=== PATIENT | male | born 1945 | race Caucasian/White ===

== ENCOUNTER 2024-04-30 06:44 | Emergency (ER) | payer OTHER, SELFPAY ==
[2024-04-30] VITALS (17 sets, daily range): BP systolic 144–191; BP diastolic 75–115; PULSE 56–97; RESP 12–23; TEMP 36.7; O2SAT 95–100
--- NOTE | 2024-04-30 06:45 | RT.EKG_ITS ---
APPROVED REPORT Exam: Resting ECG Reason for Exam: Chest Pain Patient Location: E HR:94 bpm ECG Measurements Heart Rate 94 AXIS CA 183 P 3 QRSd 86 QRS -55 QT 357 T 32 QTc 446 Conclusion Sinus rhythm...normal P axis, V-rate 60- 99 Left atrial enlargement...P, P'>60mS, <-0.15mV V1 Left anterior fascicular block...axis(240,-40), init forces inf Left ventricular hypertrophy...multiple voltage criteria Anterior infarct, old...Q >40mS, abnormal ST-T, V2-V5
[2024-04-30 07:04] LABS: Abs Immature Grans 0.01 10^3/uL (0.0-0.06); Absolute Basophil Count 0.02 10^3/uL (0.0-0.2); Absolute Eosinophil Count 0.11 10^3/uL (0.0-0.7); Absolute Monocyte Count 0.44 10^3/uL (0.1-0.8); Absolute Neutrophil Count 3.84 10^3/uL (1.2-6.7); Basophils % 0.4 %; Eosinophils % 2.1 %; HCT 48.8 % (40.0-50.0); HGB 16.6 g/dL (13.5-17.5); Immature Grans % 0.2 %; Lymphocytes % 16.9 %; MCH 31.4 pg (27.0-33.0); MCV 92 fL (80-95); MPV 10.4 fL (8.0-11.0); Monocytes % 8.3 %; Neutrophils % 72.1 %; Platelet Count 140 10^3/uL (130-400); RBC 5.28 10^6/uL (4.36-5.78); RDW 12.7 % (11.8-14.1); RDW-SD 43.6 fL; WBC 5.32 10^3/uL (4.4-10.8)
--- NOTE | 2024-04-30 07:05 | ED.GENADUL_ITS ---
Discharge Plan Disposition Specific Acute Inpt Facility: [facility] Condition: Serious Discharge Details Chief Complaint: Chest Pain Clinical Impression: Non-ST elevation [place] (NSTEMI), Dyspnea Primary Care Provider: Unknown,Unknown ED Provider: Chilo Bauer Home Meds and New Rx's Prescriptions: No Action pantoprazole 40 mg tablet,delayed release (DR/EC) 40 mg PO DAILY tamsulosin 0.4 mg capsule 0.4 mg PO DAILY famciclovir 250 mg tablet 250 mg PO BID HPI General Mode of arrival: ambulatory . Date/Time Provider Initiated Documentation: 04/30/24 06:55 . Limitations to Documentation: no limitations . Information obtained by: patient . History of Present Illness 79 year old M p resents to the emergency department with the chief complaint of chest tightness, described as moderate, Patient started experiencing this day(s) (5) and it has been intermittent. No relieving factors improve symptom(s), No exacerbating factors reported . Patient notes shortness of breath; denies fever/chills and syncope. Patient did receive the following treatments prior to arrival, none Related Data Home Medications ?Medication ?Instructions ?Recorded ?Confirmed famciclovir 250 mg tablet 250 mg PO BID 03/30/22 04/30/24 pantoprazole 40 mg tablet,delayed 40 mg PO DAILY 03/30/22 04/30/24 release tamsulosin 0.4 mg capsule 0.4 mg PO DAILY 03/30/22 04/30/24 Allergies Allergy/AdvReac Type Severity Reaction Status Date / Time Penicillins Allergy Anaphylaxis Verified 04/30/24 06:51 General Stated Complaint: Chest Pain MONIQUE: 2 Review of Systems All systems reviewed & are unremarkable except as noted in HPI and below Constitutional Constitutional: Denies chills, Denies fever(s) and Denies weakness Cardiovascular Cardiovascular: Reports chest pain and Reports dyspnea Respiratory Respiratory: Denies cough and Reports dyspnea Gastrointestinal Gastrointestinal: Denies abdominal pain, Denies nausea and Denies vomiting Musculoskeletal Musculoskeletal: Denies joint swelling Neurologic Neurologic: Denies weakness Exam Const General: no acute distress Orientation: alert [facility] Head: normal to inspection Ears: external ears normal General nose exam: external nose normal Mouth: moist mucous membranes Eyes General: appearance normal, both eyes and all related structures Neck Neck: normal visual inspection Resp Effort & Inspection: normal respiratory effort and able to speak in complete sentences Auscultation: clear to auscultation bilaterally Cardio Jugular venous pressure: no JVD Rate: regular rate Heart Sounds: no murmurs GI Palpation: soft and nontender Skin General skin exam: no rashes or lesions noted Neuro General: patient alert and patient oriented x3 Extrem General: normal to inspection Psych Mental Status: mental status grossly normal Course Vital Signs Vital signs: Vital Signs Temperature 36.7 C 04/30/24 06:48 Pulse 97 H 04/30/24 06:48 Respiratory Rate 18 04/30/24 06:48 Blood Pressure 155/101 H 04/30/24 06:48 Pulse Oximetry 99 04/30/24 06:48 Temperature 36.7 C 04/30/24 06:48 Temperature Source Skin 04/30/24 06:48 Pulse 97 H 04/30/24 06:48 Respiratory Rate 18 04/30/24 06:48 Blood Pressure 155/101 H 04/30/24 06:48 Blood Pressure Position Sitting 04/30/24 06:48 Pulse Oximetry 99 04/30/24 06:48 Oxygen Delivery Method Room Air 04/30/24 06:48 Oxygen Flow Rate 0 04/30/24 06:48 Pain Level 7 04/30/24 06:48 Medical Decision Making 79-year-old male who says he has psoriatic arthritis, emphysema and continued smoker, GERD, no prior cardiac history comes in intermittent chest pressure associated with exertion along with some mild shortness of breath. He says this started the day after he was golfing which he has not done in 15 years. He also noted that his dog had an episode where he clipped his nail too short and had trouble controlling the bleeding which made him anxious. He denies any diaphoresis, nausea vomiting, fevers, cough. He is alert and oriented x 4 and arrival in no distress and appears well. He has no leg swelling or calf tenderness, soft nontender abdomen. Lungs are clear with no murmurs. Given his age and risk factors will obtain troponin, CBC, CMP, if his renal function is adequate will consider CTA of the chest to exclude PE. He has no tearing chest pain or back pain and normal equal peripheral pulses so doubt dissection. Patient stable, his troponin did come back positive at 78. Discussed results with him, I advised that we would recommend repeating a troponin and also consulting with cardiology at [facility]. Patient is visiting here from [place] so he is currently not thrilled about having to be hospitalized here and states he may leave AMA. He has medical decision-making capacity understands the risks of leaving including permanent and disability, he still is willing to accept these risks. He is willing to stay for second [place] and will reassess if you want to be hospitalized at that time.Patient updated on his lung nodule which he will need f/u imaging for as an outpatient. pt amenable to transfer and admission if needed now, he is feeling anxious and requesting something for anxiety, oral ativan ordered, will also start heparin infusion and consult [facility] Spoke with Geena Peoples from cardiology at [facility] who reviewed the case and they have excepted to their facility but will need to wait for bed to open up. He is hemodynamically stable, they agreed with aspirin and heparin, they also recommended a 600 mg load of Plavix, 12.5 mg metoprolol every 6 hours and also atorvastatin 80 mg. Patient hemodynamically stable, Differential Diagnosis Differential Diagnosis: anxiety, acs, pe Imaging Data Radiologic Study: Attestation: I personally reviewed and interpreted this imaging study as follows: Imaging: CT Scan Radiologist's impression: IMPRESSION: 1. No evidence of pulmonary embolism or thoracic aortic dissection. 2. The ascending thoracic aorta measures 4.4 x 4.3 cm. Cardiomegaly. Coronary artery calcification. 3. 7 mm nodule adjacent to the right minor fissure. Lab Data Lab results reviewed: Yes I reviewed the patient's lab results. ECG Data Attestation: I personally reviewed and interpreted this ECG (s) as follows: Prior ECG tracings: not available for review Interpretation: Sinus rhythm, rate of 94, left anterior fascicular block, no STEMI Quality:SDOH Health Related Social Needs: No Data to Display PFSH All Active Problems (Updated 04/30/24 @ 10:39 by Chilo Bauer MD) Dyspnea (Acute) Non-ST elevation [place] (NSTEMI) (Acute) Social History Smoking/Tobacco Use Status: Never Smoking risk assessment performed?: Yes Alcohol Intake: current Alcohol Intake frequency: 0-2 drinks per day Alcohol type: wine Substance use type: does not use Housing: apartment Do you feel safe at home: Yes Do you feel safe in your relationship?: Yes
[2024-04-30 07:16] LABS: INR 1.1 (0.9-1.1); PTT Activated 26.7 sec (23.6-32.8); Prothrombin Time 10.6 sec (9.1-11.1)
[2024-04-30 07:20] LABS: ALT 21 U/L (16-63); AST 16 U/L (15-37); Albumin 3.8 g/dL (3.4-5.0); Alkaline Phosphatase 90 U/L (46-116); Anion Gap 9.7 mmol/L (3-11); BUN 17 mg/dL (7-18); Bilirubin, Total 0.59 mg/dL (0.2-1.0); CO2 26.3 mmol/L (21.0-32.0); Calcium 9.3 mg/dL (8.5-10.1); Chloride 106 mmol/L (98-107); Estimated GFR 77.52 (mL/min/1.73m2); Glucose 100 mg/dL (74-106); Potassium 3.5 mmol/L (3.5-5.1); Sodium 142 mmol/L (136-145); Total Protein 7.4 g/dL (6.4-8.2)
[2024-04-30 07:22] LABS: Troponin I 78 ng/L (< or =60)
[2024-04-30] MEDS: Omnipaque 350 MG/ML 100 ML BTL IJ (07:52)
[2024-04-30] MEDS: Normal Saline - Diluent 50 ML VIAL IJ (07:53)
--- NOTE | 2024-04-30 08:00 | DI.CT_ITS ---
Exam(s) CT CHEST PE CTA EXAM: CT CHEST PE CTA CLINICAL HISTORY: dyspnea, chest pain. TECHNIQUE: Imaging Protocol: Axial CT angiography was performed with multi-slice acquisition and mu lti-planar and/or 3D reconstructions. CONTRAST MATERIAL: Intravenous: Omnipaque 350 contrast volume:100 mL COMPARISON: No exams were available for comparison FINDINGS: Tracheobronchial tree: Patent where visualized. Pulmonary parenchyma: Moderate centrilobular and paraseptal emphysematous changes are present. There is a 7 mm nodule associated with the right minor fissure (series 9, image 310). No other pulmonary nodules are seen. No focal consolidating infiltrates are present. Pulmonary Arteries: No evidence of filling defect to suggest pulmonary emboli. Mediastinum and Layla: No dominant adenopathy or fluid collection. The esophagus is unremarkable. Visualized thyroid gland: Unremarkable. Pleura: No effusion or pneumothorax. Heart: Cardiomegaly. Coronary artery calcification is present. No pericardial effusion. Aorta: The ascending thoracic aorta measures 4.4 x 4.3 cm. No evidence of dissection. Atheroscleroti c calcification is present. Upper abdomen: No acute abnormality is seen in the upper abdomen. There is a cyst incompletely imag ed on the upper pole of the right kidney. Follow-up as clinically appropriate. Soft tissues: Unremarkable. Bones: Within normal limits for the patient's age. IMPRESSION: 1. No evidence of pulmonary embolism or thoracic aortic dissection. 2. The ascending thoracic aorta measures 4.4 x 4.3 cm. Cardiomegaly. Coronary artery calcification. 3. 7 mm nodule adjacent to the right minor fissure. For solitary solid noncalcified nodules measuring 6???8 mm in patients at high risk, an initial follo w-up examination is recommended at 6???12 months and again at 18???24 months (grade 1B: strong recomm endation, moderate quality evidence). (Sherri et al., 2017) Solitary noncalcified solid nodules measuring 6???8 mm in patients with low clinical risk are recomme nded to undergo initial follow-up at 6???12 months depending on size, morphology, and patient prefere nce (grade 1C: strong recommendation, low- or [id number] evidence). (Sherri et al., 2017) Unexpected findings RADIATION DOSE DELIVERED: Total DLP DATA REPOSITORY: All CT scans at this facility are submitted to the National Radiology Data Registry (NRDR) Dose Index Registry (DIR) with the [employer] ([employer]). RADIATION OPTIMIZATION: All CT scans at this facility use at least one of these dose optimization te chniques: automated exposure control; mA and/or kV adjustment per patient size (includes targeted exa ms where dose is matched to clinical indication); or iterative reconstruction.
--- OUTSIDE RECORDS SUMMARY | 2024-04-30 08:19 | XMS_ITS | Continuity of Care Document ---
Author Name [facility] Organization [facility] Care Team Providers Care Java Software Engineer Name Role Phone [facility] Unavailable Unavailable Problems Combined list of problems from Department of Defense and Veterans Affairs facilities. It does not include entries that were removed or entered in error. Problem Status Onset Date Problem Type Date of Resolution Comments Source Abdominal Pain, Epigastric (ICD-9-CM 789.06) Active Condition [facility] Adjustment Disorder with Anxiety (ICD-9-CM 309.24) Active Condition [facility] Anxiety Active Condition [facility] Anxiety (SNOMED CT 00572678) Active Condition [facility] Arthritis Active Condition [facility] Chest Pain * (ICD-9-CM 786.50) Active Condition [facility] Chronic prostatitis (ICD-9-CM 601.1) Active Condition [facility] Diarrhea (SNOMED CT 17730666) Active Condition [facility] Dyspnea on exertion Active Condition [facility] Elevated blood pressure (SNOMED CT 16513906) Active Condition [facility] Elevated PSA Active Condition [facility] family history pancreatic cancer (mother) Active Condition [facility] Flexible Sigmoidoscopy Active Condition Dec 08, 2008 Entered By: AMANDA AN Comment: 03/14/06, WNKacey [facility] Gastroesophageal reflux disease (SNOMED CT 711334425) Active Condition [facility] Headache * (ICD-9-CM 784.0) Active Condition [facility] Health Maintenance (ICD-9-CM V65.9) Active Condition [facility] Herpes simplex Active Condition [facility] Herpes Zoster * (ICD-9-CM 053.9) Active Condition [facility] Herpesvirus infection Active Condition [facility] Hyperlipidemia (SNOMED CT 83720345) Active Condition [facility] Keratoconjunctivitis sicca Active Condition [facility] Methicillin resistant Staphylococcus aureus infection Active Condition [facility] Myalgia (SCT 29929153) Active Condition [facility] Neck Pain (ICD-9-CM 723.1) Active Condition [facility] Palpitations Active Condition [facility] Pseudogout Active Condition [facility] Psoriasis, skin or nails * (ICD-9-CM 696.1) Active Condition [facility] Renal Calculi (ICD-9-CM 592.0) Active Condition [facility] Shoulder: arthralgia * (ICD-9-CM 719.41) Active Condition [facility] Temporomandibular joint disorder (SNOMED CT 41098210) Active Condition [facility] Tendinitis * (ICD-9-CM 726.90) Active Condition [facility] Tenosynovitis Active Condition [facility] Tobacco use (SNOMED CT 165414731) Active Condition Nov 11, 2009 Entered By: AMANDA AN Comment: minimal use, occasionally smokes a couple of cigs [facility] Umbilical hernia * (ICD-9-CM 553.1) Active Condition [facility] Upper gastrointestinal hemorrhage Active Condition [facility] Xerostomia Active Condition N. [place] Arthritis, Psoriatic * (ICD-9-CM 696.0) Inactive Condition 11/09/2017 [facility] Cellulitis and abscess of hand, except fingers and thumb (ICD-9-CM 682.4) Inactive Condition 11/09/2017 [facility]Siobhan [facility] Diagnosis: ICD-10-CM F41.9 Anxiety disorder, unspecified Active Diagnosis 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 Diagnosis: ICD-10-CM Z71.89 Other specified counseling Active Diagnosis 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 [facility] Diagnosis: ICD-10-CM E78.5 Hyperlipidemia, unspecified Active Diagnosis [facility]Siobhan [facility] Diagnosis: ICD-10-CM Z23 Encounter for immunization [facility] Diagnosis: ICD-10-CM M79.676 Pain in unspecified toe(s) Active Diagnosis [facility] Diagnosis: ICD-10-CM Z86.010 Personal history of colonic polyps Active [facility] Diagnosis: ICD-10-CM H43.813 Vitreous degeneration, bilateral Active Diagnosis [facility].Siobhan [facility] Medications Combined list of outpatient medications from Department of Defense and Veterans Affairs facilities.Medications provided include 1) outpatient medications from the last 15 months, and 2) patient-reported medications. Medication Details Route Status Patient Instructions Prescription Expires Prescription Number Last Dispense Date Ordering Provider Order Date Order Qty Source ASPIRIN 81MG TAB,EC ASPIRIN 81MG TAB,EC Non-VA TAKE ONE TABLET BY MOUTH ONE TIME EACH DAY Mar 18, 2008 Non-VA Document ed by: HERBIE AN Document ed at: [facility] ORAL ACTIVE ZARIA AN 2007 [facility] CLOTRIMAZOL E 1% SOLN,TOP CLOTRIMA ZOLE 1% SOLN,TOP APPLY PAINT TO DISCOLOR ED NAILS TOPICALL Y TWICE A DAY FOR FUNGAL INFECTIO N FOR FUNGAL INFECTIO N February 08, 2023 30 February 09, 2024 [id number] February 11, 2023 RAHEEL TAMAYO [facility] TOPICA L 02/09/2024 [id number] 3 Caryn TAMAYO 2022 30 [facility] COLCHICINE 0.6MG TAB COLCHICI NE 0.6MG TAB Active TAKE ONE TABLET BY MOUTH TWICE A DAY FOR PSEUDOGO UT FOR PSEUDOGO UT Jan 09, 2024 60 Jan 09, 2025 [id number] Apr 29, 2024 JESENIA HANSEN [facility] ORAL ACTIVE 01/09/2025 [id number] 4 Kacey HANSEN S 2023 60 [facility] FAMCICLOVIR 250MG TAB FAMCICLO VIR 250MG TAB TAKE ONE TABLET BY MOUTH TWICE A DAY FOR VIRAL SUPPRESS ION. FOR ACUTE OUTBREAK INCREASE DOSE TO 1000MG(4 TABLETS) TWICE DAILY FOR 2 DAYS AND CALL CLINIC FOR INFECTIO N CAUSED BY A VIRUS Mar 22, 2023 130 Mar 22, 2024 [id number] A March 06, 2024 David CABALLERO [facility] ORAL 03/22/[id number] BRANDAN CABALLERO 2022 130 [facility] GABAPENTIN 100MG CAP GABAPENT IN 100MG CAP Active TAKE ONE CAPSULE BY MOUTH THREE TIMES A DAY FOR NEUROPAT HY Aug 08, 2023 90 Aug 08, 2024 [id number] Aug 09, 2023 David CABALLERO [facility] ORAL ACTIVE 08/08/[id number] PRATIBHA CABALLEROV 2022 90 [facility] HYDROXYZINE HCL 10MG TAB HYDROXYZ INE HCL 10MG TAB Disconti nued TAKE TWO TABLETS BY MOUTH THREE TIMES A DAY NEEDED FOR ANXIETY FOR ANXIETY Aug 08, 2023 300 Aug 08, 2024 [id number] Aug 09, 2023 David CABALLERO [facility] ORAL DISCONT INUED 08/08/[id number] ADA DEBORAHHARSHA 2022 300 [facility] PANTOPRAZOL E NA 40MG TAB,EC PANTOPRA ZOLE NA 40MG TAB,EC Active: On Hold TAKE ONE TABLET BY MOUTH TWICE A DAY FOR STOMACH ACID FOR STOMACH# ## FOR STOMACH ACID Sep 07, 2023 180 Sep 07, 2024 [id number] A Sep 08, 2023 JESENIA HANSEN [facility] ORAL HOLD 09/07/2024 [id number] 3 Kacey HANSEN S 2022 180 [facility] PANTOPRAZOL E NA 40MG TAB,EC PANTOPRA ZOLE NA 40MG TAB,EC Disconti nued TAKE ONE TABLET BY MOUTH TWICE A DAY FOR STOMACH ACID FOR STOMACH# ## FOR STOMACH ACID Jun 01, 2022 180 Jun 02, 2023 [id number] Mar 29, 2023 David CABALLERO [facility] ORAL DISCONT INUED 06/02/[id number] [facility] DEBORAHJENNIFER 2021 180 [facility] POLYVINYL ALCOHOL 1.4%/POVIDO NE (PF) SOLN,OPH POLYVINY L ALCOHOL 1.4%/POV IDONE (PF) SOLN,OPH Active INSTILL 1 DROP INTO BOTH EYES TWICE A DAY NEEDED FOR DRY EYES Aug 08, 2023 100 Aug 08, 2024 [id number] Aug 09, 2023 David CABALLERO [facility] OPHTHA LMIC ACTIVE 08/08/[id number] BRANDAN CABALLERO 2022 100 [facility] PREDNISONE 20MG TAB PREDNISO NE 20MG TAB TAKE THREE TABLETS BY MOUTH ONE TIME EACH DAY FOR 2 DAYS, THEN TAKE TWO TABLETS ONE TIME EACH DAY FOR 3 DAYS, THEN TAKE ONE TABLET ONE TIME EACH DAY FOR 2 DAYS FOR ALLERGIC REACTION (TAKE WITH FOOD) FOR ALLERGIC REACTION Sep 19, 2023 14 Oct 19, 2023 [id number] Sep 19, 2023 JESENIA HANSEN [facility] ORAL 10/19/2023 [id number] 3 Kacey HANSEN S 2022 14 [facility] PROPRANOLOL HCL 10MG TAB PROPRANO LOL HCL 10MG TAB Active TAKE ONE TABLET BY MOUTH TWICE A DAY FOR BLOOD PRESSURE AND ANXIETY. FOR BLOOD PRESSURE Feb 06, 2024 60 Feb 06, 2025 [id number] Feb 07, 2024 JESENIA HANSEN [facility] ORAL ACTIVE 02/06/2025 [id number] 4 Kacey HANSEN 2023 60 [facility] TAMSULOSIN HCL 0.4MG CAP TAMSULOS IN HCL 0.4MG CAP Disconti nued TAKE ONE CAPSULE BY MOUTH AT BEDTIME FOR PROSTATE FOR PROSTATE Jul 27, 2023 30 Mar 22, 2024 [id number] Sep 15, 2023 David CABALLERO [facility] ORAL DISCONT INUED 03/22/[id number] BRANDAN CABALLERO 2022 30 [facility] TAMSULOSIN HCL 0.4MG CAP TAMSULOS IN HCL 0.4MG CAP Disconti nued TAKE ONE CAPSULE BY MOUTH AT BEDTIME FOR PROSTATE FOR PROSTATE Mar 22, 2023 90 Mar 22, 2024 [id number] Jun 18, 2023 David CABALLERO [facility] ORAL DISCONT INUED 03/22/[id number] BRANDAN CABALLERO 2022 90 [facility] TERAZOSIN HCL 1MG CAP TERAZOSI N HCL 1MG CAP Active TAKE ONE CAPSULE BY MOUTH AT BEDTIME FOR PROSTATE INSTEAD OF FLOMAX/T AMSULOSI N FOR PROSTATE Sep 15, 2023 90 Sep 15, 2024 [id number] February 28, 2024 JESENIA HANSEN [facility] ORAL ACTIVE 09/15/2024 [id number] Kacey HANSEN S 2022 90 [facility] Allergies, Adverse Reactions, Alerts Combined list of allergies from Department of Defense and Veterans Affairs facilities. It does not include entries that were removed or entered in error. Substance Category Reaction Severity Reaction type Status Date Reported Comments Source ACYCLOVIR Propensity to adverse reactions to drug (finding) Generalized aches and pains active 0 N. [facility] FLEXERIL Propensity to adverse reactions to drug (finding) Drowsy active 9 N. [facility] PENICILLIN Propensity to adverse reactions to drug (finding) Eruption active 6 [facility] PILOCARPINE Propensity to adverse reactions to drug (finding) Diarrhea active 6 [facility] VALACYCLOVIR Propensity to adverse reactions to drug (finding) Generalized aches and pains active 0 N. [facility] Immunizations Combined list of available immunizations from the Department of [facility] and [facility] facilities. Immunization Series Date Given Administered By Site Reaction Lot Number CVX Code Drug Fire Prevention Engineer Status Comments Source COVID-19 (MODERNA), MRNA, LNP-S, PF, 50 MCG/0.5 ML (AGES 12+ YEARS) 2022 PILAR MOSELEY JR RIGHT DELTO ID [id number] 312 complet ed [facility] INFLUENZA VACCINE, QUADRIVALENT, ADJUVANTED 1 2022 205 complet ed N. [facility] COVID-19 (MODERNA), MRNA, LNP-S, BIVALENT BOOSTER, PF, 50 MCG/0.5 ML OR 25MCG/0.25 ML DOSE 1 2021 MAYELA FLOWERS RIGHT DELTO ID [id number] 229 complet ed [facility] INFLUENZA, HIGH-DOSE, QUADRIVALENT 1 2021 197 complet ed [facility] INFLUENZA, UNSPECIFIED FORMULATION 2021 88 complet ed [facility] COVID-19 (MODERNA), MRNA, LNP-S, PF, 100 MCG/0.5ML DOSE OR 50 MCG/0.25ML DOSE 4 2021 207 complet ed [facility] COVID-19 (MODERNA), MRNA, LNP-S, PF, 100 MCG/0.5ML DOSE OR 50 MCG/0.25ML DOSE 3 2020 207 complet ed [facility] INFLUENZA VACCINE, QUADRIVALENT, ADJUVANTED 2020 205 complet ed [facility] TD (ADULT), 2 LF TETANUS TOXOID, PRESERVATIVE FREE, ADSORBED 2020 09 complet ed [facility] COVID-19 (MODERNA), MRNA, LNP-S, PF, 100 MCG/0.5 ML DOSE 2 2020 207 complet ed [facility] COVID-19 (MODERNA), MRNA, LNP-S, PF, 100 MCG/0.5 ML DOSE 1 2020 207 complet ed [facility] INFLUENZA, UNSPECIFIED FORMULATION 2019 88 complet ed [facility] INFLUENZA, HIGH-DOSE, QUADRIVALENT 2019 197 complet ed Partner:Mariluz PUENTE.Admin istered by:[facility] [id number].([id number]) .ND:[id number] ddress:13 [id number] [facility] [id number] Dosage: ML 0.7 [facility] INFLUENZA, INJECTABLE, QUADRIVALENT, PRESERVATIVE FREE 2018 150 complet ed [facility] INFLUENZA, INJECTABLE, QUADRIVALENT, PRESERVATIVE FREE 2017 150 complet ed [facility] ZOSTER RECOMBINANT 2017 NONE 187 complet ed [facility] ZOSTER RECOMBINANT 2017 187 complet ed [facility] INFLUENZA, INJECTABLE, QUADRIVALENT, PRESERVATIVE FREE 2016 150 complet ed [facility] INFLUENZA, SEASONAL, INJECTABLE, PRESERVATIVE FREE 2015 140 complet ed [facility] INFLUENZA, SEASONAL, INJECTABLE, PRESERVATIVE FREE 2014 140 complet ed [facility] PNEUMOCOCCAL CONJUGATE PCV 13 2014 133 complet ed [facility] FLU,3 YRS (HISTORICAL) 2013 88 complet ed [facility] FLU,3 YRS (HISTORICAL) 2012 88 complet ed [facility] PNEUMOCOCCAL, UNSPECIFIED FORMULATION 2012 NONE 109 complet ed [facility] Varicella Zoster (HISTORICAL) 2012 NONE complet ed [facility] PNEUMOCOCCAL POLYSACCHARID E PPV23 2012 33 complet ed [facility] FLU,3 YRS (HISTORICAL) 2011 88 complet ed [facility] FLU,3 YRS (HISTORICAL) 2010 88 complet ed [facility] TDAP 2010 115 complet ed [facility] FLU,3 YRS (HISTORICAL) 2009 88 complet ed [facility] FLU,3 YRS (HISTORICAL) 2008 88 complet ed [facility] TD(ADULT) UNSPECIFIED FORMULATION 1999 139 complet ed [facility] Results Combined list of recent chemistry, hematology and other laboratory results from Department of Defense and Veterans Affairs, ranging from 15 months to all on record, depending upon the facility. Order Name Results Value Reference Range Date Interpretation Specimen Comments Source TOTAL,VIT D VITAMIN D+METABOLIT ES [MASS/VOLUM E] IN SERUM OR PLASMA 31.8 ng/mL 01/29 Specimen Type: SERUM Comment: TOTAL,VIT D interpretati on of results: Vitamin D deficiency: < or = 20 ng/mL Vitamin D insuficiency : 21 - 29 ng/mL Preferred level: > or = 30 ng/mL Toxicity: > 100 ng/mL Test performed on Cheryl chemistry analyzer (573) Ordering Provider: STEPH HANSEN Report Released Date/Time: Sep 07, 2023 12:09 PM Reporting Lab: [facility]/S. [place] [address] [address] Performing Lab: N. [place] [address] [facility] [address] [facility] URIC ACID URATE [MASS/VOLUM E] IN SERUM OR PLASMA 3.7 mg/dL 3.5 - 8.5 01/29 Specimen Type: PLASMA Comment: eGFR calculated using the 2020 CKD-EPI Creatinine equation: eGFR and Chronic Kidney Disease (CKD) Stages: >=90 ml/min Stage 1 - None or Slight CKD 89-60 ml/min Stage 2 - Mild CKD 45-59 ml/min Stage 3a - Moderate CKD 30-44 ml/min Stage 3B - Moderate CKD 29-15 ml/min Stage 4 - Severe CKD <15 ml/min Stage 5 - End Stage CKD Reference: [email or web address] Direct LDL Cholesterol not performed when Triglyceride s are < or = 400 mg/dL. Ordering Provider: STEPH HANSEN Report Released Date/Time: Dec 19, 2023 05:52 PM Reporting Lab: [facility] [address] [facility] [address] Performing Lab: [facility] [address] [facility] [address] [address] [facility] LIPID PANEL CHOLESTEROL [MASS/VOLUM E] IN SERUM OR PLASMA 171 mg/dL 0 - 199 01/29 Specimen Type: PLASMA Comment: eGFR calculated using the 2020 CKD-EPI Creatinine equation: eGFR and Chronic Kidney Disease (CKD) Stages: >=90 ml/min Stage 1 - None or Slight CKD 89-60 ml/min Stage 2 - Mild CKD 45-59 ml/min Stage 3a - Moderate CKD 30-44 ml/min Stage 3B - Moderate CKD 29-15 ml/min Stage 4 - Severe CKD <15 ml/min Stage 5 - End Stage CKD Reference: [email or web address] Direct LDL Cholesterol not performed when Triglyceride s are < or = 400 mg/dL. Ordering Provider: STEPH HANSEN Report Released Date/Time: Sep 07, 2023 12:09 PM Reporting Lab: [facility] [address] [facility] [address] Performing Lab: [facility] [address] [place] [address] [facility] LIPID PANEL TRIGLYCERID E [MASS/VOLUM E] IN SERUM OR PLASMA 135 mg/dL 0 - 149 01/29 Specimen Type: PLASMA Comment: eGFR calculated using the 2020 CKD-EPI Creatinine equation: eGFR and Chronic Kidney Disease (CKD) Stages: >=90 ml/min Stage 1 - None or Slight CKD 89-60 ml/min Stage 2 - Mild CKD 45-59 ml/min Stage 3a - Moderate CKD 30-44 ml/min Stage 3B - Moderate CKD 29-15 ml/min Stage 4 - Severe CKD <15 ml/min Stage 5 - End Stage CKD Reference: [email or web address]/ Direct LDL Cholesterol not performed when Triglyceride s are < or = 400 mg/dL. Ordering Provider: STEPH HANSEN Report Released Date/Time: Sep 07, 2023 12:09 PM Reporting Lab: [facility] [address] [facility] [address] Performing Lab: [facility] [address] [facility] [address] [facility] LIPID PANEL CHOLESTEROL IN LDL [MASS/VOLUM E] IN SERUM OR PLASMA BY CALCULATION 95 mg/dL <129 - 129 01/29 Specimen Type: PLASMA Comment: eGFR calculated using the 2020 CKD-EPI Creatinine equation: eGFR and Chronic Kidney Disease (CKD) Stages: >=90 ml/min Stage 1 - None or Slight CKD 89-60 ml/min Stage 2 - Mild CKD 45-59 ml/min Stage 3a - Moderate CKD 30-44 ml/min Stage 3B - Moderate CKD 29-15 ml/min Stage 4 - Severe CKD <15 ml/min Stage 5 - End Stage CKD Reference: [email or web address] Direct LDL Cholesterol not performed when Triglyceride s are < or = 400 mg/dL. Ordering Provider: STEPH HANSEN Report Released Date/Time: Sep 07, 2023 12:09 PM Reporting Lab: [facility] [address] [facility] [address] Performing Lab: [facility] [address] [place] [address] [facility] LIPID PANEL CHOLESTEROL IN HDL [MASS/VOLUM E] IN SERUM OR PLASMA 49 mg/dL 40 01/29 Specimen Type: PLASMA Comment: eGFR calculated using the 2020 CKD-EPI Creatinine equation: eGFR and Chronic Kidney Disease (CKD) Stages: >=90 ml/min Stage 1 - None or Slight CKD 89-60 ml/min Stage 2 - Mild CKD 45-59 ml/min Stage 3a - Moderate CKD 30-44 ml/min Stage 3B - Moderate CKD 29-15 ml/min Stage 4 - Severe CKD <15 ml/min Stage 5 - End Stage CKD Reference: [email or web address] Direct LDL Cholesterol not performed when Triglyceride s are < or = 400 mg/dL. Ordering Provider: STEPH HANSEN Report Released Date/Time: Sep 07, 2023 12:09 PM Reporting Lab: [facility] [address] [place] [address] Performing Lab: [facility] [address] [place] [address] [facility] LIPID PANEL CHOLESTEROL IN LDL [MASS/VOLUM E] IN SERUM OR PLASMA BY DIRECT ASSAY cancmg /dL <129 - 129 01/29 Specimen Type: PLASMA Comment: eGFR calculated using the 2020 CKD-EPI Creatinine equation: eGFR and Chronic Kidney Disease (CKD) Stages: >=90 ml/min Stage 1 - None or Slight CKD 89-60 ml/min Stage 2 - Mild CKD 45-59 ml/min Stage 3a - Moderate CKD 30-44 ml/min Stage 3B - Moderate CKD 29-15 ml/min Stage 4 - Severe CKD <15 ml/min Stage 5 - End Stage CKD Reference: [email or web address]/ Direct LDL Cholesterol not performed when Triglyceride s are < or = 400 mg/dL. Ordering Provider: STEPH HANSEN Report Released Date/Time: Sep 07, 2023 12:09 PM Reporting Lab: [facility] [address] [place] [address] Performing Lab: [facility] [address] [place] [address] [facility] MAGNESIUM MAGNESIUM [MASS/VOLUM E] IN SERUM OR PLASMA 2.1 mg/dL 1.7 - 2.5 01/29 Specimen Type: PLASMA Comment: eGFR calculated using the 2020 CKD-EPI Creatinine equation: eGFR and Chronic Kidney Disease (CKD) Stages: >=90 ml/min Stage 1 - None or Slight CKD 89-60 ml/min Stage 2 - Mild CKD 45-59 ml/min Stage 3a - Moderate CKD 30-44 ml/min Stage 3B - Moderate CKD 29-15 ml/min Stage 4 - Severe CKD <15 ml/min Stage 5 - End Stage CKD Reference: [email or web address] Direct LDL Cholesterol not performed when Triglyceride s are < or = 400 mg/dL. Ordering Provider: STEPH HANSEN Report Released Date/Time: Sep 07, 2023 12:09 PM Reporting Lab: [facility] [address] [place] [id number] Performing Lab: [facility] [address] [place] [id number] [facility] PTH-INTACT PARATHYRIN. INTACT [MASS/VOLUM E] IN SERUM OR PLASMA 54.7 pg/mL 10 - 01/29 Specimen Type: PLASMA Comment: Moderately lipemic Ordering Provider: STEPH HANSEN Report Released Date/Time: Jan 06, 2024 09:27 AM Reporting Lab: [place] [address] [place] [address] Performing Lab: [facility] [address] [place] [address] [facility] SED RATE(ESR) ERYTHROCYTE SEDIMENTATI ON RATE BY PHOTOMETRIC METHOD 4 mm/h 01/29 Specimen Type: BLOOD Comment: New ESR method has positive bias compared to old methodology discontinued on 07/29/2020 thru 09/23/2020. NORMAL REFERENCE RANGES: UNDER 50 50-70 >70 male: 20-30 mm/hr 31-44 mm/hr 45-55 mm/hr female: 36-39 mm/hr 38-45 mm/hr 45-55 mm/hr Ordering Provider: STEPH HANSEN Report Released Date/Time: Jan 06, 2024 09:27 AM Reporting Lab: [facility] [address] [facility] [address] Performing Lab: [facility] [address] [facility] [address] SGT E.I. [facility] BASIC METABOLIC PANEL UREA NITROGEN [MASS/VOLUM E] IN SERUM OR PLASMA 18 mg/dL 9 - 20 01/29 Specimen Type: PLASMA Comment: eGFR calculated using the 2020 CKD-EPI Creatinine equation: eGFR and Chronic Kidney Disease (CKD) Stages: >=90 ml/min Stage 1 - None or Slight CKD 89-60 ml/min Stage 2 - Mild CKD 45-59 ml/min Stage 3a - Moderate CKD 30-44 ml/min Stage 3B - Moderate CKD 29-15 ml/min Stage 4 - Severe CKD <15 ml/min Stage 5 - End Stage CKD Reference: [email or web address] Direct LDL Cholesterol not performed when Triglyceride s are < or = 400 mg/dL. Ordering Provider: STEPH HANSEN Report Released Date/Time: Sep 07, 2023 12:09 PM Reporting Lab: SGT E.I. [facility] [address] [facility] [address] Performing Lab: [facility] [address] [facility] [address] SGT E.I. [facility] BASIC METABOLIC PANEL SODIUM [MOLES/VOLU ME] IN SERUM OR PLASMA 139 mmol/L 135 - 145 01/29 Specimen Type: PLASMA Comment: eGFR calculated using the 2020 CKD-EPI Creatinine equation: eGFR and Chronic Kidney Disease (CKD) Stages: >=90 ml/min Stage 1 - None or Slight CKD 89-60 ml/min Stage 2 - Mild CKD 45-59 ml/min Stage 3a - Moderate CKD 30-44 ml/min Stage 3B - Moderate CKD 29-15 ml/min Stage 4 - Severe CKD <15 ml/min Stage 5 - End Stage CKD Reference: [email or web address] [email or web address]/ Direct LDL Cholesterol not performed when Triglyceride s are < or = 400 mg/dL. Ordering Provider: STEPH HANSEN Report Released Date/Time: Sep 07, 2023 12:09 PM Reporting Lab: [facility] [address] [facility] [address] Performing Lab: [facility] [address] [facility] [address] [facility] BASIC METABOLIC PANEL CHLORIDE [MOLES/VOLU ME] IN SERUM OR PLASMA 105 mmol/L 98 - 108 01/29 Specimen Type: PLASMA Comment: eGFR calculated using the 2020 CKD-EPI Creatinine equation: eGFR and Chronic Kidney Disease (CKD) Stages: >=90 ml/min Stage 1 - None or Slight CKD 89-60 ml/min Stage 2 - Mild CKD 45-59 ml/min Stage 3a - Moderate CKD 30-44 ml/min Stage 3B - Moderate CKD 29-15 ml/min Stage 4 - Severe CKD <15 ml/min Stage 5 - End Stage CKD Reference: [email or web address] [email or web address]/ Direct LDL Cholesterol not performed when Triglyceride s are < or = 400 mg/dL. Ordering Provider: STEPH HANSEN Report Released Date/Time: Sep 07, 2023 12:09 PM Reporting Lab: [facility] [address] [facility] [address] Performing Lab: SGT E.ISiobhan [facility] [address] [facility] [address] [facility] BASIC METABOLIC PANEL CARBON DIOXIDE, TOTAL [MOLES/VOLU ME] IN SERUM OR PLASMA 26 mmol/L 23 - 32 01/29 Specimen Type: PLASMA Comment: eGFR calculated using the 2020 CKD-EPI Creatinine equation: eGFR and Chronic Kidney Disease (CKD) Stages: >=90 ml/min Stage 1 - None or Slight CKD 89-60 ml/min Stage 2 - Mild CKD 45-59 ml/min Stage 3a - Moderate CKD 30-44 ml/min Stage 3B - Moderate CKD 29-15 ml/min Stage 4 - Severe CKD <15 ml/min Stage 5 - End Stage CKD Reference: [email or web address] [email or web address]/ Direct LDL Cholesterol not performed when Triglyceride s are < or = 400 mg/dL. Ordering Provider: STEPH HANSEN Report Released Date/Time: Sep 07, 2023 12:09 PM Reporting Lab: [facility] [address] [facility] [address] Performing Lab: [facility] [address] [facility] [address] SGT E.ISiobhan LÓPEZ [facility] BASIC METABOLIC PANEL ANION GAP 3 IN SERUM OR PLASMA 8 mmol/L 5 - 15 01/29 Specimen Type: PLASMA Comment: eGFR calculated using the 2020 CKD-EPI Creatinine equation: eGFR and Chronic Kidney Disease (CKD) Stages: >=90 ml/min Stage 1 - None or Slight CKD 89-60 ml/min Stage 2 - Mild CKD 45-59 ml/min Stage 3a - Moderate CKD 30-44 ml/min Stage 3B - Moderate CKD 29-15 ml/min Stage 4 - Severe CKD <15 ml/min Stage 5 - End Stage CKD Reference: [email or web address] rg/ Direct LDL Cholesterol not performed when Triglyceride s are < or = 400 mg/dL. Ordering Provider: STEPH HANSEN Report Released Date/Time: Sep 07, 2023 12:09 PM Reporting Lab: SGT E.Blas. [facility] [address] [facility] [address] Performing Lab: SGT Jaziel.[facility]. [facility] [address] [facility] [address] T Jaziel.Orquidea LÓPEZ [facility] BASIC METABOLIC PANEL POTASSIUM [MOLES/VOLU ME] IN SERUM OR PLASMA 3.9 mmol/L 3.5 - 5.0 01/29 Specimen Type: PLASMA Comment: eGFR calculated using the 2020 CKD-EPI Creatinine equation: eGFR and Chronic Kidney Disease (CKD) Stages: >=90 ml/min Stage 1 - None or Slight CKD 89-60 ml/min Stage 2 - Mild CKD 45-59 ml/min Stage 3a - Moderate CKD 30-44 ml/min Stage 3B - Moderate CKD 29-15 ml/min Stage 4 - Severe CKD <15 ml/min Stage 5 - End Stage CKD Reference: [email or web address] rg/ Direct LDL Cholesterol not performed when Triglyceride s are < or = 400 mg/dL. Ordering Provider: STEPH HANSEN Report Released Date/Time: Sep 07, 2023 12:09 PM Reporting Lab: [facility] E[facility]. [facility] [address] [facility] [address] Performing Lab: [facility] [address] [place] [address] SGT E.I. [facility] BASIC METABOLIC PANEL CALCIUM [MASS/VOLUM E] IN SERUM OR PLASMA 9.2 mg/dL 8.4 - 10.5 01/29 Specimen Type: PLASMA Comment: eGFR calculated using the 2020 CKD-EPI Creatinine equation: eGFR and Chronic Kidney Disease (CKD) Stages: >=90 ml/min Stage 1 - None or Slight CKD 89-60 ml/min Stage 2 - Mild CKD 45-59 ml/min Stage 3a - Moderate CKD 30-44 ml/min Stage 3B - Moderate CKD 29-15 ml/min Stage 4 - Severe CKD <15 ml/min Stage 5 - End Stage CKD Reference: [email or web address] rg/ Direct LDL Cholesterol not performed when Triglyceride s are < or = 400 mg/dL. Ordering Provider: STEPH HANSEN Report Released Date/Time: Sep 07, 2023 12:09 PM Reporting Lab: SGT E.I. MARIBEL [facility] [address] [facility] [address] Performing Lab: SGT E.I. MAR[place] [address] [facility] [address] SGT E.I. [facility] BASIC METABOLIC PANEL CREATININE [MASS/VOLUM E] IN SERUM OR PLASMA 0.9 mg/dL 0.5 - 1.2 01/29 Specimen Type: PLASMA Comment: eGFR calculated using the 2020 CKD-EPI Creatinine equation: eGFR and Chronic Kidney Disease (CKD) Stages: >=90 ml/min Stage 1 - None or Slight CKD 89-60 ml/min Stage 2 - Mild CKD 45-59 ml/min Stage 3a - Moderate CKD 30-44 ml/min Stage 3B - Moderate CKD 29-15 ml/min Stage 4 - Severe CKD <15 ml/min Stage 5 - End Stage CKD Reference: [email or web address] rg/ Direct LDL Cholesterol not performed when Triglyceride s are < or = 400 mg/dL. Ordering Provider: STEPH HANSEN Report Released Date/Time: Sep 07, 2023 12:09 PM Reporting Lab: SGT E.I. [facility] [address] [facility] [address] Performing Lab: SGT E.I. [facility] [address] [place] [address] SGT E.I. [facility] BASIC METABOLIC PANEL GLUCOSE [MASS/VOLUM E] IN SERUM OR PLASMA 93 mg/dL 65 - 99 01/29 Specimen Type: PLASMA Comment: eGFR calculated using the 2020 CKD-EPI Creatinine equation: eGFR and Chronic Kidney Disease (CKD) Stages: >=90 ml/min Stage 1 - None or Slight CKD 89-60 ml/min Stage 2 - Mild CKD 45-59 ml/min Stage 3a - Moderate CKD 30-44 ml/min Stage 3B - Moderate CKD 29-15 ml/min Stage 4 - Severe CKD <15 ml/min Stage 5 - End Stage CKD Reference: [email or web address] rg/ Direct LDL Cholesterol not performed when Triglyceride s are < or = 400 mg/dL. Ordering Provider: STEPH HANSEN Report Released Date/Time: Sep 07, 2023 12:09 PM Reporting Lab: SGT E.I. [facility] [address] [facility] [address] Performing Lab: SGT E.I. [facility] [address] [facility] [address] SGT E.I. [facility] BASIC METABOLIC PANEL GLOMERULAR FILTRATION RATE/1.73 SQ M.PREDICTED [VOLUME RATE/AREA] IN SERUM, PLASMA OR BLOOD BY CREATININE- BASED FORMULA (CKD-EPI 2020) 88 mL/min 01/29 Specimen Type: PLASMA Comment: eGFR calculated using the 2020 CKD-EPI Creatinine equation: eGFR and Chronic Kidney Disease (CKD) Stages: >=90 ml/min Stage 1 - None or Slight CKD 89-60 ml/min Stage 2 - Mild CKD 45-59 ml/min Stage 3a - Moderate CKD 30-44 ml/min Stage 3B - Moderate CKD 29-15 ml/min Stage 4 - Severe CKD <15 ml/min Stage 5 - End Stage CKD Reference: [email or web address] rg/ Direct LDL Cholesterol not performed when Triglyceride s are < or = 400 mg/dL. Ordering Provider: STEPH HANSEN Report Released Date/Time: Sep 07, 2023 12:09 PM Reporting Lab: SGT E.I. [facility] [address] [place] [address] Performing Lab: [facility] [address] [place] [address] [facility] CBC (DIFF&PLT) LEUKOCYTES [#/VOLUME] IN BLOOD BY AUTOMATED COUNT 4.41 10*3/u L 4.6 - 10.8 01/29 L Specimen Type: BLOOD No comment entered. Ordering Provider: STEPH HANSEN Report Released Date/Time: Sep 07, 2023 12:09 PM Reporting Lab: [facility] [address] [place] [address] Performing Lab: [facility] [address] [place] [address] SGT E.I. [facility] CBC (DIFF&PLT) ERYTHROCYTE S [#/VOLUME] IN BLOOD BY AUTOMATED COUNT 4.73 10*6/u L 4.44 - 6.1 01/29 Specimen Type: BLOOD No comment entered. Ordering Provider: STEPH HANSEN Report Released Date/Time: Sep 07, 2023 12:09 PM Reporting Lab: [facility] [address] [place] [address] Performing Lab: [facility] [address] [place] [address] SGT E.I. [facility] CBC (DIFF&PLT) HEMOGLOBIN [MASS/VOLUM E] IN BLOOD 14.9 g/dL 13.9 - 18 01/29 Specimen Type: BLOOD No comment entered. Ordering Provider: STEPH HANSEN Report Released Date/Time: Sep 07, 2023 12:09 PM Reporting Lab: [facility] [address] [place] [address] Performing Lab: [facility] [address] [place] [address] SGT E.I. [facility] CBC (DIFF&PLT) HEMATOCRIT [VOLUME FRACTION] OF BLOOD BY AUTOMATED COUNT 44.1 41 - 52 01/29 Specimen Type: BLOOD No comment entered. Ordering Provider: STEPH HANSEN Report Released Date/Time: Sep 07, 2023 12:09 PM Reporting Lab: [facility] [address] [place] [address] Performing Lab: [facility]. [facility] [address] [place] [address] [facility]. [facility] CBC (DIFF&PLT) MCV [ENTITIC VOLUME] BY AUTOMATED COUNT 93.2 fL 80 - 98 01/29 Specimen Type: BLOOD No comment entered. Ordering Provider: STEPH HANSEN Report Released Date/Time: Sep 07, 2023 12:09 PM Reporting Lab: [facility] [address] [place] [address] Performing Lab: [facility]. [facility] [address] [facility] SGT E.I. [facility] CBC (DIFF&PLT) MCH [ENTITIC MASS] BY AUTOMATED COUNT 31.5 pg 27 - 33.3 01/29 Specimen Type: BLOOD No comment entered. Ordering Provider: STEPH HANSEN Report Released Date/Time: Sep 07, 2023 12:09 PM Reporting Lab: [facility] [address] [facility] Performing Lab: SGT E.[facility]. [facility] [address] [place] [address] SGT E.I. [facility] CBC (DIFF&PLT) MCHC [MASS/VOLUM E] BY AUTOMATED COUNT 33.8 g/dL 31.8 - 37.1 01/29 Specimen Type: BLOOD No comment entered. Ordering Provider: STEPH HANSEN Report Released Date/Time: Sep 07, 2023 12:09 PM Reporting Lab: [facility] [address] [facility] Performing Lab: [facility] [address] [facility] SGT E.I. [facility] CBC (DIFF&PLT) PLATELETS [#/VOLUME] IN BLOOD BY AUTOMATED COUNT 128 10*3/u L 130 - 440 01/29 L Specimen Type: BLOOD No comment entered. Ordering Provider: STEPH HANSEN Report Released Date/Time: Sep 07, 2023 12:09 PM Reporting Lab: [facility] [address] [place] [address] Performing Lab: [facility] [address] [place] [address] [facility]. [facility] CBC (DIFF&PLT) PLATELET MEAN VOLUME [ENTITIC VOLUME] IN BLOOD BY AUTOMATED COUNT 10.9 fL 7.4 - 10.5 01/29 H Specimen Type: BLOOD No comment entered. Ordering Provider: STEPH HANSEN Report Released Date/Time: Sep 07, 2023 12:09 PM Reporting Lab: [facility] [address] [place] [address] Performing Lab: [facility] [address] [place] [address] [facility] CBC (DIFF&PLT) EOSINOPHILS /100 LEUKOCYTES IN BLOOD 3.9 0 - 3 01/29 H Specimen Type: BLOOD No comment entered. Ordering Provider: STEPH HANSEN Report Released Date/Time: Sep 07, 2023 12:09 PM Reporting Lab: [facility] [address] [place] [address] Performing Lab: [facility] [address] [place] [address] [facility] CBC (DIFF&PLT) BASOPHILS/1 00 LEUKOCYTES IN BLOOD BY AUTOMATED COUNT 0.2 0 - 2 01/29 Specimen Type: BLOOD No comment entered. Ordering Provider: STEPH HANSEN Report Released Date/Time: Sep 07, 2023 12:09 PM Reporting Lab: [facility] [address] [place] [address] Performing Lab: [facility] [address] [place] [address] [facility] CBC (DIFF&PLT) NUCLEATED ERYTHROCYTE S/100 LEUKOCYTES [RATIO] IN BLOOD 0.0 /100{W BCs} 0 - 6 01/29 Specimen Type: BLOOD No comment entered. Ordering Provider: STEPH HANSEN Report Released Date/Time: Sep 07, 2023 12:09 PM Reporting Lab: [facility] [address] [facility] [address] Performing Lab: [facility] [address] [place] [address] SGT E.I. [facility] CBC (DIFF&PLT) ERYTHROCYTE DISTRIBUTIO N WIDTH [RATIO] BY AUTOMATED COUNT 12.7 11.5 - 14.5 01/29 Specimen Type: BLOOD No comment entered. Ordering Provider: STEPH HANSEN Report Released Date/Time: Sep 07, 2023 12:09 PM Reporting Lab: [facility] [address] [place] [address] Performing Lab: [facility] [address] [place] [address] SGT E.I. [facility] CBC (DIFF&PLT) LYMPHOCYTES [#/VOLUME] IN BLOOD BY AUTOMATED COUNT 1.25 10*3/u L 1.2 - 3.6 01/29 Specimen Type: BLOOD No comment entered. Ordering Provider: STEPH HANSEN Report Released Date/Time: Sep 07, 2023 12:09 PM Reporting Lab: [facility] [address] [place] [address] Performing Lab: [facility] [address] [facility] [address] SGT E.I. [facility] CBC (DIFF&PLT) MONOCYTES [#/VOLUME] IN BLOOD BY AUTOMATED COUNT 0.35 10*3/u L 0.14 - 0.76 01/29 Specimen Type: BLOOD No comment entered. Ordering Provider: STEPH HANSEN Report Released Date/Time: Sep 07, 2023 12:09 PM Reporting Lab: [facility] [address] [facility] [address] Performing Lab: [facility] [address] [facility] [address] SGT E.I. BOOTS [facility] CBC (DIFF&PLT) LYMPHOCYTES /100 LEUKOCYTES IN BLOOD 28.3 25 - 33 01/29 Specimen Type: BLOOD No comment entered. Ordering Provider: STEPH HANSEN Report Released Date/Time: Sep 07, 2023 12:09 PM Reporting Lab: [facility] [address] [facility] [address] Performing Lab: [facility] [address] [facility] [address] SGT E.I. [facility] CBC (DIFF&PLT) MONOCYTES/1 00 LEUKOCYTES IN BLOOD 7.9 3 - 7 01/29 H Specimen Type: BLOOD No comment entered. Ordering Provider: STEPH HANSEN Report Released Date/Time: Sep 07, 2023 12:09 PM Reporting Lab: SGT E.I. [facility] [address] [facility] [address] Performing Lab: [facility] [address] [facility] [address] SGT E.I. [facility] CBC (DIFF&PLT) NEUTROPHILS /100 LEUKOCYTES IN BLOOD 59.2 54 - 65 01/29 Specimen Type: BLOOD No comment entered. Ordering Provider: STEPH HANSEN Report Released Date/Time: Sep 07, 2023 12:09 PM Reporting Lab: [facility] [address] [facility] [address] Performing Lab: [facility] [address] [facility] [address] SGT E.I. [facility] CBC (DIFF&PLT) NEUTROPHILS [#/VOLUME] IN BLOOD BY AUTOMATED COUNT 2.61 10*3/u L 1.8 - 7.8 01/29 Specimen Type: BLOOD No comment entered. Ordering Provider: STEPH HANSEN Report Released Date/Time: Sep 07, 2023 12:09 PM Reporting Lab: [facility]. [facility] [address] Performing Lab: SGT E.I. [facility] [address] [place] [address] CBC (DIFF&PLT) EOSINOPHILS [#/VOLUME] IN BLOOD BY AUTOMATED COUNT 0.17 10*3/u L 0.0 - 0.3 01/29 Specimen Type: BLOOD No comment entered. Ordering Provider: STEPH HANSEN Report Released Date/Time: Sep 07, 2023 12:09 PM Reporting Lab: [facility]GT E.[facility]. [facility] [address] [place] [address] Performing Lab: SGT E.I. [facility] [address] [facility] CBC (DIFF&PLT) BASOPHILS [#/VOLUME] IN BLOOD BY AUTOMATED COUNT 0.01 10*3/u L 0.0 - 0.2 01/29 Specimen Type: BLOOD No comment entered. Ordering Provider: STEPH HANSEN Report Released Date/Time: Sep 07, 2023 12:09 PM Reporting Lab: [facility]GT E.[facility]. [facility] [address] Performing Lab: SGT E.I. [facility] [address] CBC (DIFF&PLT) ERYTHROCYTE DISTRIBUTIO N WIDTH [ENTITIC VOLUME] BY AUTOMATED COUNT 43.6 fL 39.0 - 52.2 01/29 Specimen Type: BLOOD No comment entered. Ordering Provider: STEPH HANSEN Report Released Date/Time: Sep 07, 2023 12:09 PM Reporting Lab: [facility]GT [facility]. [facility] [address] [place] [address] Performing Lab: SGT E.[facility]. [facility] [address] [place] [address] SGT E.I. [facility] CBC (DIFF&PLT) NUCLEATED ERYTHROCYTE S [#/VOLUME] IN BLOOD BY AUTOMATED COUNT 0.00 10*3/u L 0 - 0.2 01/29 Specimen Type: BLOOD No comment entered. Ordering Provider: STEPH HANSEN Report Released Date/Time: Sep 07, 2023 12:09 PM Reporting Lab: SGT E.I. [facility] [address] [facility] [address] Performing Lab: SGT [facility]. [facility] [address] [place] [address] SGT E.I. [facility] CBC (DIFF&PLT) IMMATURE GRANULOCYTE S [#/VOLUME] IN BLOOD BY AUTOMATED COUNT 0.02 10*3/u L 0.00 - 0.2 01/29 Specimen Type: BLOOD No comment entered. Ordering Provider: STEPH HANSEN Report Released Date/Time: Sep 07, 2023 12:09 PM Reporting Lab: SGT E.I. [facility] [address] [place] [address] Performing Lab: SGT [facility]. [facility] [address] [place] [address] SGT E.I. [facility] CBC (DIFF&PLT) IMMATURE GRANULOCYTE S/100 LEUKOCYTES IN BLOOD 0.5 0.00 - 2.00 01/29 Specimen Type: BLOOD No comment entered. Ordering Provider: STEPH HANSEN Report Released Date/Time: Sep 07, 2023 12:09 PM Reporting Lab: SGT E.I. [facility] [address] [place] [address] Performing Lab: SGT E.I. [facility] [address] [place] [address] SGT E.I. [facility] TOTAL,VIT D VITAMIN D+METABOLIT ES [MASS/VOLUM E] IN SERUM OR PLASMA 36.3 ng/mL 08/22 Specimen Type: SERUM Comment: TOTAL,VIT D interpretati on of results: Vitamin D deficiency: < or = 20 ng/mL Vitamin D insuficiency : 21 - 29 ng/mL Preferred level: > or = 30 ng/mL Toxicity: > 100 ng/mL Test performed on Cheryl chemistry analyzer ([id number]) Slightly lipemic Ordering Provider: BUCK CABALLERO Report Released Date/Time: Aug 18, 2023 09:16 AM Reporting Lab: [facility] [address] [id number] Performing Lab: [facility] [address] [id number] [facility] MAGNESIUM MAGNESIUM [MASS/VOLUM E] IN SERUM OR PLASMA 2.2 mg/dL 1.7 - 2.5 08/22 Specimen Type: PLASMA No comment entered. Ordering Provider: BUCK CABALLERO Report Released Date/Time: Aug 18, 2023 09:16 AM Reporting Lab: [facility] [address] [facility] [address] Performing Lab: [facility] [address] [facility] [address] [facility] Vital Signs Combined list of inpatient and outpatient Vital Signs from [facility] of [facility] and [facility], ranging from 12 months to all on record, depending upon the facility. Vital Sign Value Date Comments Source Encounters Combined list of: 1) Encounters from Department of Veterans Affairs facilities going back up to thelast 18 months. 2) Encounters from the Department of [facility] facilities going back up to 280 months. Location Location Details Encounter Type Encounter Number Reason For Visit Attending Provider ADM Date DC Date Status Disposition Source [facility] Outpatient Encounter [id number] NOEL CABALLERO 11/04 [facility] OFFICE O/P EST MOD 30-39 MIN [id number] Diagnos is: ICD-10- CM E78.5 Hyperli pidemia , unspeci fied
NOEL CABALLEROLAV 11/10 [facility] [place] [facility] Outpatient Encounter [id number] SYDNEY POWERS 11/22 [facility] Outpatient Encounter [id number] 11/22 [facility] [place] [facility] EYE EXAM&TX ESTAB PT 1/>VST [id number] Diagnos is: ICD-10- CM H43.813 Vitreou s fariha whiteside al
ANN MARIE CARLOS 11/24 [facility] [place] [facility] [facility] Outpatient Encounter [id number] SYDNEY POWERS L 12/10 N. [place] [facility] N. [facility] Outpatient Encounter [id number] 12/20 [facility] N. [facility] Outpatient Encounter [id number] 12/28 N. [facility] N. [facility] Outpatient Encounter [id number] 01/11 N. [facility] N. [facility] Outpatient Encounter [id number] 3 01/19 . [facility] Outpatient Encounter [id number] Diagnos is: ICD-10- CM Z86.010 Persona l history of colonic polyps< br/> YARON PARKER S 01/19 [facility] [place] [facility] [place] Outpatient Encounter [id number] BRAXTON JORGE NE 01/31 N. [facility] [facility] N. 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
SUE TAMAYO 02/08 [facility] Outpatient Encounter [id number] NOEL CABALLERO NISLAV 02/09 N. [facility] [facility] N. [facility] Outpatient Encounter [id number] NOEL CABALLERO NISLAV 02/21 N. [facility] [facility] N. [facility] Outpatient Encounter [id number] 03/11 N. [place] [facility] N. [facility] Outpatient Encounter [id number] BRAXTON JORGE 03/11 N. [facility] [facility] N. [facility] Outpatient Encounter [id number] BRAXTON JORGE 03/16 N. [facility] [facility] N. [facility] Outpatient Encounter [id number] NOEL CABALLERO NISLAV 03/21 N. [place] [facility] N. [facility] Outpatient Encounter [id number] NOEL CABALLERO NISLAV 04/14 N. [facility] N. [facility] Outpatient Encounter [id number] NOEL CABALLERO NISLAV 05/17 N. [facility] [facility] N. [facility] Outpatient Encounter [id number] BRAXTON JORGE 05/27 N. [place] [facility] HC PRO PHONE CALL 11-20 MIN [id number] Diagnos is: ICD-10- CM M79.676 Pain in unspeci fied toe(s)< br/> NINA BARAJAS 06/06 [facility] Outpatient Encounter [id number] 06/18 N. [place] [facility] N. [facility] Outpatient Encounter [id number] 07/19 N. [place] [facility] [place] [facility] Outpatient Encounter [id number] BRAXTON JORGE 07/20 N. [place] [facility] [facility] IMMUNIZATI ON ADMIN [id number] Diagnos is: ICD-10- CM Z23 Encount er for immuniz ation<b r/> Yuridia MOSELEY JR 07/21 [facility] Outpatient Encounter [id number] MAO CHENEY G 07/25 N. [place] [facility] [place] [facility] Outpatient Encounter [id number] MAO CHENEY L G 07/25 N. [place] [facility] [place] Outpatient Encounter [id number] Elijah STARK N 07/26 N. [place] [facility] [place] [facility] Outpatient Encounter [id number] TUNG CALDERÓN N 07/27 N. [place] [facility] OFFICE O/P EST MOD 30-39 MIN [id number] Diagnos is: ICD-10- CM E78.5 Hyperli pidemia , unspeci fied
NOEL CABALLERO NISLAV 08/08 [facility] OFFICE O/P EST LOW 20-29 MIN [id number] Diagnos is: ICD-10- CM L60.3 Nail dystrop hy
SUE TAMAYO 08/10 [facility] Outpatient Encounter [id number] SYDNEY POWERS ITH L 08/12 N. [place] [facility] N. [facility] Outpatient Encounter [id number] SYDNEY POWERS ITH L 08/15 N. [place] [facility] N[facility] [place] Outpatient Encounter [id number] Minna POSADAS 08/15 N. [place] [facility] N. [facility] Outpatient Encounter [id number] SYDNEY POWERS ITH L 08/22 N. [facility] [facility] N. 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 [facility] [facility] N[facility] [place] Outpatient Encounter [id number] KRIS HINES MIGUEL M 08/25 N. [facility] [facility] N[facility] [place] Outpatient Encounter [id number] KRIS HINES ER M 08/25 N. [place] [facility] OFFICE O/P EST MOD 30-39 MIN [id number] Diagnos is: ICD-10- CM B00.82 Herpes simplex myeliti s
HARSHA HANSEN S 09/07 [facility] Outpatient Encounter [id number] HANSEN,LA URA S 09/08 N. [facility] N. [facility] Outpatient Encounter [id number] HANSEN,LA URA S 09/12 N. [facility] N. [facility] Outpatient Encounter [id number] HANSEN,LA URA S 09/19 N. [facility] N. [facility] Outpatient Encounter [id number] HANSEN,LA URA S 09/23 N. 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 Outpatient Encounter [id number] HANSEN,LA URA S 10/05 N. [facility] COMPRE OPH EXAM EST PT 1/> [id number] Diagnos is: ICD-10- CM H04.123 Dry eye syndrom e of bilater al lacrima l glands< br/> ANN MARIE CARLOS 11/21 [facility] Outpatient Encounter [id number] 12/17 [facility] N. [facility] Outpatient Encounter [id number] HANSEN,LA URA S 12/18 N. [facility] N. [facility] Outpatient Encounter [id number] HANSEN,LA URA S 01/05 N. [facility] OFFICE O/P EST LOW 20 MIN [id number] Diagnos is: ICD-10- CM B35.1 Tinea unguium
SUE TAMAYO 02/05 [facility] OFFICE O/P EST MOD 30 MIN [id number] Diagnos is: ICD-10- CM B00.82 Herpes simplex myeliti s
HANSEN,LA URA S 02/05 [facility] Outpatient Encounter [id number] HANSEN,LA URA S 02/06 N. [facility] N. [facility] Outpatient Encounter [id number] HANSEN,LA URA S 02/12 N. [facility] N. [facility] Outpatient Encounter [id number] HANSEN,LA URA S 02/12 N. [facility] N. [facility] Outpatient Encounter [id number] HNASEN,LA URA S 02/12 N. [facility] N. [facility] Outpatient Encounter [id number] HANSEN,LA URA S 02/13 N. [facility] N. [facility] Outpatient Encounter [id number] 1 04/04 N. [facility] OFF/OP EST MAY X REQ PHY/QHP [id number] Diagnos is: ICD-10- CM F41.9 Anxiety disorde r, unspeci fied
Kacey VELAZQUEZ EAH N 04/06 [facility] [place] [facility] Outpatient Encounter [id number] 2 04/16 [facility] Social History Combined list of available smoking, tobacco, and other social history from Department of Defense and Veterans Affairs facilities. 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 History of tobacco use VA-TOBACCO QUIT 5 TO < 15 YRS 08/08/2023 SGT E.[facility] History of tobacco use VA-TOBACCO FORMER USER 01/26/2022 [facility] History of tobacco use VA-TOBACCO FORMER USER 02/18/2021 [facility] History of tobacco use VA-TOBACCO QUIT 5 TO < 15 YRS 01/02/2020 S[facility] History of tobacco use PRIOR TOBACCO USE CESSATION DATE 08/17/2019 N. [facility] History of tobacco use TOBACCO PACK YEARS >29 08/14/2019 C C [facility] History of tobacco use VA-TOBACCO QUIT 5 TO < 15 YRS 01/17/2018 SGT E.[facility]iobhan [facility] History of tobacco use PRIOR TOBACCO USE CESSATION DATE 01/17/2018 N. 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 [facility]ast[facility] History of tobacco use TOBACCO PACK YEARS 01/18/2017 [facility] History of tobacco use PRIOR TOBACCO USE CESSATION DATE 01/06/2016 N. [facility] History of tobacco use TOBACCO PACK YEARS 01/06/2016 [facility] History of tobacco use TOBACCO PACK YEARS 04/09/2015 [facility] History of tobacco use TOBACCO PACK YEARS 12/26/2014 SGT E.I. [facility] History of tobacco use TOBACCO PACK YEARS 09/16/2014 SGT E.I. [facility] History of tobacco use TOBACCO PACK YEARS 06/25/2014 SGT E.I. [facility] History of tobacco use TOBACCO PACK YEARS 12/06/2013 SGT E.I. [facility] History of tobacco use CURRENT TOBACCO USE 01/22/2013 SGT E.I. [facility] History of tobacco use CURRENT TOBACCO USE 11/08/2012 SGT E.I. [facility] History of tobacco use CURRENT TOBACCO USE 10/28/2011 SGT E.I. [facility] History of tobacco use CURRENT TOBACCO USE 08/04/2011 SGT E.I. [facility] History of tobacco use CURRENT TOBACCO USE 04/28/2011 SGT E.I. [facility] History of tobacco use CURRENT TOBACCO USE 03/05/2011 SGT E.I. [facility] History of tobacco use CURRENT TOBACCO USE 12/22/2010 SGT E.I. [facility] History of tobacco use CURRENT TOBACCO USE 10/28/2010 SGT E.I. [facility] History of tobacco use CURRENT TOBACCO USE 10/21/2009 SGT E.I. 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 [facility] History of tobacco use TOBACCO NON USE G REATER THAN 12 MONTHS 09/17/2008 SGT E.I. [facility] History of tobacco use TOBACCO NON USE L ESS THAN 12 MONTHS 12/01/2007 SGT E.I. [facility] History of tobacco use TOBACCO NON USE L ESS THAN 12 MONTHS 08/16/2007 SGT E.[facility]. [facility] History of tobacco use TOBACCO NON USE L ESS THAN 12 MONTHS 06/23/2007 SGT E.[facility]. [facility] History of tobacco use CURRENT TOBACCO USE 12/14/2006 SGT E.I. [facility] History of tobacco use CURRENT TOBACCO USE 03/01/2006 SGT E.I. [facility] Plan of Care List of future care activities from [facility] facilities. Additional future care activities may be listed in the Assessment and Plan section. Date/Time Care Activity Care Activity Detail Facili ty 08/07/2024 AMBULATORY - SURGERY AMBULATORY - SURGERY SGT E.I. [facility] 08/07/2024 AMBULATORY - NONE AMBULATORY - NONE SGT E .I. [facility] 08/13/2024 AMBULATORY - MEDICINE AMBULATORY - MEDICI NE SGT E.I. [facility] 05/04/2024 Laboratory - Assistant Curator ry Order CBC (DIFF&PLT) BLOOD SP SGT E.I. [facility] 05/04/2024 Laboratory - Assistant Curator ry Order COMPREHENSIVE METABOLIC PANEL BLOOD PLASMA SP SGT E.I. [facility] 05/04/2024 Laboratory - Assistant Curator ry Order LIPID PANEL BLOOD PLASMA SP SGT E.I. [facility] 05/04/2024 Laboratory - Assistant Curator ry Order TSH-G,LC,J,T BLOOD PLASMA SP SGT E.I. [facility] Advance Directives List of completed, amended, or rescinded Advance Directives on record at [facility] facilities. An actual copy of the Directive is not included. Date Advance Directive Provider Source 08/08/2023 ADVANCE DIRECTIVE NOTIFICATION AND SCREENING GIOVANNI JORGE SGT E.ISiobhan [facility] 11/10/2022 ADVANCE DIRECTIVE NOTIFICATION AND SCREENING GIOVANNI JORGE SGT E.ISiobhan [facility] 03/17/2020 ADVANCE DIRECTIVE DISCUSSION GIOVANNI JORGE T E.ISiobhan [facility] 05/23/2019 ADVANCE DIRECTIVE DISCUSSION MADHURI WILSON SGT E.I. [facility] 08/23/2016 ADVANCE DIRECTIVE DISCUSSION TONYA AYALA RA SGT E.I. [facility] 01/06/2016 ADVANCE DIRECTIVE DISCUSSION KATIE BAILEY SGT E.I. [facility] 01/27/2011 ADVANCE DIRECTIVE ANDREI ACE SGT E.I. [facility]
--- OUTSIDE RECORDS SUMMARY | 2024-04-30 08:19 | XMS_ITS | Encounter Summary ---
Author Name [facility] Organization [facility] [place] Address [address] [facility] [facility], [place] [address] Care Team Providers Care Consulting Hr Professional Name Role Phone TYRONEJESENIA Primary Care Provider Unavailabl e Insurance Providers: All historical and current Section Date Range: From patient's date of to the date document was created. This section includes the names of all active insurance providers for the patient. Insurance Provider Type of Coverage Plan Name Start of Policy Coverage End of Policy Coverage Group Number Member ID Insurance Provider's Telephone Number Policy Simental's Name Patient's Relationship to Policy Simental MEDICARE (WNR) MEDICARE (M) PART A Jan 09, 2012 PART A [id number] [facility] JADE MAGDALENO PATIENT Selected Encounter This section includes the information on record at MD for the Encounter. Date/Time Encounter Type Encounter Description Reason Provider Source Aug 25, 2023 12:17 PM HC PRO PHONE CALL 5-10 MIN TELEPHONE TRIAGE ICD-10-CM Z71.89 Other specified counseling FITO KENNEDY Jaziel Encounter Template Text not used by MD Assessments - Encounter Diagnoses This section includes the primary and secondary diagnoses documented for the Encounter. Date/Time Primary/Secondary Diagnosis Diagnosis Name Provider Source Aug 25, 2023 12:17 PM PRIMARY Other specified counseling FITO KENNEDY [place] Plan of Treatment: Future Appointments (+ 6 months) and Future Tests (+/- 45 days) The Plan of Treatment section includes future care activities for the patient from all [facility] This section includes future appointments and future orders which are active, pending or scheduled. Future Appointments This section includes appointments that were scheduled to occur 6 months from the date of the Encounter, up to a maximum of 20 appointments. The data comes from all MD treatment facilities. Appointment Date/Time Appointment Type Appointme nt Facility Name Sep 05, 2023 02:00 PM AMBULATORY - NONE [facility] Sep 07, 2023 09:00 AM AMBULATORY - MEDICINE [facility] Oct 04, 2023 02:15 PM AMBULATORY - MEDICINE [facility] Nov 21, 2023 01:00 PM AMBULATORY - NONE [facility] Jan 30, 2024 01:00 PM AMBULATORY - NONE [facility] Feb 06, 2024 03:00 PM AMBULATORY - SURGERY [facility] Feb 06, 2024 03:30 PM AMBULATORY - MEDICINE [facility] Lab Results: +/- 30 days of the encounter This section includes the Chemistry and Hematology Lab Results on record with MD for the patient. Radiology Reports and Pathology Reports are provided separately, in subsequent sections. Lab Results This section contains the Chemistry/Hematology Results that were resulted 30 days before or 30 daysafter the date of the Encounter. Date/Time Source Result Type Result - Unit Interpretation Reference Range Comment Aug 22, 2023 03:04 PM [facility] TOTAL,VIT D Specimen Type: SERUM Comment: TOTAL,VIT D interpretation of results: Vitamin D deficiency: < or = 20 ng/mL Vitamin D insuficiency: 21 - 29 ng/mL Preferred level: > or = 30 ng/mL Toxicity: > 100 ng/mL Test performed on Cheryl chemistry analyzer (573) Slightly lipemic Ordering Provider: DEREK CABALLERO Report Released Date/Time: Aug 18, 2023 09:16 AM Reporting Lab: [facility] [address] [facility] [address] Performing Lab: [facility]. [place] [address] [facility] [address] TOTAL,VIT D 36.3 ng/mL See_Comment Aug 22, 2023 03:04 PM [facility] MAGNESIUM Specimen Type: PLASMA No comment entered. Ordering Provider: DEREK CABALLERO Report Released Date/Time: Aug 18, 2023 09:16 AM Reporting Lab: [facility] [address] [facility] [address] Performing Lab: [facility] [address] [facility] [address] MAGNESIUM 2.2 mg/dL 1.7-2.5 Aug 08, 2023 12:36 PM [facility] TSH-Minna,ERIK,J,T Specimen Type: PLASMA Comment: eGFR calculated using [...] Stage 5 - End Stage CKD Reference: www.kidney.org/ Direct LDL Cholesterol not performed when Triglycerides are < or = 400 mg/dL. Ordering Provider: DEREK CABALLERO Report Released Date/Time: Nov 10, 2022 03:06 PM Reporting Lab: [facility] [address] [place] [facility] [address] Performing Lab: [facility] [address] [place] [facility] [address] TSH-G,ERIK,J,T 1.450 u[IU]/mL 0.27-4.2 Aug 08, 2023 12:36 PM [facility] HEMOGLOBIN %A1C PROFILE Specimen Type: BLOOD Comment: Values obtained from A1C measurements can vary. For typical A1C assays, a reported value of 7.0 could actually be between 6.72and 7.28 if measured by a reference method. A reported value of 9.0 could actually be between 8.73 and 9.27. Ref: http://www.ngsp. org/CAPdata.asp Ordering Provider: DEREK CABALLERO Report Released Date/Time: Nov 10, 2022 03:06 PM Reporting Lab: [facility] [address] [facility] [address] Performing Lab: [facility] [address] [place] [address] HEMOGLOBIN %A1C 5.5 Aug 08, 2023 12:36 PM [facility] URINALYSIS Specimen Type: URINE No comment entered. Ordering Provider: DEREK CABALLERO Report Released Date/Time: Nov 10, 2022 03:06 PM Reporting Lab: [facility] [address] [facility] [address] Performing Lab: [facility] [address] [facility] [address] URINE COLOR Light-Yellow SPECIFIC GRAVITY 1.026 1.003-1.030 URINE BILIRUBIN Negative mg/dL NEGATIVE URINE KETONES Negative mg/dL NEGATIVE URINE GLUCOSE Negative mg/dL NEGATIVE URINE PROTEIN Negative mg/dL NEGATIVE URINE PH 5.0 [pH] 5.0-9.0 URINE BLOOD Tr mg/dL NEGATIVE URINE NITRITE Negative NEGATIVE LEUKOCYTE ESTERASE, URINE Negative NEGATIVE CLARITY Clear CLEAR UROBILINOGEN(mg /dL) <2.0 mg/dL L 0.0-1.99 Aug 08, 2023 12:36 PM [facility] LIPID PANEL Specimen Type: PLASMA Comment: eGFR calculated using [...] Stage 5 - End Stage CKD Reference: www.kidney.org/ Direct LDL Cholesterol not performed when Triglycerides are < or = 400 mg/dL. Ordering Provider: DEREK CABALLERO Report Released Date/Time: Nov 10, 2022 03:06 PM Reporting Lab: SGT LongoBlasSiobhan [facility] [address] [facility] [address] Performing Lab: SGT Proctor [facility] [address] [facility] [address] CHOLESTEROL 203 mg/dL H 0-199 TRIGLYCERIDE 171 mg/dL H 0-149 LDL CHOLESTEROL 114 mg/dL <129 HDL CHOLESTEROL 55 mg/dL >40 DIRECT LDL canc mg/dL <129 Aug 08, 2023 12:36 PM [facility] DontaOrquidea [facility] COMPREHENSIVE METABOLIC PANEL Specimen Type: PLASMA Comment: eGFR calculated using [...] Stage 5 - End Stage CKD Reference: www.kidney.org/ Direct LDL Cholesterol not performed when Triglycerides are < or = 400 mg/dL. Ordering Provider: DEREK CABALLERO Report Released Date/Time: Nov 10, 2022 03:06 PM Reporting Lab: SGT Proctor [facility] [address] [facility] [address] Performing Lab: Elijah JazielSiobhanBlasSiobhan MAR[facility] [address] [address] UREA NITROGEN 22 mg/dL H 9-20 SODIUM 140 mmol/L 135-145 CHLORIDE 105 mmol/L 98-108 CO2 25 mmol/L 23-32 PROTEIN,TOTAL 7.1 g/dL 6.0-8.2 ALBUMIN 4.3 g/dL 3.5-5.0 BILIRUBIN,TOTAL 0.3 mg/dL 0.0-1.3 ALKALINE PHOSPHATASE 92 U/L 0-125 AST 14 U/L 0-45 ALT 8 U/L 0-40 ANION GAP 10 mmol/L 5-15 POTASSIUM 4.3 mmol/L 3.5-5.0 CALCIUM 9.5 mg/dL 8.4-10.5 CREATININE 0.9 mg/dL 0.5-1.2 GLUCOSE 93 mg/dL 65-99 eGFR(2020 CKD-EPI) 89 mL/min Aug 08, 2023 12:36 PM [facility] CBC (DIFF&PLT) Specimen Type: BLOOD No comment entered. Ordering Provider: DEREK CABALLERO Report Released Date/Time: Nov 10, 2022 03:06 PM Reporting Lab: T E.ISiobhan [facility] [address] [facility] [address] Performing Lab: SGT E.ISiobhan [facility] [address] [facility] [address] WBC 5.08 10*3/uL 4.6-10.8 RBC 4.84 10*6/uL 4.44-6.1 HGB 15.5 g/dL 13.9-18 HCT 44.8 41-52 MCV 92.6 fL 80-98 MCH 32.0 pg 27-33.3 MCHC 34.6 g/dL 31.8-37.1 PLT 153 10*3/uL 130-440 MPV 10.3 fL 7.4-10.5 EOSINO % 3.7 H 0-3 BASO % 0.6 0-2 NUCLEATED RBC/100WBC 0.0 /100{WBCs} 0-6 RDW 12.7 11.5-14.5 LYMPH # 1.49 10*3/uL 1.2-3.6 MONO # 0.46 10*3/uL 0.14-0.76 LYMPH % 29.3 25-33 MONO % 9.1 H 3-7 GRAN % 57.3 54-65 GRAN # 2.91 10*3/uL 1.8-7.8 EOSINO # 0.19 10*3/uL 0.0-0.3 BASO # 0.03 10*3/uL 0.0-0.2 RDW-SD 43.2 fL 39.0-52.2 NRBC # 0.00 10*3/uL 0-0.2 IMMATURE GRAN.# 0.00 10*3/uL 0.00-0.2 IMMATURE GRAN.% 0.0 0.00-2.00 Social History: Smoking Status (Most current) and Tobacco Use (All prior to encounter date) This section includes the most current, and the historical, smoking and tobacco- related health factors from the MD facility where the Encounter took place. Current Smoking Status This section includes the most current smoking, or tobacco-related health factor, from the MD facility where the Encounter took place. Date/Time Current Smoking Status Comment Marivel ity Aug 17, 2019 10:12 AM PRIOR TOBACCO USE CESSATION DATE [facility] Tobacco Use History This section includes a history of the smoking, or tobacco-related health factors, that were collected on or before the date of the Encounter. The data comes from the MD facility where the Encounter took place. Date/Time Smoking Status/Tobacco Use Comment F acility Jan 17, 2018 01:30 PM PRIOR TOBACCO USE CESSATION DATE [facility] Jan 18, 2017 01:13 PM PRIOR TOBACCO USE CESSATION DATE [facility] Jan 06, 2016 01:03 PM PRIOR TOBACCO USE CESSATION DATE [facility] Advance Directives: All historical and current Section Date Range: From patient's date of to the date document was created. This section includes ALL of a patient's completed or amended MD Advance and Rescinded Directives. The entries below indicate that a directive exists for the patient, but an actual copy is not included with this document. The data comes from all [facility]. Date Advance Directives Provider Source Aug 08, 2023 ADVANCE DIRECTIVE NOTIFICATION AND SCREENING GIOVANNI JORGEISiobhan TORRES [facility] Nov 10, 2022 ADVANCE DIRECTIVE NOTIFICATION AND SCREENING GIOVANNI JORGE E.ISiobhan TORRES [facility] Mar 17, 2020 ADVANCE DIRECTIVE DISCUSSION GIOVANNI JORGE E.ISiobhan LÓPEZ [facility] May 23, 2019 ADVANCE DIRECTIVE DISCUSSION MADHURI WILSON SGElijah E.ISiobhan [facility] Aug 23, 2016 ADVANCE DIRECTIVE DISCUSSION SHANKAR AYALA SGT E.ISiobhan [facility] Jan 06, 2016 ADVANCE DIRECTIVE DISCUSSION KATIE BAILEY SGT E.ISiobhan [facility] Jan 27, 2011 ADVANCE DIRECTIVE ANDREI ACE SGT E.ISiobhan [facility] Radiology Reports: +/- 30 days of the encounter Radiology Reports For cases when an order for radiology services may have been completed prior to the date of the Encounter, the report list includes the Radiology Reports that were completed up to 30 days before dateof the Encounter. For cases when an order for radiology services may have been completed after the date of the Encounter, the report list also includes the Radiology Reports that were completed up to30 days after date of the Encounter. The data comes from all MD treatment facilities. Date/Time Radiology Report Provider Source Sep 05, 2023 01:55 PM US XTR NON-VASC LM TD: JADE GTZ V [id number] M Exm Date: SEP 05, 2023@13:55 Req Phys: DEREK CABALLERO [facility] (Req[facility]g L Img Loc: T-ULTRASOUND Service: Unknown (Case [id number] COMPLETE) US XTR NON-VASC LMTD (US Detailed) CPT:36608 Reason for Study: B/L swollen armpits Clinical History: Report Status: Verified Date Reported: SEP 05, 2023 Date Verified: SEP 05, 2023 Radio Equipment Installer E-Sig:/ES/BERENICE MCCRACKEN Report: EXAMINATION: US XTR NON-VASC LMTD DATE: 09/05/2023 13:55 EST HISTORY: B/L swollen armpits. TECHNIQUE: Directed grayscale and color Doppler ultrasound evaluation of the bilateral axilla. COMPARISON STUDIES: Ultrasound of the bilateral axilla April 23, 2022. Screening low-dose chest CTs August 09, 2022 and August 26, 2021. FINDINGS: No discrete soft tissue masses, muscle or vascular abnormalities were demonstrated/reported. No fluid collections or calcifications were demonstrated/reported. Impression: 1. No ultrasound abnormalities of the bilateral axilla demonstrated/reported. 2. However, the decision to biopsy a palpable or clinically suspicious abnormality should ultimately be based on clinical grounds. 3. Any follow-up/further imaging is recommended as clinically directed. Primary Diagnostic Code: NO ALERT REQUIRED Primary Interpreting Staff: BERENICE MCCRACKEN, Radiologist (Radio Equipment Installer) /BERENICE FLORES [facility] Aug 12, 2023 12:19 PM LDCT LUNG CANCER S CREENING: JADE GTZ V [id number] M Exm Date: AUG 12, 2023@12:19 Req Phys: SHERLYN POSADAS Pat Loc: [facility] HISTORICAL (Req'g Loc) Img Loc: T-CT SCAN Service: Unknown (Case [id number] COMPLETE) LDCT LUNG CANCER SCREENING (CT Detailed) CPT:85974 Reason for Study: Abnormal LDCT follow-up Clinical History: Report Status: Verified Date Reported: AUG 12, 2023 Date Verified: AUG 12, 2023 Radio Equipment Installer E-Sig:/ES/SARAH ASHLEY MD Report: EXAM: LDCT LUNG CANCER SCREENING ADDITIONAL HISTORY: Annual Screening COMPARISON: 08/09/2022 PROTOCOL: Screening protocol, low dose, non-contrast CT chest was performed in accordance with Lung-Rads v1.1. Additional coronal and sagittal reconstructions. MIP reconstructions were reviewed. Computer assisted detection (CAD) postprocessing of the lung windows done by Fan TV software. DOSE PARAMETERS: Up-to-date CT equipment and radiation dose reduction techniques were employed. CTDIvol: 2.8 mGy. DLP: 94 mGy-cm. TECH NOTE: [place]'s name: Angela Protocol: LDCT Exam Additional notes: annual f/u to abnormal LDCT evaluate TAA and lymphnodes Masks worn by staff Reconciled and verbally consented INDEX NODULE: No suspicious pulmonary nodules. OTHER NODULES: Stable scattered bilateral pulmonary nodules, including an 8 mm nodule along the right minor fissure (series 4, image 179). LUNG/AIRWAY FINDINGS: No focal consolidation. Mild central bronchiectasis. The central airways are patent. EMPHYSEMA: Moderate centrilobular predominance. HEART, MEDIASTINUM AND LYMPH NODES: Ascending aortic ectasia, unchanged. No concerning abnormality. VISIBLE CORONARY ARTERY CALCIFICATIONS: Mild. UPPER ABDOMEN: Unremarkable. BONES AND SOFT TISSUES: Mild multilevel degenerative changes of the spine. No acute osseous abnormality. OTHER FINDINGS: None significant. Impression: LUNG-RADS: 2: Benign FINDINGS: Stable exam. Multiple small pulmonary nodules are unchanged. Stable moderate pulmonary emphysema. RECOMMENDATION: One year follow-up low dose CT, if patient meets screening criteria. LUNG-RADS MODIFIER: N/A OTHER SIGNIFICANT FINDINGS AND RECOMMENDATIONS: None significant. Primary Diagnostic Code: NO ALERT REQUIRED Secondary Diagnostic Codes: LUNGRADS 2: BENIGN NODULE APPEARANCE OR BEHAVIOR Primary Interpreting Staff: SARAH ASHLEY MD, Staff Physician (Radio Equipment Installer) /SARAH MARCH Hitesh [facility] Encounter Notes: All associated encounter notes This section contains the clinical notes associated to the Encounter. Date/Time Encounter Note(s) Provider Source Aug 25, 2023 12:17 PM RN PROGRESS NOTE: LOCAL TITLE: CCC: CLINICAL TRIAGE STANDARD TITLE: RN PROGRESS NOTE DATE OF NOTE: AUG 25, 2023@12:17:56 ENTRY DATE: AUG 25, 2023@12:31:24 AUTHOR: FITO KENNEDY COSIGNER: URGENCY: STATUS: COMPLETED Type of call: OTHER. The following identifiers were used to verify this patient: . [facility]. [facility] - [facility] Jaziel.Orquidea [facility] ([id number]) PACT: [facility] PACT 07 (Focus: Primary Care Only) Designated Pcp: DEREK CABALLERO PHONE: Tutoring Assistant: KAMRAN POWERS PHONE: Clinical Associate: GIOVANNI JORGE PHONE:[phone] Apparel Rental Clerk: EDWAR MENENDEZ PHONE: PACT Clinical Pharmacist: YURIDIA GILLESPIE PHONE:[phone] Clinical POC: Tutoring Assistant KAMRAN POWERS PHONE: Administrative POC: Apparel Rental Clerk EDWAR MENENDEZ PHONE: Caller Area: [place] The patient, JADE GTZ V ([id number]) called the call center. Contact Nurse Notes: [place] contacted the [facility] Clinical Contact Center with c/o axilla pain. Declines triage. States it is a known issue and he cannot wait 2 weeks for sonogram to be done before treatment. States there is no in-network urgent care close to him so he will pay out of pocket for an evaluation today. Patient was advised to contact Clinical Contact Center nurse at [phone] option 3, immediately if symptoms increase, worsen or change; or report to the nearest MD ER/community or call 911 if symptoms become life threatening. Patient verbalized understanding. declines triage. Chief Complaint: Not applicable to call. Class Code: Other specified counseling. Caller Response: OTHER Patient/Caller agrees with plan. Evaluation/Management Code: UNLISTED EVALUATION AND MANAGEMENT SERVICE ([id number]). Starting at: 08/25/2023 @ 12:17:56 PM Ending at: 08/25/2023 @ 12:26:24 PM Length: 8 minutes. Author: FITO KENNEDY Patient's Email Address: [email or web address] FITO KENNEDY RN, BSN [facility] Signed: 08/25/2023 12:31 FITO KENNEDY. [place]
--- OUTSIDE RECORDS SUMMARY | 2024-04-30 08:20 | XMS_ITS | Encounter Summary ---
Author Name [facility] Address [address], [place] [address] Care Team Providers Care Bottle Hop Name Role Phone TYRONESTEPHA Primary Care Provider Unavailabl e Insurance Providers: [...] PART A Jan 09, 2012 PART A [id number] JADE MAGDALENO PATIENT Selected Encounter This section includes the information on record at [place] for the Encounter. Date/Time Encounter Type Encounter Description Reason Provider Source Aug 25, 2023 03:05 PM Outpatient Encounter PRIMARY CARE/MEDICINE USHA HINES Encounter Template Text not used by [place] Plan of Treatment: Future Appointments (+ 6 months) and Future Tests (+/- 45 days) The Plan of Treatment section includes future care activities for the patient from all [facility] treatment[facility]ilities. This section includes future appointments and future orders which are active, pending or scheduled. Future Appointments This section includes appointments that were scheduled to occur 6 months from the date of the Encounter, up to a maximum of 20 appointments. The data comes from all [place] treatment facilities. Appointment Date/Time Appointment Type Appointme nt Facility Name Sep 05, 2023 02:00 PM AMBULATORY - NONE [facility] Sep 07, 2023 09:00 AM AMBULATORY - MEDICINE [facility] Oct 04, 2023 02:15 PM AMBULATORY - MEDICINE [facility] Nov 21, 2023 01:00 PM AMBULATORY - NONE [facility] Jan 30, 2024 01:00 PM AMBULATORY - NONE [facility] Feb 06, 2024 03:00 PM AMBULATORY - SURGERY [facility] Feb 06, 2024 03:30 PM AMBULATORY - MEDICINE [facility] Lab Results: +/- 30 days of the encounter This section includes the Chemistry and Hematology Lab Results on record with [place] for the patient. Radiology Reports and Pathology Reports are provided separately, in subsequent sections. Lab Results This section contains the Chemistry/Hematology Results that were resulted 30 days before or 30 daysafter the date of the Encounter. Date/Time Source Result Type Result - Unit Interpretation Reference Range Comment Aug 22, 2023 03:04 PM T E[facility] TOTAL,VIT D Specimen Type: SERUM Comment: TOTAL,VIT D interpretation of results: Vitamin D deficiency: < or = 20 ng/mL Vitamin D insuficiency: 21 - 29 ng/mL Preferred level: > or = 30 ng/mL Toxicity: > 100 ng/mL Test performed on Cheryl chemistry analyzer (573) Slightly lipemic Ordering Provider: DEREK PEÑA Report Released Date/Time: Aug 18, 2023 09:16 AM Reporting Lab: [facility] [id number] Performing Lab: [facility] [address] TOTAL,VIT D 36.3 ng/mL See_Comment Aug 22, 2023 03:04 PM [facility] MAGNESIUM Specimen Type: PLASMA No comment entered. Ordering Provider: DEREK PEÑA Report Released Date/Time: Aug 18, 2023 09:16 AM Reporting Lab: [facility] [address] [place] [address] Performing Lab: [facility] [address] [place] [address] MAGNESIUM 2.2 mg/dL 1.7-2.5 Aug 08, 2023 12:36 PM [facility] TSH-G,ERIK,J,T Specimen Type: PLASMA Comment: eGFR calculated using [...] or = 400 mg/dL. Ordering Provider: DEREK PEÑA Report Released Date/Time: Nov 10, 2022 03:06 PM Reporting Lab: [facility] [address] [place] [address] Performing Lab: [facility] [address] [place] [id number] TSH-G,ERIK,J,T 1.450 u[IU]/mL 0.27-4.2 Aug 08, 2023 12:36 PM [facility] HEMOGLOBIN %A1C PROFILE Specimen Type: BLOOD Comment: Values obtained from A1C measurements can vary. For typical A1C assays, a reported value of 7.0 could actually be between 6.72and 7.28 if measured by a reference method. A reported value of 9.0 could actually be between 8.73 and 9.27. Ref: http://www.[email or web address] org/CAPdata.asp Ordering Provider: DEREK PEÑA Report Released Date/Time: Nov 10, 2022 03:06 PM Reporting Lab: [facility] [address] [place] [phone] Performing Lab: [facility] [address] [facility] [address] HEMOGLOBIN %A1C 5.5 Aug 08, 2023 12:36 PM [facility] URINALYSIS Specimen Type: URINE No comment entered. Ordering Provider: DEREK PEÑA Report Released Date/Time: Nov 10, 2022 03:06 PM Reporting Lab: [facility] [place] [facility] [address] [facility] [address] Performing Lab: [facility] [place] [facility] [address] [facility] [address] URINE COLOR Light-Yellow SPECIFIC GRAVITY 1.026 1.003-1.030 URINE BILIRUBIN Negative mg/dL NEGATIVE URINE KETONES Negative mg/dL NEGATIVE URINE GLUCOSE Negative mg/dL NEGATIVE URINE PROTEIN Negative mg/dL NEGATIVE URINE PH 5.0 [pH] 5.0-9.0 URINE BLOOD Tr mg/dL NEGATIVE URINE NITRITE Negative NEGATIVE LEUKOCYTE ESTERASE, URINE Negative NEGATIVE CLARITY Clear CLEAR UROBILINOGEN(mg /dL) <2.0 mg/dL L 0.0-1.99 Aug 08, 2023 12:36 PM T [facility] LIPID PANEL Specimen Type: PLASMA Comment: eGFR [...] or = 400 mg/dL. Ordering Provider: DEREK PEÑA Report Released Date/Time: Nov 10, 2022 03:06 PM Reporting Lab: [facility] [address] [facility] [address] Performing Lab: [facility] [address] [facility] [address] CHOLESTEROL 203 mg/dL H 0-199 TRIGLYCERIDE 171 mg/dL H 0-149 LDL CHOLESTEROL 114 mg/dL <129 HDL CHOLESTEROL 55 mg/dL >40 DIRECT LDL canc mg/dL <129 Aug 08, 2023 12:36 PM [facility] DontaBlasSiobhan [facility] COMPREHENSIVE METABOLIC PANEL Specimen Type: PLASMA Comment: [...] or = 400 mg/dL. Ordering Provider: DEREK PEÑA Report Released Date/Time: Nov 10, 2022 03:06 PM Reporting Lab: [facility] Hitesh [facility] [address] [facility] [address] Performing Lab: [facility] Hitesh [facility] [address] [facility] [address] UREA NITROGEN 22 mg/dL H 9-20 SODIUM [...] 89 mL/min Aug 08, 2023 12:36 PM [facility] DontaBlasSiobhan [facility] CBC (DIFF&PLT) Specimen Type: BLOOD No comment entered. Ordering Provider: DEREK PEÑA Report Released Date/Time: Nov 10, 2022 03:06 PM Reporting Lab: [facility] [place] [facility] [address] [facility] [address] Performing Lab: [facility]h [facility] [place] [facility] [address] [facility] [address] WBC 5.08 10*3/uL 4.6-10.8 RBC 4.84 10*6/uL [...] and tobacco- related health factors from the [place] facility where the Encounter took place. Current Smoking Status This section includes the most current smoking, or tobacco-related health factor, from the [place] facility where the Encounter took place. Date/Time Current Smoking Status Patricia patel Aug 17, 2019 10:12 AM PRIOR TOBACCO USE CESSATION DATE [facility] Tobacco Use History This section includes a history of the smoking, or tobacco-related health factors, that were collected on or before the date of the Encounter. The data comes from the [place] facility where the Encounter took place. Date/Time Smoking Status/Tobacco Use Comment F acility Jan 17, 2018 01:30 PM PRIOR TOBACCO USE CESSATION DATE [facility] Jan 18, 2017 01:13 PM PRIOR TOBACCO USE CESSATION DATE [facility] Jan 06, 2016 01:03 PM PRIOR TOBACCO USE CESSATION DATE [facility] Advance Directives: All historical and current Section Date Range: From patient's date of to the date document was created. This section includes ALL of a patient's completed or amended [facility] Advance and Rescinded Directives. The entries below indicate that a directive exists for the patient, but an actual copy is not included with this document. The data comes from all [place] facilities. Date Advance Directives Provider Source Aug 08, 2023 ADVANCE DIRECTIVE NOTIFICATION AND SCREENING JORGEGIOVANNI [facility] Nov 10, 2022 ADVANCE DIRECTIVE NOTIFICATION AND SCREENING GIOVANNI JORGE [facility] Mar 17, 2020 ADVANCE DIRECTIVE DISCUSSION GIOVANNI JORGE [facility] May 23, 2019 ADVANCE DIRECTIVE DISCUSSION MADHURI WILSON [facility] Aug 23, 2016 ADVANCE DIRECTIVE DISCUSSION SHANKAR AYALA [facility] Jan 06, 2016 ADVANCE DIRECTIVE DISCUSSION KATIE BAILEY [facility] Jan 27, 2011 ADVANCE DIRECTIVE ANDREI ACE [facility] Radiology Reports: +/- 30 days of the [...] the Encounter. The data comes from all [place] treatment facilities. Date/Time Radiology Report Provider Source Sep 05, 2023 01:55 PM US XTR NON-VASC LM TD: JADE GTZ V [id number] M Exm Date: SEP 05, 2023@13:55 Req Phys: DEREK PEÑA Loc: [facility] F2F PACT 07 (Req'g L Img Loc: T-ULTRASOUND Service: Unknown (Case [id number] COMPLETE) US XTR NON-VASC LMTD (US Detailed) CPT:90302 Reason for Study: B/L swollen armpits Clinical History: Report Status: Verified Date Reported: SEP 05, 2023 Date Verified: SEP 05, 2023 Distribution Transformer Assembler E-Sig:/ES/BERENICE MCCRACKEN Report: EXAMINATION: US XTR NON-VASC [...] REQUIRED Primary Interpreting Staff: BERENICE MCCRACKEN, Radiologist (Distribution Transformer Assembler) /BERENICE FLORES [facility] Aug 12, 2023 12:19 PM LDCT LUNG CANCER S CREENING: JADE GTZ V [id number] -[id number] M Exm Date: AUG 12, 2023@12:19 Req Phys: SHERLYN POSADAS Loc: [facility] (Req'g Loc) Img Loc: T-CT SCAN Service: Unknown (Case [id number] COMPLETE) LDCT LUNG CANCER SCREENING (CT Detailed) CPT:96886 Reason for Study: Abnormal LDCT follow-up Clinical History: Report Status: Verified Date Reported: AUG 12, 2023 Date Verified: AUG 12, 2023 Distribution Transformer Assembler E-Sig:/ES/SARAH ASHLEY MD Report: EXAM: LDCT LUNG CANCER SCREENING ADDITIONAL HISTORY: Annual Screening COMPARISON: 08/09/2022 PROTOCOL: Screening protocol, low dose, non-contrast CT chest was performed in accordance with Lung-Rads v1.1. Additional coronal and sagittal reconstructions. MIP reconstructions were reviewed. Computer assisted detection (CAD) postprocessing of the lung windows done by [employer] software. DOSE PARAMETERS: Up-to-date CT equipment and radiation dose reduction techniques were employed. CTDIvol: 2.8 mGy. DLP: 94 mGy-cm. TECH NOTE: Elizabeth's name: Angela Protocol: LDCT Exam Additional notes: [...] Interpreting Staff: SARAH ASHLEY MD, Staff Physician (Distribution Transformer Assembler) /SARAH MARCH [facility] [place] [facility] Encounter Notes: All associated encounter notes This section contains the clinical notes associated to the Encounter. Date/Time Encounter Note(s) Provider Source Aug 25, 2023 03:05 PM PRIMARY CARE SECUR E MESSAGING: LOCAL TITLE: PRIMARY CARE SECURE MESSAGING STANDARD TITLE: PRIMARY CARE SECURE MESSAGING DATE OF NOTE: AUG 25, 2023@15:05 ENTRY DATE: AUG 25, 2023@15:05:07 AUTHOR: USHA HINES EXP COSIGNER: URGENCY: STATUS: COMPLETED ------Original Message ---- Sent: 08/24/2023 08:38 AM ET From: JADE GTZ V To: [place] PACT 7 [place] Subject: Test:what are results? why have i not been told of cat scan results concerning my lymph nodes? they told me that my lymph nodes would be seen in the scan even if the scan was not specifically for that. All i have received in the mail was the results of what it showed for my lungs. My condition has not changed and no advice from anyone. ------Original Message ---- Sent: 08/25/2023 03:04 PM ET From: USHA HINES To: JADE GTZ V Subject: Test:what are results? Good afternoon Mr. Ramires, I asked that the general cargo clerk call you to schedule an appointment with Dr. Peña. If no one calls you by the end of the day tomorrow feel free to call us and make an appointment at [phone]. Dr. Peña would like a follow-up, but I do have a couple questions. In regards to your glands, it appears you have been prescribed capsaicin cream, triamcinolone, gabapentin and hydroxyzine. Has any of these treatments helped? APPLE Wise RN /hina/ USHA HINES RN Signed: 08/25/2023 15:05 USHA HINES [facility] [place] [facility]
--- OUTSIDE RECORDS SUMMARY | 2024-04-30 08:20 | XMS_ITS | Encounter Summary ---
Author Name [facility] [place] [facility] [place] [facility] [place] Address [address], [place] [address] Care Team Providers Care Art Objects Salesperson Name Role Phone TYRONESTEPHA Primary Care Provider [...] PART A Jan 09, 2012 PART A [id number] JADE MAGDALENO PATIENT Selected Encounter This section includes the information on record at [place] for the Encounter. Date/Time Encounter Type Encounter Description Reason Provider Source Aug 25, 2023 04:04 PM Outpatient Encounter PRIMARY CARE/MEDICINE USHA HINES Encounter Template Text not used by [place] Plan of Treatment: Future Appointments (+ 6 [...] 20 appointments. The data comes from all [place] treatment facilities. Appointment Date/Time Appointment Type Appointme nt Facility Name Sep 05, 2023 02:00 PM AMBULATORY - NONE [facility] Sep 07, 2023 09:00 AM AMBULATORY - MEDICINE [facility] Oct 04, 2023 02:15 PM AMBULATORY - MEDICINE [facility]GT [facility] Nov 21, 2023 01:00 PM AMBULATORY - NONE SGT [facility]. [facility] Jan 30, 2024 01:00 PM AMBULATORY - NONE [facility] Feb 06, 2024 03:00 PM AMBULATORY - SURGERY SGT E [facility]. [facility] Feb 06, 2024 03:30 PM AMBULATORY - MEDICINE [facility]GT [facility] Lab Results: +/- 30 days of the encounter This section includes the Chemistry and Hematology Lab Results on record with [place] for the patient. Radiology Reports and Pathology Reports are provided separately, in subsequent sections. Lab Results This section contains the Chemistry/Hematology Results that were resulted 30 days before or 30 daysafter the date of the Encounter. Date/Time Source Result Type Result - Unit Interpretation Reference Range Comment Aug 22, 2023 03:04 PM T E.. [facility] TOTAL,VIT D Specimen Type: SERUM Comment: TOTAL,VIT D interpretation of results: Vitamin D deficiency: < or = 20 ng/mL Vitamin D insuficiency: 21 - 29 ng/mL Preferred level: > or = 30 ng/mL Toxicity: > 100 ng/mL Test performed on Cheryl chemistry analyzer (573) Slightly lipemic Ordering Provider: DEREK PEÑA Report Released Date/Time: Aug 18, 2023 09:16 AM Reporting Lab: [facility] [address] Performing Lab: [facility] [address] TOTAL,VIT D 36.3 ng/mL See_Comment Aug 22, 2023 03:04 PM [facility] MAGNESIUM Specimen Type: PLASMA No comment entered. Ordering Provider: DEREK PEÑA Report Released Date/Time: Aug 18, 2023 09:16 AM Reporting Lab: [facility] [address] [place] [address] Performing Lab: [facility] [address] [place] [address] MAGNESIUM 2.2 mg/dL 1.7-2.5 Aug 08, 2023 12:36 PM SGT E.I. [facility] TSH-G,ERIK,J,T Specimen Type: PLASMA Comment: eGFR [...] 2022 03:06 PM Reporting Lab: S[facility]. [facility] [address] [place] [address] Performing Lab: SGT E.[facility]. [facility] [address] [place] [id number] TSH-G,ERIK,J,T 1.450 u[IU]/mL 0.27-4.2 Aug 08, 2023 12:36 PM SGT E.I. [facility] HEMOGLOBIN %A1C PROFILE Specimen Type: BLOOD [...] 2022 03:06 PM Reporting Lab: S[facility] [address] [place] [id number] Performing Lab: S[facility]. [facility] [address] [facility] [address] HEMOGLOBIN %A1C 5.5 Aug 08, 2023 12:36 PM S[facility] URINALYSIS Specimen Type: URINE No comment entered. Ordering Provider: DEREK PEÑA Report Released Date/Time: Nov 10, 2022 03:06 PM Reporting Lab: S[facility] E[facility]. [place] [facility] [address] [facility] [address] Performing Lab: SGT E[facility]. [place] [facility] [address] [facility] [address] URINE COLOR Light-Yellow SPECIFIC GRAVITY 1.026 1.003-1.030 URINE BILIRUBIN Negative mg/dL NEGATIVE URINE KETONES Negative mg/dL NEGATIVE URINE GLUCOSE Negative mg/dL NEGATIVE URINE PROTEIN Negative mg/dL NEGATIVE URINE PH 5.0 [pH] 5.0-9.0 URINE BLOOD Tr mg/dL NEGATIVE URINE NITRITE Negative NEGATIVE LEUKOCYTE ESTERASE, URINE Negative NEGATIVE CLARITY Clear CLEAR UROBILINOGEN(mg /dL) <2.0 mg/dL L 0.0-1.99 Aug 08, 2023 12:36 PM T E.I. [facility] LIPID PANEL Specimen Type: PLASMA Comment: [...] 03:06 PM Reporting Lab: [facility] [address] [facility] [address] Performing Lab: SGT E.ISiobhan [place] [address] [facility] [address] CHOLESTEROL 203 mg/dL H 0-199 TRIGLYCERIDE 171 mg/dL H 0-149 LDL CHOLESTEROL 114 mg/dL <129 HDL CHOLESTEROL 55 mg/dL >40 DIRECT LDL canc mg/dL <129 Aug 08, 2023 12:36 PM [facility] DontaBlasSiobhan [facility] COMPREHENSIVE METABOLIC PANEL Specimen Type: PLASMA [...] Nov 10, 2022 03:06 PM Reporting Lab: [facility] Hitesh [facility] [address] [facility] [address] Performing Lab: [facility] Hitesh [facility] [address] [facility] [address] UREA NITROGEN 22 mg/dL H 9-20 SODIUM [...] 89 mL/min Aug 08, 2023 12:36 PM [facility] DontaBlasSiobhan [facility] CBC (DIFF&PLT) Specimen Type: BLOOD No comment entered. Ordering Provider: DEREK PEÑA Report Released Date/Time: Nov 10, 2022 03:06 PM Reporting Lab: [facility] [place] [facility] [address] [facility] [address] Performing Lab: [facility] [place] [facility] [address] [facility] [address] WBC 5.08 10*3/uL 4.6-10.8 RBC 4.84 10*6/uL [...] and tobacco- related health factors from the [place] facility where the Encounter took place. Current Smoking Status This section includes the most current smoking, or tobacco-related health factor, from the [place] facility where the Encounter took place. Date/Time Current Smoking Status Patricia patel Aug 17, 2019 10:12 AM PRIOR TOBACCO USE CESSATION DATE [facility] Tobacco Use History This section includes a history of the smoking, or tobacco-related health factors, that were collected on or before the date of the Encounter. The data comes from the [place] facility where the Encounter took place. Date/Time Smoking Status/Tobacco Use Comment F acility Jan 17, 2018 01:30 PM PRIOR TOBACCO USE CESSATION DATE [facility] Jan 18, 2017 01:13 PM PRIOR TOBACCO USE CESSATION DATE [facility] Jan 06, 2016 01:03 PM PRIOR TOBACCO USE CESSATION DATE [facility] Advance Directives: All historical and current Section Date Range: From patient's date of to the date document was created. This section includes ALL of a patient's completed or amended [place] Advance and Rescinded Directives. The entries below indicate that a directive exists for the patient, but an actual copy is not included with this document. The data comes from all [place] facilities. Date Advance Directives Provider Source Aug 08, 2023 ADVANCE DIRECTIVE NOTIFICATION AND SCREENING JORGEGIOVANNI SGT E.ISiobhan LÓPEZ [facility] Nov 10, 2022 ADVANCE DIRECTIVE NOTIFICATION AND SCREENING GIOVANNI JORGE SGT E.ISiobhan LÓPEZ [facility] Mar 17, 2020 ADVANCE DIRECTIVE DISCUSSION GIOVANNI JORGE SGT E.ISiobhan LÓPEZ [facility] May 23, 2019 ADVANCE DIRECTIVE DISCUSSION MADHURI WILSON SGT E.ISi[facility]han L[facility]PE[facility] Aug 23, 2016 ADVANCE DIRECTIVE DISCUSSION SHANKAR AYALA [facility] Jan 06, 2016 ADVANCE DIRECTIVE DISCUSSION KATIE BAILEY SGT E.I. [facility] Jan 27, 2011 ADVANCE DIRECTIVE ANDREI ACE SGT E.[facility] Radiology Reports: +/- 30 days of [...] the Encounter. The data comes from all [place] treatment facilities. Date/Time Radiology Report Provider Source Sep 05, 2023 01:55 PM US XTR NON-VASC LM TD: JADE GTZ V [id number] M Exm Date: SEP 05, 2023@13:55 Req Phys: DEREK PEÑA Loc: [facility] F2F PACT 07 (Req'g L Img Loc: T-ULTRASOUND Service: Unknown (Case [id number] COMPLETE) US XTR NON-VASC LMTD (US Detailed) CPT:08505 Reason for Study: B/L swollen armpits Clinical History: Report Status: Verified Date Reported: SEP 05, 2023 Date Verified: SEP 05, 2023 Hot Top Liner Helper E-Sig:/ES/BERENICE MCCRACKEN Report: EXAMINATION: US XTR NON-VASC [...] REQUIRED Primary Interpreting Staff: BERENICE MCCRACKEN, Radiologist (Hot Top Liner Helper) /BERENICE FLORES [facility]. [facility] Aug 12, 2023 12:19 PM LDCT LUNG CANCER S CREENING: JADE GTZ V [id number] -[id number] M Exm Date: AUG 12, 2023@12:19 Req Phys: SHERLYN POSADAS Loc: [facility] (Req'g Loc) Img Loc: T-CT SCAN Service: Unknown (Case [id number] COMPLETE) LDCT LUNG CANCER SCREENING (CT Detailed) CPT:87110 Reason for Study: Abnormal LDCT follow-up Clinical History: Report Status: Verified Date Reported: AUG 12, 2023 Date Verified: AUG 12, 2023 Hot Top Liner Helper E-Sig:/ES/SARAH ASHLEY MD Report: EXAM: LDCT LUNG CANCER SCREENING ADDITIONAL HISTORY: Annual Screening COMPARISON: 08/09/2022 PROTOCOL: Screening protocol, low dose, non-contrast CT chest was performed in accordance with Lung-Rads v1.1. Additional coronal and sagittal reconstructions. MIP reconstructions were reviewed. Computer assisted detection (CAD) postprocessing of the lung windows done by [employer] software. DOSE PARAMETERS: Up-to-date CT equipment and radiation dose reduction techniques were employed. CTDIvol: 2.8 mGy. DLP: 94 mGy-cm. TECH NOTE: Sumrall's name: Angela Protocol: LDCT Exam Additional notes: [...] Interpreting Staff: SARAH ASHLEY MD, Staff Physician (Hot Top Liner Helper) /SARAH MARCH E[facility]I. [facility] Encounter Notes: All associated encounter notes This section contains the clinical notes associated to the Encounter. Date/Time Encounter Note(s) Provider Source Aug 26, 2023 11:32 AM ADDENDUM: LOCAL TITLE: Addendum STANDARD TITLE: ADDENDUM DATE OF NOTE: AUG 26, 2023@11:32 ENTRY DATE: AUG 26, 2023@11:32:49 AUTHOR: USHA HINES EXP COSIGNER: URGENCY: STATUS: COMPLETED ------Original Message ---- Sent: 08/25/2023 04:16 PM ET [facility] Subject: Test:local doctor appointment results I dont need a follow up with doctor i need mammogram ordered LOLY. ------Original Message ---- Sent: 08/26/2023 10:25 AM ET From: JADE GTZ V [facility] [place] [facility] [place] Subject: Test:local doctor appointment results here is some info i found. [email or web address] [email or web address]-and-th [email or web address]-arymqdz-smpt-ep- know/ there is a lot more out there about not getting a mammogram after the shot. . the person i saw yesterday was an Advanced Practice Registered Nurse so maybe she was wrong about no swollen nodes. My chiropractor said she felt them. either way I still think its a covid reaction. The lump she felt is on the side close to edge of my armpit. what needs to be done is more research as to how to get rid of the problem, i dont think its a tumor in my breast. there is more on the web about that looking like it is with the covid reaction. If the doc wants to examine me soon i will come in . I am leaving for a trip in 2 1/2 weeks so i need to get this taken care of soon. ------Original Message ---- Sent: 08/26/2023 11:32 AM ET From: USHA HINES To: JADE GTZ V Subject: Test:local doctor appointment results I will forward your request to Dr. Peña. APPLE Wise RN /hina/ USHA HINES RN Signed: 08/26/2023 11:32 Receipt Acknowledged By: 08/30/2023 09:27 /hina/ DEREK PEÑA Physician --- Original Document --- 08/25/23 PRIMARY CARE SECURE MESSAGING: ------Original Message ---- Sent: 08/25/2023 03:38 PM ET From: JADE GTZ V To: [place] [facility] [place] Subject: Test:local doctor appointment results saw the Doctor at [facility]. she examined me and felt no swollen lymph nodes. But saw slight redness of the skin on my right breast and felt lumps. Said what i thought was swelling under arm pits is just fat. 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 Recommends Mammogram to be ordered by [place]. ------Original Message ---- Sent: 08/25/2023 04:03 PM ET From: USHA HINES To: JADE GTZ V Subject: Test:local doctor appointment results I placed an order for you to have a follow-up with Dr. Peña. At that time a mammogram can be ordered. I know you have a ultrasound coming up as well. APPLE Wise RN /hina/ USHA HINES RN Signed: 08/25/2023 16:04 08/30/2023 ADDENDUM STATUS: COMPLETED Vet requested UNDERWRITING OPERATIONS MANAGER, already has an appt with new provider next week. /hina/ DEREK PEÑA Physician Signed: 08/30/2023 09:28 USHA HINES [facility] [place] [facility] Aug 25, 2023 04:04 PM PRIMARY CARE SECUR E MESSAGING: LOCAL TITLE: PRIMARY CARE SECURE MESSAGING STANDARD TITLE: PRIMARY CARE SECURE MESSAGING DATE OF NOTE: AUG 25, 2023@16:04 ENTRY DATE: AUG 25, 2023@16:04:08 AUTHOR: USHA HINES EXP COSIGNER: URGENCY: STATUS: COMPLETED PRIMARY CARE SECURE MESSAGING Has ADDENDA ------Original Message ---- Sent: 08/25/2023 03:38 PM ET From: JADE GTZ V [facility] [place] [facility] [place] Subject: Test:local doctor appointment results saw the Doctor at [facility]. she examined me and felt no swollen lymph nodes. But saw slight redness of the skin on my right breast and felt lumps. Said what i thought was swelling under arm pits is just fat. 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 Recommends Mammogram to be ordered by [place]. ------Original Message ---- Sent: 08/25/2023 04:03 PM ET From: USHA HINES To: JADE GTZ V Subject: Test:local doctor appointment results I placed an order for you to have a follow-up with Dr. Peña. At that time a mammogram can be ordered. I know you have a ultrasound coming up as well. APPLE Wise RN /hina/ USHA HINES RN Signed: 08/25/2023 16:04 08/26/2023 ADDENDUM STATUS: COMPLETED ------Original Message ---- Sent: 08/25/2023 04:16 PM ET From: JADE GTZ V [facility]: [place] [facility] Subject: Test:local doctor appointment results I dont need a follow up with doctor i need mammogram ordered LOLY. ------Original Message ---- Sent: 08/26/2023 10:25 AM ET From: JADE GTZ V To: [place] PA[facility] 7 [place] Subject: Test:local doctor appointment results here is some info i found. [email or web address] rg [email or web address]-hjuuj-yniie-and-th [email or web address]-olpoc-08-yhcxwrk-fdnz-ze- know/ there is a lot more out there about not getting a mammogram after the shot. . the person i saw yesterday was an Advanced Practice Registered Nurse so maybe she was wrong about no swollen nodes. My chiropractor said she felt them. either way I still think its a covid reaction. The lump she felt is on the side close to edge of my armpit. what needs to be done is more research as to how to get rid of the problem, i dont think its a tumor in my breast. there is more on the web about that looking like it is with the covid reaction. If the doc wants to examine me soon i will come in . I am leaving for a trip in 2 1/2 weeks so i need to get this taken care of soon. ------Original Message ---- Sent: 08/26/2023 11:32 AM ET From: USHA HINES To: JADE GTZ V Subject: Test:local doctor appointment results I will forward your request to Dr. Peña. APPLE Wise RN /hina/ USHA HINES RN Signed: 08/26/2023 11:32 Receipt Acknowledged By: 08/30/2023 09:27 /hina/ DEREK PEÑA Physician 08/30/2023 ADDENDUM STATUS: COMPLETED Vet requested UNDERWRITING OPERATIONS MANAGER, already has an appt with new provider next week. /hina/ DEREK PEÑA Physician Signed: 08/30/2023 09:28 USHA HINES [facility] [place] [facility]
--- OUTSIDE RECORDS SUMMARY | 2024-04-30 08:21 | XMS_ITS | Encounter Summary ---
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 Date/Time Primary/Secondary Diagnosis Diagnosis Name Provider Source Sep 07, 2023 12:09 PM PRIMARY Herpes simplex myelitis JESENIA HANSEN David [facility] Sep 07, 2023 12:09 PM SECONDARY Anxiety disorder, unspecified HANSENSTEPHKrystle Hernandez [facility] Sep 07, 2023 12:09 PM SECONDARY Diarrhea, unspecified TYRONEJESENIA S [facility] Sep 07, 2023 12:09 PM SECONDARY Gastro-esophageal reflux disease without esophagitis TYRONEJESENIA S [facility] Sep 07, 2023 12:09 PM SECONDARY Other specified crystal arthropathies, multiple sites JESENIA HANSEN David [facility] Plan of Treatment: Future Appointments (+ 6 months) and Future Tests (+/- 45 days) The Plan of Treatment section includes future care activities for the patient from all [place] treatmentfacilities. This section includes future appointments and future orders which are active, pending or scheduled. Future Appointments This section includes appointments that were scheduled to occur 6 months from the date of the Encounter, up to a maximum of 20 appointments. The data comes from all [place] treatment facilities. Appointment Date/Time Appointment Type Appointme nt Facility Name Oct 04, 2023 02:15 PM AMBULATORY - MEDICINE [facility] Nov 21, 2023 01:00 PM AMBULATORY - NONE [facility] Jan 30, 2024 01:00 PM AMBULATORY - NONE [facility] Feb 06, 2024 03:00 PM AMBULATORY - SURGERY [facility] Feb 06, 2024 03:30 PM AMBULATORY - MEDICINE [facility] Lab Results: +/- 30 days of the encounter This section includes the Chemistry and Hematology Lab Results on record with [place] for the patient. Radiology Reports and Pathology Reports are provided separately, in subsequent sections. Lab Results This section contains the Chemistry/Hematology Results that were resulted 30 days before or 30 daysafter the date of the Encounter. Date/Time Source Result Type Result - Unit Interpretation Reference Range Comment Aug 22, 2023 03:04 PM [facility] TOTAL,VIT D Specimen Type: SERUM Comment: TOTAL,VIT D interpretation of results: Vitamin D deficiency: < or = 20 ng/mL Vitamin D insuficiency: 21 - 29 ng/mL Preferred level: > or = 30 ng/mL Toxicity: > 100 ng/mL Test performed on Cheryl chemistry analyzer (573) Slightly lipemic Ordering Provider: DEREK CABALLERO Report Released Date/Time: Aug 18, 2023 09:16 AM Reporting Lab: [facility] [address] [address] Performing Lab: [facility] [address] [phone] TOTAL,VIT D 36.3 ng/mL See_Comment Aug 22, 2023 03:04 PM [facility] MAGNESIUM Specimen Type: PLASMA No comment entered. Ordering Provider: DEREK CABALLERO Report Released Date/Time: Aug 18, 2023 09:16 AM Reporting Lab: [facility] [address] [facility] [id number] Performing Lab: [facility] [address] [place] [id number] MAGNESIUM 2.2 mg/dL 1.7-2.5 Vital Signs: All taken on the encounter date This section contains inpatient and outpatient Vital Signs collected on the date of the Encounter. Date/Time Temperature Pulse Blood Pressure Respiratory Rate SP02 Pain Height Weight Body Mass Index Source Sep 07, 2023 09:06 AM 150/93 mm[Hg] [facility] [facility] Sep 07, 2023 09:04 AM 97.8 F 60 /min 162/92 mm[Hg] 18 /min 96 % 2 66 in 172 lb 28 [facility] Social History: Smoking Status (Most current) and Tobacco Use (All prior to encounter date) This section includes the most current, and the historical, smoking and tobacco- related health factors from the [place] facility where the Encounter took place. Current Smoking Status This section includes the most current smoking, or tobacco-related health factor, from the [place] facility where the Encounter took place. Date/Time Current Smoking Status Comment Marivel patel Aug 08, 2023 02:00 PM VA-TOBACCO FORMER USER [facility] Tobacco Use History This section includes a history of the smoking, or tobacco-related health factors, that were collected on or before the date of the Encounter. The data comes from the [place] facility where the Encounter took place. Date/Time Smoking Status/Tobacco Use Comment F acility Aug 08, 2023 02:00 PM VA-TOBACCO QUIT 5 TO < 15 YRS [facility] Jan 26, 2022 11:30 AM VA-TOBACCO FORMER USER [facility] Jan 26, 2022 11:30 AM VA-TOBACCO QUIT 5 TO < 15 YRS [facility] February 18, 2021 09:00 AM VA-TOBACCO FORMER USER [facility] February 18, 2021 09:00 AM VA-TOBACCO QUIT 5 TO < 15 YRS [facility] Jan 02, 2020 03:58 PM VA-TOBACCO FORMER USER [facility] Jan 02, 2020 03:58 PM VA-TOBACCO QUIT 5 TO < 15 YRS [facility] Aug 14, 2019 10:32 AM TOBACCO PACK YEARS [facility] Aug 14, 2019 10:32 AM TOBACCO PACK YEARS >29 CC [facility] Jan 17, 2018 02:29 PM VA-TOBACCO FORMER USER [facility] Jan 17, 2018 02:29 PM VA-TOBACCO QUIT 5 TO < 15 YRS [facility] Jan 17, 2018 01:07 PM TOBACCO PACK YEARS [facility] Jan 17, 2018 01:07 PM TOBACCO PACK YEARS >29 50 [facility] Sep 26, 2017 12:56 PM LIFETIME NON-TOBACCO USER [facility] Jan 18, 2017 12:27 PM TOBACCO PACK YEARS [facility] Jan 18, 2017 12:27 PM TOBACCO PACK YEARS >29 50 [facility] Jan 06, 2016 12:16 PM TOBACCO PACK YEARS [facility] Jan 06, 2016 12:16 PM TOBACCO PACK YEARS >29 50 [facility] Apr 09, 2015 08:52 AM TOBACCO PACK YEARS [facility] Apr 09, 2015 08:52 AM TOBACCO PACK YEARS >29 50 [facility] Dec 26, 2014 12:12 PM TOBACCO PACK YEARS [facility] Dec 26, 2014 12:12 PM TOBACCO PACK YEARS >29 50 YEARS ON AND OFF [facility] Sep 16, 2014 09:00 AM TOBACCO PACK YEARS [facility] Sep 16, 2014 09:00 AM TOBACCO PACK YEARS >29 s [facility] Jun 25, 2014 01:57 PM TOBACCO PACK YEARS [facility] Jun 25, 2014 01:57 PM TOBACCO PACK YEARS <30 50 [facility] Dec 06, 2013 10:06 AM TOBACCO PACK YEARS [facility] Dec 06, 2013 10:06 AM TOBACCO PACK YEARS >29 50 [facility] Jan 22, 2013 01:07 PM CURRENT TOBACCO USE [facility] Jan 22, 2013 01:07 PM TOBACCO CESSATION OFFERED [facility] Jan 22, 2013 01:07 PM TOBACCO MEDS OFFERED [facility] Nov 08, 2012 09:21 AM CURRENT TOBACCO USE [facility] Nov 08, 2012 09:21 AM TOBACCO CESSATION OFFERED [facility] Nov 08, 2012 09:21 AM TOBACCO MEDS OFFERED [facility] Oct 28, 2011 08:17 AM CURRENT TOBACCO USE [facility] Oct 28, 2011 08:17 AM TOBACCO CESSATION OFFERED [facility] Oct 28, 2011 08:17 AM TOBACCO MEDS OFFERED [facility] Aug 04, 2011 01:10 PM CURRENT TOBACCO USE [facility] Aug 04, 2011 01:10 PM TOBACCO CESSATION OFFERED [facility] Aug 04, 2011 01:10 PM TOBACCO MEDS OFFERED [facility] Apr 28, 2011 08:00 AM CURRENT TOBACCO USE [facility] Apr 28, 2011 08:00 AM TOBACCO CESSATION OFFERED [facility] Apr 28, 2011 08:00 AM TOBACCO MEDS OFFERED [facility] March 05, 2011 02:27 PM CURRENT TOBACCO USE [facility] March 05, 2011 02:27 PM TOBACCO CESSATION OFFERED [facility] March 05, 2011 02:27 PM TOBACCO MEDS OFFERED [facility] Dec 22, 2010 01:11 PM CURRENT TOBACCO USE [facility] Dec 22, 2010 01:11 PM TOBACCO CESSATION OFFERED [facility] Dec 22, 2010 01:11 PM TOBACCO MEDS OFFERED [facility] Oct 28, 2010 12:57 PM CURRENT TOBACCO USE [facility] Oct 28, 2010 12:57 PM TOBACCO CESSATION OFFERED [facility] Oct 28, 2010 12:57 PM TOBACCO MEDS OFFERED [facility] Oct 21, 2009 08:22 AM CURRENT TOBACCO USE [facility] Oct 21, 2009 08:22 AM TOBACCO CESSATION OFFERED [facility] Oct 21, 2009 08:22 AM TOBACCO MEDS OFFERED [facility] Sep 19, 2009 08:11 AM LIFETIME NON-TOBACCO USER [facility] Oct 22, 2008 12:58 PM TOBACCO NON USE GR EATER THAN 12 MONTHS [facility] Sep 17, 2008 08:24 AM TOBACCO NON USE GR EATER THAN 12 MONTHS [facility] Dec 01, 2007 12:58 PM TOBACCO NON USE LE SS THAN 12 MONTHS [facility] Aug 16, 2007 01:17 PM TOBACCO CESSATION OFFERED [facility] Aug 16, 2007 01:17 PM TOBACCO MEDS OFFERED [facility] Aug 16, 2007 01:17 PM TOBACCO NON USE LE SS THAN 12 MONTHS [facility] Jun 23, 2007 10:31 AM TOBACCO NON USE LE SS THAN 12 MONTHS [facility] Dec 14, 2006 10:24 AM CURRENT TOBACCO USE [facility] March 01, 2006 11:10 AM CURRENT TOBACCO USE [facility] Advance Directives: All historical and current Section Date Range: From patient's date of to the date document was created. This section includes ALL of a patient's completed or amended [place] Advance and Rescinded Directives. The entries below indicate that a directive exists for the patient, but an actual copy is not included with this document. The data comes from all [place] facilities. Date Advance Directives Provider Source Aug 08, 2023 ADVANCE DIRECTIVE NOTIFICATION AND SCREENING JORGEGIOVANNI [facility] Nov 10, 2022 ADVANCE DIRECTIVE NOTIFICATION AND SCREENING JORGEGIOVANNI [facility] Mar 17, 2020 ADVANCE DIRECTIVE DISCUSSION GIOVANNI JORGE [facility] May 23, 2019 ADVANCE DIRECTIVE DISCUSSION MADHURI WILSON [facility] Aug 23, 2016 ADVANCE DIRECTIVE DISCUSSION SHANKAR AYALA [facility] Jan 06, 2016 ADVANCE DIRECTIVE DISCUSSION KATIE BAILEY [facility] Jan 27, 2011 ADVANCE DIRECTIVE ANDREI ACE [facility] Radiology Reports: +/- 30 days of [...] the Encounter. The data comes from all [place] treatment facilities. Date/Time Radiology Report Provider Source Sep 05, 2023 01:55 PM US XTR NON-VASC LM TD: JADE GTZ V [id number] M Exm Date: SEP 05, 2023@13:55 Req Phys: DEREK CABALLERO Loc: [facility] F2F PACT 07 WH (Req'g L Img Loc: T-ULTRASOUND Service: Unknown (Case [id number] COMPLETE) US XTR NON-VASC LMTD (US Detailed) CPT:16624 Reason for Study: B/L swollen armpits Clinical History: Report Status: Verified Date Reported: SEP 05, 2023 Date Verified: SEP 05, 2023 Fleece Tier E-Sig:/ES/BERENICE MCCRACKEN Report: EXAMINATION: US XTR NON-VASC [...] REQUIRED Primary Interpreting Staff: BERENICE MCCRACKEN, Radiologist (Fleece Tier) /BERENICE FLORES [facility] Aug 12, 2023 12:19 PM LDCT LUNG CANCER S CREENING: JADE GTZ V [id number] M Ex Date: AUG 12, 2023@12:19 Req Phys: SHERLYN POSADAS Loc: [facility] HISTORICAL (Req'g Loc) Im Loc: T-CT SCAN Service: Unknown (Case [id number] COMPLETE) LDCT LUNG CANCER SCREENING (CT Detailed) CPT:13397 Reason for Study: Abnormal LDCT follow-up Clinical History: Report Status: Verified Date Reported: AUG 12, 2023 Date Verified: AUG 12, 2023 Fleece Tier E-Sig:/ES/SARAH ASHLEY MD Report: EXAM: LDCT LUNG CANCER SCREENING ADDITIONAL HISTORY: Annual Screening COMPARISON: 08/09/2022 PROTOCOL: Screening protocol, low dose, non-contrast CT chest was performed in accordance with Lung-Rads v1.1. Additional coronal and sagittal reconstructions. MIP reconstructions were reviewed. Computer assisted detection (CAD) postprocessing of the lung windows done by Samantha software. DOSE PARAMETERS: Up-to-date CT equipment and radiation dose reduction techniques were employed. CTDIvol: 2.8 mGy. DLP: 94 mGy-cm. TECH NOTE: [place]'s name: Angela Protocol: LDCT Exam Additional notes: [...] Interpreting Staff: SARAH ASHLEY MD, Staff Physician (Fleece Tier) /SARAH MARCH [facility] Encounter Notes: All associated encounter notes This section contains the clinical notes associated to the Encounter. Date/Time Encounter Note(s) Provider Source Sep 07, 2023 09:08 AM PRIMARY CARE NOTE: LOCAL TITLE: PC FOLLOW-UP VISIT STANDARD TITLE: PRIMARY CARE NOTE DATE OF NOTE: SEP 07, 2023@09:08 ENTRY DATE: SEP 07, 2023@09:08:24 AUTHOR: JESENIA HANSEN COSIGNER: URGENCY: STATUS: COMPLETED please note that this note was generated using StormMQ software. Efforts made to proofread for errors CHIEF COMPLAINT: SUBJECTIVE: Patient is a 78 year old, MALE , seen in the clinic for first visit with me, pt requested transfer of provider, patient is concerned about a burning sensation in the axillary region he noted it about a year ago no rash he had an ultrasound that was negative went away on its own and then a few months ago returned again with the burning sensation he also felt there was some swelling and sharp pains right worse than left he had seen his chiropractor who felt his axillary lymph nodes were swollen the patient had recently had a COVID booster as well as a flu shot 1 in each arm he saw a local doctor who did not feel any axillary lymphadenopathy but wondered about a breast lump so patient is back here for check he was given prescription for gabapentin but he never took it he was also given a prescription for hydroxyzine but after reading the side effects he did not want to take that either History of BPH on tamsulosin History of IBSD has been released from he has had full EGD and colonoscopy fairly recently and likely will not need repeat SOCIAL: Positive history of tobacco use has quit but has not quit for 15 years SERVICE:See claritza ROS: ALLERGIES: PENICILLIN, PILOCARPINE, FLEXERIL, ACYCLOVIR, VALACYCLOVIR PROBLEM LIST: Myalgia ([facility] [id number]) Palpitations ([facility] [id number]) Herpes simplex ([facility] [id number]) Methicillin resistant Staphylococcus aureus infection ([facility] [id number]) Pseudogout ([facility] [id number]) Elevated PSA ([facility] [id number]) Keratoconjunctivitis sicca ([facility] [id number] ([facility] [id number]) Anxiety ([facility] [id number]) Herpesvirus infection ([facility] [id number]) Arthritis ([facility] [id number]) Upper gastrointestinal hemorrhage ([facility] [id number]) Tenosynovitis ([facility] [id number]) Dyspnea on exertion ([facility] [id number]) Anxiety ([facility] [id number]) Temporomandibular joint disorder Herpes Zoster Shoulder: arthralgia Umbilical hernia Renal Calculi Chest Pain Elevation, blood pressure Tobacco use ([facility] [id number]) Abdominal Pain, Epigastric Adjustment Disorder with Anxiety Flexible Sigmoidoscopy Headache Neck Pain Diarrhea ([facility] [id number]) Tendinitis family history pancreatic cancer (motherGastroesophageal reflux disease ([facility] [id number]) Chronic prostatitis Hyperlipidemia ([facility] [id number]) Psoriasis, skin or nails Health Maintenance OBJECTIVE: MEDICATIONS: VITALS: Blood Pressure: 150/93 (09/07/2023 09:06) Pulse: 60 (09/07/2023 09:04) Temperature: 97.8 F [36.6 C] (09/07/2023 09:04) Weight: 172 lb [78.02 kg] (09/07/2023 09:04) Patient's BMI is 28 on Sep 07, 2023@09:04:12 O2 SAT:96% (09/07/2023 09:04)% GEN: nad Pleasant 78-year-old mildly anxious HEENT: nc/at PERRL oropharynx clear edentulous wearing dentures Chest: ctab I do not appreciate any redness or axillary lymphadenopathy he has some prominent fatty deposits in the axilla both breasts show some mild gynecomastia but no obvious lump CV: rrr Abdominal: +bs soft/nt/nd TIM: Extremities: no edema pulses 2+ Musculoskeletal: Neuro: SKIN: CLINICAL REMINDERS: LAB: BASIC METABOLIC PANEL, PLASMA - Partial Panel found GLUCOSE, PLASMA, 08/08/23@1236 93 mg/dL (65 - 99) UREA NITROGEN, PLASMA, 08/08/23@1236 22 H mg/dL (9 - 20) CREATININE, PLASMA, 08/08/23@1236 0.9 mg/dL (0.5 - 1.2) eGFR(2020 CKD-EPI), PLASMA, 08/08/23@1236 89 mL/min () SODIUM, PLASMA, 08/08/23@1236 140 mmol/L (135 - 145) POTASSIUM, PLASMA, 08/08/23@1236 4.3 mmol/L (3.5 - 5.0) CHLORIDE, PLASMA, 08/08/23@1236 105 mmol/L (98 - 108) CO2, PLASMA, 08/08/23@1236 25 mmol/L (23 - 32) ANION GAP, PLASMA, 08/08/23@1236 10 mmol/L (5 - 15) CALCIUM, PLASMA, 08/08/23@1236 9.5 mg/dL (8.4 - 10.5) CBC (DIFF&PLT), BLOOD - Partial Panel found WBC, BLOOD, 08/08/23@1236 5.08 k/cmm (4.6 - 10.8) RBC, BLOOD, 08/08/23@1236 4.84 M/cmm (4.44 - 6.1) HGB, BLOOD, 08/08/231236 15.5 g/dL (13.9 - 18) HCT, BLOOD, 08/08/231236 44.8 % (41 - 52) MCV, BLOOD, 08/08/231236 92.6 um3 (80 - 98) MCH, BLOOD, 08/08/231236 32.0 pg (27 - 33.3) MCHC, BLOOD, 08/08/231236 34.6 g/dL (31.8 - 37.1) PLT , BLOOD, 08/08/23 153 k/cmm (130 - 440) RDW-SD, BLOOD, 08/08/23 43.2 fL (39.0 - 52.2) RDW, BLOOD, 08/08/236 12.7 % (11.5 - 14.5) MPV, BLOOD, 08/08/23 10.3 um3 (7.4 - 10.5) GRAN #, BLOOD, 08/08/236 2.91 k/cmm (1.8 - 7.8) LYMPH #, BLOOD, 08/08/231236 1.49 k/cmm (1.2 - 3.6) MONO #, BLOOD, 08/08/231236 0.46 k/cmm (0.14 - 0.76) EOSINO #, BLOOD, 08/08/231236 0.19 k/cmm (0.0 - 0.3) BASO #, BLOOD, 08/08/231236 0.03 k/cmm (0.0 - 0.2) IMMATURE GRAN.#, BLOOD, 08/08/231236 0.00 k/cmm (0.00 - 0.2) GRAN %, BLOOD, 08/08/231236 57.3 % (54 - 65) LYMPH %, BLOOD, 08/08/231236 29.3 % (25 - 33) MONO %, BLOOD, 08/08/231236 9.1 H% (3 - 7) EOSINO %, BLOOD, 08/08/231236 3.7 H% (0 - 3) BASO %, BLOOD, 08/08/23@1236 0.6 % (0 - 2) IMMATURE GRAN.%, BLOOD, 08/08/23@1236 0.0 % (0.00 - 2.00) NRBC #, BLOOD, 08/08/23@1236 0.00 k/cmm (0 - 0.2) NUCLEATED RBC/100WBC, BLOOD, 08/08/23@1236 0.0 %/WBC (0 - 6) CHOL: 203 (08/08/23 12:36) HDL CHO: 55 (08/08/23 12:36) LDL CHO: 114 (08/08/23 12:36) TRIGLYC: 171 (08/08/23 12:36) %A1C: 5.5 (08/08/23 12:36) SLT - Lab Tests Selected Collection DT Specimen Test Name Result Units Ref Range 08/08/2023 12:36 BLOOD HEMOGLOBIN %A1C 5.5 % Comment: Values obtained from A1C measurements can vary. For typical A1C Comment: assays, a reported value of 7.0 could actually be between 6.72and Comment: 7.28 if measured by a reference method. A reported value of 9.0 Comment: could actually be between 8.73 and 9.27. Ref: Comment: http://www.ngsp.org/CAPdata. asp ROSALIA-ALB: <3.0 (02/28/06 15:38) UR CR: 118.3 (02/28/06 15:38) UR TP-R: 9 (02/28/06 15:38) ALT 8 U/L (08/08/2023 12:36) TSH(10/10/2000) 08/08/23 12:36 1.450 PSA-IMX 04/13/22 09:12 3.95 01/06/22 10:14 4.18 H 06/25/21 10:42 4.62 H 02/03/21 11:20 4.54 H Collection DT Specimen Test Name Result Units Ref Range 02/02/2023 12:00 FECES FIT1/1 Negative Ref: Negative No selection items chosen for this component. Collection DT Spec VitD(Ro a 08/22/2023 15:04 SERUM 36.3 COMMENTS: a. TOTAL,VIT D interpretation of results: Vitamin D deficiency: < or = 20 ng/mL Vitamin D insuficiency: 21 - 29 ng/mL Preferred level: > or = 30 ng/mL Toxicity: > 100 ng/mL Test performed on Cheryl chemistry analyzer (573) Slightly lipemic Immunizations: ADMINISTERED Immunization Series Date Facility Reaction Info COVID-19 (MODERNA), MRNA, LNP-S,* 1 10/23/2020 [facility] * COVID-19 (MODERNA), MRNA, LNP-S,* 2 11/20/2020 [facility] * COVID-19 (MODERNA), MRNA, LNP-S,* 3 08/06/2021 [facility] COVID-19 (MODERNA), MRNA, LNP-S,* 4 01/21/2022 [facility] COVID-19 (MODERNA), MRNA, LNP-S,* 1 07/22/2022 [facility] * COVID-19 (MODERNA), MRNA, LNP-S,* 07/21/2023 [facility] * CONTRAINDICATED No data available REFUSED ======= No data available * Value is truncated; see the Detailed Immunizations Health Summary Component [DIM] for complete text Recorded Pneumococcal Vaccinations Information: Reminder Term: [facility]-PNEUMOC PPSV23 IMMUNIZATION Immunization: PNEUMOCOCCAL, UNSPECIFIED FORMULATION 11/08/2012@11:00 series - COMPLETE reaction - NONE Reminder Term: [facility] PCV IMMUNIZATION (ALL CONJUGATE) Immunization: PNEUMOCOCCAL CONJUGATE PCV 13 12/26/2014@13:00 series - BOOSTER ADMINISTERED Immunization Series Date Facility Reaction Info COVID-19 (MODERNA), MRNA, LNP-S,* 1 07/22/2022 [facility] * COVID-19 (MODERNA), MRNA, LNP-S,* 4 01/21/2022 [facility] COVID-19 (MODERNA), MRNA, LNP-S,* 3 08/06/2021 [facility] COVID-19 (MODERNA), MRNA, LNP-S,* 2 11/20/2020 [facility] * COVID-19 (MODERNA), MRNA, LNP-S,* 1 10/23/2020 [facility] * COVID-19 (MODERNA), MRNA, LNP-S,* 07/21/2023 [facility] * FLU,3 YRS (HISTORICAL) 08/26/2014 [facility] * FLU,3 YRS (HISTORICAL) 08/14/2013 [facility] * FLU,3 YRS (HISTORICAL) 08/28/2012 [facility] * FLU,3 YRS (HISTORICAL) 08/04/2011 [facility] * FLU,3 YRS (HISTORICAL) 07/28/2010 [facility] * FLU,3 YRS (HISTORICAL) 07/29/2009 [facility] * INFLUENZA VACCINE, QUADRIVALENT,* 1 06/18/2023 [facility] INFLUENZA VACCINE, QUADRIVALENT,* 07/10/2021 [facility] * INFLUENZA, HIGH-DOSE, QUADRIVALE* 1 06/22/2022 [facility] INFLUENZA, HIGH-DOSE, QUADRIVALE* 06/20/2020 No Site <C> INFLUENZA, INJECTABLE, QUADRIVAL* 07/26/2019 [facility] * INFLUENZA, INJECTABLE, QUADRIVAL* 08/16/2018 [facility] * INFLUENZA, INJECTABLE, QUADRIVAL* 08/16/2017 [facility] * INFLUENZA, SEASONAL, INJECTABLE,* 09/01/2016 [facility] * INFLUENZA, SEASONAL, INJECTABLE,* 08/15/2015 [facility] * INFLUENZA, UNSPECIFIED FORMULATI* Outside V* INFLUENZA, UNSPECIFIED FORMULATI* Outside V* INFLUENZA, UNSPECIFIED FORMULATI* 08/04/2011 [facility] * INFLUENZA, UNSPECIFIED FORMULATI* 07/28/2010 [facility] * INFLUENZA, UNSPECIFIED FORMULATI* 07/29/2009 S[facility]. * PNEUMOCOCCAL CONJUGATE PCV 13 B 12/26/2014 [facility]. * PNEUMOCOCCAL, UNSPECIFIED FORMUL* C 11/08/2012 [facility] * TD (ADULT), 2 LF TETANUS TOXOID,* 06/25/2021 [facility]. * TD(ADULT) UNSPECIFIED FORMULATION No Site TDAP 10/28/2010 [facility]. * Varicella Zoster (HISTORICAL) C 11/08/2012 [facility]. * ZOSTER RECOMBINANT C 04/28/2018 [facility]. * ZOSTER RECOMBINANT 01/17/2018 [facility] * CONTRAINDICATED No data available REFUSED ======= No data available <C> See the Detailed Immunizations Health Summary Component[DIM] for Comments * Value is truncated; see the Detailed Immunizations Health Summary Component [DIM] for complete text ASSESSMENT: -hyperlipidemia- not on statin CV-patient had visit with cardiology August 2021 at the cardiology and internal medicine group [facility] had an echocardiogram which showed normal chamber sizes, normal left ventricular function valves also looks normal EF was 57% patient also had a stress test which showed normal perfusion--there are some mention of the notes about some heart irregularity but patient does not report history of A. fib. Had Holter monitor in January 2021 here at our clinic which did not reveal any A. fibI will monitor at this time h/o BPH: Continue tamsulosin Generalized anxiety --patient was prescribed hydroxyzine but after reading the side effects he opted not to take it--I will discuss with patient at next visit if he would like mental health referral IBS-d--patient treats conservatively--has seen GI last visit with them September 2021 conservative management recommended GERD: Continue pantoprazole as he is doing h/o Elevated PSA in the past, most recent in 2021 was normal, patient's last visit with urology was in 2019 he did not follow-up we will have to discuss with the patient if he would like to see urology again as he has had some abnormal PSAs in the past or whether we discontinue surveillance h/o Pseudogout: Used to be on colchicine. Seen by community care shotweld operator,05/2022 --according to those records he was given a steroid injection as well as ketorolac and diagnoses listed were osteoporosis, osteoarthritis, degenerative disc disease, psoriasis, pseudogout evidently some of his blood work showed a positive LIDIA of 1-1280 LIDIA 10centromere 8 and RNA polymerase III 43 they discussed crest syndromes the patient denied difficulty swallowing but does have GERD and IBS he also denied Raynaud's but reportedly his brother had that Patient has prior diagnosis of psoriasis and most recent room notes psoriatic arthritis they list his lab work including RF 14 IgM 63 IgA 60 they recommended consideration of starting Orencia but patient did not follow-up due to complaints of axillary burning sensation Was diagnosed with osteoporosis however I do not see the DEXA scan right off hand will discuss with him when that was done and consider repeating here at our clinic Burning sensation in the axillary regions--there is no rash I do not appreciate any lymphadenopathy he had some mild gynecomastia/slight nodularity but I do not feel a distinct breast mass either we discussed the possibility of mammogram as he notes that one of the local doctors had thought he had a lump but the patient decided that perhaps he did not want to pursue this after all--we decided together to monitor this conservatively if symptoms continue he might consider some gabapentin we could also try some topical lidocaine and certainly pursue some imaging whether mammogram or other depending on his symptoms of note there was nothing of note seen on recent low-dose screening CAT scan Elevated blood pressure in the clinicpatient notes at home it runs less than 140/90 on average 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 RTC in January with me has lab appointment already scheduled Nov@13:00 [facility] OPTOMETRY 2 Jan@13:00 TL LAB Jan@14:00 [facility] F2F PACElijah [place] [facility] Jan@15:00 [facility] F2F POD 04 /es/ JESENIA HANSEN MD Signed: 09/07/2023 12:09 JESENIA HANSEN [facility] [place] [facility] Sep 07, 2023 09:05 AM NURSING NOTE: LOCAL TITLE: OUTPATIENT PREVENTIVE HEALTH & PATIENT EDUCATION (T STANDARD TITLE: NURSING NOTE DATE OF NOTE: SEP 07, 2023@09:05 ENTRY DATE: SEP 07, 2023@09:05:26 AUTHOR: NITESH VAZQUEZ EXP COSIGNER: URGENCY: STATUS: COMPLETED Type of visit: [id number]-px-[id number] Do you currently have any things in your life that worry you or cause you stress that you would like to discuss today? No Primary Care Check in Reason for visit: Initial Transfer pt. Do you need outside prescriptions for local fill at [place] expense? No Have you been hospitalized since your last visit? No Does Patient use assistive devices (DME)? No [place] verbalizes understanding of today's visit and has had the opportunity to ask questions and participate in his/her plan of care. Reminders: BP Check: Repeat blood pressure: 150/93 /es/ NITESH VAZQUEZ LPN Signed: 09/07/2023 09:07 NITESH VAZQUEZ [facility]
--- OUTSIDE RECORDS SUMMARY | 2024-04-30 08:22 | XMS_ITS | Encounter Summary ---
Author Name [facility] [place] [facility] [place] [facility] [place] Address [address], [place] [address] Care Team Providers Care Police Patrol Officer Name Role Phone JESENIA HANSEN Primary Care [...] PART A Jan 09, 2012 PART A [id number] JADE MAGDALENO PATIENT Selected Encounter This section includes the information on record at [place] for the Encounter. Date/Time Encounter Type Encounter Description Reason Provider Source Sep 12, 2023 12:50 PM Outpatient Encounter PRIMARY CARE/MEDICINE JESENIA HANSEN [facility] Encounter Template Text not used by [place] Plan of Treatment: Future Appointments (+ 6 [...] 20 appointments. The data comes from all [place] treatment facilities. Appointment Date/Time Appointment Type Appointme nt Facility Name Oct 04, 2023 02:15 PM AMBULATORY - MEDICINE [facility] Nov 21, 2023 01:00 PM AMBULATORY - NONE [facility] Jan 30, 2024 01:00 PM AMBULATORY - NONE [facility] Feb 06, 2024 03:00 PM AMBULATORY - SURGERY [facility] Feb 06, 2024 03:30 PM AMBULATORY - MEDICINE [facility] Lab Results: +/- 30 days of the encounter This section includes the Chemistry and Hematology Lab Results on record with [place] for the patient. Radiology Reports and Pathology Reports are provided separately, in subsequent sections. Lab Results This section contains the Chemistry/Hematology Results that were resulted 30 days before or 30 daysafter the date of the Encounter. Date/Time Source Result Type Result - Unit Interpretation Reference Range Comment Aug 22, 2023 03:04 PM T [facility] TOTAL,VIT D Specimen Type: SERUM Comment: TOTAL,VIT D interpretation of results: Vitamin D deficiency: < or = 20 ng/mL Vitamin D insuficiency: 21 - 29 ng/mL Preferred level: > or = 30 ng/mL Toxicity: > 100 ng/mL Test performed on Cheryl chemistry analyzer (573) Slightly lipemic Ordering Provider: DEREK CABALLERO Report Released Date/Time: Aug 18, 2023 09:16 AM Reporting Lab: [facility] [place] [address] [id number] Performing [facility]: [facility] [address] [phone] TOTAL,VIT D 36.3 ng/mL See_Comment Aug 22, 2023 03:04 PM [facility] E[facility] MAGNESIUM Specimen Type: PLASMA No comment entered. Ordering Provider: DEREK CABALLERO Report Released Date/Time: Aug 18, 2023 09:16 AM Reporting Lab: [facility] E[facility] [address] [place] [phone] Performing Lab: [facility] [place] [facility] [address] [facility] [place] [place] [phone] MAGNESIUM 2.2 mg/dL 1.7-2.5 Social History: Smoking Status (Most current) and Tobacco Use (All prior to encounter date) This section includes the most current, and the historical, smoking and tobacco- related health factors from the [place] facility where the Encounter took place. Current Smoking Status This section includes the most current smoking, or tobacco-related health factor, from the [place] facility where the Encounter took place. Date/Time Current Smoking Status Comment Facil ity Aug 17, 2019 10:12 AM PRIOR TOBACCO USE CESSATION DATE [facility] Tobacco Use History This section includes a history of the smoking, or tobacco-related health factors, that were collected on or before the date of the Encounter. The data comes from the [place] facility where the Encounter took place. Date/Time Smoking Status/Tobacco Use Comment F acility Jan 17, 2018 01:30 PM PRIOR TOBACCO USE CESSATION DATE [facility] Jan 18, 2017 01:13 PM PRIOR TOBACCO USE CESSATION DATE [facility] Jan 06, 2016 01:03 PM PRIOR TOBACCO USE CESSATION DATE [facility] Advance Directives: All historical and current Section Date Range: From patient's date of to the date document was created. This section includes ALL of a patient's completed or amended [place] Advance and Rescinded Directives. The entries below indicate that a directive exists for the patient, but an actual copy is not included with this document. The data comes from all [facility]. Date Advance Directives Provider Source Aug 08, 2023 ADVANCE DIRECTIVE NOTIFICATION AND SCREENING GIOVANNI JORGE [facility] [place] [facility] Nov 10, 2022 ADVANCE DIRECTIVE NOTIFICATION AND SCREENING GIOVANNI JORGE [facility] [place] [facility] Mar 17, 2020 ADVANCE DIRECTIVE DISCUSSION GIOVANNI JORGE [facility] [place] [facility] May 23, 2019 ADVANCE DIRECTIVE DISCUSSION MADHURI WILSON [facility] [place] [facility] Aug 23, 2016 ADVANCE DIRECTIVE DISCUSSION SHANKAR AYALA [facility] Jan 06, 2016 ADVANCE DIRECTIVE DISCUSSION KATIE BAILEY [facility] Jan 27, 2011 ADVANCE DIRECTIVE ANDREI ACE [facility] [place] [facility] Radiology Reports: +/- 30 days of the [...] the Encounter. The data comes from all [place] treatment facilities. Date/Time Radiology Report Provider Source Sep 05, 2023 01:55 PM US XTR NON-VASC LM TD: JADE GTZ V [id number] -[id number] M Exm Date: SEP 05, 2023@13:55 Req Phys: DEREK CABALLERO Loc: [address] PACT 07 (Req'g L Img Loc: T-ULTRASOUND Service: Unknown (Case [id number] COMPLETE) US XTR NON-VASC LMTD (US Detailed) CPT:27776 Reason for Study: B/L swollen armpits Clinical History: Report Status: Verified Date Reported: SEP 05, 2023 Date Verified: SEP 05, 2023 Technician Anatomic Pathology E-Sig:/ES/BERENICE MCCRACKEN Report: EXAMINATION: US XTR NON-VASC [...] REQUIRED Primary Interpreting Staff: BERENICE MCCRACKEN, Radiologist (Technician Anatomic Pathology) /BERENICE FLORES [facility] Encounter Notes: All associated encounter notes This section contains the clinical notes associated to the Encounter. Date/Time Encounter Note(s) Provider Source Sep 12, 2023 12:50 PM PRIMARY CARE [employer] MESSAGING: LOCAL TITLE: PRIMARY CARE SECURE MESSAGING STANDARD TITLE: PRIMARY CARE SECURE MESSAGING DATE OF NOTE: SEP 12, 2023@12:50 ENTRY DATE: SEP 12, 2023@12:50:09 AUTHOR: JESENIA HANSEN EXP COSIGNER: URGENCY: STATUS: COMPLETED PRIMARY CARE SECURE MESSAGING Has ADDENDA ------Original Message ---- Sent: 09/12/2023 08:13 AM ET From: JADE GTZ [facility] [place] Subject: General:burning spreading FYI. After seeing Doc the burning in arm pits seemed to be less for a couple days. but then got worse and all weekend the burning itching spread around sides to my upper back. Skin was pink and felt like i had sunburn. Mornings there is hardly any burning but after couple hours starts again. I am leaving for vacation on Tuesday for 3 weeks. but if something can be done before that like some meds or something? If it was just the armpits i was willing to wait it out but the spreading concerns me. Could it have something to do with Psoriasis?? ------Original Message ---- Sent: 09/12/2023 12:50 PM ET From: JESENIA HANSEN To: JADE GTZ V Subject: General:burning spreading this is so strange! I am wondering if it could be one of the medicines you are taking, like the tamsulosin. Do you think you could HOLD that medicine for a couple of weeks and see if that makes a difference? Also do you have any of the triamcinolone cream at home? That can be a soothing thing to put on to settle down inflammation. let me know what you think. If there is a visibile rash, it may be useful for you to come in and let us see it. Jesenia Hansen MD /hina/ JESENIA HANSEN MD Signed: 09/12/2023 12:50 09/13/2023 ADDENDUM STATUS: COMPLETED ------Original Message ---- Sent: 09/12/2023 02:05 PM ET From: JADE GTZ V [facility]: [facility] [place] Subject: General:burning spreading Its not really rash its more like just an overall light pink color to the skin like it was on my right breast and armpit area. I do have that cream i'll try that but its hard to reach that part of my back. I am more into thinking if it is a reaction my meds it would be to the antiviral one. If i stop the tamsulosin i will have a hard time peeing as i tried to do that myself once before but had to get back on it. if it gets worse should i come to the [facility] or see you? thanks for getting back to me so quick. ------Original Message ---- Sent: 09/13/2023 08:15 AM ET From: JESENIA HANSEN To: JADE GTZ V Subject: General:burning spreading Dear Mr Gtz, One option would be to temporarily switch the tamsulosin to terazosin- were you ever on that for your prostate? They are totally different formulations and that is one option and it would help us know if that is the culprit. I know you said holding the antiviral would result in a bad outbreak, so not sure we should do that! If it gets worse, you can call [phone] to see if i have an available appointment but if not, would go to the [facility]. Hopefully the cream will help settle things down as we figure out what to do. Jesenia Hansen MD /hina/ JESENIA HANSEN MD Signed: 09/13/2023 08:15 09/15/2023 ADDENDUM STATUS: COMPLETED ------Original Message ---- Sent: 09/14/2023 11:57 AM ET From: JADE GTZ V To: Yareli [facility] 6 [place] Subject: General:burning spreading I have not taken it for 3 days and the burning on my back has lessened a lot. And yesterday burning every where was minimal but today arm pits still the same put cream on left arm pit no difference. So yes switch me over to the terazosin if you can get it to me by Tuesday. I would think it would take more than just a few days to see any difference from not taking it. Peeing is getting a little more difficult. Thanks for getting back to me quickly about all this . I think i have found a good doctor! ------Original Message ---- Sent: 09/15/2023 12:26 PM ET From: JESENIA HANSEN To: JADE GTZ V Subject: General:burning spreading I will ask the pharmacy to Expedite it and we will see how you do. there are different strenghts of the terazosin, from 1mg to 10mg. I am going to send the 1mg so we can make sure you tolerate it as occasionally it will lower blood pressure and people feel lightheaded more so than with tamuslosin. Take it at night before bedtime. Let me know of any side effects and also if it is less effective for the prostate as we can increase the dose. keep me posted on the burning! also they may have already mailed your next Tamsulosin prescription so just set that aside if it comes once you have the terazosin. Jesenia Hansen MD /hina/ JESENIA HANSEN MD Signed: 09/15/2023 12:26 09/16/2023 ADDENDUM STATUS: COMPLETED ------Original Message ---- Sent: 09/15/2023 12:29 PM ET From: JADE GTZ V To: Yareli [facility] 6 [place] Subject: General:burning spreading The burning is less today. Thank you. /hina/ JUAN LUIS VELAZQUEZ RN Signed: 09/16/2023 07:43 JESENIA HANSEN [facility] [place] [facility]
--- OUTSIDE RECORDS SUMMARY | 2024-04-30 08:22 | XMS_ITS | Encounter Summary ---
Author Name [facility] [place] [facility] [place] [facility] [place] Address [address], [place] [address] Care Team Providers Care Billboard Erector Helper Name Role Phone JESENIA HANSEN Primary Care [...] PART A Jan 09, 2012 PART A [id number] JADE MAGDALENO PATIENT Selected Encounter This section includes the information on record at [place] for the Encounter. Date/Time Encounter Type Encounter Description Reason Provider Source Sep 08, 2023 12:06 PM Outpatient Encounter PRIMARY CARE/MEDICINE JESENIA HANSEN [facility] Encounter Template Text not used by [place] Plan of Treatment: Future Appointments (+ 6 [...] 20 appointments. The data comes from all [place] treatment facilities. Appointment Date/Time Appointment Type Appointme nt Facility Name Oct 04, 2023 02:15 PM AMBULATORY - MEDICINE [facility] Nov 21, 2023 01:00 PM AMBULATORY - NONE [facility] Jan 30, 2024 01:00 PM AMBULATORY - NONE [facility] Feb 06, 2024 03:00 PM AMBULATORY - SURGERY [facility]GT [facility] Feb 06, 2024 03:30 PM AMBULATORY - MEDICINE [facility] Lab Results: +/- 30 days of the encounter This section includes the Chemistry and Hematology Lab Results on record with [place] for the patient. Radiology Reports and Pathology Reports are provided separately, in subsequent sections. Lab Results This section contains the Chemistry/Hematology Results that were resulted 30 days before or 30 daysafter the date of the Encounter. Date/Time Source Result Type Result - Unit Interpretation Reference Range Comment Aug 22, 2023 03:04 PM T [facility] TOTAL,VIT D Specimen Type: SERUM Comment: TOTAL,VIT D interpretation of results: Vitamin D deficiency: < or = 20 ng/mL Vitamin D insuficiency: 21 - 29 ng/mL Preferred level: > or = 30 ng/mL Toxicity: > 100 ng/mL Test performed on Cheryl chemistry analyzer (573) Slightly lipemic Ordering Provider: DEREK CABALLERO Report Released Date/Time: Aug 18, 2023 09:16 AM Reporting Lab: [facility] [address] [phone] Performing Lab: [facility] [address] [phone] TOTAL,VIT D 36.3 ng/mL See_Comment Aug 22, 2023 03:04 PM [facility] MAGNESIUM Specimen Type: PLASMA No comment entered. Ordering Provider: DEREK CABALLERO Report Released Date/Time: Aug 18, 2023 09:16 AM Reporting Lab: [facility] [address] [place] [phone] Performing Lab: [facility] [address] [facility] [id number] MAGNESIUM 2.2 mg/dL 1.7-2.5 Social History: Smoking Status (Most current) and Tobacco Use (All prior to encounter date) This section includes the most current, and the historical, smoking and tobacco- related health factors from the [place] facility where the Encounter took place. Current Smoking Status This section includes the most current smoking, or tobacco-related health factor, from the [place] facility where the Encounter took place. Date/Time Current Smoking Status Comment Facil ity Aug 17, 2019 10:12 AM PRIOR TOBACCO USE CESSATION DATE [facility] Tobacco Use History This section includes a history of the smoking, or tobacco-related health factors, that were collected on or before the date of the Encounter. The data comes from the [place] facility where the Encounter took place. Date/Time Smoking Status/Tobacco Use Comment F acility Jan 17, 2018 01:30 PM PRIOR TOBACCO USE CESSATION DATE [facility] Jan 18, 2017 01:13 PM PRIOR TOBACCO USE CESSATION DATE [facility] Jan 06, 2016 01:03 PM PRIOR TOBACCO USE CESSATION DATE [facility] Advance Directives: All historical and current Section Date Range: From patient's date of to the date document was created. This section includes ALL of a patient's completed or amended [place] Advance and Rescinded Directives. The entries below indicate that a directive exists for the patient, but an actual copy is not included with this document. The data comes from all [facility]. Date Advance Directives Provider Source Aug 08, 2023 ADVANCE DIRECTIVE NOTIFICATION AND SCREENING GIOVANNI JORGE [facility] Nov 10, 2022 ADVANCE DIRECTIVE NOTIFICATION AND SCREENING GIOVANNI JORGE [facility] Mar 17, 2020 ADVANCE DIRECTIVE DISCUSSION GIOVANNI JORGE [facility] May 23, 2019 ADVANCE DIRECTIVE DISCUSSION MADHURI WILSON [facility] Aug 23, 2016 ADVANCE DIRECTIVE DISCUSSION SHANKAR AYALA [facility] Jan 06, 2016 ADVANCE DIRECTIVE DISCUSSION KATIE BAILEY [facility] Jan 27, 2011 ADVANCE DIRECTIVE ANDREI ACE [facility] Radiology Reports: +/- 30 days of [...] the Encounter. The data comes from all [place] treatment facilities. Date/Time Radiology Report Provider Source Sep 05, 2023 01:55 PM US XTR NON-VASC LM TD: JADE GTZ V [id number] -[id number] M Exm Date: SEP 05, 2023@13:55 Req Phys: DEREK CABALLERO Loc: [address] PACT [address] (Req'g L Img Loc: T-ULTRASOUND Service: Unknown (Case [id number] COMPLETE) US XTR NON-VASC LMTD (US Detailed) CPT:20804 Reason for Study: B/L swollen armpits Clinical History: Report Status: Verified Date Reported: SEP 05, 2023 Date Verified: SEP 05, 2023 Visitor Services Information Assistant E-Sig:/ES/BERENICE MCCRACKEN Report: EXAMINATION: US XTR NON-VASC [...] REQUIRED Primary Interpreting Staff: BERENICE MCCRACKEN, Radiologist (Visitor Services Information Assistant) /BERENICE FLORES [facility] Aug 12, 2023 12:19 PM LDCT LUNG CANCER S CREENING: JADE GTZ V [id number] -[id number] M Exm Date: AUG 12, 2023@12:19 Req Phys: SHERLYN POSADAS Loc: [facility] HISTORICAL (Req'g Loc) Img Loc: T-CT SCAN Service: Unknown (Case [id number] COMPLETE) LDCT LUNG CANCER SCREENING (CT Detailed) CPT:81222 Reason for Study: Abnormal LDCT follow-up Clinical History: Report Status: Verified Date Reported: AUG 12, 2023 Date Verified: AUG 12, 2023 Visitor Services Information Assistant E-Sig:/ES/SARAH ASHLEY MD Report: EXAM: LDCT LUNG CANCER SCREENING ADDITIONAL HISTORY: Annual Screening COMPARISON: 08/09/2022 PROTOCOL: Screening protocol, low dose, non-contrast CT chest was performed in accordance with Lung-Rads v1.1. Additional coronal and sagittal reconstructions. MIP reconstructions were reviewed. Computer assisted detection (CAD) postprocessing of the lung windows done by [email or web address] software. DOSE PARAMETERS: Up-to-date CT equipment and radiation dose reduction techniques were employed. CTDIvol: 2.8 mGy. DLP: 94 mGy-cm. TECH NOTE: 's name: Angela Protocol: LDCT Exam Additional notes: [...] Interpreting Staff: SARAH ASHLEY MD, Staff Physician (Visitor Services Information Assistant) /SARAH MARCH SGElijah [facility] Encounter Notes: All associated encounter notes This section contains the clinical notes associated to the Encounter. Date/Time Encounter Note(s) Provider Source Sep 08, 2023 12:06 PM PRIMARY CARE [facility] E MESSAGING: LOCAL TITLE: PRIMARY CARE SECURE MESSAGING STANDARD TITLE: PRIMARY CARE SECURE MESSAGING DATE OF NOTE: SEP 08, 2023@12:06 ENTRY DATE: SEP 08, 2023@12:06:41 AUTHOR: JESENIA HANSEN EXP COSIGNER: URGENCY: STATUS: COMPLETED ------Original Message ----- Sent: 09/07/2023 02:23 PM ET From: JADE GTZ V To: [facility] [address] Subject: Medication:no thanks concerning script for Fosamax. I doi not want script for it . this is some of what i found about it. Downsides Abdominal pain, bone muscle or joint pain, dyspepsia, hair loss, itch, constipation, diarrhea, flatulence, dizziness, headache, vertigo, and swelling of the ankles or feet are the most common side effects. Fosamax, like other bisphosphonates, may irritate the esophagus and stomach. I already have most of these problems so i dont need them to get worse especially the diarrhea, not to mention the fractures in Jaw problem with it. ------Original Message ----- Sent: 09/08/2023 12:06 PM ET From: JESENIA HANSEN To: JADE GTZ V Subject: Medication:no thanks Ok-- In the meantime, best thing will be do be as active as you can (consider some light weights to build your muscles back up, as this can help with your bones)and continue your Vitamin D supplement just like you are doing-- Jesenia Hansen MD /hina/ JESENIA HANSEN MD Signed: 09/08/2023 12:06 J[facility]IA HANSEN [facility]
--- OUTSIDE RECORDS SUMMARY | 2024-04-30 08:22 | XMS_ITS | Encounter Summary ---
Author Name [facility] [place] [facility] [place] [facility] [place] Address [address], [place] [address] Care Team Providers Care Web Services Manager Name Role Phone JESENIA STAHL Primary Care Provider Unavailabl e Insurance Providers: [...] PART A Jan 09, 2012 PART A [id number] JADE MAGDALENO PATIENT Selected Encounter This section includes the information on record at [place] for the Encounter. Date/Time Encounter Type Encounter Description Reason Provider Source Sep 23, 2023 01:32 PM Outpatient Encounter PRIMARY CARE/MEDICINE JESENIA STAHL [facility] Encounter Template Text not used by [place] Plan of Treatment: Future Appointments (+ 6 [...] 20 appointments. The data comes from all [place] treatment facilities. Appointment Date/Time Appointment Type Appointme nt Facility Name Oct 04, 2023 02:15 PM AMBULATORY - MEDICINE [facility] Nov 21, 2023 01:00 PM AMBULATORY - NONE [facility] Jan 30, 2024 01:00 PM AMBULATORY - NONE [facility] Feb 06, 2024 03:00 PM AMBULATORY - SURGERY SGT E .[facility] Feb 06, 2024 03:30 PM AMBULATORY - MEDICINE SGT [facility] Social History: Smoking Status (Most current) and Tobacco Use (All prior to encounter date) This section includes the most current, and the historical, smoking and tobacco- related health factors from the [place] facility where the Encounter took place. Current Smoking Status This section includes the most current smoking, or tobacco-related health factor, from the [place] facility where the Encounter took place. Date/Time Current Smoking Status Comment Marivel patel Aug 17, 2019 10:12 AM PRIOR TOBACCO USE CESSATION DATE [facility] Tobacco Use History This section includes a history of the smoking, or tobacco-related health factors, that were collected on or before the date of the Encounter. The data comes from the [place] facility where the Encounter took place. Date/Time Smoking Status/Tobacco Use Comment F angy Jan 17, 2018 01:30 PM PRIOR TOBACCO USE CESSATION DATE [facility] Jan 18, 2017 01:13 PM PRIOR TOBACCO USE CESSATION DATE [facility] Jan 06, 2016 01:03 PM PRIOR TOBACCO USE CESSATION DATE [facility] Advance Directives: All historical and current Section Date Range: From patient's date of to the date document was created. This section includes ALL of a patient's completed or amended [place] Advance and Rescinded Directives. The entries below indicate that a directive exists for the patient, but an actual copy is not included with this document. The data comes from all [facility]. Date Advance Directives Provider Source Aug 08, 2023 ADVANCE DIRECTIVE NOTIFICATION AND SCREENING JORGEGIOVANNI [facility] Nov 10, 2022 ADVANCE DIRECTIVE NOTIFICATION AND SCREENING JORGEGIOVANNI [facility] Mar 17, 2020 ADVANCE DIRECTIVE DISCUSSION GIOVANNI JORGE SGT [facility] May 23, 2019 ADVANCE DIRECTIVE DISCUSSION MADHURI WILSON SGT [facility]. [facility] Aug 23, 2016 ADVANCE DIRECTIVE DISCUSSION SHANKAR AYALA SGT [facility] Jan 06, 2016 ADVANCE DIRECTIVE DISCUSSION KATIE BAILEYN SGT [facility]. [facility] Jan 27, 2011 ADVANCE DIRECTIVE MALKA ANDREIBETH SGT E.I. [facility] Radiology Reports: +/- 30 days of the [...] the Encounter. The data comes from all [place] treatment facilities. Date/Time Radiology Report Provider Source Sep 05, 2023 01:55 PM US XTR NON-VASC LM TD: JADE GTZ V [id number] -[id number] M Exm Date: SEP 05, 2023@13:55 Req Phys: DEREK CABALLERO Loc: [address] PACT [address] WH (Req'g L Img Loc: T-ULTRASOUND Service: Unknown (Case [id number] COMPLETE) US XTR NON-VASC LMTD (US Detailed) CPT:38324 Reason for Study: B/L swollen armpits Clinical History: Report Status: Verified Date Reported: SEP 05, 2023 Date Verified: SEP 05, 2023 Log Inspector E-Sig:/ES/BERENICE MCCRACKEN Report: EXAMINATION: US XTR NON-VASC [...] REQUIRED Primary Interpreting Staff: BERENICE MCCRACKEN, Radiologist (Log Inspector) /BERENICE FLORES [facility] Encounter Notes: All associated encounter notes This section contains the clinical notes associated to the Encounter. Date/Time Encounter Note(s) Provider Source Sep 23, 2023 01:32 PM PRIMARY CARE [employer] E MESSAGING: LOCAL TITLE: PRIMARY CARE SECURE MESSAGING STANDARD TITLE: PRIMARY CARE SECURE MESSAGING DATE OF NOTE: SEP 23, 2023@13:32 ENTRY DATE: SEP 23, 2023@13:32:58 AUTHOR: JESENIA STAHL EXP COSIGNER: URGENCY: STATUS: COMPLETED PRIMARY CARE SECURE MESSAGING Has ADDENDA ------Original Message ----- Sent: 09/23/2023 01:10 PM ET From: JADE GTZ V To: [place] [facility] 6 [address] Subject: General:made appointment called to make appointment with you . they told me they could make appointment with nurse to take pictures of skin first. Wanted to make sure with you if that was right way to go. couldn't find appointment with you until Nov. ------Original Message ----- Sent: 09/23/2023 01:32 PM ET From: JESENIA STAHL To: JADE GTZ V Subject: General:made appointment If there are specific areas of concern, the nurse appt will work out fine for pictures. But its ok to wait til november if we just want to do a full body check. And you may want to wait a week or two from now as sometimes skin areas can improve on their won ( with the prednisone and the changes of medicine) We will look forward to seeing you! Jesenia Stahl MD /hina/ JESENIA STAHL MD Signed: 09/23/2023 13:32 09/26/2023 ADDENDUM STATUS: COMPLETED ------Original Message ----- Sent: 09/26/2023 05:55 AM ET From: JADE GTZ V [facility] [address] Subject: General:made appointment the picture appointment is for the . Sorry to keep messaging you but things keep changing. I cant even keep up with what is going on. but seems the new meds for prostate is doing same thing. burning came back so i stop taking it for 2 days and its mostly gone again. but peeing is getting a little harder to start. tonight will be third day Im not taking it. so if there is another alternative maybe try that? wrote all that yesterday. today Sun. and the burning is even less. didnt take pill last night either. Hopefully it wont come back and hope Im not leading us on some wild goose kaleb. ------Original Message ----- Sent: 09/26/2023 08:38 AM ET From: JESENIA STAHL To: JADE GTZ V Subject: General:made appointment Sometimes changing things too frequently make it difficult to know what is causing what... It may mean that the prostate med is not the cause of the burning. There may not be another alternative. Stay off of the terazosin for another day or two and let's see what the burning does. If it comes back, it probably isnt' related and you can even go back to the original one if it worked better for the prostate. Jesenia Stahl MD /hina/ JESENIA STAHL MD Signed: 09/26/2023 08:38 09/26/2023 ADDENDUM STATUS: COMPLETED ------Original Message ----- Sent: 09/26/2023 09:09 AM ET [facility]: [facility] [address] Subject: General:made appointment I guess it could be the Prednisone that's stopping the burning. Last dose is tomorrow. /es/ JESENIA STAHL MD Signed: 09/26/2023 12:51 JESENIA STAHL [facility] [place] [facility]
--- OUTSIDE RECORDS SUMMARY | 2024-04-30 08:22 | XMS_ITS | Encounter Summary ---
Author Name [facility] ([place] Organization [facility] [place] Address [address], [place] [address] Care Team Providers Care Bottle Assembler Name Role Phone JESENIA STAHL Primary Care [...] PART A Jan 09, 2012 PART A [id number] JADE MAGDALENO PATIENT Selected Encounter This section includes the information on record at MD for the Encounter. Date/Time Encounter Type Encounter Description Reason Provider Source Sep 19, 2023 01:33 PM Outpatient Encounter PRIMARY CARE/MEDICINE JESENIA STAHL [facility] Encounter Template Text not used by MD Plan of Treatment: Future Appointments (+ 6 [...] PM AMBULATORY - MEDICINE [facility] Nov 21, 2023 01:00 PM AMBULATORY - NONE [facility] Jan 30, 2024 01:00 PM AMBULATORY - NONE SGT [facility] Feb 06, 2024 03:00 PM AMBULATORY - SURGERY SGT E .I. [facility] Feb 06, 2024 03:30 PM AMBULATORY - MEDICINE SGT [facility]. [facility] Lab Results: +/- 30 days of [...] Aug 22, 2023 03:04 PM T E.I. [facility] TOTAL,VIT D Specimen Type: SERUM Comment: TOTAL,VIT D interpretation of results: Vitamin D deficiency: < or = 20 ng/mL Vitamin D insuficiency: 21 - 29 ng/mL Preferred level: > or = 30 ng/mL Toxicity: > 100 ng/mL Test performed on Cheryl chemistry analyzer (573) Slightly lipemic Ordering Provider: DEREK CABALLERO Report Released Date/Time: Aug 18, 2023 09:16 AM Reporting Lab: [facility] [place] [address] [id number] Performing Lab: [facility] [address] [id number] TOTAL,VIT D 36.3 ng/mL See_Comment Aug 22, 2023 03:04 PM [facility] E.. [facility] MAGNESIUM Specimen Type: PLASMA No comment entered. Ordering Provider: DEREK CABALLERO Report Released Date/Time: Aug 18, 2023 09:16 AM Reporting Lab: [facility] E.I. [facility] [address] [place] [phone] Performing Lab: [facility] [address] [facility] [id number] MAGNESIUM 2.2 mg/dL 1.7-2.5 Social History: Smoking [...] 10:12 AM PRIOR TOBACCO USE CESSATION DATE [facility] Tobacco Use History This section includes a history of the smoking, or tobacco-related health factors, that were collected on or before the date of the Encounter. The data comes from the MD facility where the Encounter took place. Date/Time Smoking Status/Tobacco Use Comment F acility Jan 17, 2018 01:30 PM PRIOR TOBACCO USE CESSATION DATE [facility] Jan 18, 2017 01:13 PM PRIOR TOBACCO USE CESSATION DATE [facility] Jan 06, 2016 01:03 PM PRIOR TOBACCO USE CESSATION DATE [facility] Advance Directives: All historical and current Section Date Range: From patient's date of to the date document was created. This section includes ALL of a patient's completed or amended MD Advance and Rescinded Directives. The entries below indicate that a directive exists for the patient, but an actual copy is not included with this document. The data comes from all [facility]. Date Advance Directives Provider Source Aug 08, 2023 ADVANCE DIRECTIVE NOTIFICATION AND SCREENING GIOVANNI JORGE [facility] Nov 10, 2022 ADVANCE DIRECTIVE NOTIFICATION AND SCREENING GIOVANNI JORGE [facility] Mar 17, 2020 ADVANCE DIRECTIVE DISCUSSION GIOVANNI JORGE [facility] May 23, 2019 ADVANCE DIRECTIVE DISCUSSION MADHURI WILSON [facility] Aug 23, 2016 ADVANCE DIRECTIVE DISCUSSION SHANKAR AYALA [facility] Jan 06, 2016 ADVANCE DIRECTIVE DISCUSSION KATIE BAILEY [facility] Jan 27, 2011 ADVANCE DIRECTIVE ANDREI ACE [facility] Radiology Reports: +/- 30 days of [...] PM US XTR NON-VASC LM TD: JADE MILLER V [id number] M Exm Date: SEP 05, 2023@13:55 Req Phys: DEREK CABALLERO Loc: [address] PACT 07 (Req'g L Img Loc: T-ULTRASOUND Service: Unknown (Case [id number] COMPLETE) US XTR NON-VASC LMTD (US Detailed) CPT:65704 Reason for Study: B/L swollen armpits Clinical History: Report Status: Verified Date Reported: SEP 05, 2023 Date Verified: SEP 05, 2023 Ticker Installer E-Sig:/ES/BERENICE MCCRACKEN Report: EXAMINATION: US XTR [...] REQUIRED Primary Interpreting Staff: BERENICE MCCRACKEN, Radiologist (Ticker Installer) /BERENICE FLORES [facility] Encounter Notes: All associated encounter notes This section contains the clinical notes associated to the Encounter. Date/Time Encounter Note(s) Provider Source Sep 19, 2023 01:33 PM PRIMARY CARE CYBRAUR E MESSAGING: LOCAL TITLE: PRIMARY CARE SECURE MESSAGING STANDARD TITLE: PRIMARY CARE SECURE MESSAGING DATE OF NOTE: SEP 19, 2023@13:33 ENTRY DATE: SEP 19, 2023@13:33:08 AUTHOR: JESENIA STAHL EXP COSIGNER: URGENCY: STATUS: COMPLETED PRIMARY CARE SECURE MESSAGING Has ADDENDA ------Original Message ----- Sent: 09/19/2023 09:31 AM ET From: JADE MILLER V To: [place] PA[address] 6 Mar[address] Subject: General:still burning FYI. burning was less for a couple of days . came back again and is also on my back. Postponed my vacation due to bad weather so i am considering coming to [facility] today or tomorrow maybe they can prescribe something like Prednisone? Cream you prescribed didnt do anything. Any advice? thanks ------Original Message ----- Sent: 09/19/2023 01:33 PM ET From: JESENIA STAHL To: JADE MILLER V Subject: General:still burning Dear Mr Miller I can write you for a prednisone taper , without you having to go through the [facility], if you would like- Let me know if you want to try this, otherwise you absolutely can get checked at the [facility]. once we make change to terazosin from flomax, it may take some time to see if that was the cause as it takes time for the medicine to get out of your system Jesenia Stahl MD /hina/ JESENIA STAHL MD Signed: 09/19/2023 13:33 09/19/2023 ADDENDUM STATUS: COMPLETED ------Original Message ----- Sent: 09/19/2023 02:07 PM ET From: JADE MILLER [facility] Subject: General:still burning OK lets try you sending me that. it would save me [address]. but i may be leaving for vacation on Sun so could do overnight? thanks ------Original Message ----- Sent: 09/19/2023 02:25 PM ET From: JESENIA STAHL To: JADE MILLER V Subject: General:still burning I will ask the pharmacy to expedite it-- Jesenia Stahl MD /hina/ JESENIA STAHL MD Signed: 09/19/2023 14:25 09/23/2023 ADDENDUM STATUS: COMPLETED ------Original Message ----- Sent: 09/23/2023 09:16 AM ET From: JADE MILLER V [facility] [place] Subject: General:still burning FYI Took 2nd dose of Prednisone last night. burning almost gone still little pain if i press into arm pit. But still some itching on back and some on chest, all in places where i am getting dark age spots. Pin head red spots that itch maybe becoming age spots? Probably not related to burning problem maybe should see dermatologists? I had very dark sun gee while working in [employer] for 2 years never used sun screen. ------Original Message ----- Sent: 09/23/2023 10:42 AM ET From: JESENIA STAHL To: JADE MILLER V Subject: General:still burning That's encouraging about the burning! Take the full prednisone course and we'll see how things go RE: the skin- let's do a full skin exam at your next appointment ( feel free to schedule one sooner if needed) and I can decide if anything needs to get seen by shipper-- Jesenia Stahl MD /hina/ JESENIA STAHL MD Signed: 09/23/2023 10:42 JESENIA STHAL [facility]
--- OUTSIDE RECORDS SUMMARY | 2024-04-30 08:23 | XMS_ITS | Encounter Summary ---
Author Name [facility] [place] [facility] Address [address] [place] [address] Care Team Providers Care Java Xml Developer Name Role Phone TYRONE JESENIA Primary Care Provider Unavailabl e Insurance Providers: [...] PART A Jan 09, 2012 PART A [id number] JADE MAGDALENO PATIENT Selected Encounter This section includes the information on record at [place] for the Encounter. Date/Time Encounter Type Encounter Description Reason Provider Source Nov 21, 2023 01:00 PM COMPRE OPH EXAM EST PT 1/> OPTOMETRY ICD-10-CM H04.123 Dry eye syndrome of bilateral lacrimal glands UMER VIEIRA IHJaziel Encounter Template Text not used by VA Assessments - Encounter Diagnoses This section includes the primary and secondary diagnoses documented for the Encounter. Date/Time Primary/Secondary Diagnosis Diagnosis Name Provider Source Nov 21, 2023 01:44 PM PRIMARY Dry eye syndrome of bilateral lacrimal glands UMER VIEIRA [facility] Nov 21, 2023 01:44 PM SECONDARY Age-related nuclear cataract, bilateral UMER VIEIRA SGT [facility]. [facility] Nov 21, 2023 01:44 PM SECONDARY Presbyopia UMER VIEIRA SGT [facility] Plan of Treatment: Future Appointments (+ 6 months) and Future Tests (+/- 45 days) The Plan of Treatment section includes future care activities for the patient from all [place] treatmentfacilities. This section includes future appointments and future orders which are active, pending or scheduled. Future Appointments This section includes appointments that were scheduled to occur 6 months from the date of the Encounter, up to a maximum of 20 appointments. The data comes from all [place] treatment facilities. Appointment Date/Time Appointment Type Appointme nt Facility Name Jan 30, 2024 01:00 PM AMBULATORY - NONE [facility]GT [facility] Feb 06, 2024 03:00 PM AMBULATORY - SURGERY [facility] Feb 06, 2024 03:30 PM AMBULATORY - MEDICINE [facility] Social History: Smoking Status (Most current) and Tobacco Use (All prior to encounter date) This section includes the most current, and the historical, smoking and tobacco- related health factors from the [place] facility where the Encounter took place. Current Smoking Status This section includes the most current smoking, or tobacco-related health factor, from the [place] facility where the Encounter took place. Date/Time Current Smoking Status Comment Facil ity Aug 08, 2023 02:00 PM VA-TOBACCO FORMER USER SGT E.[facility]. [facility] Tobacco Use History This section includes a history of the smoking, or tobacco-related health factors, that were collected on or before the date of the Encounter. The data comes from the [place] facility where the Encounter took place. Date/Time Smoking Status/Tobacco Use Comment F acility Aug 08, 2023 02:00 PM VA-TOBACCO QUIT 5 TO < 15 YRS SGT [facility] Jan 26, 2022 11:30 AM VA-TOBACCO FORMER USER [facility] Jan 26, 2022 11:30 AM VA-TOBACCO QUIT 5 TO < 15 YRS [facility] February 18, 2021 09:00 AM VA-TOBACCO FORMER USER [facility] February 18, 2021 09:00 AM VA-TOBACCO QUIT 5 TO < 15 YRS [facility] Jan 02, 2020 03:58 PM VA-TOBACCO FORMER USER [facility] Jan 02, 2020 03:58 PM VA-TOBACCO QUIT 5 TO < 15 YRS [facility] Aug 14, 2019 10:32 AM TOBACCO PACK YEARS [facility] Aug 14, 2019 10:32 AM TOBACCO PACK YEARS >29 CC [facility] Jan 17, 2018 02:29 PM VA-TOBACCO FORMER USER [facility] Jan 17, 2018 02:29 PM VA-TOBACCO QUIT 5 TO < 15 YRS [facility] Jan 17, 2018 01:07 PM TOBACCO PACK YEARS [facility] Jan 17, 2018 01:07 PM TOBACCO PACK YEARS >29 50 [facility] Sep 26, 2017 12:56 PM LIFETIME NON-TOBACCO USER [facility] Jan 18, 2017 12:27 PM TOBACCO PACK YEARS [facility] Jan 18, 2017 12:27 PM TOBACCO PACK YEARS >29 50 [facility] Jan 06, 2016 12:16 PM TOBACCO PACK YEARS [facility] Jan 06, 2016 12:16 PM TOBACCO PACK YEARS >29 50 [facility] Apr 09, 2015 08:52 AM TOBACCO PACK YEARS [facility] Apr 09, 2015 08:52 AM TOBACCO PACK YEARS >29 50 [facility] Dec 26, 2014 12:12 PM TOBACCO PACK YEARS [facility] Dec 26, 2014 12:12 PM TOBACCO PACK YEARS >29 50 YEARS ON AND OFF [facility] Sep 16, 2014 09:00 AM TOBACCO PACK YEARS [facility] Sep 16, 2014 09:00 AM TOBACCO PACK YEARS >29 s [facility] Jun 25, 2014 01:57 PM TOBACCO PACK YEARS [facility] Jun 25, 2014 01:57 PM TOBACCO PACK YEARS <30 50 [facility] Dec 06, 2013 10:06 AM TOBACCO PACK YEARS SGT [facility] Dec 06, 2013 10:06 AM TOBACCO PACK YEARS >29 50 [facility] Jan 22, 2013 01:07 PM CURRENT TOBACCO USE [facility] Jan 22, 2013 01:07 PM TOBACCO CESSATION OFFERED [facility] Jan 22, 2013 01:07 PM TOBACCO MEDS OFFERED [facility]GT [facility] Nov 08, 2012 09:21 AM CURRENT TOBACCO USE [facility] Nov 08, 2012 09:21 AM TOBACCO CESSATION OFFERED SGT [facility] Nov 08, 2012 09:21 AM TOBACCO MEDS OFFERED SGT [facility] Oct 28, 2011 08:17 AM CURRENT TOBACCO USE SGT [facility] Oct 28, 2011 08:17 AM TOBACCO CESSATION OFFERED SGT [facility] Oct 28, 2011 08:17 AM TOBACCO MEDS OFFERED SGT [facility] Aug 04, 2011 01:10 PM CURRENT TOBACCO USE SGT [facility] Aug 04, 2011 01:10 PM TOBACCO CESSATION OFFERED SGT Jaziel.Orquidea LÓPEZ [facility] Aug 04, 2011 01:10 PM TOBACCO MEDS OFFERED [facility] Apr 28, 2011 08:00 AM CURRENT TOBACCO USE SGT [facility] Apr 28, 2011 08:00 AM TOBACCO CESSATION OFFERED SGT [facility] Apr 28, 2011 08:00 AM TOBACCO MEDS OFFERED SGT [facility] March 05, 2011 02:27 PM CURRENT TOBACCO USE [facility]GT [facility] March 05, 2011 02:27 PM TOBACCO CESSATION OFFERED SGT [facility] March 05, 2011 02:27 PM TOBACCO MEDS OFFERED SGT E.Blas. [facility] Dec 22, 2010 01:11 PM CURRENT TOBACCO USE [facility] Dec 22, 2010 01:11 PM TOBACCO CESSATION OFFERED SGT [facility] Dec 22, 2010 01:11 PM TOBACCO MEDS OFFERED SGT [facility]. [facility] Oct 28, 2010 12:57 PM CURRENT TOBACCO USE SGT [facility] Oct 28, 2010 12:57 PM TOBACCO CESSATION OFFERED SGT [facility] Oct 28, 2010 12:57 PM TOBACCO MEDS OFFERED SGT [facility] Oct 21, 2009 08:22 AM CURRENT TOBACCO USE SGT [facility] Oct 21, 2009 08:22 AM TOBACCO CESSATION OFFERED SGT [facility] Oct 21, 2009 08:22 AM TOBACCO MEDS OFFERED SGT [facility] Sep 19, 2009 08:11 AM LIFETIME NON-TOBACCO USER [facility] Oct 22, 2008 12:58 PM TOBACCO NON USE GR EATER THAN 12 MONTHS SGT [facility] Sep 17, 2008 08:24 AM TOBACCO NON USE GR EATER THAN 12 MONTHS [facility] Dec 01, 2007 12:58 PM TOBACCO NON USE LE SS THAN 12 MONTHS SGT [facility] Aug 16, 2007 01:17 PM TOBACCO CESSATION OFFERED SGT [facility] Aug 16, 2007 01:17 PM TOBACCO MEDS OFFERED SGT [facility]. [facility] Aug 16, 2007 01:17 PM TOBACCO NON USE LE SS THAN 12 MONTHS SGT [facility] Jun 23, 2007 10:31 AM TOBACCO NON USE LE SS THAN 12 MONTHS SGT [facility]. [facility] Dec 14, 2006 10:24 AM CURRENT TOBACCO USE SGT [facility] March 01, 2006 11:10 AM CURRENT TOBACCO USE SGT E[facility]. [facility] Advance Directives: All historical and current Section Date Range: From patient's date of to the date document was created. This section includes ALL of a patient's completed or amended VA Advance and Rescinded Directives. The entries below indicate that a directive exists for the patient, but an actual copy is not included with this document. The data comes from all [place] facilities. Date Advance Directives Provider Source Aug 08, 2023 ADVANCE DIRECTIVE NOTIFICATION AND SCREENING JORGE,GIOVANNI SGT E.[facility]iobhan [facility] Nov 10, 2022 ADVANCE DIRECTIVE NOTIFICATION AND SCREENING JORGE,GIOVANNI SGT ESiobhanISiobhan [facility] Mar 17, 2020 ADVANCE DIRECTIVE DISCUSSION GIOVANNI JORGE SGT [facility]han [facility] May 23, 2019 ADVANCE DIRECTIVE DISCUSSION MADHURI WILSON SGT E.ISiobhan LÓPEZ [facility] Aug 23, 2016 ADVANCE DIRECTIVE DISCUSSION SHANKAR AYALA SGT E.ISiobhan L[facility]PEZ [facility] Jan 06, 2016 ADVANCE DIRECTIVE DISCUSSION KATIE BAILEY SGT E[facility]. [facility] Jan 27, 2011 ADVANCE DIRECTIVE ANDREI ACE SGT E.ISiobhan [facility] Encounter Notes: All associated encounter notes This section contains the clinical notes associated to the Encounter. Date/Time Encounter Note(s) Provider Source Nov 21, 2023 01:36 PM EYE NOTE: LOCAL TITLE: EYEGLASS - CHILD AND ADOLESCENT PSYCHOLOGIST (T) STANDARD TITLE: EYE NOTE DATE OF NOTE: NOV 21, 2023@13:36 ENTRY DATE: NOV 21, 2023@13:36:41 AUTHOR: MILLA PROCTOR V EXP COSIGNER: UMER VIEIRA URGENCY: STATUS: COMPLETED SUBJECT: eye Eyeglass - Instructor Extension Work: [facility]: [facility] [address] [place] [address] ICD-10 Code: Presbyopia H52.4 Type: New Number of pairs: 1 pair Final Prescription: Right eye: +2.25 -0.50 x105 20/20 Left eye: +3.00 -0.75 x055 20/20 add: +2.50 Special Instructions: Lens Type: Trifocals Type: Lens Material: polycarb + AR med nec 2' glare from lens I certify this request meets PSAS LYSSA regulation 17.32.3250 and does not solely support the comfort or convenience of the . /hina/ Umer Vieira OD, FAAO Chief of Optometry Signed: 11/21/2023 13:44 for MILLA PROCTOR /hina/ Umer Vieira OD, FAAO Chief of Optometry Cosigned: 11/21/2023 13:44 UMER VIEIRA [facility] Hitesh [facility] Nov 21, 2023 01:26 PM EYE NOTE: LOCAL TITLE: EYE ANNUAL-NEW EXAM (T) STANDARD TITLE: EYE NOTE DATE OF NOTE: NOV 21, 2023@13:26 ENTRY DATE: NOV 21, 2023@13:26:25 AUTHOR: UMER VIEIRA EXP COSIGNER: URGENCY: STATUS: COMPLETED SUBJECT: eye 11/21/23 13:00 JADE GTZ V 78 yr old MALE [id number] PMH:Myalgia (RUST [id number]) Palpitations (RUST [id number]) Herpes simplex (RUST [id number]) Methicillin resistant Staphylococcus aureus infection (RUST [id number]) Pseudogout (RUST [id number]) Elevated PSA (RUST [id number]) Keratoconjunctivitis sicca (RUST [id number] (RUST [id number]) Anxiety (RUST [id number]) Herpesvirus infection (RUST [id number]) Arthritis (RUST 5298557) Upper gastrointestinal hemorrhage (RUST 47740376) Tenosynovitis (RUST 60222307) Dyspnea on exertion (RUST [id number]) Anxiety (RUST [id number]) Temporomandibular joint disorder Herpes Zoster Shoulder: arthralgia Umbilical hernia Renal Calculi Chest Pain Elevation, blood pressure Tobacco use (RUST [id number]) Abdominal Pain, Epigastric Adjustment Disorder with Anxiety Flexible Sigmoidoscopy Headache Neck Pain Diarrhea (RUST [id number]) Tendinitis family history pancreatic cancer (motherGastroesophageal reflux disease (RUST [id number]) Chronic prostatitis Hyperlipidemia (RUST 80132737) Psoriasis, skin or nails Health Maintenance Medications: Active Outpatient Medications (including Supplies): Active Outpatient Medications Status 1) ARTIFICIAL TEARS PVA 1.4%/POVIDONE (PF) INSTILL 1 ACTIVE DROP INTO BOTH EYES TWICE A DAY NEEDED FOR DRY EYES 2) CLOTRIMAZOLE 1% TOP SOLN APPLY PAINT TO DISCOLORED ACTIVE NAILS TOPICALLY TWICE A DAY FOR FUNGAL INFECTION 3) FAMCICLOVIR 250MG TAB TAKE ONE TABLET BY MOUTH TWICE ACTIVE A DAY FOR VIRAL SUPPRESSION. FOR ACUTE OUTBREAK INCREASE DOSE TO 1000MG(4 TABLETS)TWICE DAILY FOR 2 DAYS AND CALL CLINIC 4) GABAPENTIN 100MG CAP TAKE ONE CAPSULE BY MOUTH THREE ACTIVE TIMES A DAY FOR NEUROPATHY 5) PANTOPRAZOLE NA 40MG EC TAB TAKE ONE TABLET BY MOUTH HOLD TWICE A DAY FOR STOMACH ACID FOR STOMACH### 6) TERAZOSIN HCL 1MG CAP TAKE ONE CAPSULE BY MOUTH AT ACTIVE BEDTIME FOR PROSTATE INSTEAD OF FLOMAX/TAMSULOSIN Active Non-VA Medications Status 1) Non-VA ASPIRIN 81MG EC TAB 81MG MOUTH ONE TIME EACH ACTIVE DAY 7 Total Medications Allergies:PENICILLIN, PILOCARPINE, FLEXERIL, ACYCLOVIR, VALACYCLOVIR LAST EYE EXAM DATE, COPIED ASSESSMENT AND PLAN: ----- CC: Patient presents for FEE; reports noticing no visual changes. Would like a new pair of glasses, does not want to be dilated today. HPI:(-)DM,(-)HTN Hemoglobin %A1C: %A1C: 5.5 (08/08/23 12:36) Medical Eye History Surgery: None Trauma: N Diseases: N Visual Loss: N Lazy Eye: N Other: +H/o Herpes simplex per respiratory therapy assistant test Taking Famciclovir BID Fam Eye Hx:(-)GLC,(-)ARMD Eye Meds:1. ATs prn OU Last Used:1. a few days ago No data available Current Glasses (if available) and VA sc: cc: xx Right eye: +2.00 -0.50 x105 20/20-1 Left eye: +3.00 -0.75 x055 20/20-1 add: +2.50 Refraction Right eye: +2.25 -0.50 x105 20/20 Left eye: +3.00 -0.75 x055 20/20 add: +2.50 Pupils: PERRL, no APD OU Motility: FROM OU VF: FTFC OD/OS IOP nct: xx time: 0123 Right eye: 16 mmHg Left eye: 15 mmHg SLE LLL: 1+ MGD OU, dermatochalasis OU C/S: clear OU K: reduced TBUT OU AC: deep and quiet OU I: flat and intact OU L: 1+ NS OU (undilated) *Patient deferred dilated exam UNDILATED 90 Vitreous: floater OU OD: 0.45 round, (-)heme/pallor OS: 0.50 round, (-)heme/pallor ASSESSMENT 1. Refractive Error/Presbyopia OU 2. Dry Eye Syndrome OU PREVIOUS ASSESSMENT 3. 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 Updated SpecRx. Monitor in 1 year FEE with dilated exam. 2. Advised use of AT BID-TID OU. Monitor. RTC: 1 year FEE The above patient history and physical exam have been personally verified, and pertinent portions of the exam repeated the attending tubing machine operator. The assessment and plan are that of the tubing machine operator. Optometry Business Development Engineer: Milla Proctor /hina/ Umer Vieira, OD, FAAO Chief of Optometry Signed: 11/22/2023 16:00 UMER VIEIRA Elijah Proctor [facility]
--- OUTSIDE RECORDS SUMMARY | 2024-04-30 08:23 | XMS_ITS | Encounter Summary ---
Author Name [facility] [place] [facility] [place] Address [address], [place] [address] Care Team Providers Care Resolution Manager Name Role Phone JESENIA HANSEN Primary Care [...] PART A Jan 09, 2012 PART A [id number] [id number] JADE MAGDALENO PATIENT Selected Encounter This section includes the information on record at [place] for the Encounter. Date/Time Encounter Type Encounter Description Reason Provider Source Oct 04, 2023 02:15 PM OFF/OP EST FEBRUARY X REQ PHY/QHP PRIMARY CARE/MEDICINE ICD-10-CM Z71.89 Other specified counseling JUAN LUIS VELAZQUEZ Encounter Template Text not used by [facility] Assessments - Encounter Diagnoses This section includes the primary and secondary diagnoses documented for the Encounter. Date/Time Primary/Secondary Diagnosis Diagnosis Name Provider Source Oct 04, 2023 02:21 PM PRIMARY Other specified counseling CAROLINEJUAN LUIS Alva [facility] Plan of Treatment: Future Appointments (+ 6 months) and Future Tests (+/- 45 days) The Plan of Treatment section includes future care activities for the patient from all [place] treatmentfacilities. This section includes future appointments and future orders which are active, pending or scheduled. Future Appointments This section includes appointments that were scheduled to occur 6 months from the date of the Encounter, up to a maximum of 20 appointments. The data comes from all [place] treatment facilities. Appointment Date/Time Appointment Type Appointme nt Facility Name Nov 21, 2023 01:00 PM AMBULATORY - NONE [facility] Jan 30, 2024 01:00 PM AMBULATORY - NONE [facility] Feb 06, 2024 03:00 PM AMBULATORY - SURGERY [facility]GT [facility] Feb 06, 2024 03:30 PM AMBULATORY - MEDICINE [facility] Social History: Smoking Status (Most current) [...] 02:00 PM VA-TOBACCO FORMER USER [facility] Tobacco Use History This section includes a history of the smoking, or tobacco-related health factors, that were collected on or before the date of the Encounter. The data comes from the [place] facility where the Encounter took place. Date/Time Smoking Status/Tobacco Use Comment F acility Aug 08, 2023 02:00 PM VA-TOBACCO QUIT 5 TO < 15 YRS [facility] Jan 26, 2022 11:30 AM VA-TOBACCO FORMER USER [facility] Jan 26, 2022 11:30 AM VA-TOBACCO QUIT 5 TO < 15 YRS [facility] February 18, 2021 09:00 AM VA-TOBACCO FORMER USER [facility] February 18, 2021 09:00 AM VA-TOBACCO QUIT 5 TO < 15 YRS [facility] Jan 02, 2020 03:58 PM VA-TOBACCO FORMER USER [facility] Jan 02, 2020 03:58 PM VA-TOBACCO QUIT 5 TO < 15 YRS [facility] Aug 14, 2019 10:32 AM TOBACCO PACK YEARS [facility] Aug 14, 2019 10:32 AM TOBACCO PACK YEARS >29 CC [facility] Jan 17, 2018 02:29 PM VA-TOBACCO FORMER USER [facility] Jan 17, 2018 02:29 PM VA-TOBACCO QUIT 5 TO < 15 YRS [facility] Jan 17, 2018 01:07 PM TOBACCO PACK YEARS [facility] Jan 17, 2018 01:07 PM TOBACCO PACK YEARS >29 50 [facility] Sep 26, 2017 12:56 PM LIFETIME NON-TOBACCO USER [facility] Jan 18, 2017 12:27 PM TOBACCO PACK YEARS [facility] Jan 18, 2017 12:27 PM TOBACCO PACK YEARS >29 50 [facility] Jan 06, 2016 12:16 PM TOBACCO PACK YEARS [facility] Jan 06, 2016 12:16 PM TOBACCO PACK YEARS >29 50 [facility] Apr 09, 2015 08:52 AM TOBACCO PACK YEARS [facility] Apr 09, 2015 08:52 AM TOBACCO PACK YEARS >29 50 [facility] Dec 26, 2014 12:12 PM TOBACCO PACK YEARS [facility] Dec 26, 2014 12:12 PM TOBACCO PACK YEARS >29 50 YEARS ON AND OFF [facility] Sep 16, 2014 09:00 AM TOBACCO PACK YEARS [facility] Sep 16, 2014 09:00 AM TOBACCO PACK YEARS >29 s [facility] Jun 25, 2014 01:57 PM TOBACCO PACK YEARS [facility] Jun 25, 2014 01:57 PM TOBACCO PACK YEARS <30 50 [facility] Dec 06, 2013 10:06 AM TOBACCO PACK YEARS [facility]GT [facility] Dec 06, 2013 10:06 AM TOBACCO PACK YEARS >29 50 [facility] Jan 22, 2013 01:07 PM CURRENT TOBACCO USE [facility] Jan 22, 2013 01:07 PM TOBACCO CESSATION OFFERED [facility] Jan 22, 2013 01:07 PM TOBACCO MEDS OFFERED [facility] Nov 08, 2012 09:21 AM CURRENT TOBACCO USE [facility] Nov 08, 2012 09:21 AM TOBACCO CESSATION OFFERED [facility] Nov 08, 2012 09:21 AM TOBACCO MEDS OFFERED [facility] Oct 28, 2011 08:17 AM CURRENT TOBACCO USE [facility] Oct 28, 2011 08:17 AM TOBACCO CESSATION OFFERED [facility] Oct 28, 2011 08:17 AM TOBACCO MEDS OFFERED [facility]GT [facility] Aug 04, 2011 01:10 PM CURRENT TOBACCO USE [facility] Aug 04, 2011 01:10 PM TOBACCO CESSATION OFFERED [facility] Aug 04, 2011 01:10 PM TOBACCO MEDS OFFERED [facility]GT [facility] Apr 28, 2011 08:00 AM CURRENT TOBACCO USE [facility]GT [facility] Apr 28, 2011 08:00 AM TOBACCO CESSATION OFFERED [facility] Apr 28, 2011 08:00 AM TOBACCO MEDS OFFERED [facility] March 05, 2011 02:27 PM CURRENT TOBACCO USE [facility] March 05, 2011 02:27 PM TOBACCO CESSATION OFFERED [facility] March 05, 2011 02:27 PM TOBACCO MEDS OFFERED SGT [facility] Dec 22, 2010 01:11 PM CURRENT TOBACCO USE SGT [facility] Dec 22, 2010 01:11 PM TOBACCO CESSATION OFFERED SGT [facility] Dec 22, 2010 01:11 PM TOBACCO MEDS OFFERED [facility]GT [facility] Oct 28, 2010 12:57 PM CURRENT TOBACCO USE [facility]GT [facility] Oct 28, 2010 12:57 PM TOBACCO CESSATION OFFERED SGT [facility] Oct 28, 2010 12:57 PM TOBACCO MEDS OFFERED SGT [facility] Oct 21, 2009 08:22 AM CURRENT TOBACCO USE [facility] Oct 21, 2009 08:22 AM TOBACCO CESSATION OFFERED [facility] Oct 21, 2009 08:22 AM TOBACCO MEDS OFFERED [facility]GT [facility] Sep 19, 2009 08:11 AM LIFETIME NON-TOBACCO USER [facility] Oct 22, 2008 12:58 PM TOBACCO NON USE GR EATER THAN 12 MONTHS S[facility] Sep 17, 2008 08:24 AM TOBACCO NON USE GR EATER THAN 12 MONTHS SGT E.[facility]obhan [facility] Dec 01, 2007 12:58 PM TOBACCO NON USE LE SS THAN 12 MONTHS S[facility] Aug 16, 2007 01:17 PM TOBACCO CESSATION OFFERED [facility]GT [facility] Aug 16, 2007 01:17 PM TOBACCO MEDS OFFERED SGT [facility] Aug 16, 2007 01:17 PM TOBACCO NON USE LE SS THAN 12 MONTHS [facility] Jun 23, 2007 10:31 AM TOBACCO NON USE LE SS THAN 12 MONTHS SGT E.ISiobhan [facility] Dec 14, 2006 10:24 AM CURRENT TOBACCO USE SGT E.[facility]obhan [facility] March 01, 2006 11:10 AM CURRENT TOBACCO USE [facility] Advance Directives: All historical and current [...] ADVANCE DIRECTIVE NOTIFICATION AND SCREENING JORGEGIOVANNI [facility]. [facility] Nov 10, 2022 ADVANCE DIRECTIVE NOTIFICATION AND SCREENING JORGE,GIOVANNI SGT [facility] [place] [facility] Mar 17, 2020 ADVANCE DIRECTIVE DISCUSSION GIOVANNI JORGE SGT [facility] May 23, 2019 ADVANCE DIRECTIVE DISCUSSION MADHURI WILSON SGT [facility] Aug 23, 2016 ADVANCE DIRECTIVE DISCUSSION SHANKAR AYALA [facility]GT [facility] Jan 06, 2016 ADVANCE DIRECTIVE DISCUSSION KATIE BAILEY SGT [facility] Jan 27, 2011 ADVANCE DIRECTIVE JOSEANDREI ESPINOZABETH [facility]GT [facility] Radiology Reports: +/- 30 days of [...] XTR NON-VASC LM TD: JADE GTZ V [id number] M Exm Date: SEP 05, 2023@13:55 Req Phys: DEREK CABALLERO Loc: [facility] F2F PACT 07 (Req'g L Img Loc: T-ULTRASOUND Service: Unknown (Case [id number] COMPLETE) US XTR NON-VASC LMTD (US Detailed) CPT:89126 Reason for Study: B/L swollen armpits Clinical History: Report Status: Verified Date Reported: SEP 05, 2023 Date Verified: SEP 05, 2023 Shipping Clerk/Admin E-Sig:/ES/BERENICE MCCRACKEN Report: EXAMINATION: US XTR NON-VASC [...] REQUIRED Primary Interpreting Staff: BERENICE MCCRACKEN, Radiologist (Shipping Clerk/Admin) /BERENICE FLORES [facility] Encounter Notes: All associated encounter notes This section contains the clinical notes associated to the Encounter. Date/Time Encounter Note(s) Provider Source Oct 04, 2023 02:21 PM ADMINISTRATIVE NOT E: LOCAL TITLE: DIGITAL PHOTOGRAPHY NOTE (T) STANDARD TITLE: ADMINISTRATIVE NOTE DATE OF NOTE: OCT 04, 2023@14:21 ENTRY DATE: OCT 04, 2023@14:21:12 AUTHOR: JUAN LUIS VELAZQUEZ EXP COSIGNER: URGENCY: STATUS: COMPLETED I have taken a Digital Photo of the patients affected area as described below and uploaded picture to Imaging: upper back /hina/ JUAN LUIS VELAZQUEZ RN Signed: 10/04/2023 14:21 Receipt Acknowledged By: 10/04/2023 15:47 /hina/ JUAN LUIS QUINTANILLA LPN, [facility]
--- OUTSIDE RECORDS SUMMARY | 2024-04-30 08:23 | XMS_ITS | Encounter Summary ---
Author Name [facility] [place] [facility] [place] [facility] [place] Address [address], [place] [address] Care Team Providers Care Barrel Inspector Name Role Phone JESENIA STAHL Primary Care [...] PART A Jan 09, 2012 PART A [id number] 54A JADE MAGDALENO PATIENT Selected Encounter This section includes the information on record at [place] for the Encounter. Date/Time Encounter Type Encounter Description Reason Provider Source Oct 05, 2023 07:59 AM Outpatient Encounter PRIMARY CARE/MEDICINE JESENIA STAHL [facility] Encounter Template Text not used by [place] Plan of Treatment: Future Appointments (+ 6 [...] 20 appointments. The data comes from all [place] treatment facilities. Appointment Date/Time Appointment Type Appointme nt Facility Name Nov 21, 2023 01:00 PM AMBULATORY - NONE [facility]GT [facility] Jan 30, 2024 01:00 PM AMBULATORY - NONE SGT [facility] Feb 06, 2024 03:00 PM AMBULATORY - SURGERY SGT E .[facility] Feb 06, 2024 03:30 PM AMBULATORY - MEDICINE [facility]GT [facility] Social History: Smoking Status (Most current) and Tobacco Use (All prior to encounter date) This section includes the most current, and the historical, smoking and tobacco- related health factors from the [place] facility where the Encounter took place. Current Smoking Status This section includes the most current smoking, or tobacco-related health factor, from the [place] facility where the Encounter took place. Date/Time Current Smoking Status Comment Marivel patel Aug 17, 2019 10:12 AM PRIOR TOBACCO USE CESSATION DATE [facility] Tobacco Use History This section includes a history of the smoking, or tobacco-related health factors, that were collected on or before the date of the Encounter. The data comes from the [place] facility where the Encounter took place. Date/Time Smoking Status/Tobacco Use Comment F acshelley Jan 17, 2018 01:30 PM PRIOR TOBACCO USE CESSATION DATE [facility] Jan 18, 2017 01:13 PM PRIOR TOBACCO USE CESSATION DATE [facility] Jan 06, 2016 01:03 PM PRIOR TOBACCO USE CESSATION DATE [facility] Advance Directives: All historical and current Section Date Range: From patient's date of to the date document was created. This section includes ALL of a patient's completed or amended [place] Advance and Rescinded Directives. The entries below indicate that a directive exists for the patient, but an actual copy is not included with this document. The data comes from all [facility]. Date Advance Directives Provider Source Aug 08, 2023 ADVANCE DIRECTIVE NOTIFICATION AND SCREENING GIOVANNI JORGE [facility] Nov 10, 2022 ADVANCE DIRECTIVE NOTIFICATION AND SCREENING GIOVANNI JORGE [facility] Mar 17, 2020 ADVANCE DIRECTIVE DISCUSSION JORGEGIOVANNI E.I. [facility] May 23, 2019 ADVANCE DIRECTIVE DISCUSSION MADHURI WILSON SGT [facility] Aug 23, 2016 ADVANCE DIRECTIVE DISCUSSION SHANKAR AYALA [facility]GT [facility] Jan 06, 2016 ADVANCE DIRECTIVE DISCUSSION KATIE BAILEY SGT [facility] Jan 27, 2011 ADVANCE DIRECTIVE LASHAYMASSIELChayoANDREI ESPINOZATH SGT [facility]. [facility] Radiology Reports: +/- 30 days of [...] the Encounter. The data comes from all [place] treatment facilities. Date/Time Radiology Report Provider Source Sep 05, 2023 01:55 PM US XTR NON-VASC LM TD: JADE GTZ V [id number] M Exm Date: SEP 05, 2023@13:55 Req Phys: DEREK CABALLERO Pat Loc: [address] PACT 07 (Req'g L Im Loc: T-ULTRASOUND Service: Unknown (Case [id number] COMPLETE) US XTR NON-VASC LMTD (US Detailed) CPT:06900 Reason for Study: B/L swollen armpits Clinical History: Report Status: Verified Date Reported: SEP 05, 2023 Date Verified: SEP 05, 2023 Head Correction Officer E-Sig:/ES/BERENICE MCCRACKEN Report: EXAMINATION: US XTR NON-VASC [...] REQUIRED Primary Interpreting Staff: BERENICE MCCRACKEN, Radiologist (Head Correction Officer) /BERENICE FLORES [facility] Encounter Notes: All associated encounter notes This section contains the clinical notes associated to the Encounter. Date/Time Encounter Note(s) Provider Source Oct 05, 2023 07:59 AM PRIMARY CARE Home [employer] E MESSAGING: LOCAL TITLE: PRIMARY CARE SECURE MESSAGING STANDARD TITLE: PRIMARY CARE SECURE MESSAGING DATE OF NOTE: OCT 05, 2023@07:59 ENTRY DATE: OCT 05, 2023@07:59:42 AUTHOR: JESENIA STAHL EXP COSIGNER: URGENCY: STATUS: COMPLETED PRIMARY CARE SECURE MESSAGING Has ADDENDA ------Original Message ---- Sent: 10/04/2023 07:13 PM ET [facility]: [facility] [address] Subject: General:not burning much now. so i came i today as you know. nurse saw nothing. I was not itching much but just in case it would start again i came in for the pics. armpits are not burning much except if you push in on the right one mostly it hurts. So im still not taking the prostate meds so if you could maybe prescribe a deferent one of that ill try it. peeing is hard to get going and i have to pee pretty often since stopping the meds. ------Original Message ---- Sent: 10/05/2023 07:59 AM ET From: JESENIA STAHL To: JADE GTZ V Subject: General:not burning much now. Initially, I would suggest a retrial of the terazosin ( the new one for the prostate) as I really don't think you would have a reaction to that and you were stopping/starting things too frequently recently to know what was causing what. Do you still have that medicine? Jesenia Stahl MD /hina/ JESENIA STAHL MD Signed: 10/05/2023 07:59 10/05/2023 ADDENDUM STATUS: COMPLETED ------Original Message ---- Sent: 10/05/2023 09:24 AM ET From: JADE GTZ V To: [facility] [address] Subject: General:not burning much now. i still have but if there is a suitable replacement i would rather do that. Whatever you think is best. Still not burning today but if i press on armpit close or on breast there is still pain. Also please reduce the sub for the Pantoprazole in half because they are sending to much. The amount was doubled when i was having the diarrhea problems. I just should be taking one a day not 2. ------Original Message ---- Sent: 10/05/2023 10:25 AM ET From: JESENIA STAHL To: JADE GTZ V Subject: General:not burning much now. OK, just take the pantoprazole once per day, i will put a hold on the prescrtipon to remind me to adjust it to once per day the next time we order. Let me know when you are down to a few weeks left in that bottle. I truly don't think the terazosin was causing the burning and the other option we have is very similar to it, so I'd like you to try that one again Jesenia Stahl MD /hina/ JESENIA STAHL MD Signed: 10/05/2023 10:25 JESENIA STAHL [facility] [place] [facility]
--- OUTSIDE RECORDS SUMMARY | 2024-04-30 08:24 | XMS_ITS | Encounter Summary ---
Author Name [facility] [place] [place] [facility] [place] Organization [facility] [place] Address [address], [place] [address] Care Team Providers Care Budget Controller Name Role Phone JESENIA STAHL Primary Care [...] PART A Jan 09, 2012 PART A [id number] [id number] JADE MAGDALENO PATIENT Selected Encounter This section includes the information on record at [place] for the Encounter. Date/Time Encounter Type Encounter Description Reason Provider Source Dec 19, 2023 04:49 PM Outpatient Encounter PRIMARY CARE/MEDICINE JESENIA STAHL [facility] Encounter Template Text not used by [place] Plan of Treatment: Future Appointments (+ 6 [...] 20 appointments. The data comes from all [place] treatment facilities. Appointment Date/Time Appointment Type Appointme nt Facility Name Jan 30, 2024 01:00 PM AMBULATORY - NONE SGT E.Orquidea [facility] Feb 06, 2024 03:00 PM AMBULATORY - SURGERY SGT E Brown [facility] Feb 06, 2024 03:30 PM AMBULATORY - MEDICINE SGT Hitesh [facility] Social History: Smoking Status (Most current) and Tobacco Use (All prior to encounter date) This section includes the most current, and the historical, smoking and tobacco- related health factors from the [place] facility where the Encounter took place. Current Smoking Status This section includes the most current smoking, or tobacco-related health factor, from the [place] facility where the Encounter took place. Date/Time Current Smoking Status Comment Marivel itnathalia Aug 17, 2019 10:12 AM PRIOR TOBACCO USE CESSATION DATE [facility] Tobacco Use History This section includes a history of the smoking, or tobacco-related health factors, that were collected on or before the date of the Encounter. The data comes from the [place] facility where the Encounter took place. Date/Time Smoking Status/Tobacco Use Comment F acility Jan 17, 2018 01:30 PM PRIOR TOBACCO USE CESSATION DATE [facility] Jan 18, 2017 01:13 PM PRIOR TOBACCO USE CESSATION DATE [facility] Jan 06, 2016 01:03 PM PRIOR TOBACCO USE CESSATION DATE [facility] Advance Directives: All historical and current Section Date Range: From patient's date of to the date document was created. This section includes ALL of a patient's completed or amended [place] Advance and Rescinded Directives. The entries below indicate that a directive exists for the patient, but an actual copy is not included with this document. The [facility]. Date Advance Directives Provider Source Aug 08, 2023 ADVANCE DIRECTIVE NOTIFICATION AND SCREENING GIOVANNI JORGE [facility] Nov 10, 2022 ADVANCE DIRECTIVE NOTIFICATION AND SCREENING GIOVANNI JORGE [facility] Mar 17, 2020 ADVANCE DIRECTIVE DISCUSSION GIOVANNI JORGE [facility] May 23, 2019 ADVANCE DIRECTIVE DISCUSSION MADHRUI WILSON.ISiobhan [facility] [place] [facility] Aug 23, 2016 ADVANCE DIRECTIVE DISCUSSION SHANKAR AYALA Areli SGT E.ISiobhan [facility] Jan 06, 2016 ADVANCE DIRECTIVE DISCUSSION KATIE BAILEYN SGT E.[facility]. [facility] Jan 27, 2011 ADVANCE DIRECTIVE ANDREI ACE SGT E.ISiobhan [facility] Encounter Notes: All associated encounter notes This section contains the clinical notes associated to the Encounter. Date/Time Encounter Note(s) Provider Source Dec 19, 2023 04:49 PM PRIMARY CARE [employer] E MESSAGING: LOCAL TITLE: PRIMARY CARE SECURE MESSAGING STANDARD TITLE: PRIMARY CARE SECURE MESSAGING DATE OF NOTE: DEC 19, 2023@16:49 ENTRY DATE: DEC 19, 2023@17:49:49 AUTHOR: JESENIA STAHL EXP COSIGNER: URGENCY: STATUS: COMPLETED PRIMARY CARE SECURE MESSAGING Has ADDENDA ------Original Message ---- Sent: 12/19/2023 02:32 PM ET From: JADE GTZ V To: [facility] [address] Subject: General:pseudo gout attack MARY woke up at 2;30n am sun morning with very painful left swollen wrist and left hand. 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 I had some pills left so i took 2 then 1 hr later and ibuprofen. then went to ER they gave me sterid shot and new script for Col and indomethacin 50mg 3 times a day, have not taken that one. today pain is less and swelling going down some. any advice? ------Original Message ---- Sent: 12/19/2023 05:49 PM ET From: JESENIA STAHL To: JADE GTZ V Subject: General:pseudo gout attack Sorry to hear this! Which ER did you go to? I'll request records so I can look at the labs they did and how they wanted you to proceed. What made you stop the colchicine a while back? Maybe a good idea to add back in if you did well with it without any episodes?? You don't have to fill the indomethacin if you don't want to ( ibuprofen is also fine instead if you already had that. Jesenia Stahl MD /hina/ JESENIA STAHL MD Signed: 12/19/2023 17:49 12/20/2023 ADDENDUM STATUS: COMPLETED ------Original Message ---- Sent: 12/19/2023 07:46 PM ET From: JADE GTZ V [facility] [address] Subject: General:pseudo gout attack they didnt do any labs. took blood pressure and o2 levels. blood pressure was very high and is still a little high. went to [facility] in [place]. I dont remember why i stopped the colchicine, probably was worried about extermination supervisor side effects. If i get another attack I will probably get back on it. /hina/ JESENIA STAHL MD Signed: 12/20/2023 09:16 JESENIA STAHL [facility] [place] [facility]
--- OUTSIDE RECORDS SUMMARY | 2024-04-30 08:25 | XMS_ITS | Encounter Summary ---
Author Name [facility] [place] [facility] [facility] [place] Address [address], [place] [address] Care Team Providers Care Technology Strategist Name Role Phone JESENIA STAHL Primary Care [...] PART A Jan 09, 2012 PART A [id number] JADE MAGDALENO PATIENT Selected Encounter This section includes the information on record at [place] for the Encounter. Date/Time Encounter Type Encounter Description Reason Provider Source Jan 06, 2024 08:28 AM Outpatient Encounter PRIMARY CARE/MEDICINE JESENIA STAHL [facility] Encounter Template Text not used by [...] PM AMBULATORY - NONE [facility] Feb 06, 2024 03:00 PM AMBULATORY - SURGERY [facility] Feb 06, 2024 03:30 PM AMBULATORY - MEDICINE [facility]GT [facility] Lab Results: +/- 30 days [...] Result - Unit Interpretation Reference Range Comment Jan 30, 2024 12:50 PM [facility] TOTAL,VIT D Specimen Type: SERUM Comment: TOTAL,VIT D interpretation of results: Vitamin D deficiency: < or = 20 ng/mL Vitamin D insuficiency: 21 - 29 ng/mL Preferred level: > or = 30 ng/mL Toxicity: > 100 ng/mL Test performed on Cheryl chemistry analyzer (573) Ordering Provider: JESENIA STAHL Report Released Date/Time: Sep 07, 2023 12:09 PM Reporting Lab: [place] [address] [place] [address] Performing Lab: [place] [address] [place] [address] TOTAL,VIT D 31.8 ng/mL See_Comment Jan 30, 2024 12:50 PM [facility] MAGNESIUM Specimen Type: PLASMA Comment: eGFR calculated using [...] < or = 400 mg/dL. Ordering Provider: JESENIA STAHL Report Released Date/Time: Sep 07, 2023 12:09 PM Reporting Lab: [facility] [address] [facility] [phone] Performing Lab: [facility] [address] [facility] [address] MAGNESIUM 2.1 mg/dL 1.7-2.5 Jan 30, 2024 12:50 PM [facility] URIC ACID Specimen Type: PLASMA Comment: eGFR calculated using [...] < or = 400 mg/dL. Ordering Provider: JESENIA STAHL Report Released Date/Time: Dec 19, 2023 05:52 PM Reporting Lab: [facility] [address] [facility] [address] Performing Lab: [facility] Jaziel.[facility]qu[facility] [address] [facility] [address] URIC ACID 3.7 mg/dL 3.5-8.5 Jan 30, 2024 12:50 PM [facility] PTH-INTACT Specimen Type: PLASMA Comment: Moderately lipemic Ordering Provider: JESENIA STAHL Report Released Date/Time: Jan 06, 2024 09:27 AM Reporting Lab: [place] [place] [address] [facility] [address] [facility]: [facility] [address] [facility] [address] PTH-INTACT 54.7 pg/mL 10-65 Jan 30, 2024 12:50 PM [facility] LIPID PANEL Specimen Type: PLASMA Comment: [...] < or = 400 mg/dL. Ordering Provider: JESENIA STAHL Report Released Date/Time: Sep 07, 2023 12:09 PM Reporting Lab: [facility] [address] [place] [address] Performing Lab: [facility] [address] [place] [address] CHOLESTEROL 171 mg/dL 0-199 TRIGLYCERIDE 135 mg/dL 0-149 LDL CHOLESTEROL 95 mg/dL <129 HDL CHOLESTEROL 49 mg/dL >40 DIRECT LDL canc mg/dL <129 Jan 30, 2024 12:50 PM [facility] SED RATE(ESR) Specimen Type: BLOOD Comment: New ESR method has positive bias compared to old methodology discontinued on 07/29/2020 thru 09/23/2020. NORMAL REFERENCE RANGES: UNDER 50 50-70 >70 male: 20-30 mm/hr 31-44 mm/hr 45-55 mm/hr female: 36-39 mm/hr 38-45 mm/hr 45-55 mm/hr Ordering Provider: JESENIA STAHL Report Released Date/Time: Jan 06, 2024 09:27 AM Reporting Lab: [facility] [address] [place] [address] Performing Lab: [facility] [address] [place] [address] SED RATE(ESR) 4 mm/h Jan 30, 2024 12:50 PM [facility] BASIC METABOLIC PANEL Specimen Type: PLASMA Comment: eGFR [...] < or = 400 mg/dL. Ordering Provider: JESENIA STAHL Report Released Date/Time: Sep 07, 2023 12:09 PM Reporting Lab: S[facility] [address] [place] [phone] Performing Lab: SGT [facility] [address] [place] [phone] UREA NITROGEN 18 mg/dL 9-20 SODIUM 139 mmol/L 135-145 CHLORIDE 105 mmol/L 98-108 CO2 26 mmol/L 23-32 ANION GAP 8 mmol/L 5-15 POTASSIUM 3.9 mmol/L 3.5-5.0 CALCIUM 9.2 mg/dL 8.4-10.5 CREATININE 0.9 mg/dL 0.5-1.2 GLUCOSE 93 mg/dL 65-99 eGFR(2020 CKD-EPI) 88 mL/min Jan 30, 2024 12:50 PM [facility] CBC (DIFF&PLT) Specimen Type: BLOOD No comment entered. Ordering Provider: JESENIA STAHL Report Released Date/Time: Sep 07, 2023 12:09 PM Reporting Lab: T E.ISiobhan [facility] [address] [facility] [address] Performing Lab: [facility] E.I[facility] [address] [place] [phone] WBC 4.41 10*3/uL L 4.6-10.8 RBC 4.73 10*6/uL 4.44-6.1 HGB 14.9 g/dL 13.9-18 HCT 44.1 41-52 MCV 93.2 fL 80-98 MCH 31.5 pg 27-33.3 MCHC 33.8 g/dL 31.8-37.1 PLT 128 10*3/uL L 130-440 MPV 10.9 fL H 7.4-10.5 EOSINO % 3.9 H 0-3 BASO % 0.2 0-2 NUCLEATED RBC/100WBC 0.0 /100{WBCs} 0-6 RDW 12.7 11.5-14.5 LYMPH # 1.25 10*3/uL 1.2-3.6 MONO # 0.35 10*3/uL 0.14-0.76 LYMPH % 28.3 25-33 MONO % 7.9 H 3-7 GRAN % 59.2 54-65 GRAN # 2.61 10*3/uL 1.8-7.8 EOSINO # 0.17 10*3/uL 0.0-0.3 BASO # 0.01 10*3/uL 0.0-0.2 RDW-SD 43.6 fL 39.0-52.2 NRBC # 0.00 10*3/uL 0-0.2 IMMATURE GRAN.# 0.02 10*3/uL 0.00-0.2 IMMATURE GRAN.% 0.5 0.00-2.00 Social History: Smoking Status (Most current) [...] 10:12 AM PRIOR TOBACCO USE CESSATION DATE [facility] Tobacco Use History This section includes a history of the smoking, or tobacco-related health factors, that were collected on or before the date of the Encounter. The data comes from the [place] facility where the Encounter took place. Date/Time Smoking Status/Tobacco Use Comment Tanesha acshelley Jan 17, 2018 01:30 PM PRIOR TOBACCO USE CESSATION DATE [facility] Jan 18, 2017 01:13 PM PRIOR TOBACCO USE CESSATION DATE [facility] Jan 06, 2016 01:03 PM PRIOR TOBACCO USE CESSATION DATE [facility] Advance Directives: All historical and current Section Date Range: From patient's date of to the date document was created. This section includes ALL of a patient's completed or amended [place] Advance and Rescinded Directives. The entries below indicate that a directive exists for the patient, but an actual copy is not included with this document. The data comes from all [place] facilities. Date Advance Directives Provider Source Aug 08, 2023 ADVANCE DIRECTIVE NOTIFICATION AND SCREENING JORGE,GIOVANNI [facility] Nov 10, 2022 ADVANCE DIRECTIVE NOTIFICATION AND SCREENING JORGE,GIOVANNI [facility] Mar 17, 2020 ADVANCE DIRECTIVE DISCUSSION JORGE,GIOVANNI [facility] May 23, 2019 ADVANCE DIRECTIVE DISCUSSION MADHURI WILSON [facility] Aug 23, 2016 ADVANCE DIRECTIVE DISCUSSION SHANKAR AYALA [facility] Jan 06, 2016 ADVANCE DIRECTIVE DISCUSSION KATIE BAILEYN SGT [facility] Jan 27, 2011 ADVANCE DIRECTIVE ANDREI ACE SGT [facility] Encounter Notes: All associated encounter notes This section contains the clinical notes associated to the Encounter. Date/Time Encounter Note(s) Provider Source Jan 06, 2024 01:57 PM PRIMARY CARE [place] E MESSAGING: LOCAL TITLE: PRIMARY CARE SECURE MESSAGING STANDARD TITLE: PRIMARY CARE SECURE MESSAGING DATE OF NOTE: JAN 06, 2024@13:57 ENTRY DATE: JAN 06, 2024@14:57:11 AUTHOR: JESENIA STAHL COSIGNER: URGENCY: STATUS: COMPLETED PRIMARY CARE SECURE MESSAGING Has ADDENDA ------Original Message --- Sent: 01/06/2024 06:15 AM ET From: JADE GTZ V To: Yareli PACT 6 [place] Subject: Medication:pain in left hand still having pain and some swelling in my left wrist and hand. been taking ibuporphen and Acecetomiphine for some relive. There is still a little swelling. Wearing a brace all the time. I stopped taking the Colchicine after the first 4 days or so because it was feeling much better and i dont remember why i stopped taking it a couple of years ago. I am afraid i was having some kind of reaction to it. I need you to look at my records and see if shaolnda Fuentes made any notes about it. I dont know what to do at this point. I am sick of not being able to use this hand for much and for being in pain. No matter what i try, heat, cold and meds it keeps coming back. my left arm is shrinking from not using it. please advise ------Original Message --- Sent: 01/06/2024 09:25 AM ET From: JESENIA STAHL To: JADE GTZ V Subject: Medication:pain in left hand Good Morning, I reviewed the older Rheumatology notes from DR lopes. Pseudogout was what they were treating with the daily colchicine but you were wondering if it was causing the tingling in your hands so you stopped using it daily. If stopping it didn't change the tingling, perhpas that was not the cause? There is no cure for pseudogout- only the nsaids ( like ibuprofen) or colchicine. Let me know if you want to go back on the colchicine daily or just want to use as needed for flares. We will also update some labs at your upcoming appointment. Jesenia Stahl MD ------Original Message --- Sent: 01/06/2024 09:51 AM ET From: JADE GTZ V To: Yareli MONTALVOT 6 Marib[place] Subject: Medication:pain in left hand Attachments: blood p.jpg (4.39 MB) Thanks for getting back to me right away. Should i take the Colchicine now? will it help with the conditions now? My hands have been hurting for years and each year its gotten worse, stiff painful to move especially in mornings having not moved them much when asleep. My right hand also is stiff and a little painful but not swollen. The tingling turned into just plain pain after stopping the meds. Here is my blood pressure for the last 3 months. been going up . I stopped taking the meds for prostrate months ago.. Been getting hard to pee again so i have been taking them for the last few days. I was told that the old meds for that helped with blood pressure, dont know if these new ones do that. ------Original Message --- Sent: 01/06/2024 02:56 PM ET From: JESENIA STAHL To: JADE GTZ V Subject: Medication:pain in left hand Yes, the terazosin can help with blood pressure and i agree some of your pressures are running high. So go ahead and continue to take that one. Yes, I would restart the colchicine at twice daily. how much do you have? 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 I'll order some xrays for when you come to the clinic- go by Xray before your appointment. WE have some other options to help with that. Jesenia Stahl MD /hina/ JESENIA STAHL MD Signed: 01/06/2024 14:57 01/09/2024 ADDENDUM STATUS: COMPLETED ------Original Message --- Sent: 01/06/2024 03:36 PM ET From: JADE GTZ V To: Yareli Stahl Subject: Medication:pain in left hand I have enough for a few days from my ER visit and a lot of other old ones. I'll start taking them. You think I should stay on them? ------Original Message --- Sent: 01/09/2024 08:11 AM ET From: JESENIA STAHL To: JADE GTZ V Subject: Medication:pain in left hand Yes, if you tolerate them, it may keep the pseudogout symptoms under control Jesenia Stahl MD /hina/ JESENIA STAHL MD Signed: 01/09/2024 08:12 01/09/2024 ADDENDUM STATUS: COMPLETED ------Original Message --- Sent: 01/09/2024 10:40 AM ET From: JADE GTZ V To: Yareli MAS 6 Marib[place] Subject: Medication:pain in left hand My hand is much better today after starting the meds on Tuesday. I will need a new script for them. How long should I keep taking them? I'm doing 1 twice a day. ------Original Message --- Sent: 01/09/2024 12:14 PM ET From: JESENIA STAHL To: JADE GTZ V Subject: Medication:pain in left hand I'm glad to hear this! Why don't you continue to take twice per day until our next visit and then we will decide what to do buttermaker. Some people just stay n this medicine prison. Let me know if it causes stools to be too loose. I will send more of the med. Jesenia Stahl MD /hina/ JESENIA STAHL MD Signed: 01/09/2024 12:14 01/10/2024 ADDENDUM STATUS: COMPLETED ------Original Message --- Sent: 01/09/2024 12:40 PM ET From: JADE GTZ V To: Yareli MAS 6 [place] Subject: Medication:pain in left hand I was on it for years before I stopped about 2 years ago. /hina/ JESENIA STAHL MD Signed: 01/10/2024 07:41 J[facility]ENIA STAHL [facility]
--- OUTSIDE RECORDS SUMMARY | 2024-04-30 08:25 | XMS_ITS | Encounter Summary ---
Author Name [facility] [facility] [place] Address [address] [place] [address] Care Team Providers Care Plateman Name Role Phone JESENIA HANSEN Primary Care [...] PART A Jan 09, 2012 PART A [id number] JADE MAGDALENO PATIENT Selected Encounter This section includes the information on record at [place] for the Encounter. 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 Date/Time Primary/Secondary Diagnosis Diagnosis Name Provider Source Feb 06, 2024 04:30 PM PRIMARY Herpes simplex myelitis JESENIA HANSEN [facility] Feb 06, 2024 04:30 PM SECONDARY Anxiety disorder, unspecified JESENIA HANSEN [facility] Feb 06, 2024 04:30 PM SECONDARY Elevated blood-pressure reading, w/o diagnosis of htn JESENIA HANSEN [facility] Feb 06, 2024 04:30 PM SECONDARY Other specified crystal arthropathies, multiple sites JESENIA HANSEN [facility] Plan of Treatment: Future Appointments (+ 6 months) and Future Tests (+/- 45 days) The Plan of Treatment section includes future care activities for the [facility] This section includes future appointments and future orders which are active, pending or scheduled. Future Appointments This section includes appointments that were scheduled to occur 6 months from the date of the Encounter, up to a maximum of 20 appointments. The data comes from all [place] treatment facilities. Appointment Date/Time Appointment Type Appointme nt Facility Name Aug 07, 2024 11:00 AM AMBULATORY - SURGERY [facility] Aug 07, 2024 11:30 AM AMBULATORY - NONE [facility] Lab Results: +/- 30 days of the encounter This section includes the Chemistry and Hematology Lab Results on record with [place] for the patient. Radiology Reports and Pathology Reports are provided separately, in subsequent sections. Lab Results This section contains the Chemistry/Hematology Results that were resulted 30 days before or 30 daysafter the date of the Encounter. Date/Time Source Result Type Result - Unit Interpretation Reference Range Comment Jan 30, 2024 12:50 PM [facility] TOTAL,VIT D Specimen Type: SERUM Comment: TOTAL,VIT D interpretation of results: Vitamin D deficiency: < or = 20 ng/mL Vitamin D insuficiency: 21 - 29 ng/mL Preferred level: > or = 30 ng/mL Toxicity: > 100 ng/mL Test performed on Cheryl chemistry analyzer (573) Ordering Provider: JESENIA HANSEN Report Released Date/Time: Sep 07, 2023 12:09 PM Reporting Lab: [facility] [address] [id number] Performing Lab: [facility] [address] [address] TOTAL,VIT D 31.8 ng/mL See_Comment Jan 30, 2024 12:50 PM [facility] MAGNESIUM Specimen Type: PLASMA Comment: [...] or = 400 mg/dL. Ordering Provider: JESENIA HANSEN Report Released Date/Time: Sep 07, 2023 12:09 PM Reporting Lab: [facility] [address] [place] [facility] [address] Performing Lab: [facility] [address] [place] [facility] [place] [address] MAGNESIUM 2.1 mg/dL 1.7-2.5 Jan 30, 2024 12:50 PM [facility] LIPID PANEL Specimen Type: PLASMA Comment: [...] or = 400 mg/dL. Ordering Provider: JESENIA HANSEN Report Released Date/Time: Sep 07, 2023 12:09 PM Reporting Lab: [facility] [address] [place] [facility] [place] [address] Performing Lab: [facility] [address] [place] [facility] [place] [address] CHOLESTEROL 171 mg/dL 0-199 TRIGLYCERIDE 135 mg/dL 0-149 LDL CHOLESTEROL 95 mg/dL <129 HDL CHOLESTEROL 49 mg/dL >40 DIRECT LDL canc mg/dL <129 Jan 30, 2024 12:50 PM [facility] PTH-INTACT Specimen Type: PLASMA Comment: Moderately lipemic Ordering Provider: JESENIA HANSEN Report Released Date/Time: Jan 06, 2024 09:27 AM Reporting Lab: [place] [id number] Performing Lab: [facility] [address] [place], [place] [id number] PTH-INTACT 54.7 pg/mL 10-65 Jan 30, 2024 12:50 PM [facility] H[facility]h [facility] URIC ACID Specimen Type: PLASMA Comment: [...] or = 400 mg/dL. Ordering Provider: JESENIA HANSEN Report Released Date/Time: Dec 19, 2023 05:52 PM Reporting Lab: [facility] [address] [facility] [address] Performing Lab: [facility] [address] [facility] [address] URIC ACID 3.7 mg/dL 3.5-8.5 Jan 30, 2024 12:50 PM [facility]GT Jaziel.Orquidea [facility] SED RATE(ESR) Specimen Type: BLOOD Comment: New ESR method has positive bias compared to old methodology discontinued on 07/29/2020 thru 09/23/2020. NORMAL REFERENCE RANGES: UNDER 50 50-70 >70 male: 20-30 mm/hr 31-44 mm/hr 45-55 mm/hr female: 36-39 mm/hr 38-45 mm/hr 45-55 mm/hr Ordering Provider: JESENIA HANSEN Report Released Date/Time: Jan 06, 2024 09:27 AM Reporting Lab: SGT E.Orquidea [facility] [address] [place] [address] Performing Lab: SGT Jaziel.Orquidea [facility] [address] [place] [address] SED RATE(ESR) 4 mm/h Jan 30, 2024 12:50 PM SGT E.[facility]iobhan [facility] BASIC METABOLIC PANEL Specimen Type: PLASMA [...] or = 400 mg/dL. Ordering Provider: JESENIA HANSEN Report Released Date/Time: Sep 07, 2023 12:09 PM Reporting Lab: SGT Jaziel.ISiobhan [facility] [address] [place] [address] Performing Lab: SGElijah [facility] [address] [place] [address] UREA NITROGEN 18 mg/dL 9-20 SODIUM 139 mmol/L 135-145 CHLORIDE 105 mmol/L 98-108 CO2 26 mmol/L 23-32 ANION GAP 8 mmol/L 5-15 POTASSIUM 3.9 mmol/L 3.5-5.0 CALCIUM 9.2 mg/dL 8.4-10.5 CREATININE 0.9 mg/dL 0.5-1.2 GLUCOSE 93 mg/dL 65-99 eGFR(2020 CKD-EPI) 88 mL/min Jan 30, 2024 12:50 PM SGT Jaziel.ISiobhan [facility] CBC (DIFF&PLT) Specimen Type: BLOOD No comment entered. Ordering Provider: JESENIA HANSEN Report Released Date/Time: Sep 07, 2023 12:09 PM Reporting Lab: SGT E.ISiobhan [facility] [address] [facility] [address] Performing Lab: SGElijah [facility] [address] [facility] [place] [address] WBC 4.41 10*3/uL L 4.6-10.8 RBC 4.73 [...] 0.02 10*3/uL 0.00-0.2 IMMATURE GRAN.% 0.5 0.00-2.00 Vital Signs: All taken on the encounter date This section contains inpatient and outpatient Vital Signs collected on the date of the Encounter. Date/Time Temperature Pulse Blood Pressure Respiratory Rate SP02 Pain Height Weight Body Mass Index Source Feb 06, 2024 03:44 PM 159/96 SGElijah [facility] Feb 06, 2024 03:39 PM 97.9 62 156/93 16 93 4 165 27 Elijah [facility] Feb 06, 2024 03:00 PM 0 [facility] Hitesh [facility] Social History: Smoking Status (Most current) and Tobacco Use (All prior to encounter date) This section includes the most current, and the historical, smoking and tobacco- related health factors from the NE facility where the Encounter took place. Current Smoking Status This section includes the most current smoking, or tobacco-related health factor, from the [place] facility where the Encounter took place. Date/Time Current Smoking Status Comment Marivel ity Aug 08, 2023 02:00 PM VA-TOBACCO FORMER USER [facility] Tobacco Use History This section includes a history of the smoking, or tobacco-related health factors, that were collected on or before the date of the Encounter. The data comes from the [place] facility where the Encounter took place. Date/Time Smoking Status/Tobacco Use Comment Tanesha acshelley Aug 08, 2023 02:00 PM VA-TOBACCO QUIT 5 TO < 15 YRS [facility] Jan 26, 2022 11:30 AM VA-TOBACCO FORMER USER [facility]GT [facility] Jan 26, 2022 11:30 AM VA-TOBACCO QUIT 5 TO < 15 YRS [facility] February 18, 2021 09:00 AM VA-TOBACCO FORMER USER [facility]GT [facility] February 18, 2021 09:00 AM VA-TOBACCO QUIT 5 TO < 15 YRS [facility] Jan 02, 2020 03:58 PM VA-TOBACCO FORMER USER [facility]GT [facility] Jan 02, 2020 03:58 PM VA-TOBACCO QUIT 5 TO < 15 YRS [facility] Aug 14, 2019 10:32 AM TOBACCO PACK YEARS [facility]GT [facility] Aug 14, 2019 10:32 AM TOBACCO PACK YEARS >29 CC [facility] Jan 17, 2018 02:29 PM VA-TOBACCO FORMER USER [facility]GT [facility] Jan 17, 2018 02:29 PM VA-TOBACCO QUIT 5 TO < 15 YRS [facility] Jan 17, 2018 01:07 PM TOBACCO PACK YEARS SGT [facility] Jan 17, 2018 01:07 PM TOBACCO PACK YEARS >29 50 SGT [facility] Sep 26, 2017 12:56 PM LIFETIME NON-TOBACCO USER [facility] Jan 18, 2017 12:27 PM TOBACCO PACK YEARS [facility] Jan 18, 2017 12:27 PM TOBACCO PACK YEARS >29 50 [facility] Jan 06, 2016 12:16 PM TOBACCO PACK YEARS [facility] Jan 06, 2016 12:16 PM TOBACCO PACK YEARS >29 50 [facility] Apr 09, 2015 08:52 AM TOBACCO PACK YEARS [facility] Apr 09, 2015 08:52 AM TOBACCO PACK YEARS >29 50 [facility] Dec 26, 2014 12:12 PM TOBACCO PACK YEARS [facility] Dec 26, 2014 12:12 PM TOBACCO PACK YEARS >29 50 YEARS ON AND OFF [facility] Sep 16, 2014 09:00 AM TOBACCO PACK YEARS [facility] Sep 16, 2014 09:00 AM TOBACCO PACK YEARS >29 s [facility] Jun 25, 2014 01:57 PM TOBACCO PACK YEARS [facility] Jun 25, 2014 01:57 PM TOBACCO PACK YEARS <30 50 [facility] Dec 06, 2013 10:06 AM TOBACCO PACK YEARS [facility] Dec 06, 2013 10:06 AM TOBACCO PACK YEARS >29 50 [facility] Jan 22, 2013 01:07 PM CURRENT TOBACCO USE [facility] Jan 22, 2013 01:07 PM TOBACCO CESSATION OFFERED [facility] Jan 22, 2013 01:07 PM TOBACCO MEDS OFFERED [facility] Nov 08, 2012 09:21 AM CURRENT TOBACCO USE [facility] Nov 08, 2012 09:21 AM TOBACCO CESSATION OFFERED [facility] Nov 08, 2012 09:21 AM TOBACCO MEDS OFFERED [facility] Oct 28, 2011 08:17 AM CURRENT TOBACCO USE [facility] Oct 28, 2011 08:17 AM TOBACCO CESSATION OFFERED [facility] Oct 28, 2011 08:17 AM TOBACCO MEDS OFFERED [facility] Aug 04, 2011 01:10 PM CURRENT TOBACCO USE [facility] Aug 04, 2011 01:10 PM TOBACCO CESSATION OFFERED [facility] Aug 04, 2011 01:10 PM TOBACCO MEDS OFFERED [facility]GT [facility]iobhan [facility] Apr 28, 2011 08:00 AM CURRENT TOBACCO USE [facility]GT [facility]han [facility] Apr 28, 2011 08:00 AM TOBACCO CESSATION OFFERED [facility]GT [facility]han [facility] Apr 28, 2011 08:00 AM TOBACCO MEDS OFFERED [facility]GT [facility] March 05, 2011 02:27 PM CURRENT TOBACCO USE [facility] March 05, 2011 02:27 PM TOBACCO CESSATION OFFERED [facility] March 05, 2011 02:27 PM TOBACCO MEDS OFFERED [facility]GT [facility] Dec 22, 2010 01:11 PM CURRENT TOBACCO USE [facility]GT [facility]han [facility] Dec 22, 2010 01:11 PM TOBACCO CESSATION OFFERED [facility] Dec 22, 2010 01:11 PM TOBACCO MEDS OFFERED [facility]GT [facility]Orquidea [facility] Oct 28, 2010 12:57 PM CURRENT TOBACCO USE [facility]GT E.Orquidea [facility] Oct 28, 2010 12:57 PM TOBACCO CESSATION OFFERED [facility]GT [facility].Orquidea [facility] Oct 28, 2010 12:57 PM TOBACCO MEDS OFFERED [facility]GT E.Orquidea [facility] Oct 21, 2009 08:22 AM CURRENT TOBACCO USE [facility]quidea [facility] Oct 21, 2009 08:22 AM TOBACCO CESSATION OFFERED [facility] Oct 21, 2009 08:22 AM TOBACCO MEDS OFFERED [facility]GT [facility].Orquidea [facility] Sep 19, 2009 08:11 AM LIFETIME NON-TOBACCO USER [facility]GT E.Orquidea [facility] Oct 22, 2008 12:58 PM TOBACCO NON USE GR EATER THAN 12 MONTHS [facility] Sep 17, 2008 08:24 AM TOBACCO NON USE GR EATER THAN 12 MONTHS [facility]GT [facility] Dec 01, 2007 12:58 PM TOBACCO NON USE LE SS THAN 12 MONTHS [facility] Aug 16, 2007 01:17 PM TOBACCO CESSATION OFFERED SGT [facility]han [facility] Aug 16, 2007 01:17 PM TOBACCO MEDS OFFERED [facility]GT [facility] Aug 16, 2007 01:17 PM TOBACCO NON USE LE SS THAN 12 MONTHS [facility] Jun 23, 2007 10:31 AM TOBACCO NON USE LE SS THAN 12 MONTHS [facility]GT [facility] Dec 14, 2006 10:24 AM CURRENT TOBACCO USE [facility]GT [facility] March 01, 2006 11:10 AM CURRENT TOBACCO USE SGT [facility] Advance Directives: All historical and current Section Date Range: From patient's date of to the date document was created. This section includes ALL of a patient's completed or amended [place] Advance and Rescinded Directives. The entries below indicate that a directive exists for the patient, but an actual copy is not included with this document. The data comes from all [place] facilities. Date Advance Directives Provider Source Aug 08, 2023 ADVANCE DIRECTIVE NOTIFICATION AND SCREENING GIOVANNI JORGE SGT E.[facility] Nov 10, 2022 ADVANCE DIRECTIVE NOTIFICATION AND SCREENING GIOVANNI JORGE SGT E.[facility] Mar 17, 2020 ADVANCE DIRECTIVE DISCUSSION GIOVANNI JORGE SGT E.[facility] May 23, 2019 ADVANCE DIRECTIVE DISCUSSION MADHURI WILSON SGT E.[facility] Aug 23, 2016 ADVANCE DIRECTIVE DISCUSSION SHANKAR AYALA [facility]GT E[facility] Jan 06, 2016 ADVANCE DIRECTIVE DISCUSSION KATIE BAILEY [facility]GT E.[facility] Jan 27, 2011 ADVANCE DIRECTIVE ANDREI ACE [facility] Radiology Reports: +/- 30 [...] the Encounter. The data comes from all [place] treatment facilities. Date/Time Radiology Report Provider Source Feb 06, 2024 02:20 PM HAND 3 OR MORE VIE WS: JADE GTZ V [id number] M Exm Date: FEB 06, 2024@14:20 Req Phys: JESENIA HANSEN Pat Loc: [facility] (Req'g Loc) Img Loc: T-XRAY Service: Unknown (Case [id number] COMPLETE) HAND 3 OR MORE VIEWS (RAD Detailed) CPT:24798 Proc Modifiers : RIGHT Reason for Study: hand pain Clinical History: Report Status: Verified Date Reported: FEB 06, 2024 Date Verified: FEB 06, 2024 Ballast Inspector E-Sig:/ES/MACHO SUTTON Report: EXAM: HAND 3 OR MORE VIEWS INDICATION: hand pain COMPARISON: None available. TECHNIQUE: At the time of dictation, AP, oblique, lateral views of the right hand on 3 images are available. FINDINGS: No evidence of acute fracture. Alignment is maintained. Advanced triscaphe joint and moderate thumb CMC joint degenerative changes. Additional mild multifocal degenerative changes noted elsewhere. Osseous mineralization is within normal limits. Chondrocalcinosis of the TFCC. Impression: Multifocal degenerative changes most pronounced at the triscaphe joint. Chondrocalcinosis of the TFCC. Primary Diagnostic Code: NO ALERT REQUIRED Primary Interpreting Staff: MACHO SUTTON, PHYSICIAN (Ballast Inspector) /MACHO JENNINSG [facility] Feb 06, 2024 02:20 PM HAND 3 OR MORE VIE WS: JADE GTZ V [id number] M Exm Date: FEB 06, 2024@14:20 Req Phys: JESENIA HANSEN Pat Loc: [facility] (Req'g Loc) Img Loc: T-XRAY Service: Unknown (Case [id number] COMPLETE) HAND 3 OR MORE VIEWS (RAD Detailed) CPT:44401 Proc Modifiers : LEFT Reason for Study: hand pain Clinical History: h/o pseudogout but i suspect OA as well Report Status: Verified Date Reported: FEB 06, 2024 Date Verified: FEB 06, 2024 Ballast Inspector E-Sig:/ES/MACHO SUTTON Report: EXAM: HAND 3 OR MORE VIEWS INDICATION: hand pain COMPARISON: None available. TECHNIQUE: At the time of dictation, AP, oblique, lateral views of the left hand on 3 images are available. FINDINGS: No evidence of acute fracture. Alignment is maintained. Advanced triscaphe joint and moderate thumb CMC joint degenerative changes. Moderate thumb MCP joint and mild long finger MCP joint degenerative changes. Additional mild multifocal degenerative changes noted elsewhere. Chondrocalcinosis of the TFCC. Osseous mineralization is within normal limits. Soft tissues demonstrate no acute abnormality. Impression: Multifocal degenerative changes most pronounced at the triscaphe joint, detailed above. Chondrocalcinosis of the TFCC. Primary Diagnostic Code: NO ALERT REQUIRED Primary Interpreting Staff: MACOH SUTTON, PHYSICIAN (Ballast Inspector) /MACHO JENNINGS [facility] Encounter Notes: All associated encounter notes This section contains the clinical notes associated to the Encounter. Date/Time Encounter Note(s) Provider Source Feb 06, 2024 03:46 PM PRIMARY CARE NOTE: LOCAL TITLE: PC FOLLOW-UP VISIT STANDARD TITLE: PRIMARY CARE NOTE DATE OF NOTE: FEB 06, 2024@15:46 ENTRY DATE: FEB 06, 2024@15:46:34 AUTHOR: JESENIA HANSEN COSIGNER: URGENCY: STATUS: COMPLETED PC FOLLOW-UP VISIT Has ADDENDA please note that this note was generated using Corrigo software. Efforts made to proofread for errors CHIEF COMPLAINT: Routine follow-up chronic health conditions SUBJECTIVE: Patient is a 79 year old, MALE , seen in the clinic for routine follow-up His hands are doing okay today--he is consistent with the colchicine twice per day he does wear some special gloves at night but he does not remember where he got them it was before we had an occupational therapist here 1 day out of the week he will wake up with a feeling of doom and feels pressure in his body but he basically just gets up and distracts himself goes to a different room and it fades away as the day goes on it does not feel like his typical anxiety He did not look at his blood work yet because it makes him anxious when he thinks something could be wrong so he is interested to hear about that He has irritable bowel syndrome that he manages with lifestyle modifications as well as some as needed medications He brings in his list of home blood pressures including pulse rates that he is checked over the past months some of them are excellent but most of them are running 140s to 150s systolic over 80s and 90s he is taking the terazosin in the evenings SOCIAL: He has been she a bit and smoking some cigarillos recently SERVICE:See claritza ROS: No current chest pain occasional feelings of not getting enough air ALLERGIES: PENICILLIN, PILOCARPINE, FLEXERIL, ACYCLOVIR, VALACYCLOVIR PROBLEM LIST: Myalgia ([facility] [id number]) Palpitations ([facility] [id number]) Herpes simplex ([facility] [id number]) Methicillin resistant Staphylococcus aureus infection ([facility] [id number]) Pseudogout ([facility] [id number]) Elevated PSA ([facility] [id number]) Keratoconjunctivitis sicca ([facility] [id number] ([facility] [id number]) Anxiety ([facility] [id number]) Herpesvirus infection ([facility] [id number]) Arthritis ([facility] [id number]) Upper gastrointestinal hemorrhage ([facility] [id number]) Tenosynovitis ([facility] [id number]) Dyspnea on exertion ([facility] [id number]) Anxiety ([facility] [id number]) Temporomandibular joint disorder Herpes Zoster Shoulder: arthralgia Umbilical hernia Renal Calculi Chest Pain Elevation, blood pressure Tobacco use ([facility] [id number]) Abdominal Pain, Epigastric Adjustment Disorder with Anxiety Flexible Sigmoidoscopy Headache Neck Pain Diarrhea ([facility] [id number]) Tendinitis family history pancreatic cancer (motherGastroesophageal reflux disease ([facility] [id number]) Chronic prostatitis Hyperlipidemia ([facility] [id number]) Psoriasis, skin or nails Health Maintenance OBJECTIVE: MEDICATIONS: VITALS: Blood Pressure: 159/96 (02/06/2024 15:44) Pulse: 62 (02/06/2024 15:39) Temperature: 97.9 F [36.6 C] (02/06/2024 15:39) Weight: 165 lb [74.84 kg] (02/06/2024 15:39) Patient's BMI is 27 on Feb 06, 2024@15:39 O2 SAT:93% (02/06/2024 15:39)% GEN: nad Pleasant well-developed well-nourished 79-year-old who ambulates in without any assistive device HEENT: nc/at PERRL L oropharynx is clear Chest: ctab no wheezing or crackles no murmurs rubs or gallops CV: rrr Abdominal: +bs soft/nt/nd TIM: Extremities: no edema pulses 2+ Musculoskeletal: Neuro: SKIN: CLINICAL REMINDERS: LAB: BASIC METABOLIC PANEL, PLASMA - Partial Panel found GLUCOSE, PLASMA, 01/30/24@1250 93 mg/dL (65 - 99) UREA NITROGEN, PLASMA, 01/30/24@1250 18 mg/dL (9 - 20) CREATININE, PLASMA, 01/30/24@1250 0.9 mg/dL (0.5 - 1.2) eGFR(2020 CKD-EPI), PLASMA, 01/30/24@1250 88 mL/min () SODIUM, PLASMA, 01/30/24@1250 139 mmol/L (135 - 145) POTASSIUM, PLASMA, 01/30/24@1250 3.9 mmol/L (3.5 - 5.0) CHLORIDE, PLASMA, 01/30/24@1250 105 mmol/L (98 - 108) CO2, PLASMA, 01/30/24@1250 26 mmol/L (23 - 32) ANION GAP, PLASMA, 01/30/24@1250 8 mmol/L (5 - 15) CALCIUM, PLASMA, 01/30/24@1250 9.2 mg/dL (8.4 - 10.5) CBC (DIFF&PLT), BLOOD - Partial Panel found WBC, BLOOD, 01/30/24@1250 4.41 Lk/cmm (4.6 - 10.8) RBC, BLOOD, 01/30/24@1250 4.73 M/cmm (4.44 - 6.1) HGB, BLOOD, 01/30/24@1250 14.9 g/dL (13.9 - 18) HCT, BLOOD, 01/30/24@1250 44.1 % (41 - 52) MCV, BLOOD, 01/30/24@1250 93.2 um3 (80 - 98) MCH, BLOOD, 01/30/24@1250 31.5 pg (27 - 33.3) MCHC, BLOOD, 01/30/24@1250 33.8 g/dL (31.8 - 37.1) PLT , BLOOD, 01/30/24@1250 128 L k/cmm (130 - 440) RDW-SD, BLOOD, 01/30/24@1250 43.6 fL (39.0 - 52.2) RDW, BLOOD, 01/30/24@1250 12.7 % (11.5 - 14.5) MPV, BLOOD, 01/30/24@1250 10.9 Hum3 (7.4 - 10.5) GRAN #, BLOOD, 01/30/24@1250 2.61 k/cmm (1.8 - 7.8) LYMPH #, BLOOD, 01/30/24@1250 1.25 k/cmm (1.2 - 3.6) MONO #, BLOOD, 01/30/24@1250 0.35 k/cmm (0.14 - 0.76) EOSINO #, BLOOD, 01/30/24@1250 0.17 k/cmm (0.0 - 0.3) BASO #, BLOOD, 01/30/24@1250 0.01 k/cmm (0.0 - 0.2) IMMATURE GRAN.#, BLOOD, 01/30/24@1250 0.02 k/cmm (0.00 - 0.2) GRAN %, BLOOD, 01/30/24@1250 59.2 % (54 - 65) LYMPH %, BLOOD, 01/30/24@1250 28.3 % (25 - 33) MONO %, BLOOD, 01/30/24@1250 7.9 H% (3 - 7) EOSINO %, BLOOD, 01/30/24@1250 3.9 H% (0 - 3) BASO %, BLOOD, 01/30/24@1250 0.2 % (0 - 2) IMMATURE GRAN.%, BLOOD, 01/30/24@1250 0.5 % (0.00 - 2.00) NRBC #, BLOOD, 01/30/24@1250 0.00 k/cmm (0 - 0.2) NUCLEATED RBC/100WBC, BLOOD, 01/30/24@1250 0.0 %/WBC (0 - 6) CHOL: 171 (01/30/24 12:50) HDL CHO: 49 (01/30/24 12:50) LDL CHO: 95 (01/30/24 12:50) TRIGLYC: 135 (01/30/24 12:50) %A1C: 5.5 (08/08/23 12:36) SLT - Lab [...] Result Units Ref Range 02/02/2023 12:00 FECES FIT/ Negative Ref: Negative No selection items chosen for this component. Collection DT Spec VitD(Ro a 01/30/2024 12:50 SERUM 31.8 COMMENTS: a. TOTAL,VIT D interpretation of results: Vitamin D deficiency: < or = 20 ng/mL Vitamin D insuficiency: 21 - 29 ng/mL Preferred level: > or = 30 ng/mL Toxicity: > 100 ng/mL Test performed on Cheryl chemistry analyzer (573) Immunizations: Recorded Pneumococcal Vaccinations Information: Reminder Term: [facility]-PNEUMOC PPSV23 IMMUNIZATION Immunization: PNEUMOCOCCAL, UNSPECIFIED FORMULATION 11/08/2012@11:00 series - COMPLETE reaction - NONE Reminder Term: [facility]-PNEUMOC PCV IMMUNIZATION (ALL CONJUGATE) Immunization: PNEUMOCOCCAL CONJUGATE PCV 13 12/26/2014@13:00 series - BOOSTER PNEUMOCOCCAL CONJUGATE PCV 13 given on 12/26/14 ADMINISTERED Immunization Series Date Facility Reaction Info TD (ADULT), 2 LF TETANUS TOXOID,* 06/25/2021 [facility] * TDAP 10/28/2010 [facility] * CONTRAINDICATED No data available REFUSED ======= No data available * Value is truncated; see the Detailed Immunizations Health Summary Component [DIM] for complete text Zoster Immunization History: Cohort: Immunization: ZOSTER RECOMBINANT 04/28/2018@09:15 series - COMPLETE reaction - NONE 01/17/2018@13:30 Immunization: ZOSTER RECOMBINANT 04/28/2018@09:15 series - COMPLETE reaction - NONE 01/17/2018@13:30 Information: Immunization: Varicella Zoster (HISTORICAL) 11/08/2012@11:00 series - COMPLETE reaction - NONE Results Discussed: Results and treatment plan discussed in person with patient/surrogate. Labs ASSESSMENT: -hyperlipidemia- not on statin--labs actually look pretty good today CV-patient had visit with cardiology August 2021 at the [facility] had an echocardiogram which showed [...] any A. fibI will monitor at this time-- h/o BPH: Has been on but with tamsulosin and now taking terazosin he is doing fine on it IBS-d--patient treats conservatively--has seen GI last visit [...] be on colchicine. Seen by [facility],05/2022 --according to those records he was given [...] denied Raynaud's but reportedly his brother had that--he is doing better on the colchicine and have advised that he continue that Patient has prior diagnosis of psoriasis and most recentrheum notes psoriatic arthritis they list his lab work including RF 14 IgM 63 IgA 60 they recommended consideration of starting Orencia but patient did not follow-up due to complaints of axillary burning sensation which has gotten significantly better but still has episodes of mild discomfort--I offered OT consult which he declines--we will we have our next visit we will discuss about whether he wants to see rheumatology again Was diagnosed with osteoporosis however I do not see the DEXA scan right off hand will discuss with him when that was done and consider repeating here at our clinic--we will discuss next visit Burning sensation in the axillary regions--there was no rash or any lymphadenopathy he had some mild gynecomastia/slight nodularity but I do not feel a distinct breast mass --this basically got better on its own Elevated blood pressure in the clinic --as well as at home discussed option and I am going to put him on a tiny dose of propranolol which may also help with some anxiety as well as bring his blood pressure down History of a sending aortic ectasiamost recent CAT scan shows stability and by notes not aneurysmal so we will keep an eye on this with his screening lung cancer scans- last done 08/2023 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 RTC follow-up in July@11:00 TL F2F POD Nov@13:30 [facility] 2 /es/ JESENIA HANSEN MD Signed: 02/06/2024 16:30 02/13/2024 ADDENDUM STATUS: COMPLETED pt sent in home readings, and most recentlyh on 02/12/2024 was 134/81 with HR of 74 will continue to have him monitor periodcially /hina/ JESENIA HANSEN MD Signed: 02/13/2024 08:07 JESENIA HANSEN [facility] Feb 06, 2024 03:41 PM NURSING NOTE: LOCAL TITLE: OUTPATIENT PREVENTIVE HEALTH & PATIENT EDUCATION (T STANDARD TITLE: NURSING NOTE DATE OF NOTE: FEB 06, 2024@15:41 ENTRY DATE: FEB 06, 2024@15:41:40 AUTHOR: NITESH VAZQUEZ COSIGNER: URGENCY: STATUS: COMPLETED Type of visit: [id number] Do you currently have any things in your life that worry you or cause you stress that you would like to discuss today? No Primary Care Check in Reason for visit: Follow-up Do you need outside prescriptions for local fill at [place] expense? No Have you been hospitalized since your last visit? No Does Patient use assistive devices (DME)? No [place] verbalizes understanding of today's visit and has had the opportunity to ask questions and participate in his/her plan of care. Reminders: Depression Screening: Perform PHQ-2 A PHQ-2 screen was performed. The score was 0 which is a negative screen for depression. Over the past two weeks, how often have you been bothered by the following problems? 1. Little interest or pleasure in doing things Not at all 2. Feeling down, depressed, or hopeless Not at all Sexual Orientation: The patient thinks of their sexual orientation as: Straight or Heterosexual /hina/ NITESH VAZQUEZ LPN Signed: 02/06/2024 15:42 NITESH VAZQUEZ [facility]
--- OUTSIDE RECORDS SUMMARY | 2024-04-30 08:25 | XMS_ITS | Encounter Summary ---
Author Name [facility] Address [address] [place] [address] Care Team Providers Care Entry Level Financial Analyst Name Role Phone TYRONESTEPHA Primary Care Provider [...] PART A Jan 09, 2012 PART A [id number] JADE MAGDALENO PATIENT Selected Encounter This section includes the information on record at [place] for the Encounter. Date/Time Encounter Type Encounter Description Reason Provider Source Feb 06, 2024 03:00 PM OFFICE O/P EST LOW 20 MIN PODIATRY ICD-10-CM B35.1 Tinea unguium RAHEEL TAMAYO Jaziel Encounter Template Text not used by [facility] Assessments - Encounter Diagnoses This section includes the primary and secondary diagnoses documented for the Encounter. Date/Time Primary/Secondary Diagnosis Diagnosis Name Provider Source Feb 06, 2024 03:06 PM PRIMARY Tinea unguium SOLANGE-JI ,SARAH Terrie [facility] Feb 06, 2024 03:06 PM SECONDARY Nail dystrophy SARAH TATE Terrie [facility] Feb 06, 2024 03:06 PM SECONDARY Unspecified abnormalities of gait and mobility SARAH TATE [facility]GT [facility] Plan of Treatment: Future Appointments (+ 6 months) and Future Tests (+/- 45 days) The Plan of Treatment section includes future care activities for the [facility] This section includes future appointments and future orders which are active, pending or scheduled. Future Appointments This section includes appointments that were scheduled to occur 6 months from the date of the Encounter, up to a maximum of 20 appointments. The data comes from all [place] treatment facilities. Appointment Date/Time Appointment Type Appointme nt Facility Name Aug 07, 2024 11:00 AM AMBULATORY - SURGERY [facility] Aug 07, 2024 11:30 AM AMBULATORY - NONE [facility] Lab Results: +/- 30 days of the encounter This section includes the Chemistry and Hematology Lab Results on record with [place] for the patient. Radiology Reports and Pathology Reports are provided separately, in subsequent sections. Lab Results This section contains the Chemistry/Hematology Results that were resulted 30 days before or 30 daysafter the date of the Encounter. Date/Time Source Result Type Result - Unit Interpretation Reference Range Comment Jan 30, 2024 12:50 PM T [facility] TOTAL,VIT D Specimen Type: SERUM Comment: TOTAL,VIT D interpretation of results: Vitamin D deficiency: < or = 20 ng/mL Vitamin D insuficiency: 21 - 29 ng/mL Preferred level: > or = 30 ng/mL Toxicity: > 100 ng/mL Test performed on Cheryl chemistry analyzer (573) Ordering Provider: JESENIA HANSEN Report Released Date/Time: Sep 07, 2023 12:09 PM Reporting Lab: [facility] [address] [phone] Performing Lab: [facility] [address] [phone] TOTAL,VIT D 31.8 ng/mL See_Comment Jan 30, 2024 12:50 PM [facility] URIC ACID Specimen Type: PLASMA [...] 05:52 PM Reporting Lab: [facility] [address] [place] [address] Performing Lab: [facility] [address] [place] [address] URIC ACID 3.7 mg/dL 3.5-8.5 Jan 30, 2024 12:50 PM [facility] MAGNESIUM Specimen Type: PLASMA Comment: eGFR [...] PM Reporting Lab: [facility] [address] [place] [address] Performing Lab: [facility] [address] [place] [address] MAGNESIUM 2.1 mg/dL 1.7-2.5 Jan 30, 2024 12:50 PM [facility] PTH-INTACT Specimen Type: PLASMA Comment: Moderately lipemic Ordering Provider: JESENIA HANSEN Report Released Date/Time: Jan 06, 2024 09:27 AM Reporting Lab: [address] [phone] Performing Lab: [facility] [address] [id number] PTH-INTACT 54.7 pg/mL 10-65 Jan 30, 2024 12:50 PM [facility] LIPID PANEL Specimen Type: PLASMA [...] Sep 07, 2023 12:09 PM Reporting Lab: [facility] [address] [facility] [address] Performing Lab: [facility] [address] [facility] [address] CHOLESTEROL 171 mg/dL 0-199 TRIGLYCERIDE 135 mg/dL 0-149 LDL CHOLESTEROL 95 mg/dL <129 HDL CHOLESTEROL 49 mg/dL >40 DIRECT LDL canc mg/dL <129 Jan 30, 2024 12:50 PM [facility] SED RATE(ESR) Specimen Type: BLOOD Comment: New ESR method has positive bias compared to old methodology discontinued on 07/29/2020 thru 09/23/2020. NORMAL REFERENCE RANGES: UNDER 50 50-70 >70 male: 20-30 mm/hr 31-44 mm/hr 45-55 mm/hr female: 36-39 mm/hr 38-45 mm/hr 45-55 mm/hr Ordering Provider: JESENIA HANSEN Report Released Date/Time: Jan 06, 2024 09:27 AM Reporting Lab: [facility] [address] [facility] [address] Performing Lab: [facility] [address] [facility] [address] SED RATE(ESR) 4 mm/h Jan 30, 2024 12:50 PM SGT E[facility]iobhan [facility] BASIC METABOLIC PANEL Specimen Type: [...] 12:09 PM Reporting Lab: [facility] [address] [facility] [address] Performing Lab: SGT E.ISiobhan [facility] [address] [facility] [address] UREA NITROGEN 18 mg/dL 9-20 SODIUM 139 mmol/L 135-145 CHLORIDE 105 mmol/L 98-108 CO2 26 mmol/L 23-32 ANION GAP 8 mmol/L 5-15 POTASSIUM 3.9 mmol/L 3.5-5.0 CALCIUM 9.2 mg/dL 8.4-10.5 CREATININE 0.9 mg/dL 0.5-1.2 GLUCOSE 93 mg/dL 65-99 eGFR(2020 CKD-EPI) 88 mL/min Jan 30, 2024 12:50 PM [facility] CBC (DIFF&PLT) Specimen Type: BLOOD No comment entered. Ordering Provider: JESENIA HANSEN Report Released Date/Time: Sep 07, 2023 12:09 PM Reporting Lab: [facility] [address] [facility] [address] Performing Lab: SGT E.ISiobhan [facility] [address] [facility] [address] WBC 4.41 10*3/uL L 4.6-10.8 RBC 4.73 [...] Source Feb 06, 2024 03:44 PM 159/96 [facility] Feb 06, 2024 03:39 PM 97.9 62 156/93 16 93 4 165 27 [facility] Feb 06, 2024 03:00 PM 0 [facility] Social History: Smoking Status (Most current) and Tobacco Use (All prior to encounter date) This section includes the most current, and the historical, smoking and tobacco- related health factors from the [place] facility where the Encounter took place. Current Smoking Status This section includes the most current smoking, or tobacco-related health factor, from the [place] facility where the Encounter took place. Date/Time Current Smoking Status Comment Marivel ity Aug 08, 2023 02:00 PM VA-TOBACCO FORMER USER [facility]GT [facility] Tobacco Use History This section includes a history of the smoking, or tobacco-related health factors, that were collected on or before the date of the Encounter. The data comes from the [place] facility where the Encounter took place. Date/Time Smoking Status/Tobacco Use Comment Tanesha travis Aug 08, 2023 02:00 PM VA-TOBACCO QUIT 5 TO < 15 YRS [facility] Jan 26, 2022 11:30 AM VA-TOBACCO FORMER USER SGT [facility] Jan 26, 2022 11:30 AM VA-TOBACCO QUIT 5 TO < 15 YRS [facility] February 18, 2021 09:00 AM VA-TOBACCO FORMER USER [facility] February 18, 2021 09:00 AM VA-TOBACCO QUIT 5 TO < 15 YRS [facility] Jan 02, 2020 03:58 PM VA-TOBACCO FORMER USER SGT [facility] Jan 02, 2020 03:58 PM VA-TOBACCO QUIT 5 TO < 15 YRS [facility] Aug 14, 2019 10:32 AM TOBACCO PACK YEARS S[facility] Aug 14, 2019 10:32 AM TOBACCO PACK YEARS >29 CC [facility] Jan 17, 2018 02:29 PM VA-TOBACCO FORMER USER [facility] Jan 17, 2018 02:29 PM VA-TOBACCO QUIT 5 TO < 15 YRS [facility] Jan 17, 2018 01:07 PM TOBACCO PACK YEARS [facility] Jan 17, 2018 01:07 PM TOBACCO PACK YEARS >29 50 [facility] Sep 26, 2017 12:56 PM LIFETIME NON-TOBACCO USER [facility] Jan 18, 2017 12:27 PM TOBACCO PACK YEARS [facility] Jan 18, 2017 12:27 PM TOBACCO PACK YEARS >29 50 [facility] Jan 06, 2016 12:16 PM TOBACCO PACK YEARS [facility] Jan 06, 2016 12:16 PM TOBACCO PACK YEARS >29 50 [facility] Apr 09, 2015 08:52 AM TOBACCO PACK YEARS [facility] Apr 09, 2015 08:52 AM TOBACCO PACK YEARS >29 50 [facility] Dec 26, 2014 12:12 PM TOBACCO PACK YEARS [facility] Dec 26, 2014 12:12 PM TOBACCO PACK YEARS >29 50 YEARS ON AND OFF [facility] Sep 16, 2014 09:00 AM TOBACCO PACK YEARS [facility] Sep 16, 2014 09:00 AM TOBACCO PACK YEARS >29 s [facility] Jun 25, 2014 01:57 PM TOBACCO PACK YEARS [facility] Jun 25, 2014 01:57 PM TOBACCO PACK YEARS <30 50 [facility] Dec 06, 2013 10:06 AM TOBACCO PACK YEARS [facility] Dec 06, 2013 10:06 AM TOBACCO PACK YEARS >29 50 [facility] Jan 22, 2013 01:07 PM CURRENT TOBACCO USE [facility] Jan 22, 2013 01:07 PM TOBACCO CESSATION OFFERED [facility] Jan 22, 2013 01:07 PM TOBACCO MEDS OFFERED [facility] Nov 08, 2012 09:21 AM CURRENT TOBACCO USE [facility] Nov 08, 2012 09:21 AM TOBACCO CESSATION OFFERED [facility] Nov 08, 2012 09:21 AM TOBACCO MEDS OFFERED [facility] Oct 28, 2011 08:17 AM CURRENT TOBACCO USE [facility] Oct 28, 2011 08:17 AM TOBACCO CESSATION OFFERED [facility] Oct 28, 2011 08:17 AM TOBACCO MEDS OFFERED [facility] Aug 04, 2011 01:10 PM CURRENT TOBACCO USE [facility] Aug 04, 2011 01:10 PM TOBACCO CESSATION OFFERED [facility] Aug 04, 2011 01:10 PM TOBACCO MEDS OFFERED [facility] Apr 28, 2011 08:00 AM CURRENT TOBACCO USE [facility] Apr 28, 2011 08:00 AM TOBACCO CESSATION OFFERED [facility] Apr 28, 2011 08:00 AM TOBACCO MEDS OFFERED [facility] March 05, 2011 02:27 PM CURRENT TOBACCO USE [facility] March 05, 2011 02:27 PM TOBACCO CESSATION OFFERED [facility] March 05, 2011 02:27 PM TOBACCO MEDS OFFERED [facility] Dec 22, 2010 01:11 PM CURRENT TOBACCO USE [facility] Dec 22, 2010 01:11 PM TOBACCO CESSATION OFFERED [facility] Dec 22, 2010 01:11 PM TOBACCO MEDS OFFERED [facility] Oct 28, 2010 12:57 PM CURRENT TOBACCO USE [facility] Oct 28, 2010 12:57 PM TOBACCO CESSATION OFFERED [facility] Oct 28, 2010 12:57 PM TOBACCO MEDS OFFERED [facility] Oct 21, 2009 08:22 AM CURRENT TOBACCO USE [facility] Oct 21, 2009 08:22 AM TOBACCO CESSATION OFFERED [facility] Oct 21, 2009 08:22 AM TOBACCO MEDS OFFERED [facility] Sep 19, 2009 08:11 AM LIFETIME NON-TOBACCO USER [facility] Oct 22, 2008 12:58 PM TOBACCO NON USE GR EATER THAN 12 MONTHS [facility] Sep 17, 2008 08:24 AM TOBACCO NON USE GR EATER THAN 12 MONTHS [facility] Dec 01, 2007 12:58 PM TOBACCO NON USE LE SS THAN 12 MONTHS [facility] Aug 16, 2007 01:17 PM TOBACCO CESSATION OFFERED [facility] Aug 16, 2007 01:17 PM TOBACCO MEDS OFFERED [facility] Aug 16, 2007 01:17 PM TOBACCO NON USE LE SS THAN 12 MONTHS [facility] Jun 23, 2007 10:31 AM TOBACCO NON USE LE SS THAN 12 MONTHS [facility] Dec 14, 2006 10:24 AM CURRENT TOBACCO USE [facility] March 01, 2006 11:10 AM CURRENT TOBACCO USE [facility]GT [facility] Advance Directives: All historical and current Section Date Range: From patient's date of to the date document was created. This section includes ALL of a patient's completed or amended VA Advance and Rescinded Directives. The entries below indicate that a directive exists for the patient, but an actual copy is not included with this document. The data comes from all [place] facilities. Date Advance Directives Provider Source Aug 08, 2023 ADVANCE DIRECTIVE NOTIFICATION AND SCREENING GIOVANNI JORGE [facility] Nov 10, 2022 ADVANCE DIRECTIVE NOTIFICATION AND SCREENING GIOVANNI JORGE SGT E[facility] Mar 17, 2020 ADVANCE DIRECTIVE DISCUSSION GIOVANNI JORGE [facility] May 23, 2019 ADVANCE DIRECTIVE DISCUSSION MADHURI WILSON SGT [facility] Aug 23, 2016 ADVANCE DIRECTIVE DISCUSSION SHANKAR AYALA [facility]GT [facility] Jan 06, 2016 ADVANCE DIRECTIVE DISCUSSION KATIE BAILEY [facility]GT [facility]. [facility] Jan 27, 2011 ADVANCE DIRECTIVE ANDREI AEC [facility]GT [facility]. [facility] Radiology Reports: +/- 30 days of the [...] the Encounter. The data comes from all [place] treatment facilities. Date/Time Radiology Report Provider Source Feb 06, 2024 02:20 PM HAND 3 OR MORE VIE WS: JADE GTZ V [id number] M Exm Date: FEB 06, 2024@14:20 Req Phys: JESENIA HANSEN Pat Loc: [facility] (Req'g Loc) Img Loc: T-XRAY Service: Unknown (Case [id number] COMPLETE) HAND 3 OR MORE VIEWS (RAD Detailed) CPT:66922 Proc Modifiers : LEFT Reason for Study: hand pain Clinical History: h/o pseudogout but i suspect OA as well Report Status: Verified Date Reported: FEB 06, 2024 Date Verified: FEB 06, 2024 Pharmacy Intake Technician E-Sig:/ES/MACHO SUTTON Report: EXAM: HAND 3 OR [...] REQUIRED Primary Interpreting Staff: MACHO SUTTON, PHYSICIAN (Pharmacy Intake Technician) /[facility] Feb 06, 2024 02:20 PM HAND 3 OR MORE VIE WS: JADE GTZ V [id number] M Exm Date: FEB 06, 2024@14:20 Req Phys: JESENIA HANSEN Pat Loc: [facility] (Req'g Loc) Img Loc: T-XRAY Service: Unknown (Case [id number] COMPLETE) HAND 3 OR MORE VIEWS (RAD Detailed) CPT:96255 Proc Modifiers : RIGHT Reason for Study: hand pain Clinical History: Report Status: Verified Date Reported: FEB 06, 2024 Date Verified: FEB 06, 2024 Pharmacy Intake Technician E-Sig:/ES/MACHO SUTTON Report: EXAM: HAND 3 OR [...] REQUIRED Primary Interpreting Staff: MACHO SUTTON, PHYSICIAN (Pharmacy Intake Technician) /[facility] Encounter Notes: All associated encounter notes This section contains the clinical notes associated to the Encounter. Date/Time Encounter Note(s) Provider Source Feb 06, 2024 03:03 PM PODIATRY NOTE: LOCAL TITLE: PODIATRY NOTE STANDARD TITLE: PODIATRY NOTE DATE OF NOTE: FEB 06, 2024@15:03 ENTRY DATE: FEB 06, 2024@15:03:42 AUTHOR: RAHEEL TAMAYO COSIGNER: URGENCY: STATUS: COMPLETED S) 79 y/o vet presents as a patient for foot/ankle evaluation. Vet complains of pain to the feet and difficulty with shoes on occasion. Amelie has been seen in the community in [place] for care of discolored nails on bilateral great toes of many months duration. Amelie states he initially noticed discoloration of the nails when he was in the [facility]. Just the distal portions of the nails still seem to be detached from the nailbed but the proximal portion appears to be coil cleaner and more attached. Amelie was given clotrimazole solution the last visit here and is still trying to use this. Amelie states he has stumbled a few times but does not remember hitting his feet all that bad. The right great nail is the worst with 2 transverse ridges noted on this and the proximal edge of the nail is coil cleaner than the distal portion of the nail. Over the past couple of weeks Amelie has hit his right fifth toe a couple of times and slight discoloration is noted. The nail is slightly raised up off the nailbed but the proximal portion is intact. O) Nails: (X) Dystrophic b/l great nails; some of the other nails are basically well-kept with minimal discoloration. Great nails are slightly detached from the nailbed. Right fifth toenail slightly discolored and raised from the nailbed distally also. Integument: Moderately dry slightly scaly skin with no open lesions presently. Hair growth intact to digits b/l. Vascular: Pedal Pulses: Post Tibial Artery (X) Palpable 2/4 B/L Dorsalis Pedis (X) Palpable 2/4 B/L Capillary refil 3 seconds b/l. (-) Edema (-) Varicosities Neurology: Epicritic and vibratory sensation intact and vet denies parasthesias or tinels sign Achilles reflex 1/4 b/l Orthopedic: Structural Deformity: Pes planus B/L Hammertoes 2-5 B/L Probable onychomycosis bilateral great toes with some dystrophy. No noted pain with range of motion of the midtarsal joints metatarsal phalangeal joints or ankle joints A) Pes planus b/l hammertoes b/l Onychomycosis bilateral great toenails ADC - Admission/Discharge No data available OPC - ICD Surgeries No data available CVP - Past Clinic Visits 02/08/2023 15:15 [facility] POD 4 RTN 02/03/2023 12:30 [facility] POD 4 NEW CANCELLED BY CLINIC 02/01/2023 14:[address] PACT RN/SHEET METAL ROOFER 07 01/19/2023 12:39 [facility] E-CONSULT GASTRO UNSCHEDULED 12/21/2022 14:15 [facility] F2 PACT RN/SHEET METAL ROOFER 07 CANCELLED BY PATIENT 11/24/2022 13:30 [facility] OPTOMETRY 2 11/22/2022 13:45 [facility] CARE-PODIATRY 11/10/2022 14:[address] PACT [facility] 10/06/2022 13:40 [facility] F2 PC WALKIN 10/06/2022 13:[address] PC WALKIN RN/SHEET METAL ROOFER SP - Surgical Pathology No data available DS - Disabilities Eligibility: SC LESS THAN 50% VERIFIED Total S/C %: 10 IMPAIRED HEARING 0% S/C TINNITUS 10% S/C Review JLV for most accurate data r/t ALL/ADRs/MED REC MRT5 - Allergies/ADRs FACILITY ALLERGY/ADR -------- No Remote Allergy/ADR Data available for this patient N. /[facility] ACYCLOVIR [facility]. [facility]LEX[facility]IL [facility] PENICILLIN N. [facility] PILOCARPINE [facility] VALACYCLOVIR OUTPT ARTIFICIAL TEARS PVA 1.4%/POVIDONE (PF) (Status = ) INSTILL 1 DROP INTO BOTH EYES TWICE A DAY NEEDED FOR DRY EYES Rx# [id number] Last Released: 05/31/22 Qty/Days Supply: 100/60 Rx Expiration Date: 11/20/22 Refills Remainin Non-VA ASPIRIN 81MG EC TAB TAKE ONE TABLET BY MOUTH ONE TIME EACH DAY Medication prescribed by Non-VA provider. OUTPT CAPSAICIN 0.025% CREAM (Status = Active) APPLY A SMALL AMOUNT TOPICALLY THREE TIMES A DAY TO AFFECTED AREA FOR PAIN. DO NOT USE ON FACE OR SENSITIVE AREAS. WASH HANDS AFTER APPLICATION. Rx# [id number] Last Released: 04/22/22 Qty/Days Supply: 60/30 Rx Expiration Date: 04/21/23 Refills Remainin Indication: FOR PAIN OUTPT DICLOFENAC NA 1% TOP GEL (Status = ) APPLY 2 GRAMS TOPICALLY EVERY 6 HOURS TO AFFECTED JOINT FOR PAIN (MEASURE DOSE USING SUPPLIED DOSING CARD) Rx# [id number] Last Released: 12/25/21 Qty/Days Supply: 100/30 Rx Expiration Date: 12/24/22 Refills Remainin Indication: FOR PAIN AND INFLAMMATION OUTPT FAMCICLOVIR 250MG TAB (Status = Active) TAKE ONE TABLET BY MOUTH TWICE A DAY FOR VIRAL SUPPRESSION. FOR ACUTE OUTBREAK INCREASE DOSE TO 1000MG(4 TABLETS)TWICE DAILY FOR 2 DAYS AND CALL CLINIC Rx# [id number] Last Released: 01/06/23 Qty/Days Supply: 130/60 Rx Expiration Date: 02/25/23 Refills Remainin Indication: FOR INFECTION CAUSED BY A VIRUS OUTPT GABAPENTIN 100MG CAP (Status = ) TAKE ONE CAPSULE BY MOUTH THREE TIMES A DAY FOR NEUROPATHY Rx# [id number] Last Released: 11/18/21 Qty/Days Supply: 90/30 Rx Expiration Date: 11/19/22 Refills Remainin OUTPT METHOCARBAMOL 750MG TAB (Status = ) TAKE ONE TABLET BY MOUTH EVERY 6 HOURS NEEDED FOR MUSCLE SPASMS/MUSCLE RELAXATION (TAKE WITH FOOD) Rx# [id number] Last Released: 02/02/22 Qty/Days Supply: 120/30 Rx Expiration Date: 01/27/23 Refills Remainin Indication: FOR MUSCLE SPASMS/MUSCLE RELAXATION OUTPT PANTOPRAZOLE NA 40MG EC TAB (Status = Active/Suspended) TAKE ONE TABLET BY MOUTH TWICE A DAY FOR STOMACH ACID FOR STOMACH### Rx# [id number] Last Released: 01/10/23 Qty/Days Supply: 180/90 Rx Expiration Date: 06/02/23 Refills Remainin Indication: FOR STOMACH ACID OUTPT TAMSULOSIN HCL 0.4MG CAP (Status = Active) TAKE ONE CAPSULE BY MOUTH AT BEDTIME FOR PROSTATE Rx# [id number] Last Released: 01/10/23 Qty/Days Supply: 90/90 Rx Expiration Date: 04/14/23 Refills Remainin Indication: FOR PROSTATE OUTPT TRIAMCINOLONE ACETONIDE 0.1% CREAM (Status = Active) APPLY A SMALL AMOUNT TOPICALLY TWICE A DAY NEEDED FOR SKIN RASH Rx# [id number] Last Released: 11/16/22 Qty/Days Supply: 800/30 Rx Expiration Date: 11/11/23 Refills Remainin Indication: FOR SKIN RASH SUPPLIES P) Treatment: Discussed etiology of foot/ankle pain. chart reviewed. may start Clotrimazole solution if desired and told that the nails should continue to grow out. [place] is to continue using an emery board to the nails and to observe these nails as they continue to grow. Would not recommend Lamisil tablets as only the great nails are affected and he has noticed progress. Do not recommend nail removal. voices understanding of explained concerns. RTC: 6 months /hina/ RAHEEL TAMAYO ASSOCIATE FINANCIAL REPRESENTATIVE Signed: 02/06/2024 15:09 RAHEEL TAMAYO SGElijah [facility] Feb 06, 2024 02:54 PM NURSING E & M NOTE : LOCAL TITLE: SPECIALTY CARE NURSING (T) STANDARD TITLE: NURSING E & M NOTE DATE OF NOTE: FEB 06, 2024@14:54 ENTRY DATE: FEB 06, 2024@14:57:18 AUTHOR: SONU TATE COSIGNER: URGENCY: STATUS: COMPLETED SPECIALTY CARE NURSING (T) Has ADDENDA Type of visit: Ovex-ls-ooxr Is the patient currently experiencing pain? Per patient or caregiver patient currently has no pain, and a pain score of 0. SPECIALTY CARE AND PATIENT EDUCATION PODIATRY Purpose of visit: Nail Care Foot Pain Chief Complaint: f/u for chronically painful B/L hallux toenails. Areas are not painful at this visit. Hx of Pes planus b/l hammertoes b/l Onychomycosis bilateral great toenails /es/ SARAH TATE SHEET METAL ROOFER Signed: 02/06/2024 15:05 02/06/2024 ADDENDUM STATUS: COMPLETED Suicide Screen: C-SSRS Screening [place] Suicide Severity Rating Scale (C-SSRS) screener 1. Over the past month, have you wished you were or wished you could go to sleep and not wake up? No 2. Over the past month, have you had any actual thoughts of killing yourself? No 3. Over the past month, have you been thinking about how you might do this? Response not required due to responses to other questions. 4. Over the past month, have you had these thoughts and had some intention of acting on them? Response not required due to responses to other questions. 5. Over the past month, have you started to work out or worked out the details of how to kill yourself? Response not required due to responses to other questions. 6. If yes, at any time in the past month did you intend to carry out this plan? Response not required due to responses to other questions. 7. In your lifetime, have you ever done anything, started to do anything, or prepared to do anything to end your life (for example, collected pills, obtained a gun, gave away valuables, went to the roof but didn't jump)? No 8. If YES, was this within the past 3 months? Response not required due to responses to other questions. /hina/ SARAH TATE LPN Signed: 02/06/2024 15:08 GALINA TATE [facility]
--- OUTSIDE RECORDS SUMMARY | 2024-04-30 08:26 | XMS_ITS | Encounter Summary ---
Author Name [facility] [place] [facility] [place] Organization [facility] [place] Address [address] [facility], [place] [address] Care Team Providers Care Die Cutter Operator Name Role Phone JESENIA HANSEN Primary [...] PART A Jan 09, 2012 PART A [id number] 54A JADE MAGDALENO PATIENT Selected Encounter This section includes the information on record at [place] for the Encounter. Date/Time Encounter Type Encounter Description Reason Provider Source February 13, 2024 12:18 PM Outpatient Encounter EVENT (HISTORICAL) JESENIA HANSEN [facility] Encounter Template Text not used by VA Plan of Treatment: Future Appointments (+ 6 [...] 20 appointments. The data comes from all [place] treatment facilities. Appointment Date/Time Appointment Type Appointme nt Facility Name Aug 07, 2024 11:00 AM AMBULATORY - SURGERY [facility] [place] [facility] Aug 07, 2024 11:30 AM AMBULATORY - NONE [facility] Aug 13, 2024 02:00 PM AMBULATORY - MEDICINE [facility] Lab Results: +/- 30 days of the encounter This section includes the Chemistry and Hematology Lab Results on record with [place] for the patient. Radiology Reports and Pathology Reports are provided separately, in subsequent sections. Lab Results This section contains the Chemistry/Hematology Results that were resulted 30 days before or 30 daysafter the date of the Encounter. Date/Time Source Result Type Result - Unit Interpretation Reference Range Comment Jan 30, 2024 12:50 PM [facility] TOTAL,VIT D Specimen Type: SERUM Comment: TOTAL,VIT D interpretation of results: Vitamin D deficiency: < or = 20 ng/mL Vitamin D insuficiency: 21 - 29 ng/mL Preferred level: > or = 30 ng/mL Toxicity: > 100 ng/mL Test performed on Cheryl chemistry analyzer (573) Ordering Provider: JESENIA HANSEN Report Released Date/Time: Sep 07, 2023 12:09 PM Reporting Lab: [place] [address] [place] [address] Performing Lab: [place] [address] [place] [address] TOTAL,VIT D 31.8 ng/mL See_Comment Jan 30, 2024 12:50 PM [facility] MAGNESIUM Specimen Type: PLASMA Comment: [...] PM Reporting Lab: [facility] [place] [facility] [address] [facility] [address] Performing Lab: [facility]ISiobhan [facility] [address] [facility] [address] MAGNESIUM 2.1 mg/dL 1.7-2.5 Jan 30, 2024 12:50 PM [facility] URIC ACID Specimen Type: PLASMA [...] 05:52 PM Reporting Lab: [facility] [address] [facility] [address] Performing Lab: SGT Jaziel.Orquidea [facility] [place] [facility] [address] [facility] [address] URIC ACID 3.7 mg/dL 3.5-8.5 Jan 30, 2024 12:50 PM [facility] PTH-INTACT Specimen Type: PLASMA Comment: Moderately lipemic Ordering Provider: JESENIA HANSEN Report Released Date/Time: Jan 06, 2024 09:27 AM Reporting Lab: [facility] [place] [address] [facility] [address] Performing Lab: [facility] [address] [facility] [address] PTH-INTACT 54.7 pg/mL 10-65 Jan 30, 2024 12:50 PM [facility] LIPID PANEL Specimen Type: PLASMA [...] [facility] [address] [place] [address] Performing Lab: [facility] [address] [place] [address] CHOLESTEROL 171 mg/dL 0-199 TRIGLYCERIDE 135 mg/dL 0-149 LDL CHOLESTEROL 95 mg/dL <129 HDL CHOLESTEROL 49 mg/dL >40 DIRECT LDL canc mg/dL <129 Jan 30, 2024 12:50 PM [facility] [place] [facility] SED RATE(ESR) Specimen Type: BLOOD Comment: [...] [place] [facility] [address] [place] [address] Performing Lab: [facility] [address] [place] [address] SED RATE(ESR) 4 mm/h Jan 30, 2024 12:50 PM [facility] [place] [facility] BASIC METABOLIC PANEL Specimen Type: PLASMA [...] 2023 12:09 PM Reporting Lab: [facility] [address] [place] [phone] Performing Lab: SGT [facility] [address] [place] [phone] UREA NITROGEN 18 mg/dL 9-20 SODIUM 139 mmol/L 135-145 CHLORIDE 105 mmol/L 98-108 CO2 26 mmol/L 23-32 ANION GAP 8 mmol/L 5-15 POTASSIUM 3.9 mmol/L 3.5-5.0 CALCIUM 9.2 mg/dL 8.4-10.5 CREATININE 0.9 mg/dL 0.5-1.2 GLUCOSE 93 mg/dL 65-99 eGFR(2020 CKD-EPI) 88 mL/min Jan 30, 2024 12:50 PM [facility] CBC (DIFF&PLT) Specimen Type: BLOOD No comment entered. Ordering Provider: JESENAI HANSEN Report Released Date/Time: Sep 07, 2023 12:09 PM Reporting Lab: T E.ISiobhan [facility] [address] [facility] [address] Performing Lab: [facility] E.I. [facility] [address] [phone] WBC 4.41 10*3/uL L 4.6-10.8 RBC 4.73 [...] and tobacco- related health factors from the [place] facility where the Encounter took place. Current Smoking Status This section includes the most current smoking, or tobacco-related health factor, from the [place] facility where the Encounter took place. Date/Time Current Smoking Status Comment Marivel patel Aug 17, 2019 10:12 AM PRIOR TOBACCO USE CESSATION DATE [facility] Tobacco Use History This section includes a history of the smoking, or tobacco-related health factors, that were collected on or before the date of the Encounter. The data comes from the [place] facility where the Encounter took place. Date/Time Smoking Status/Tobacco Use Comment Tanesha acshelley Jan 17, 2018 01:30 PM PRIOR TOBACCO USE CESSATION DATE [facility] Jan 18, 2017 01:13 PM PRIOR TOBACCO USE CESSATION DATE [facility] Jan 06, 2016 01:03 PM PRIOR TOBACCO USE CESSATION DATE [facility] Advance Directives: All historical and current Section Date Range: From patient's date of to the date document was created. This section includes ALL of a patient's completed or amended [place] Advance and Rescinded Directives. The entries below indicate that a directive exists for the patient, but an actual copy is not included with this document. The data comes from all [place] facilities. Date Advance Directives Provider Source Aug 08, 2023 ADVANCE DIRECTIVE NOTIFICATION AND SCREENING GIOVANNI JORGE [facility] Nov 10, 2022 ADVANCE DIRECTIVE NOTIFICATION AND SCREENING JORGEGIOVANNI SGT [facility] Mar 17, 2020 ADVANCE DIRECTIVE DISCUSSION GIOVANNI JORGE [facility] May 23, 2019 ADVANCE DIRECTIVE DISCUSSION MADHURI WILSON SGT [facility] Aug 23, 2016 ADVANCE DIRECTIVE DISCUSSION SHANKAR AYALA SGT [facility] Jan 06, 2016 ADVANCE DIRECTIVE DISCUSSION KATIE BAILEY SGT [facility] Jan 27, 2011 ADVANCE DIRECTIVE ANDREI ACE SGT [facility] Radiology Reports: +/- 30 days of the [...] the Encounter. The data comes from all [place] treatment facilities. Date/Time Radiology Report Provider Source Feb 06, 2024 02:20 PM HAND 3 OR MORE VIE WS: JADE GTZ V [id number] -[id number] M Ex Date: FEB 06, 2024@14:20 Req Phys: JESENIA HANSEN Pat Loc: [facility] (Req'g Loc) Img Loc: T-XRAY Service: Unknown (Case [id number] COMPLETE) HAND 3 OR MORE VIEWS (RAD Detailed) CPT:00765 Proc Modifiers : LEFT Reason for Study: hand pain Clinical History: h/o pseudogout but i suspect OA as well Report Status: Verified Date Reported: FEB 06, 2024 Date Verified: FEB 06, 2024 Salesperson Furs E-Sig:/PAUL/MACHO SUTTON Report: EXAM: HAND 3 OR MORE [...] Code: NO ALERT REQUIRED Primary Interpreting Staff: PHYSICIAN REGI (Salesperson Furs) /MACHO JENNINGS [facility] Feb 06, 2024 02:20 PM HAND 3 OR MORE VIE WS: JADE GTZ V [id number] -[id number] M Exm Date: FEB 06, 2024@14:20 Req Phys: JESENIA HANSEN Pat Loc: [facility] (Req'g Loc) Img Loc: T-XRAY Service: Unknown (Case [id number] COMPLETE) HAND 3 OR MORE VIEWS (RAD Detailed) CPT:79288 Proc Modifiers : RIGHT Reason for Study: hand pain Clinical History: Report Status: Verified Date Reported: FEB 06, 2024 Date Verified: FEB 06, 2024 Salesperson Furs E-Sig:/PAUL/MACHO SUTTON Report: EXAM: HAND 3 OR MORE [...] Code: NO ALERT REQUIRED Primary Interpreting Staff: PHYSICIAN REGI (Salesperson Furs) /MACHO JENNINGS [facility] [place] [facility]
--- OUTSIDE RECORDS SUMMARY | 2024-04-30 08:26 | XMS_ITS | Encounter Summary ---
Author Name [facility] [place] Organization [facility] [place] Address [address] [facility], [place] [address] Care Team Providers Care Reducing System Operator Name Role Phone JESENIA HANSEN Primary [...] PART A Jan 09, 2012 PART A [id number] 54A JADE MAGDALENO PATIENT Selected Encounter This section includes the information on record at [place] for the Encounter. Date/Time Encounter Type Encounter Description Reason Provider Source Feb 07, 2024 08:10 AM Outpatient Encounter ADMIN ROHITH LOPEZ (MASBEBO) JESENIA HANSEN [facility] Encounter Template Text not used by [place] Plan of Treatment: Future Appointments (+ 6 [...] 20 appointments. The data comes from all [place] treatment facilities. Appointment Date/Time Appointment Type Appointme nt Facility Name Aug 07, 2024 11:00 AM AMBULATORY - SURGERY [facility] [place] [facility] Aug 07, 2024 11:30 AM AMBULATORY - NONE [facility] Lab Results: +/- 30 days of the encounter This section includes the Chemistry and Hematology Lab Results on record with [place] for the patient. Radiology Reports and Pathology Reports are provided separately, in subsequent sections. Lab Results This section contains the Chemistry/Hematology Results that were resulted 30 days before or 30 daysafter the date of the Encounter. Date/Time Source Result Type Result - Unit Interpretation Reference Range Comment Jan 30, 2024 12:50 PM SGT E.ISiobhan [facility] TOTAL,VIT D Specimen Type: SERUM Comment: TOTAL,VIT D interpretation of results: Vitamin D deficiency: < or = 20 ng/mL Vitamin D insuficiency: 21 - 29 ng/mL Preferred level: > or = 30 ng/mL Toxicity: > 100 ng/mL Test performed on Cheryl chemistry analyzer (573) Ordering Provider: JESENIA HANSEN Report Released Date/Time: Sep 07, 2023 12:09 PM Reporting Lab: [place] [address] [place] [address] Performing Lab: [place] [address] TOTAL,VIT D 31.8 ng/mL See_Comment Jan 30, 2024 12:50 PM SGT E.ISiobhan [facility] MAGNESIUM Specimen Type: PLASMA Comment: [...] 07, 2023 12:09 PM Reporting Lab: [facility] [place] [facility] [address] [place] [phone] Performing Lab: SGT Jaziel.Orquidea [facility] [place] [facility] [address] [facility] [address] MAGNESIUM 2.1 mg/dL 1.7-2.5 Jan 30, 2024 12:50 PM [facility] URIC ACID Specimen Type: PLASMA [...] 19, 2023 05:52 PM Reporting Lab: SGT Jaziel.Orquidea [facility] [address] [place] [phone] Performing Lab: SGElijah [facility] [place] [facility] [address] [place] [phone] URIC ACID 3.7 mg/dL 3.5-8.5 Jan 30, 2024 12:50 PM SGT E.ISiobhan [facility] PTH-INTACT Specimen Type: PLASMA Comment: Moderately lipemic Ordering Provider: JESENIA HANSEN Report Released Date/Time: Jan 06, 2024 09:27 AM Reporting Lab: [facility] [address] [place] [phone] Performing Lab: [facility] [address] [place] [phone] PTH-INTACT 54.7 pg/mL 10-65 Jan 30, 2024 12:50 PM SGT E.Orquidea [facility] LIPID PANEL Specimen Type: PLASMA [...] PM Reporting Lab: [facility] [place] [facility] [address] [place] [address] Performing Lab: [facility]iobhan [facility] [address] [place] [address] CHOLESTEROL 171 mg/dL 0-199 TRIGLYCERIDE 135 mg/dL 0-149 LDL CHOLESTEROL 95 mg/dL <129 HDL CHOLESTEROL 49 mg/dL >40 DIRECT LDL canc mg/dL <129 Jan 30, 2024 12:50 PM [facility]GT [facility]iobhan [facility] SED RATE(ESR) Specimen Type: BLOOD Comment: New ESR method has positive bias compared to old methodology discontinued on 07/29/2020 thru 09/23/2020. NORMAL REFERENCE RANGES: UNDER 50 50-70 >70 male: 20-30 mm/hr 31-44 mm/hr 45-55 mm/hr female: 36-39 mm/hr 38-45 mm/hr 45-55 mm/hr Ordering Provider: JESENIA HANSEN Report Released Date/Time: Jan 06, 2024 09:27 AM Reporting Lab: [facility] [address] [place] [address] Performing Lab: [facility]iobhan [facility] [address] [facility] [address] SED RATE(ESR) 4 mm/h Jan 30, 2024 12:50 PM SGT E.ISiobhan [facility] [place] [facility] BASIC METABOLIC PANEL Specimen Type: PLASMA [...] 2023 12:09 PM Reporting Lab: SGT E.I. [facility] [address] [place] [phone] Performing Lab: SGT E.I. [facility] [address] [place], [place] [phone] UREA NITROGEN 18 mg/dL 9-20 SODIUM 139 mmol/L 135-145 CHLORIDE 105 mmol/L 98-108 CO2 26 mmol/L 23-32 ANION GAP 8 mmol/L 5-15 POTASSIUM 3.9 mmol/L 3.5-5.0 CALCIUM 9.2 mg/dL 8.4-10.5 CREATININE 0.9 mg/dL 0.5-1.2 GLUCOSE 93 mg/dL 65-99 eGFR(2020 CKD-EPI) 88 mL/min Jan 30, 2024 12:50 PM SGT E.I. [facility] CBC (DIFF&PLT) Specimen Type: BLOOD No comment entered. Ordering Provider: JESENIA HANSEN Report Released Date/Time: Sep 07, 2023 12:09 PM Reporting Lab: SGT E.ISiobhan [facility] [address] [place] [phone] Performing Lab: [facility] E.ISiobhan [facility] [address] [place], [place] [phone] WBC 4.41 10*3/uL L 4.6-10.8 RBC 4.73 [...] and tobacco- related health factors from the [place] facility where the Encounter took place. Current Smoking Status This section includes the most current smoking, or tobacco-related health factor, from the [place] facility where the Encounter took place. Date/Time Current Smoking Status Comment Marivel patel Aug 17, 2019 10:12 AM PRIOR TOBACCO USE CESSATION DATE [facility] Tobacco Use History This section includes a history of the smoking, or tobacco-related health factors, that were collected on or before the date of the Encounter. The data comes from the [place] facility where the Encounter took place. Date/Time Smoking Status/Tobacco Use Comment F acility Jan 17, 2018 01:30 PM PRIOR TOBACCO USE CESSATION DATE [facility] Jan 18, 2017 01:13 PM PRIOR TOBACCO USE CESSATION DATE [facility] Jan 06, 2016 01:03 PM PRIOR TOBACCO USE CESSATION DATE [facility] Advance Directives: All historical and current Section Date Range: From patient's date of to the date document was created. This section includes ALL of a patient's completed or amended [place] Advance and Rescinded Directives. The entries below indicate that a directive exists for the patient, but an actual copy is not included with this document. The data comes from all [place] facilities. Date Advance Directives Provider Source Aug 08, 2023 ADVANCE DIRECTIVE NOTIFICATION AND SCREENING JORGE,GIOVANNI SGT [facility] Nov 10, 2022 ADVANCE DIRECTIVE NOTIFICATION AND SCREENING JORGE,GIOVANNI SGT E.[facility]iobhan [facility] Mar 17, 2020 ADVANCE DIRECTIVE DISCUSSION GIOVANNI JORGE SGT E.[facility] May 23, 2019 ADVANCE DIRECTIVE DISCUSSION MADHURI WILSON Areli SGT [facility]I. [facility] Aug 23, 2016 ADVANCE DIRECTIVE DISCUSSION SHANKAR AYALA Areli SGT [facility]. [facility] Jan 06, 2016 ADVANCE DIRECTIVE DISCUSSION KATIE BAILEY SGT E.I. [facility] Jan 27, 2011 ADVANCE DIRECTIVE ANDREI ACE SGT E.I. [facility] Radiology Reports: +/- 30 days [...] the Encounter. The data comes from all [place] treatment facilities. Date/Time Radiology Report Provider Source Feb 06, 2024 02:20 PM HAND 3 OR MORE VIE WS: JADE GTZ Fuad [id number] -[id number] M Exm Date: FEB 06, 2024@14:20 Req Phys: JESENIA HANSEN Pat [facility] Img Loc: T-XRAY Service: Unknown (Case [id number] COMPLETE) HAND 3 OR MORE VIEWS (RAD Detailed) CPT:39939 Proc Modifiers : RIGHT Reason for Study: hand pain Clinical History: Report Status: Verified Date Reported: FEB 06, 2024 Date Verified: FEB 06, 2024 Sliver Lap Tender E-Sig:/ES/MACHO SUTTON Report: EXAM: HAND 3 OR [...] ALERT REQUIRED Primary Interpreting Staff: PHYSICIAN REGI (Sliver Lap Tender) /MACHO JENNINGS [facility] 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 [place] [facility] Encounter Notes: All associated encounter notes This section contains the clinical notes associated to the Encounter. Date/Time Encounter Note(s) Provider Source Feb 07, 2024 08:10 AM ADMINISTRATIVE NOT E: LOCAL TITLE: RESULTS NOTIFICATION ([place]) STANDARD TITLE: ADMINISTRATIVE NOTE DATE OF NOTE: FEB 07, 2024@08:10 ENTRY DATE: FEB 07, 2024@08:10:08 AUTHOR: JESENIA HANSEN EXP COSIGNER: URGENCY: STATUS: COMPLETED [facility] PERSONAL AND CONFIDENTIAL FEB 07, 2024 JADE GTZ V [address] [place], [place] [address] Dear JADE GTZ V: RE: Test Results Here are the results of your recent tests: X-rays of the hands showed a lot of arthritis/changes in your hands We will see how things go , taking the colchicine every day for the pseudogout and also if things worsen, we can discuss whether you would like to go back an see the Drafter (Cad) Electrical again Action Required: No action required Your upcoming scheduled appointments: Jul@11:00 [facility] F2F POD 04 Jul@11:30 [facility] LAB Aug@14:00 [facility] F2F PACElijah [place] Nov@13:30 [facility] OPTOMETRY 2 Sincerely, JESENIA HANSEN MD [facility] Correspondence JESENIA HANSEN [facility]GT H[facility]h [facility] [place] [facility]
--- OUTSIDE RECORDS SUMMARY | 2024-04-30 08:26 | XMS_ITS | Encounter Summary ---
Author Name [facility] [facility] [place] Address [address] [facility], [place] [address] Care Team Providers Care Executive Director Name Role Phone JESENIA HANSEN Primary Care [...] Policy Simental's Name Patient's Relationship to Policy Ismental MEDICARE (WNR) MEDICARE (M) PART A Jan 09, 2012 PART A [id number] JADE MAGDALENO PATIENT Selected Encounter This section includes the information on record at [place] for the Encounter. Date/Time Encounter Type Encounter Description Reason Provider Source February 13, 2024 08:07 AM Outpatient Encounter EVENT (HISTORICAL) JESENIA HANSEN [facility] Encounter Template Text not used by VA [...] - SURGERY SGT E .[facility]. [facility] [place] [facility] Aug 07, 2024 11:30 AM AMBULATORY - NONE SGT E.I. [facility] Aug 13, 2024 02:00 PM AMBULATORY - MEDICINE SGT E.I. [facility] Lab Results: +/- 30 days [...] 30, 2024 12:50 PM SGT E.I. MARIBEL [facility] TOTAL,VIT D Specimen Type: SERUM Comment: TOTAL,VIT D interpretation of results: Vitamin D deficiency: < or = 20 ng/mL Vitamin D insuficiency: 21 - 29 ng/mL Preferred level: > or = 30 ng/mL Toxicity: > 100 ng/mL Test performed on Cheryl chemistry analyzer (573) Ordering Provider: JESENIA HANSEN Report Released Date/Time: Sep 07, 2023 12:09 PM Reporting Lab: [place] [address] [place] [address] Performing Lab: [place] [address] [place] [address] TOTAL,VIT D 31.8 ng/mL See_Comment Jan 30, 2024 12:50 PM SGT E.I. [facility] MAGNESIUM Specimen Type: PLASMA Comment: [...] PM Reporting Lab: [facility]. [facility] [place] [facility] [address] [facility] [address] Performing Lab: [facility] [place] [facility] [address] [facility] [address] MAGNESIUM 2.1 mg/dL 1.7-2.5 Jan 30, 2024 12:50 PM SGT E.I. [facility] URIC ACID Specimen Type: PLASMA [...] or = 400 mg/dL. Ordering Provider: JESENIA AHNSEN Report Released Date/Time: Dec 19, 2023 05:52 PM Reporting Lab: SGT E.I. [facility] [address] [facility] [address] Performing Lab: SGT E.ISiobhan [facility] [place] [facility] [address] [facility] [address] URIC ACID 3.7 mg/dL 3.5-8.5 Jan 30, 2024 12:50 PM SGT E.I. [facility]EL [facility] LIPID PANEL Specimen Type: PLASMA [...] 07, 2023 12:09 PM Reporting Lab: SGElijah LÓPEZ [facility] [place] [facility] [address] [facility] [address] Performing Lab: SGT Proctor [facility] [place] [facility] [address] [facility] [address] CHOLESTEROL 171 mg/dL 0-199 TRIGLYCERIDE 135 mg/dL 0-149 LDL CHOLESTEROL 95 mg/dL <129 HDL CHOLESTEROL 49 mg/dL >40 DIRECT LDL canc mg/dL <129 Jan 30, 2024 12:50 PM SGT DontaBlasSiobhan [facility] PTH-INTACT Specimen Type: PLASMA Comment: Moderately lipemic Ordering Provider: JESENIA HANSEN Report Released Date/Time: Jan 06, 2024 09:27 AM Reporting Lab: [facility] [address] [place] [phone] Performing Lab: [place] [address] [place] [phone] PTH-INTACT 54.7 pg/mL 10-65 Jan 30, 2024 12:50 PM SGT DontaBlasSiobhan [facility] SED RATE(ESR) Specimen Type: BLOOD Comment: New ESR method has positive bias compared to old methodology discontinued on 07/29/2020 thru 09/23/2020. NORMAL REFERENCE RANGES: UNDER 50 50-70 >70 male: 20-30 mm/hr 31-44 mm/hr 45-55 mm/hr female: 36-39 mm/hr 38-45 mm/hr 45-55 mm/hr Ordering Provider: JESENIA HANSEN Report Released Date/Time: Jan 06, 2024 09:27 AM Reporting Lab: SGElijah [facility] [place] [facility] [address] [facility] [address] Performing Lab: SGElijah [facility] [place] [facility] [address] [facility] [address] SED RATE(ESR) 4 mm/h Jan 30, 2024 12:50 PM SGT Hitesh [facility] [place] [facility] BASIC METABOLIC PANEL Specimen Type: PLASMA [...] 2023 12:09 PM Reporting Lab: SGT E.I. [facility] [address] [place] [phone] Performing Lab: SGT E.I. [facility] [address] [place] [phone] UREA NITROGEN 18 mg/dL 9-20 SODIUM 139 mmol/L 135-145 CHLORIDE 105 mmol/L 98-108 CO2 26 mmol/L 23-32 ANION GAP 8 mmol/L 5-15 POTASSIUM 3.9 mmol/L 3.5-5.0 CALCIUM 9.2 mg/dL 8.4-10.5 CREATININE 0.9 mg/dL 0.5-1.2 GLUCOSE 93 mg/dL 65-99 eGFR(2020 CKD-EPI) 88 mL/min Jan 30, 2024 12:50 PM [facility] E.[facility] CBC (DIFF&PLT) Specimen Type: BLOOD No comment entered. Ordering Provider: JESENIA HANSEN Report Released Date/Time: Sep 07, 2023 12:09 PM Reporting Lab: T E.ISiobhan [facility] [address] [facility] [address] Performing Lab: [facility] E.I. [facility] [address] [place] [place] [phone] WBC 4.41 10*3/uL L 4.6-10.8 RBC 4.73 [...] PRIOR TOBACCO USE CESSATION DATE [facility] Tobacco Use History This section includes a history of the smoking, or tobacco-related health factors, that were collected on or before the date of the Encounter. The data comes from the [place] facility where the Encounter took place. Date/Time Smoking Status/Tobacco Use Comment Tanesha acshelley Jan 17, 2018 01:30 PM PRIOR TOBACCO USE CESSATION DATE [facility] Jan 18, 2017 01:13 PM PRIOR TOBACCO USE CESSATION DATE [facility] Jan 06, 2016 01:03 PM PRIOR TOBACCO USE CESSATION DATE [facility] Advance Directives: All historical and current Section Date Range: From patient's date of to the date document was created. This section includes ALL of a patient's completed or amended [place] Advance and Rescinded Directives. The entries below indicate that a directive exists for the patient, but an actual copy is not included with this document. The data comes from all [place] facilities. Date Advance Directives Provider Source Aug 08, 2023 ADVANCE DIRECTIVE NOTIFICATION AND SCREENING GIOVANNI JORGE SGT E[facility]I. [facility] Nov 10, 2022 ADVANCE DIRECTIVE NOTIFICATION AND SCREENING JORGEGIOVANNI SGT E.I. [facility] Mar 17, 2020 ADVANCE DIRECTIVE DISCUSSION GIOVANNI JORGE SGT E.I. [facility] May 23, 2019 ADVANCE DIRECTIVE DISCUSSION MADHURI WILSON SGT E.I. [facility] Aug 23, 2016 ADVANCE DIRECTIVE DISCUSSION SHANKAR AYALA SGT E.I. [facility] Jan 06, 2016 ADVANCE DIRECTIVE DISCUSSION KATIE BAILEY SGT E.I. [facility] Jan 27, 2011 ADVANCE DIRECTIVE ANDREI ACE SGT E.I. 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 Feb 06, 2024 02:20 PM HAND 3 OR MORE VIE WS: JADE GTZ V [id number] -[id number] M Exm Date: FEB 06, 2024@14:20 Req Phys: JESENIA HANSEN Pat Loc: [facility] (Req'g Loc) Img Loc: T-XRAY Service: Unknown (Case [id number] COMPLETE) HAND 3 OR MORE VIEWS (RAD Detailed) CPT:99670 Proc Modifiers : RIGHT Reason for Study: hand pain Clinical History: Report Status: Verified Date Reported: FEB 06, 2024 Date Verified: FEB 06, 2024 Assembler For Puller Over Hand E-Sig:/PAUL/MACHO SUTTON Report: EXAM: HAND 3 OR [...] ALERT REQUIRED Primary Interpreting Staff: PHYSICIAN REGI (Assembler For Puller Over Hand) /MACHO JENNINGS E[facility]I. [place] [facility]
--- OUTSIDE RECORDS SUMMARY | 2024-04-30 08:26 | XMS_ITS | Encounter Summary ---
Author Name [facility] [place] Address [address] [facility], [place] [address] Care Team Providers Care Assistant Secretary Name Role Phone JESENIA STAHL Primary Care [...] PART A Jan 09, 2012 PART A [id number] JADE MAGDALENO PATIENT Selected Encounter This section includes the information on record at [place] for the Encounter. Date/Time Encounter Type Encounter Description Reason Provider Source February 13, 2024 07:07 AM Outpatient Encounter EVENT (HISTORICAL) JESENIA STAHL [facility] Encounter Template Text not used by [...] AMBULATORY - SURGERY SGT E .I. MARIBEL [facility] Aug 07, 2024 11:30 AM AMBULATORY - NONE SGT E.I. [facility] Aug 13, 2024 02:00 PM AMBULATORY - MEDICINE SGT E.I. [facility] Lab Results: +/- 30 days [...] 30, 2024 12:50 PM SGT E.I. MARIBEL [facility] TOTAL,VIT D Specimen Type: SERUM Comment: TOTAL,VIT D interpretation of results: Vitamin D deficiency: < or = 20 ng/mL Vitamin D insuficiency: 21 - 29 ng/mL Preferred level: > or = 30 ng/mL Toxicity: > 100 ng/mL Test performed on Cheryl chemistry analyzer (573) Ordering Provider: JESENIA STAHL Report Released Date/Time: Sep 07, 2023 12:09 PM Reporting Lab: [place] [address] [place] [address] Performing Lab: [place] [address] [place] [address] TOTAL,VIT D 31.8 ng/mL See_Comment Jan 30, 2024 12:50 PM SGT E.I. [facility] URIC ACID Specimen Type: PLASMA [...] 05:52 PM Reporting Lab: SGT E.I. MARIBEL [facility] [address] [facility] [address] Performing Lab: S[facility]. [facility] [place] [facility] [address] [facility] [address] URIC ACID 3.7 mg/dL 3.5-8.5 Jan 30, 2024 12:50 PM SGT E.I. [facility] MAGNESIUM Specimen Type: PLASMA Comment: [...] 12:09 PM Reporting Lab: SGT E.I. MARIBEL [facility] [address] [facility] [address] Performing Lab: SGT E[facility]. [facility] [place] [facility] [address] [facility] [address] MAGNESIUM 2.1 mg/dL 1.7-2.5 Jan 30, 2024 12:50 PM [facility] LIPID PANEL Specimen Type: PLASMA Comment: [...] 12:09 PM Reporting Lab: SGElijah [facility] [place] [facility] [address] [facility] [address] Performing Lab: SGT Proctor [facility] [place] [facility] [address] [facility] [address] CHOLESTEROL 171 mg/dL 0-199 TRIGLYCERIDE 135 mg/dL 0-149 LDL CHOLESTEROL 95 mg/dL <129 HDL CHOLESTEROL 49 mg/dL >40 DIRECT LDL canc mg/dL <129 Jan 30, 2024 12:50 PM SGT DontaBlasSiobhan [facility] PTH-INTACT Specimen Type: PLASMA Comment: Moderately lipemic Ordering Provider: JESENIA STAHL Report Released Date/Time: Jan 06, 2024 09:27 AM Reporting Lab: [facility] [address] [place] [phone] Performing Lab: [place] [address] [place] [phone] PTH-INTACT 54.7 pg/mL 10-65 Jan 30, 2024 12:50 PM SGT DontaBlasSiobhan [facility] SED RATE(ESR) Specimen Type: BLOOD Comment: New ESR method has positive bias compared to old methodology discontinued on 07/29/2020 thru 09/23/2020. NORMAL REFERENCE RANGES: UNDER 50 50-70 >70 male: 20-30 mm/hr 31-44 mm/hr 45-55 mm/hr female: 36-39 mm/hr 38-45 mm/hr 45-55 mm/hr Ordering Provider: JESENIA STAHL Report Released Date/Time: Jan 06, 2024 09:27 AM Reporting Lab: SGElijah [facility] [place] [facility] [address] [facility] [address] Performing Lab: SGElijah [facility] [facility] [place] [facility] [address] [facility] [address] SED RATE(ESR) 4 mm/h Jan 30, 2024 12:50 PM SGT Hitesh [facility] [place] [facility] BASIC METABOLIC PANEL Specimen Type: PLASMA [...] 2023 12:09 PM Reporting Lab: [facility] [address] [place] [phone] Performing Lab: [facility] [address] [place] [phone] UREA NITROGEN 18 mg/dL 9-20 SODIUM 139 mmol/L 135-145 CHLORIDE 105 mmol/L 98-108 CO2 26 mmol/L 23-32 ANION GAP 8 mmol/L 5-15 POTASSIUM 3.9 mmol/L 3.5-5.0 CALCIUM 9.2 mg/dL 8.4-10.5 CREATININE 0.9 mg/dL 0.5-1.2 GLUCOSE 93 mg/dL 65-99 eGFR(2020 CKD-EPI) 88 mL/min Jan 30, 2024 12:50 PM [facility] E.[facility] CBC (DIFF&PLT) Specimen Type: BLOOD No comment entered. Ordering Provider: JESENIA STAHL Report Released Date/Time: Sep 07, 2023 12:09 PM Reporting Lab: [facility] [address] [facility] [address] Performing Lab: [facility] [address] [place] [phone] WBC 4.41 10*3/uL L 4.6-10.8 RBC 4.73 [...] 10:12 AM PRIOR TOBACCO USE CESSATION DATE [facility] Tobacco Use History This section includes a history of the smoking, or tobacco-related health factors, that were collected on or before the date of the Encounter. The data comes from the [place] facility where the Encounter took place. Date/Time Smoking Status/Tobacco Use Comment Tanesha acshelley Jan 17, 2018 01:30 PM PRIOR TOBACCO USE CESSATION DATE [facility] Jan 18, 2017 01:13 PM PRIOR TOBACCO USE CESSATION DATE [facility] Jan 06, 2016 01:03 PM PRIOR TOBACCO USE CESSATION DATE [facility] Advance Directives: All historical and [...] AND SCREENING GIOVANNI JORGE SGT E.I. [facility]IB[facility] Nov 10, 2022 ADVANCE DIRECTIVE NOTIFICATION AND SCREENING JORGEGIOVANNI SGT E.I. [facility] Mar 17, 2020 ADVANCE DIRECTIVE DISCUSSION GIOVANNI JORGE SGT E.I. [facility] May 23, 2019 ADVANCE DIRECTIVE DISCUSSION MADHURI WILSON SGT E.I. [facility] Aug 23, 2016 ADVANCE DIRECTIVE DISCUSSION SHANKAR AYALA SGT E.I. [facility] Jan 06, 2016 ADVANCE DIRECTIVE DISCUSSION KATIE BAILEY SGT E.I. [facility] Jan 27, 2011 ADVANCE DIRECTIVE ANDREI ACE [facility]GT [facility] Radiology Reports: +/- 30 days of [...] OR MORE VIE WS: JADE GTZ V [id number] -[id number] M Ex Date: FEB 06, 2024@14:20 Req Phys: JESENIA STAHL Pat Loc: [facility] (Req'g Loc) Img Loc: T-XRAY Service: Unknown (Case [id number] COMPLETE) HAND 3 OR MORE VIEWS (RAD Detailed) CPT:19704 Proc Modifiers : LEFT Reason for Study: hand pain Clinical History: h/o pseudogout but i suspect OA as well Report Status: Verified Date Reported: FEB 06, 2024 Date Verified: FEB 06, 2024 Ear Nose And Throat Specialist E-Sig:/HINA/MACHO SUTTON Report: EXAM: HAND 3 OR MORE [...] ALERT REQUIRED Primary Interpreting Staff: PHYSICIAN REGI (Ear Nose And Throat Specialist) /MACHO JENNINGS E[facility]I. [place] [facility] Feb 06, 2024 02:20 PM HAND 3 OR MORE VIE WS: JADE GTZ V [id number] -[id number] M Exm Date: FEB 06, 2024@14:20 Req Phys: JESENIA STAHL Pat Loc: [facility] (Req'g Loc) Img Loc: T-XRAY Service: Unknown (Case [id number] COMPLETE) HAND 3 OR MORE VIEWS (RAD Detailed) CPT:63733 Proc Modifiers : RIGHT Reason for Study: hand pain Clinical History: Report Status: Verified Date Reported: FEB 06, 2024 Date Verified: FEB 06, 2024 Ear Nose And Throat Specialist E-Sig:/HINA/MACHO SUTTON Report: EXAM: HAND 3 OR MORE [...] ALERT REQUIRED Primary Interpreting Staff: PHYSICIAN REGI (Ear Nose And Throat Specialist) /MACHO JENNINGS [facility]. [place] [facility] Encounter Notes: All associated encounter notes This section contains the clinical notes associated to the Encounter. Date/Time Encounter Note(s) Provider Source February 14, 2024 09:50 AM PRIMARY CARE SECUR E MESSAGING: LOCAL TITLE: PRIMARY CARE SECURE MESSAGING STANDARD TITLE: PRIMARY CARE SECURE MESSAGING DATE OF NOTE: FEBRUARY 14, 2024@09:50 ENTRY DATE: FEBRUARY 14, 2024@10:51 AUTHOR: JESENIA STAHL EXP COSIGNER: URGENCY: STATUS: COMPLETED ------Original Message ---- Sent: 02/13/2024 02:40 PM ET From: JADE GTZ V To: Yareli [facility] [address] [place] Subject: Medication:blood pressure FYI I haven't taken that drug. ------Original Message ---- Sent: 02/14/2024 10:50 AM ET From: JESENIA STAHL To: JADE GTZ V Subject: Medication:blood pressure OK you can hang on to it and for now just continue to monitor. Jesenia Stahl MD /hina/ JESENIA STAHL MD Signed: 02/14/2024 10:51 JESENIA STAHL [facility] Hitesh LÓPEZ [facility] February 13, 2024 11:18 AM PRIMARY CARE SECUR E MESSAGING: LOCAL TITLE: PRIMARY CARE SECURE MESSAGING STANDARD TITLE: PRIMARY CARE SECURE MESSAGING DATE OF NOTE: FEBRUARY 13, 2024@11:18 ENTRY DATE: FEBRUARY 13, 2024@12:18:58 AUTHOR: JESENIA STAHL EXP COSIGNER: URGENCY: STATUS: COMPLETED ------Original Message ---- Sent: 02/13/2024 08:27 AM ET From: JADE GTZ V [facility] [place] Subject: Medication:blood pressure I've never had numbers that low like 124 over 80 or 128 over 72 which I had yesterday. Could it be the prostrate drug kicking in that has lowered it? ------Original Message ---- Sent: 02/13/2024 12:18 PM ET From: JESENIA STAHL To: JADE GTZ V Subject: Medication:blood pressure It could be that or it could also be the small dose of propranolol we started, that helps with both blood pressure and anxiety. Either way, those number look good! Not too low at all-- that's an ideal blood pressure Jesenia Stahl MD /hina/ JESENIA STAHL MD Signed: 02/13/2024 12:18 JESENIA STAHL SGT Hitesh [facility] [place] [facility] February 13, 2024 07:07 AM PRIMARY CARE Archsy MESSAGING: LOCAL TITLE: PRIMARY CARE SECURE MESSAGING STANDARD TITLE: PRIMARY CARE SECURE MESSAGING DATE OF NOTE: FEBRUARY 13, 2024@07:07 ENTRY DATE: FEBRUARY 13, 2024@08:07:18 AUTHOR: JESENIA STAHL EXP COSIGNER: URGENCY: STATUS: COMPLETED ------Original Message ---- Sent: 02/12/2024 08:28 AM ET From: [facility]ADE [facility]Z [facility] [place] Subject: Medication:blood pressure Attachments: blood.jpg (267.95 KB) picture of my blood pressure log. I dont know what that says on the 02/10 line 39? I doubt it but didnt notice it until the next day. Concern is the low readings. I thought it was because batteries were low so put new ones in but no change. I dont feel any different then usual. Could be my old machine is not working right? can i get a new one? got the meds today but will not take them to make it lower and i dont like all the side effects they have. . Please advise. ------Original Message ---- Sent: 02/13/2024 08:07 AM ET From: JESENIA STAHL To: JADE GTZ V Subject: Medication:blood pressure Yes, I doubt that 39 was correct, especially in light of all the other ones. Most of these look just fine. A few a tad high, but I don't think anything to worry about. Please continue to occasionally monitor ( maybe 3x per week or so) and keep a log of your numbers the next time you are at the clinic, bring your bp machine and we can check it against ours to make sure it is accurate ( I think it is-- some of your numbers line up with what we saw in clinic) Jesenia Stahl MD /hina/ JESENIA STAHL MD Signed: 02/13/2024 08:07 JESENIA STAHL SGElijah [facility] [place] [facility]
--- OUTSIDE RECORDS SUMMARY | 2024-04-30 08:27 | XMS_ITS | Encounter Summary ---
Author Name [facility] [place] [facility] [place] [facility] [place] Address [address], [place] [address] Care Team Providers Care Adult Basic Education Teacher Name Role Phone JESENIA HANSEN Primary Care [...] PART A Jan 09, 2012 PART A [id number] 54A JADE MAGDALENO PATIENT Selected Encounter This section includes the information on record at [place] for the Encounter. Date/Time Encounter Type Encounter Description Reason Provider Source February 14, 2024 10:51 AM Outpatient Encounter EVENT (HISTORICAL) JESENIA HANSEN [facility] Encounter Template Text not used by VA [...] 20 appointments. The data comes from all [place] treatment facilities. Appointment Date/Time Appointment Type Appointme nt Facility Name Aug 07, 2024 11:00 AM AMBULATORY - SURGERY [facility] Aug 07, 2024 11:30 AM AMBULATORY - NONE [facility] Aug 13, 2024 02:00 PM AMBULATORY - MEDICINE [facility] Lab Results: +/- 30 days of the encounter This section includes the Chemistry and Hematology Lab Results on record with [place] for the patient. Radiology Reports and Pathology Reports are provided separately, in subsequent sections. Lab Results This section contains the Chemistry/Hematology Results that were resulted 30 days before or 30 daysafter the date of the Encounter. Date/Time Source Result Type Result - Unit Interpretation Reference Range Comment Jan 30, 2024 12:50 PM [facility] TOTAL,VIT D Specimen Type: SERUM Comment: TOTAL,VIT D interpretation of results: Vitamin D deficiency: < or = 20 ng/mL Vitamin D insuficiency: 21 - 29 ng/mL Preferred level: > or = 30 ng/mL Toxicity: > 100 ng/mL Test performed on Cheryl chemistry analyzer (573) Ordering Provider: JESENIA HANSEN Report Released Date/Time: Sep 07, 2023 12:09 PM Reporting Lab: [place] [address] [place] [address] Performing Lab: [place] [address] [place] [address] TOTAL,VIT D 31.8 ng/mL See_Comment Jan 30, 2024 12:50 PM [facility] MAGNESIUM Specimen Type: PLASMA Comment: [...] PM Reporting Lab: [facility] [address] [facility] [address] Performing Lab: [facility] [address] [facility] [address] MAGNESIUM 2.1 mg/dL 1.7-2.5 Jan 30, 2024 12:50 PM [facility] URIC ACID Specimen Type: PLASMA [...] 05:52 PM Reporting Lab: [facility] [address] [facility] [address] Performing Lab: SGT Jaziel.Orquidea [facility] [address] [facility] [address] URIC ACID 3.7 mg/dL 3.5-8.5 Jan 30, 2024 12:50 PM [facility] PTH-INTACT Specimen Type: PLASMA Comment: Moderately lipemic Ordering Provider: JESENIA HANSEN Report Released Date/Time: Jan 06, 2024 09:27 AM Reporting Lab: [facility] [place] [address] [facility] [address] Performing Lab: [facility] [address] [facility] [address] PTH-INTACT 54.7 pg/mL 10-65 Jan 30, 2024 12:50 PM [facility] LIPID PANEL Specimen Type: PLASMA [...] [facility] [address] [place] [address] Performing Lab: [facility] [address] [place] [address] CHOLESTEROL 171 mg/dL 0-199 TRIGLYCERIDE 135 mg/dL 0-149 LDL CHOLESTEROL 95 mg/dL <129 HDL CHOLESTEROL 49 mg/dL >40 DIRECT LDL canc mg/dL <129 Jan 30, 2024 12:50 PM [facility] SED RATE(ESR) Specimen Type: BLOOD Comment: [...] [facility] [address] [place] [address] Performing Lab: [facility] [address] [place] [address] SED RATE(ESR) 4 mm/h Jan 30, 2024 12:50 PM [facility] BASIC METABOLIC PANEL Specimen Type: PLASMA [...] 2023 12:09 PM Reporting Lab: SGT E.I. [facility] [address] [place] [phone] Performing Lab: SGT E.I. [facility] [address] [place] [phone] UREA NITROGEN 18 mg/dL 9-20 SODIUM 139 mmol/L 135-145 CHLORIDE 105 mmol/L 98-108 CO2 26 mmol/L 23-32 ANION GAP 8 mmol/L 5-15 POTASSIUM 3.9 mmol/L 3.5-5.0 CALCIUM 9.2 mg/dL 8.4-10.5 CREATININE 0.9 mg/dL 0.5-1.2 GLUCOSE 93 mg/dL 65-99 eGFR(2020 CKD-EPI) 88 mL/min Jan 30, 2024 12:50 PM [facility] CBC (DIFF&PLT) Specimen Type: BLOOD No comment entered. Ordering Provider: JESENIA HANSEN Report Released Date/Time: Sep 07, 2023 12:09 PM Reporting Lab: T E.ISiobhan [facility] [address] [facility] [address] Performing Lab: [facility] E.I. [facility] [address] [place] [phone] WBC 4.41 10*3/uL L 4.6-10.8 RBC 4.73 [...] and tobacco- related health factors from the [place] facility where the Encounter took place. Current Smoking Status This section includes the most current smoking, or tobacco-related health factor, from the [place] facility where the Encounter took place. Date/Time Current Smoking Status Comment Marivel patel Aug 17, 2019 10:12 AM PRIOR TOBACCO USE CESSATION DATE [facility] Tobacco Use History This section includes a history of the smoking, or tobacco-related health factors, that were collected on or before the date of the Encounter. The data comes from the [place] facility where the Encounter took place. Date/Time Smoking Status/Tobacco Use Comment Tanesha acshelley Jan 17, 2018 01:30 PM PRIOR TOBACCO USE CESSATION DATE [facility] Jan 18, 2017 01:13 PM PRIOR TOBACCO USE CESSATION DATE [facility] Jan 06, 2016 01:03 PM PRIOR TOBACCO USE CESSATION DATE [facility] Advance Directives: All historical and current Section Date Range: From patient's date of to the date document was created. This section includes ALL of a patient's completed or amended [place] Advance and Rescinded Directives. The entries below indicate that a directive exists for the patient, but an actual copy is not included with this document. The data comes from all [place] facilities. Date Advance Directives Provider Source Aug 08, 2023 ADVANCE DIRECTIVE NOTIFICATION AND SCREENING GIOVANNI JORGE [facility] Nov 10, 2022 ADVANCE DIRECTIVE NOTIFICATION AND SCREENING JORGEGIOVANNI [facility] Mar 17, 2020 ADVANCE DIRECTIVE DISCUSSION GIOVANNI JORGE [facility] May 23, 2019 ADVANCE DIRECTIVE DISCUSSION MADHURI WILSON SGT [facility]. [facility] Aug 23, 2016 ADVANCE DIRECTIVE DISCUSSION SHANKAR AYALA SGT [facility]. [facility] Jan 06, 2016 ADVANCE DIRECTIVE DISCUSSION KATIE BAILEY S[facility]. [facility] Jan 27, 2011 ADVANCE DIRECTIVE ANDREI ACE SGT E.I. [facility] Radiology Reports: +/- 30 days of [...] the Encounter. The data comes from all [place] treatment facilities. 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 Feb 06, 2024 02:20 PM HAND 3 OR MORE VIE WS: JADE GTZ V [id number] M Exm Date: FEB 06, 2024@14:20 Req Phys: JESENIA HANSEN Pat Loc: [facility] (Req'g Loc) Img Loc: T-XRAY Service: Unknown (Case [id number] COMPLETE) HAND 3 OR MORE VIEWS (RAD Detailed) CPT:94771 Proc Modifiers : RIGHT Reason for Study: hand pain Clinical History: Report Status: Verified Date Reported: FEB 06, 2024 Date Verified: FEB 06, 2024 Air Deodorizer Servicer E-Sig:/PAUL/MACHO SUTTON Report: EXAM: HAND 3 OR [...] ALERT REQUIRED Primary Interpreting Staff: PHYSICIAN REGI (Air Deodorizer Servicer) /MACHO JENNINGS [facility] [place] [facility]
--- OUTSIDE RECORDS SUMMARY | 2024-04-30 08:27 | XMS_ITS | Encounter Summary ---
Author Name [facility] [place] Organization [facility] [place] Address [address] [facility], [place] [address] Care Team Providers Care Fraud Prevention Analyst Name Role Phone JESENIA HANSEN Primary Care [...] PART A Jan 09, 2012 PART A [id number] 54A JADE MAGDALENO PATIENT Selected Encounter This section includes the information on record at [place] for the Encounter. Date/Time Encounter Type Encounter Description Reason Pro vider Source Apr 04, 2024 03:14 PM Outpatient Encounter PRIMARY CARE/MEDICINE IHE Encounter Template Text not used by VA [...] 20 appointments. The data comes from all [facility] Appointment Date/Time Appointment Type Appointme nt Facility Name Aug 07, 2024 11:00 AM AMBULATORY - SURGERY [facility] E [facility]. [facility] Aug 07, 2024 11:30 AM AMBULATORY - NONE SGT [facility]. [facility] Aug 13, 2024 02:00 PM AMBULATORY - MEDICINE SGT [facility]. [facility] Active, Pending, and Scheduled Orders This section includes a listing of several types of active, pending, and scheduled orders, including clinic medications orders, diagnostic test orders, procedure orders and consult orders; where the start date of the order is 45 days before the date of the Encounter or 45 days after the date of theEncounter. The data comes from all [facility]. Test Date/Time Test Type Test Details Facility Name May 04, 2024 12:00 AM Laboratory - Chemistry Order CBC (DIFF&PLT) BLOOD SP SGT E.I. [facility] May 04, 2024 12:00 AM Laboratory - Chemistry Order COMPREHENSIVE METABOLIC PANEL BLOOD PLASMA SP SGT E.I. [facility] May 04, 2024 12:00 AM Laboratory - Chemistry Order LIPID PANEL BLOOD PLASMA SP SGT E[facility]. [facility] May 04, 2024 12:00 AM Laboratory - Chemistry Order TSH-G,LC,J,T BLOOD PLASMA SP [facility]GT [facility]. [facility] Social History: Smoking Status (Most current) and Tobacco Use (All prior to encounter date) This section includes the most current, and the historical, smoking and tobacco- related health factors from the [place] facility where the Encounter took place. Current Smoking Status This section includes the most current smoking, or tobacco-related health factor, from the [place] facility where the Encounter took place. Date/Time Current Smoking Status Comment Marivel ity Aug 17, 2019 10:12 AM PRIOR TOBACCO USE CESSATION DATE [facility] Tobacco Use History This section includes a history of the smoking, or tobacco-related health factors, that were collected on or before the date of the Encounter. The data comes from the [place] facility where the Encounter took place. Date/Time Smoking Status/Tobacco Use Comment F acility Jan 17, 2018 01:30 PM PRIOR TOBACCO USE CESSATION DATE [facility] Jan 18, 2017 01:13 PM PRIOR TOBACCO USE CESSATION DATE [facility] [place] Jan 06, 2016 01:03 PM PRIOR TOBACCO USE CESSATION DATE [facility] [place] Advance Directives: All historical and current Section Date Range: From patient's date of to the date document was created. This section includes ALL of a patient's completed or amended [place] Advance and Rescinded Directives. The entries below indicate that a directive exists for the patient, but an actual copy is not included with this document. The data comes from all [place] facilities. Date Advance Directives Provider Source Aug 08, 2023 ADVANCE DIRECTIVE NOTIFICATION AND SCREENING JORGEGIOVANNI SGElijah Sheriff.[facility] [place] [facility] Nov 10, 2022 ADVANCE DIRECTIVE NOTIFICATION AND SCREENING GIOVANNI [facility]iobhan [facility] [place] [facility] Mar 17, 2020 ADVANCE DIRECTIVE DISCUSSION GIOVANNI JORGE [facility] [place] [facility] May 23, 2019 ADVANCE DIRECTIVE DISCUSSION MADHURI WILSON SGElijah [facility] [place] [facility] Aug 23, 2016 ADVANCE DIRECTIVE DISCUSSION SHANKAR AYALA [facility] [place] [facility] Jan 06, 2016 ADVANCE DIRECTIVE DISCUSSION KATIE BAILEY [facility] [place] [facility] Jan 27, 2011 ADVANCE DIRECTIVE NADREI ACE [facility] Encounter Notes: All associated encounter notes This section contains the clinical notes associated to the Encounter. Date/Time Encounter Note(s) Provider Source Apr 04, 2024 03:14 PM TELEPHONE ENCOUNTE R NOTE: LOCAL TITLE: ADMINISTRATIVE TELEPHONE NOTE CONTACT (T) STANDARD TITLE: TELEPHONE ENCOUNTER NOTE DATE OF NOTE: APR 04, 2024@15:14 ENTRY DATE: APR 04, 2024@15:14:32 AUTHOR: SHERMAN MUÑOZ EXP COSIGNER: URGENCY: STATUS: COMPLETED ADMINISTRATIVE TELEPHONE NOTE CONTACT (T) Has ADDENDA Telephone Contact Date/Time: Mar@15:14 Patient Name: JADE GTZ V : Jan Address: [address] [place] [address] Phone #: Above information verified as correct: Yes Information updated in VistA: Caller: Patient If other, specify: Call back number: Comments: Patient states taht he is lossing muscle mass and wieght and memory loss would like for provider or nurse to contact him at the number listed above. /hina/ SHERMAN MUÑOZ Advanced MSA Signed: 04/04/2024 15:15 Receipt Acknowledged By: 04/06/2024 10:01 /hina/ JUAN LUIS VELAZQUEZ RN 04/06/2024 15:16 /hina/ NITESH VAZQUEZ LPN 04/06/2024 ADDENDUM STATUS: COMPLETED Called and discussed, please refer to note dated 04/06/2024 /hudson VELAZQUEZ RN Signed: 04/06/2024 10:02 SHERMAN MUÑOZ [facility]
--- OUTSIDE RECORDS SUMMARY | 2024-04-30 08:28 | XMS_ITS | Encounter Summary ---
Author Name [facility] [place] [place] [facility] [place] Organization [facility] [place] Address [address] [facility], [place] [address] Care Team Providers Care It Program Engagement Director Name Role Phone TYRONESTEPHA Primary Care Provider [...] PART A Jan 09, 2012 PART A [id number] 54A JADE MAGDALENO PATIENT Selected Encounter This section includes the information on record at [place] for the Encounter. Date/Time Encounter Type Encounter Description Reason Pro vider Source Apr 16, 2024 10:34 AM Outpatient Encounter ADMIN PAT ACTIVTIES (MASNONCT) IHE Encounter Template Text not used by [...] 20 appointments. The data comes from all [facility]. Appointment Date/Time Appointment Type Appointme nt Facility Name Aug 07, 2024 11:00 AM AMBULATORY - SURGERY SGT E [facility]. [facility] Aug 07, 2024 11:30 AM AMBULATORY - NONE SGT [facility]. [facility] Aug 13, 2024 02:00 PM AMBULATORY - MEDICINE SGT E.I. [facility] Active, Pending, and Scheduled Orders This section includes a listing of several types of active, pending, and scheduled orders, including clinic medications orders, diagnostic test orders, procedure orders and consult orders; where the start date of the order is 45 days before the date of the Encounter or 45 days after the date of theEncounter. The data comes from all [facility]. Test Date/Time Test Type Test Details Facility Name May 04, 2024 12:00 AM Laboratory - Chemistry Order COMPREHENSIVE METABOLIC PANEL BLOOD PLASMA SP SGT E.I. [facility] May 04, 2024 12:00 AM Laboratory - Chemistry Order CBC (DIFF&PLT) BLOOD SP SGT E.I. [facility] May 04, 2024 12:00 AM Laboratory - Chemistry Order LIPID PANEL BLOOD PLASMA SP SGT E.I. [facility] May 04, 2024 12:00 AM Laboratory - Chemistry Order TSH-G,LC,J,T BLOOD PLASMA SP SGT [facility] Social History: Smoking Status (Most current) and Tobacco Use (All prior to encounter date) This section includes the most current, and the historical, smoking and tobacco- related health factors from the [place] facility where the Encounter took place. Current Smoking Status This section includes the most current smoking, or tobacco-related health factor, from the [place] facility where the Encounter took place. Date/Time Current Smoking Status Comment Marivel patel Aug 17, 2019 10:12 AM PRIOR TOBACCO USE CESSATION DATE [facility] Tobacco Use History This section includes a history of the smoking, or tobacco-related health factors, that were collected on or before the date of the Encounter. The data comes from the [place] facility where the Encounter took place. Date/Time Smoking Status/Tobacco Use Comment Tanesha travis Jan 17, 2018 01:30 PM PRIOR TOBACCO USE CESSATION DATE [facility] Jan 18, 2017 01:13 PM PRIOR TOBACCO USE CESSATION DATE [facility] Jan 06, 2016 01:03 PM PRIOR TOBACCO USE CESSATION DATE [facility] Advance Directives: All historical and current Section Date Range: From patient's date of to the date document was created. This section includes ALL of a patient's completed or amended [place] Advance and Rescinded Directives. The entries below indicate that a directive exists for the patient, but an actual copy is not included with this document. The data comes from all [place] facilities. Date Advance Directives Provider Source Aug 08, 2023 ADVANCE DIRECTIVE NOTIFICATION AND SCREENING JORGEGIOVANNI [facility]GT [facility] [place] [facility] Nov 10, 2022 ADVANCE DIRECTIVE NOTIFICATION AND SCREENING JORGEGIOVANNI [facility] [place] [facility] Mar 17, 2020 ADVANCE DIRECTIVE DISCUSSION GIOVANNI JORGE [facility] May 23, 2019 ADVANCE DIRECTIVE DISCUSSION MADHURI WILOSN SGT E.[facility] Aug 23, 2016 ADVANCE DIRECTIVE DISCUSSION SHANKAR AYALA SGT [facility] Jan 06, 2016 ADVANCE DIRECTIVE DISCUSSION LEOKATIE JAY SGT E.[facility] Jan 27, 2011 ADVANCE DIRECTIVE ANDREI ACE SGT E.[facility] Encounter Notes: All associated encounter notes This section contains the clinical notes associated to the Encounter. Date/Time Encounter Note(s) Provider Source Apr 16, 2024 10:34 AM IMMUNIZATION NOTE: LOCAL TITLE: VACCINATION/SKIN TESTS (T) STANDARD TITLE: IMMUNIZATION NOTE DATE OF NOTE: APR 16, 2024@10:34 ENTRY DATE: APR 16, 2024@10:34:55 AUTHOR: FOSTER GALAVIZ COSIGNER: URGENCY: STATUS: COMPLETED Outside/Historical Vaccines/Immunizations Pneumococcal (PPSV23) Documented: PNEUMOCOCCAL POLYSACCHARIDE PPV23 Historical Date Administered: Nov 08, 2012 Information Source: FROM PATIENT'S WRITTEN RECORD /hina/ MADHURI GALAVIZ RN Signed: 04/16/2024 10:36 MADHURI GALAVIZ [facility]
--- OUTSIDE RECORDS SUMMARY | 2024-04-30 08:28 | XMS_ITS | Encounter Summary ---
Author Name [facility] [place] [facility] [place] Address [address], [place] [address] Care Team Providers Care Rejected Items Clerk Name Role Phone JESENIA HANSEN Primary Care [...] PART A Jan 09, 2012 PART A [id number] JADE MAGDALENO PATIENT Selected Encounter This section includes the information on record at [place] for the Encounter. Date/Time Encounter Type Encounter Description Reason Provider Source Apr 06, 2024 09:24 AM OFF/OP EST FEBRUARY X REQ PHY/QHP TELEPHONE PRIMARY CARE ICD-10-CM F41.9 Anxiety disorder, unspecified JUAN LUIS VELAZQUEZ Encounter Template Text not used by [facility] Assessments - Encounter Diagnoses This section includes the primary and secondary diagnoses documented for the Encounter. Date/Time Primary/Secondary Diagnosis Diagnosis Name Provider Source Apr 06, 2024 09:24 AM PRIMARY Anxiety disorder, unspecified JUAN LUIS VELAZQUEZ [facility] Plan of Treatment: Future Appointments (+ 6 months) and Future Tests (+/- 45 days) The Plan of Treatment section includes future care activities for the patient from all [place] treatmentfacilities. This section includes future appointments and future orders which are active, pending or scheduled. Future Appointments This section includes appointments that were scheduled to occur 6 months from the date of the Encounter, up to a maximum of 20 appointments. The data comes from all [facility]. Appointment Date/Time Appointment Type Appointme nt Facility Name Aug 07, 2024 11:00 AM AMBULATORY - SURGERY [facility] Aug 07, 2024 11:30 AM AMBULATORY - NONE [facility] Aug 13, 2024 02:00 PM AMBULATORY - MEDICINE [facility] Active, Pending, and Scheduled Orders This section includes a listing of several types of active, pending, and scheduled orders, including clinic medications orders, diagnostic test orders, procedure orders and consult orders; where the start date of the order is 45 days before the date of the Encounter or 45 days after the date of theEncounter. The data comes from all [facility]. Test Date/Time Test Type Test Details Facility Name May 04, 2024 12:00 AM Laboratory - Chemistry Order CBC (DIFF&PLT) BLOOD SP [facility] May 04, 2024 12:00 AM Laboratory - Chemistry Order LIPID PANEL BLOOD PLASMA SP [facility] May 04, 2024 12:00 AM Laboratory - Chemistry Order TSH-G,LC,J,T BLOOD PLASMA SP [facility] May 04, 2024 12:00 AM Laboratory - Chemistry Order COMPREHENSIVE METABOLIC PANEL BLOOD PLASMA SP [facility] Social History: Smoking Status (Most [...] 02:00 PM VA-TOBACCO FORMER USER [facility] Tobacco Use History This section includes a history of the smoking, or tobacco-related health factors, that were collected on or before the date of the Encounter. The data comes from the [place] facility where the Encounter took place. Date/Time Smoking Status/Tobacco Use Comment F acshelley Aug 08, 2023 02:00 PM VA-TOBACCO QUIT 5 TO < 15 YRS [facility] Jan 26, 2022 11:30 AM VA-TOBACCO FORMER USER [facility] Jan 26, 2022 11:30 AM VA-TOBACCO QUIT 5 TO < 15 YRS [facility] February 18, 2021 09:00 AM VA-TOBACCO FORMER USER [facility] February 18, 2021 09:00 AM VA-TOBACCO QUIT 5 TO < 15 YRS [facility] Jan 02, 2020 03:58 PM VA-TOBACCO FORMER USER [facility] Jan 02, 2020 03:58 PM VA-TOBACCO QUIT 5 TO < 15 YRS [facility] Aug 14, 2019 10:32 AM TOBACCO PACK YEARS [facility] Aug 14, 2019 10:32 AM TOBACCO PACK YEARS >29 CC [facility] Jan 17, 2018 02:29 PM VA-TOBACCO FORMER USER [facility] Jan 17, 2018 02:29 PM VA-TOBACCO QUIT 5 TO < 15 YRS [facility] Jan 17, 2018 01:07 PM TOBACCO PACK YEARS [facility] Jan 17, 2018 01:07 PM TOBACCO PACK YEARS >29 50 [facility] Sep 26, 2017 12:56 PM LIFETIME NON-TOBACCO USER [facility] Jan 18, 2017 12:27 PM TOBACCO PACK YEARS [facility] Jan 18, 2017 12:27 PM TOBACCO PACK YEARS >29 50 [facility] Jan 06, 2016 12:16 PM TOBACCO PACK YEARS [facility] Jan 06, 2016 12:16 PM TOBACCO PACK YEARS >29 50 [facility] Apr 09, 2015 08:52 AM TOBACCO PACK YEARS [facility] Apr 09, 2015 08:52 AM TOBACCO PACK YEARS >29 50 [facility] Dec 26, 2014 12:12 PM TOBACCO PACK YEARS [facility] Dec 26, 2014 12:12 PM TOBACCO PACK YEARS >29 50 YEARS ON AND OFF [facility] Sep 16, 2014 09:00 AM TOBACCO PACK YEARS [facility] Sep 16, 2014 09:00 AM TOBACCO PACK YEARS >29 s [facility] Jun 25, 2014 01:57 PM TOBACCO PACK YEARS [facility] Jun 25, 2014 01:57 PM TOBACCO PACK YEARS <30 50 [facility] Dec 06, 2013 10:06 AM TOBACCO PACK YEARS [facility] Dec 06, 2013 10:06 AM TOBACCO PACK YEARS >29 50 [facility] Jan 22, 2013 01:07 PM CURRENT TOBACCO USE [facility] Jan 22, 2013 01:07 PM TOBACCO CESSATION OFFERED [facility] Jan 22, 2013 01:07 PM TOBACCO MEDS OFFERED [facility] Nov 08, 2012 09:21 AM CURRENT TOBACCO USE [facility] Nov 08, 2012 09:21 AM TOBACCO CESSATION OFFERED [facility] Nov 08, 2012 09:21 AM TOBACCO MEDS OFFERED [facility] Oct 28, 2011 08:17 AM CURRENT TOBACCO USE [facility] Oct 28, 2011 08:17 AM TOBACCO CESSATION OFFERED [facility] Oct 28, 2011 08:17 AM TOBACCO MEDS OFFERED [facility] Aug 04, 2011 01:10 PM CURRENT TOBACCO USE [facility] Aug 04, 2011 01:10 PM TOBACCO CESSATION OFFERED SGT E.Orquidea [facility] Aug 04, 2011 01:10 PM TOBACCO MEDS OFFERED [facility] Apr 28, 2011 08:00 AM CURRENT TOBACCO USE SGT E.ISiobhan [facility] Apr 28, 2011 08:00 AM TOBACCO CESSATION OFFERED SGT Hitesh [facility] Apr 28, 2011 08:00 AM TOBACCO MEDS OFFERED [facility]GT Hitesh [facility] March 05, 2011 02:27 PM CURRENT TOBACCO USE SGT E.Orquidea [facility] March 05, 2011 02:27 PM TOBACCO CESSATION OFFERED SGT Hitesh [facility] March 05, 2011 02:27 PM TOBACCO MEDS OFFERED SGT ESiobhanISiobhan [facility] Dec 22, 2010 01:11 PM CURRENT TOBACCO USE SGT E.Orquidea [facility] Dec 22, 2010 01:11 PM TOBACCO CESSATION OFFERED SGT Hitesh [facility] Dec 22, 2010 01:11 PM TOBACCO MEDS OFFERED SGT Hitesh [facility] Oct 28, 2010 12:57 PM CURRENT TOBACCO USE SGT E.Orquidea [facility] Oct 28, 2010 12:57 PM TOBACCO CESSATION OFFERED SGT Hitesh [facility] Oct 28, 2010 12:57 PM TOBACCO MEDS OFFERED SGT E.Orquidea [facility] Oct 21, 2009 08:22 AM CURRENT TOBACCO USE SGT E.Orquidea [facility] Oct 21, 2009 08:22 AM TOBACCO CESSATION OFFERED SGElijah [facility] Oct 21, 2009 08:22 AM TOBACCO MEDS OFFERED SGElijah [facility] Sep 19, 2009 08:11 AM LIFETIME NON-TOBACCO USER SGT E.Orquidea [facility] Oct 22, 2008 12:58 PM TOBACCO NON USE GR EATER THAN 12 MONTHS [facility] Sep 17, 2008 08:24 AM TOBACCO NON USE GR EATER THAN 12 MONTHS SGT E.ISiobhan [facility] Dec 01, 2007 12:58 PM TOBACCO NON USE LE SS THAN 12 MONTHS SGT Jaziel.ISiobhan [facility] Aug 16, 2007 01:17 PM TOBACCO CESSATION OFFERED SGElijah [facility] Aug 16, 2007 01:17 PM TOBACCO MEDS OFFERED SGT Jaziel.Orquidea [facility] Aug 16, 2007 01:17 PM TOBACCO NON USE LE SS THAN 12 MONTHS SGT ESiobhanISiobhan [facility] Jun 23, 2007 10:31 AM TOBACCO NON USE LE SS THAN 12 MONTHS [facility] Dec 14, 2006 10:24 AM CURRENT TOBACCO USE [facility] March 01, 2006 11:10 AM CURRENT TOBACCO USE [facility] Advance Directives: All historical and [...] DIRECTIVE NOTIFICATION AND SCREENING JORGE,GIOVANNI SGT E.ISiobhan [facility] Nov 10, 2022 ADVANCE DIRECTIVE NOTIFICATION AND SCREENING JORGE,GIOVANNI SGT E.[facility]iobhan [facility] Mar 17, 2020 ADVANCE DIRECTIVE DISCUSSION JORGEGIOVANNI SGT E.ISiobhan [facility] May 23, 2019 ADVANCE DIRECTIVE DISCUSSION MADHURI WILSON SGT E.ISiobhan [facility] Aug 23, 2016 ADVANCE DIRECTIVE DISCUSSION SHANKAR AYALA [facility] Jan 06, 2016 ADVANCE DIRECTIVE DISCUSSION KATIE BAILEY SGT E.ISiohban [facility] Jan 27, 2011 ADVANCE DIRECTIVE ANDREI ACE [facility] Encounter Notes: All associated encounter notes This section contains the clinical notes associated to the Encounter. Date/Time Encounter Note(s) Provider Source Apr 09, 2024 01:38 PM ADDENDUM: LOCAL TITLE: Addendum STANDARD TITLE: ADDENDUM DATE OF NOTE: APR 09, 2024@13:38:02 ENTRY DATE: APR 09, 2024@13:38:04 AUTHOR: JESENIA HANSEN COSIGNER: URGENCY: STATUS: COMPLETED we can do a SLUMS test at his next appt , Or , if pt desires sooner can make a nurse appt for mini cog ( or whatever screening memory test is on nursing protocol) /hina/ JESENIA HANSEN MD Signed: 04/09/2024 13:38 Receipt Acknowledged By: 04/11/2024 11:37 /hina/ JUAN LUISADRIAN VELAZQUEZ RN --- Original Document --- 04/06/24 PACT CARE COORDINATION NOTE (T): -- CARE COORDINATION -- CONTACT TYPE: Telephone Spoke with: Patient Patient Identifiers: Full name, REASON FOR CONTACT: Patient states taht he is lossing muscle mass and wieght and memory loss would like for provider or nurse to contact him at the number listed above. EVALUATION/ASSESSMENT: Pt states that he has felt the muscle loss, and weight loss has accelerated in the past month. He denies falls, He states he can still pick items up and carry them, he just feels that there is muscle loss. He explains that he notices difficulty in finding the right words and he has been misplacing things more often. Pt denies losing gaps in time, denies the inability to recognize people. Pt feels that this may be due to alzheimer's disease or a thyroid issue. Pt would like to know if there are tests that can check for these. INTERVENTIONS: Reviewed with /caregiver how and when to contact teamlet during and after business hours -Will alert PCP to note for review and advisement FUTURE APPOINTMENTS: Jul@11:00 [facility] Jul@11:30 [facility] Aug@14:00 [facility] PACT Nov@13:30 [facility] OPTOMETRY 2 TIME SPENT: Between 21-30 Minutes Exact Amount of Time (in minutes): 20 /es/ JUAN LUIS VELAZQUEZ RN Signed: 04/06/2024 10:01 Receipt Acknowledged By: 04/06/2024 11:16 /hina/ JESENIA HANSEN MD 04/06/2024 ADDENDUM STATUS: COMPLETED pt had a normal thryoid test less than a year ago. He also had EGD/colon with in past 3 years and LDCT scan done 08/2023 so is pretty up to date on screening. Would suggest: nurse visit ( if possible between now and April 11) for weight check. If significantly lower than 01/31 weight ( I note he had indeed lost some weight over past year) will plan to recheck his labs earlier than his fall appt an will include thyroid and testosterone level Would also suggest he self schedule with nutrition, and keep track of his calorie intake to ensure he is eating enough calories. /hudson HANSEN MD Signed: 04/06/2024 11:20 Receipt Acknowledged By: 04/09/2024 09:06 /hina/ JUAN LUIS VELAZQUEZ RN 04/09/2024 ADDENDUM STATUS: COMPLETED Called pt and discussed the above, pt says he can weigh himself and the last time he did he was 160#, He states he doesnt need to see nutrition i know enough about nutrition. Pt is interested in being tested for alheimers he would like to know how to slow it down. /hudson VELAZQUEZ RN Signed: 04/09/2024 09:07 Receipt Acknowledged By: 04/09/2024 13:37 /JESENIA Avalos MD T Hitesh [facility] Apr 09, 2024 09:06 AM ADDENDUM: LOCAL TITLE: Addendum STANDARD TITLE: ADDENDUM DATE OF NOTE: APR 09, 2024@09:06:20 ENTRY DATE: APR 09, 2024@09:06:21 AUTHOR: JUAN LUIS VELAZQUEZ EXP COSIGNER: URGENCY: STATUS: COMPLETED Called pt and discussed the above, pt says he can weigh himself and the last time he did he was 160#, He states he doesnt need to see nutrition i know enough about nutrition. Pt is interested in being tested for alheimers he would like to know how to slow it down. /hina/ JUAN LUIS VELAZQUEZ RN Signed: 04/09/2024 09:07 Receipt Acknowledged By: 04/09/2024 13:37 /hudson HANSEN MD --- Original Document --- 04/06/24 PACT CARE COORDINATION NOTE (T): -- CARE COORDINATION -- CONTACT TYPE: Telephone Spoke with: Patient Patient Identifiers: Full name, REASON FOR CONTACT: Patient states taht he is lossing muscle mass and wieght and memory loss would like for provider or nurse to contact him at the number listed above. EVALUATION/ASSESSMENT: Pt states that he has felt the muscle loss, and weight loss has accelerated in the past month. He denies falls, He states he can still pick items up and carry them, he just feels that there is muscle loss. He explains that he notices difficulty in finding the right words and he has been misplacing things more often. Pt denies losing gaps in time, denies the inability to recognize people. Pt feels that this may be due to alzheimer's disease or a thyroid issue. Pt would like to know if there are tests that can check for these. INTERVENTIONS: Reviewed with /caregiver how and when to contact teamlet during and after business hours -Will alert PCP to note for review and advisement FUTURE APPOINTMENTS: Jul@11:00 [facility] Jul@11:30 [facility] Aug@14:00 [facility] Nov@13:30 [facility] OPTOMETRY 2 TIME SPENT: Between 21-30 Minutes Exact Amount of Time (in minutes): 20 /es/ JUAN LUIS VELAZQUEZ RN Signed: 04/06/2024 10:01 Receipt Acknowledged By: 04/06/2024 11:16 /es/ JESENIA HANSEN MD 04/06/2024 ADDENDUM STATUS: COMPLETED pt had a normal thryoid test less than a year ago. He also had EGD/colon with in past 3 years and LDCT scan done 08/2023 so is pretty up to date on screening. Would suggest: nurse visit ( if possible between now and April 11) for weight check. If significantly lower than 01/31 weight ( I note he had indeed lost some weight over past year) will plan to recheck his labs earlier than his fall appt an will include thyroid and testosterone level Would also suggest he self schedule with nutrition, and keep track of his calorie intake to ensure he is eating enough calories. /hina/ JESENIA HANSEN MD Signed: 04/06/2024 11:20 Receipt Acknowledged By: 04/09/2024 09:06 mulugeta VELAZQUEZ RN 04/09/2024 ADDENDUM STATUS: UNSIGNED You may not VIEW this UNSIGNED Addendum. JUAN LUIS VELAZQUEZ [facility] Apr 06, 2024 11:17 AM ADDENDUM: LOCAL TITLE: Addendum STANDARD TITLE: ADDENDUM DATE OF NOTE: APR 06, 2024@11:17:04 ENTRY DATE: APR 06, 2024@11:17:05 AUTHOR: JESENIA HANSEN EXP COSIGNER: URGENCY: STATUS: COMPLETED pt had a normal thryoid test less than a year ago. He also had EGD/colon with in past 3 years and LDCT scan done 08/2023 so is pretty up to date on screening. Would suggest: nurse visit ( if possible between now and April 11) for weight check. If significantly lower than 01/31 weight ( I note he had indeed lost some weight over past year) will plan to recheck his labs earlier than his fall appt an will include thyroid and testosterone level Would also suggest he self schedule with nutrition, and keep track of his calorie intake to ensure he is eating enough calories. /hina/ JESENIA HANSEN MD Signed: 04/06/2024 11:20 Receipt Acknowledged By: 04/09/2024 09:06 /hudson VELAZQUEZ RN --- Original Document --- 04/06/24 PACT CARE COORDINATION NOTE (T): -- CARE COORDINATION -- CONTACT TYPE: Telephone Spoke with: Patient Patient Identifiers: Full name, REASON FOR CONTACT: Patient states taht he is lossing muscle mass and wieght and memory loss would like for provider or nurse to contact him at the number listed above. EVALUATION/ASSESSMENT: Pt states that he has felt the muscle loss, and weight loss has accelerated in the past month. He denies falls, He states he can still pick items up and carry them, he just feels that there is muscle loss. He explains that he notices difficulty in finding the right words and he has been misplacing things more often. Pt denies losing gaps in time, denies the inability to recognize people. Pt feels that this may be due to alzheimer's disease or a thyroid issue. Pt would like to know if there are tests that can check for these. INTERVENTIONS: Reviewed with /caregiver how and when to contact teamlet during and after business hours -Will alert PCP to note for review and advisement FUTURE APPOINTMENTS: Jul@11:00 [facility] Jul@11:30 [facility] Aug@14:00 [facility] Nov@13:30 [facility] OPTOMETRY 2 TIME SPENT: Between 21-30 Minutes Exact Amount of Time (in minutes): 20 /hina/ JUAN LUIS VELAZQUEZ RN Signed: 04/06/2024 10:01 Receipt Acknowledged By: 04/06/2024 11:16 /hina/ JESENIA HANSEN MD 04/09/2024 ADDENDUM STATUS: UNSIGNED You may not VIEW this UNSIGNED Addendum. JESENIA HANSEN T Hitesh [facility] Apr 06, 2024 09:24 AM PACT NOTE: LOCAL TITLE: PACT CARE COORDINATION NOTE (T) STANDARD TITLE: PACT NOTE DATE OF NOTE: APR 06, 2024@09:24 ENTRY DATE: APR 06, 2024@09:24:26 AUTHOR: JUAN LUIS VELAZQUEZ EXP COSIGNER: URGENCY: STATUS: COMPLETED PACT CARE COORDINATION NOTE (T) Has ADDENDA -- CARE COORDINATION -- CONTACT TYPE: Telephone Spoke with: Patient Patient Identifiers: Full name, REASON FOR CONTACT: Patient states taht he is lossing muscle mass and wieght and memory loss would like for provider or nurse to contact him at the number listed above. EVALUATION/ASSESSMENT: Pt states that he has felt the muscle loss, and weight loss has accelerated in the past month. He denies falls, He states he can still pick items up and carry them, he just feels that there is muscle loss. He explains that he notices difficulty in finding the right words and he has been misplacing things more often. Pt denies losing gaps in time, denies the inability to recognize people. Pt feels that this may be due to alzheimer's disease or a thyroid issue. Pt would like to know if there are tests that can check for these. INTERVENTIONS: Reviewed with /caregiver how and when to contact teamlet during and after business hours -Will alert PCP to note for review and advisement FUTURE APPOINTMENTS: Jul@11:00 [facility] Jul@11:30 [facility] Aug@14:00 [facility] [place] Nov@13:30 [facility] OPTOMETRY 2 TIME SPENT: Between 21-30 Minutes Exact Amount of Time (in minutes): /hina/ JUAN LUIS VELAZQUEZ RN Signed: 04/06/2024 10:01 Receipt Acknowledged By: 04/06/2024 11:16 /hina/ JESENIA HANSEN MD 04/06/2024 ADDENDUM STATUS: COMPLETED pt had a normal thryoid test less than a year ago. He also had EGD/colon with in past 3 years and LDCT scan done 08/2023 so is pretty up to date on screening. Would suggest: nurse visit ( if possible between now and April 11) for weight check. If significantly lower than / weight ( I note he had indeed lost some weight over past year) will plan to recheck his labs earlier than his fall appt an will include thyroid and testosterone level Would also suggest he self schedule with nutrition, and keep track of his calorie intake to ensure he is eating enough calories. /hina/ JESENIA HANSEN MD Signed: 04/06/2024 11:20 Receipt Acknowledged By: 04/09/2024 09:06 /hina/ JUAN LUIS VELAZQUEZ RN 04/09/2024 ADDENDUM STATUS: COMPLETED Called pt and discussed the above, pt says he can weigh himself and the last time he did he was 160#, He states he doesnt need to see nutrition i know enough about nutrition. Pt is interested in being tested for alheimers he would like to know how to slow it down. /hina/ JUAN LUIS VELAZQUEZ RN Signed: 04/09/2024 09:07 Receipt Acknowledged By: 04/09/2024 13:37 /hina/ JESENIA HANSEN MD 04/09/2024 ADDENDUM STATUS: COMPLETED we can do a SLUMS test at his next appt , Or , if pt desires sooner can make a nurse appt for mini cog ( or whatever screening memory test is on nursing protocol) /hina/ JESENIA HANSEN MD Signed: 04/09/2024 13:38 Receipt Acknowledged By: * AWAITING SIGNATURE * JUAN LUIS VELAZQUEZ LEAH N SGElijah [facility]
--- OUTSIDE RECORDS SUMMARY | 2024-04-30 08:28 | XMS_ITS | Encounter Summary ---
Author Name [facility] [place] [facility] [place] Address [address], [place] [address] Care Team Providers Care Accounting Advisory Services Manager Name Role Phone TYRONEJESENIA Primary Care Provider [...] PART A Jan 09, 2012 PART A [id number] 54A JADE MAGDALENO PATIENT Selected Encounter This section includes the information on record at [place] for the Encounter. Date/Time Encounter Type Encounter Description Reason Pro vider Source Dec 18, 2023 12:15 PM Outpatient Encounter ADMIN PAT ACTIVTIES (MASNONCT) IHE Encounter Template Text not used by [place] Plan of Treatment: Future Appointments (+ 6 [...] 20 appointments. The data comes from all [place] treatment facilities. Appointment Date/Time Appointment Type Appointme nt Facility Name Jan 30, 2024 01:00 PM AMBULATORY - NONE [facility] Feb 06, 2024 03:00 PM AMBULATORY - SURGERY [facility] Feb 06, 2024 03:30 PM AMBULATORY - MEDICINE [facility] Advance Directives: All historical and current Section Date Range: From patient's date of to the date document was created. This section includes ALL of a patient's completed or amended [place] Advance and Rescinded Directives. The entries below indicate that a directive exists for the patient, but an actual copy is not included with this document. The data comes from all [place] facilities. Date Advance Directives Provider Source Aug 08, 2023 ADVANCE DIRECTIVE NOTIFICATION AND SCREENING JORGE,GIOVANNI [facility] Nov 10, 2022 ADVANCE DIRECTIVE NOTIFICATION AND SCREENING JORGE,GIOVANNI SGT E.[facility] Mar 17, 2020 ADVANCE DIRECTIVE DISCUSSION JORGE,GIOVANNI SGT E.[facility] May 23, 2019 ADVANCE DIRECTIVE DISCUSSION MADHURI WILSON SGT [facility]. [facility] Aug 23, 2016 ADVANCE DIRECTIVE DISCUSSION SHANKAR AYALA SGT E[facility]I. [facility] Jan 06, 2016 ADVANCE DIRECTIVE DISCUSSION KATIE BAILEY SGT E.I. [facility] Jan 27, 2011 ADVANCE DIRECTIVE ANDREI ACE SGT E[facility]. [facility] Encounter Notes: All associated encounter notes This section contains the clinical notes associated to the Encounter. Date/Time Encounter Note(s) Provider Source Dec 18, 2023 12:15 PM NONVA NOTE: LOCAL TITLE: [facility] COORD PLAN STANDARD TITLE: NONVA NOTE DATE OF NOTE: DEC 18, 2023@12:15 ENTRY DATE: DEC 23, 2023@12:15:35 AUTHOR: DHRUV LOCO COSIGNER: URGENCY: STATUS: COMPLETED Emergency Notification Intake Date Presenting to the Facility: Dec Date of note has been modified to reflect Date of Service. 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 Transfer Office handing off to the traveling coordinators for post discharge follow up as needed. /hina/ DHRUV LOCO ADVANCED EMAIL MARKETING ASSISTANT Signed: 12/23/2023 12:19 Receipt Acknowledged By: 12/25/2023 20:32 /hina/ LEONA GHOSH NURSE PRACTITIONER DHRUV LOCO [facility]
--- OUTSIDE RECORDS SUMMARY | 2024-04-30 08:29 | XMS_ITS | Encounter Summary ---
Author Name [facility] [place] [facility] [place] [facility] [place] Address [address], [place] [address] Care Team Providers Care Nutrient Management Specialist Name Role Phone TYRONESTEPHA Primary Care Provider [...] PART A Jan 09, 2012 PART A [id number] 54A JADE MAGDALENO PATIENT Selected Encounter This section includes the information on record at [place] for the Encounter. Date/Time Encounter Type Encounter Description Reason Provider Source May 17, 2023 11:13 AM Outpatient Encounter COMMUNITY CARE CONSULT DEREK CABALLERO Jaziel Encounter Template Text not used by [...] 20 appointments. The data comes from all [place] treatment facilities. Appointment Date/Time Appointment Type Appointme nt Facility Name Jul 21, 2023 01:30 PM AMBULATORY - NONE [facility] Aug 08, 2023 12:45 PM AMBULATORY - NONE [facility]GT [facility] Aug 08, 2023 02:00 PM AMBULATORY - NONE S[facility] Aug 10, 2023 02:00 PM AMBULATORY - SURGERY SGT E [facility] Aug 12, 2023 11:45 AM AMBULATORY - NONE [facility] Aug 16, 2023 03:00 PM AMBULATORY - NONE [facility] Aug 22, 2023 03:00 PM AMBULATORY - NONE SGT [facility] Sep 05, 2023 02:00 PM AMBULATORY - NONE SGT [facility] Sep 07, 2023 09:00 AM AMBULATORY - MEDICINE SGT E[facility]. [facility] Oct 04, 2023 02:15 PM AMBULATORY - MEDICINE SGT [facility] Social History: Smoking Status (Most current) and Tobacco Use (All prior to encounter date) This section includes the most current, and the historical, smoking and tobacco- related health factors from the [place] facility where the Encounter took place. Current Smoking Status This section includes the most current smoking, or tobacco-related health factor, from the [place] facility where the Encounter took place. Date/Time Current Smoking Status Comment Marivel patel Aug 17, 2019 10:12 AM PRIOR TOBACCO USE CESSATION DATE [facility] Tobacco Use History This section includes a history of the smoking, or tobacco-related health factors, that were collected on or before the date of the Encounter. The data comes from the [place] facility where the Encounter took place. Date/Time Smoking Status/Tobacco Use Comment Tanesha travis Jan 17, 2018 01:30 PM PRIOR TOBACCO USE CESSATION DATE [facility] Jan 18, 2017 01:13 PM PRIOR TOBACCO USE CESSATION DATE [facility] Jan 06, 2016 01:03 PM PRIOR TOBACCO USE CESSATION DATE [facility] Advance Directives: All historical and current Section Date Range: From patient's date of to the date document was created. This section includes ALL of a patient's completed or amended [place] Advance and Rescinded Directives. The entries below indicate that a directive exists for the patient, but an actual copy is not included with this document. The data comes from all [place] facilities. Date Advance Directives Provider Source Aug 08, 2023 ADVANCE DIRECTIVE NOTIFICATION AND SCREENING GIOVANNI JORGE [facility] Nov 10, 2022 ADVANCE DIRECTIVE NOTIFICATION AND SCREENING JORGEGIOVANNI SGT [facility] Mar 17, 2020 ADVANCE DIRECTIVE DISCUSSION GIOVANNI JORGE [facility] May 23, 2019 ADVANCE DIRECTIVE DISCUSSION MADHURI WILSON [facility] Aug 23, 2016 ADVANCE DIRECTIVE DISCUSSION SHANKAR AYALA [facility] Jan 06, 2016 ADVANCE DIRECTIVE DISCUSSION KATIE BAILEY SGT E[facility]I. [facility] Jan 27, 2011 ADVANCE DIRECTIVE ANDREI ACE SGT [facility]. [facility] Encounter Notes: All associated encounter notes This section contains the clinical notes associated to the Encounter. Date/Time Encounter Note(s) Provider Source May 17, 2023 11:13 AM ADMINISTRATIVE NOT E: LOCAL TITLE: COMMUNITY CARE NO CONTACT LETTER STANDARD TITLE: ADMINISTRATIVE NOTE DATE OF NOTE: MAY 17, 2023@11:13 ENTRY DATE: MAY 17, 2023@11:13:18 AUTHOR: FRANKLIN CARDENAS COSIGNER: URGENCY: STATUS: COMPLETED [facility] NOTICE FOR SCHEDULING APPOINTMENT JADE GTZ V [address] [place] [id number] MAY 17, 2023 In reference to: Scheduling an appointment in the Community Dear JADE GTZ V At [facility], we value your service to our country and for allowing us to serve you. We attempted to contact you with the phone number(s) we have on file to schedule an appointment for the service indicated below. If you are interested in an appointment with: DERMATOLOGY service please contact us at [phone] upon receipt of this letter. Please respond within 14 calendar days of date on the letter if you are interested in scheduling this appointment. After 14 days, the care requested can be discontinued. Any contact past the 14 days will have to be approved again by the referring physician at the [facility]. Once the request is approved, we can start the authorization process for care in the community. We hope to hear from you soon. With appreciation, Office of Community Care Sincerely, FRANKLIN CARDENAS [facility] Correspondence FRANKLIN CARDENAS. SADIE/Anastacio ANN [facility]
--- OUTSIDE RECORDS SUMMARY | 2024-04-30 08:29 | XMS_ITS | Encounter Summary ---
Author Name [facility] [place] [facility] [place] [facility] [place] Address [address], [place] [address] Care Team Providers Care Loader Malt [employer] Name Role Phone TYRONESTEPHA Primary Care Provider [...] PART A Jan 09, 2012 PART A [id number] 54A JADE MAGDALENO PATIENT Selected Encounter This section includes the information on record at [place] for the Encounter. Date/Time Encounter Type Encounter Description Reason Provider Source May 27, 2023 09:28 AM Outpatient Encounter PRIMARY CARE/MEDICINE JORGEGIOVANNI Encounter Template Text not used by [place] Plan of Treatment: Future Appointments (+ 6 [...] 20 appointments. The data comes from all [place] treatment facilities. Appointment Date/Time Appointment Type Appointme nt Facility Name Jul 21, 2023 01:30 PM AMBULATORY - NONE [facility] Aug 08, 2023 12:45 PM AMBULATORY - NONE SGT [facility] Aug 08, 2023 02:00 PM AMBULATORY - NONE SGT [facility] Aug 10, 2023 02:00 PM AMBULATORY - SURGERY SGT E .[facility]. [facility] Aug 12, 2023 11:45 AM AMBULATORY - NONE SGT [facility] Aug 16, 2023 03:00 PM AMBULATORY - NONE [facility] Aug 22, 2023 03:00 PM AMBULATORY - NONE SGT E[facility]. [facility] Sep 05, 2023 02:00 PM AMBULATORY - NONE SGT [facility] Sep 07, 2023 09:00 AM AMBULATORY - MEDICINE SGT E[facility]. [facility] Oct 04, 2023 02:15 PM AMBULATORY - MEDICINE SGT [facility] Nov 21, 2023 01:00 PM AMBULATORY - NONE SGT [facility] Social History: Smoking Status (Most current) and Tobacco Use (All prior to encounter date) This section includes the most current, and the historical, smoking and tobacco- related health factors from the [place] facility where the Encounter took place. Current Smoking Status This section includes the most current smoking, or tobacco-related health factor, from the [place] facility where the Encounter took place. Date/Time Current Smoking Status Comment Marivel patel Aug 17, 2019 10:12 AM PRIOR TOBACCO USE CESSATION DATE [facility] Tobacco Use History This section includes a history of the smoking, or tobacco-related health factors, that were collected on or before the date of the Encounter. The data comes from the [place] facility where the Encounter took place. Date/Time Smoking Status/Tobacco Use Comment Tanesha travis Jan 17, 2018 01:30 PM PRIOR TOBACCO USE CESSATION DATE [facility] Jan 18, 2017 01:13 PM PRIOR TOBACCO USE CESSATION DATE [facility] Jan 06, 2016 01:03 PM PRIOR TOBACCO USE CESSATION DATE [facility] Advance Directives: All historical and current Section Date Range: From patient's date of to the date document was created. This section includes ALL of a patient's completed or amended [place] Advance and Rescinded Directives. The entries below indicate that a directive exists for the patient, but an actual copy is not included with this document. The data comes from all [place] facilities. Date Advance Directives Provider Source Aug 08, 2023 ADVANCE DIRECTIVE NOTIFICATION AND SCREENING GIOVANNI JORGE [facility] Nov 10, 2022 ADVANCE DIRECTIVE NOTIFICATION AND SCREENING GIOVANNI JORGE [facility] Mar 17, 2020 ADVANCE DIRECTIVE DISCUSSION GIOVANNI JORGE SGElijah [facility] May 23, 2019 ADVANCE DIRECTIVE DISCUSSION MADHURI WILSON [facility] Aug 23, 2016 ADVANCE DIRECTIVE DISCUSSION SHANKAR AYALA [facility] Jan 06, 2016 ADVANCE DIRECTIVE DISCUSSION KATIE BAILEY [facility] Jan 27, 2011 ADVANCE DIRECTIVE ANDREI ACE [facility] Encounter Notes: All associated encounter notes This section contains the clinical notes associated to the Encounter. Date/Time Encounter Note(s) Provider Source May 27, 2023 09:28 AM PRIMARY CARE MoneyLionUR E MESSAGING: [facility] TITLE: PRIMARY CARE SECURE MESSAGING STANDARD TITLE: PRIMARY CARE SECURE MESSAGING DATE OF NOTE: MAY 27, 2023@09:28 ENTRY DATE: MAY 27, 2023@10:28:44 AUTHOR: GIOVANNI JORGE EXP COSIGNER: URGENCY: STATUS: COMPLETED ------Original Message --- Sent: 05/26/2023 01:58 PM ET From: JADE GTZ V To: Yareli PACT 7 Casey Subject: General:rsv when can i get vacinated for RSV virus? ------Original Message --- Sent: 05/27/2023 10:28 AM ET From: GIOVANNI JORGE To: JADE GTZ V Subject: General:rsv WE DO NOT HAVE THAT VACCINE AVAILABLE AT THIS TIME.. WE HOPE TO KNOW SOMETHING AFTER May. WHEN IT WILL BE AVAILABLE. PLEASE CONTACT US IN . DEENA /hina/ GIOVANNI JORGE COMMUNITY ENGAGEMENT LEADER Signed: 05/27/2023 10:28 GIOVANNI JORGE [facility] [place] [facility]
--- OUTSIDE RECORDS SUMMARY | 2024-04-30 08:30 | XMS_ITS | Encounter Summary ---
Author Name [facility] [place] [facility] [place] Organization [facility] [place] Address [address], [place] [address] Care Team Providers Care Education Courses Sales Representative Name Role Phone JESENIA HANSEN Primary Care [...] PART A Jan 09, 2012 PART A [id number] 54A JADE MAGDALENO PATIENT Selected Encounter This section includes the information on record at [place] for the Encounter. Date/Time Encounter Type Encounter Description Reason Pro vider Source Jun 18, 2023 12:00 AM Outpatient Encounter EVENT (HISTORICAL) IHE Encounter Template Text not used by [...] 20 appointments. The data comes from all [place] treatment facilities. Appointment Date/Time Appointment Type Appointme nt Facility Name Jul 21, 2023 01:30 PM AMBULATORY - NONE [facility] Aug 08, 2023 12:45 PM AMBULATORY - NONE SGT [facility]. [facility] Aug 08, 2023 02:00 PM AMBULATORY - NONE SGT [facility]. [facility] Aug 10, 2023 02:00 PM AMBULATORY - SURGERY SGT E .[facility]. [facility] Aug 12, 2023 11:45 AM AMBULATORY - NONE SGT [facility]. [facility] Aug 16, 2023 03:00 PM AMBULATORY - NONE [facility] Aug 22, 2023 03:00 PM AMBULATORY - NONE SGT E[facility]I. [facility] Sep 05, 2023 02:00 PM AMBULATORY - NONE SGT E.I. [facility] Sep 07, 2023 09:00 AM AMBULATORY - MEDICINE SGT E[facility]I. [facility] Oct 04, 2023 02:15 PM AMBULATORY - MEDICINE SGT E[facility]. [facility] Nov 21, 2023 01:00 PM AMBULATORY - NONE SGT [facility]. [facility] Immunizations: All administered on the encounter date This section contains immunizations associated to the Encounter. Immunization Series Date Issued Reaction Comments INFLUENZA VACCINE, QUADRIVALENT, ADJUVANTED Jun 18, 2023 Social History: Smoking Status (Most current) and Tobacco Use (All prior to encounter date) This section includes the most current, and the historical, smoking and tobacco- related health factors from the [place] facility where the Encounter took place. Current Smoking Status This section includes the most current smoking, or tobacco-related health factor, from the [place] facility where the Encounter took place. Date/Time Current Smoking Status Comment Marivel ity Aug 17, 2019 10:12 AM PRIOR TOBACCO USE CESSATION DATE [facility] Tobacco Use History This section includes a history of the smoking, or tobacco-related health factors, that were collected on or before the date of the Encounter. The data comes from the [place] facility where the Encounter took place. Date/Time Smoking Status/Tobacco Use Comment Tanesha acility Jan 17, 2018 01:30 PM PRIOR TOBACCO USE CESSATION DATE [facility] Jan 18, 2017 01:13 PM PRIOR TOBACCO USE CESSATION DATE [facility] Jan 06, 2016 01:03 PM PRIOR TOBACCO USE CESSATION DATE [facility] Advance Directives: All historical and current Section Date Range: From patient's date of to the date document was created. This section includes ALL of a patient's completed or amended [place] Advance and Rescinded Directives. The entries below indicate that a directive exists for the patient, but an actual copy is not included with this document. The data comes from all [place] facilities. Date Advance Directives Provider Source Aug 08, 2023 ADVANCE DIRECTIVE NOTIFICATION AND SCREENING GIOVANNI JORGE [facility] [place] [facility] Nov 10, 2022 ADVANCE DIRECTIVE NOTIFICATION AND SCREENING GIOVANNI JORGE [facility] Mar 17, 2020 ADVANCE DIRECTIVE DISCUSSION GIOVANNI JORGE [facility] May 23, 2019 ADVANCE DIRECTIVE DISCUSSION MADHURI WILSON [facility] Aug 23, 2016 ADVANCE DIRECTIVE DISCUSSION SHANKAR AYALA [facility] Jan 06, 2016 ADVANCE DIRECTIVE DISCUSSION KATIE BAILEY SGElijah EBrown [facility] Jan 27, 2011 ADVANCE DIRECTIVE ANDREI ACE SGElijah LongoISiobhan [facility]
--- OUTSIDE RECORDS SUMMARY | 2024-04-30 08:30 | XMS_ITS | Encounter Summary ---
Author Name [facility] Address [address] [facility], [place] [address] Care Team Providers Care Tree Inspector Name Role Phone TYRONE JESENIA Primary Care [...] PART A Jan 09, 2012 PART A [id number] JADE MAGDALENO PATIENT Selected Encounter This section includes the information on record at [place] for the Encounter. Date/Time Encounter Type Encounter Description Reason Provider Source Jul 20, 2023 06:37 AM Outpatient Encounter PRIMARY CARE/MEDICINE JORGEGIOVANNI Encounter Template Text not used by [place] [...] 01:30 PM AMBULATORY - NONE SGT [facility] Aug 08, 2023 12:45 PM AMBULATORY - NONE SGT [facility] Aug 08, 2023 02:00 PM AMBULATORY - NONE SGT [facility] Aug 10, 2023 02:00 PM AMBULATORY - SURGERY SGT E .I. [facility] Aug 12, 2023 11:45 AM AMBULATORY - NONE SGT [facility]. [facility] Aug 16, 2023 03:00 PM AMBULATORY - NONE N. ANNIKA DA/SSiobhan [facility] Aug 22, 2023 03:00 PM AMBULATORY [...] NONE SGT E[facility]I. [facility] Lab Results: +/- 30 days [...] - Unit Interpretation Reference Range Comment Aug 08, 2023 12:36 PM SGT [facility] TSH-G,LC,J,T Specimen Type: PLASMA Comment: eGFR calculated using [...] < or = 400 mg/dL. Ordering Provider: RACQUEL CABALLERO V Report Released Date/Time: Nov 10, 2022 03:06 PM Reporting Lab: SGT E.ISiobhan [facility] [address] Performing Lab: SGT DontaISiobhan [facility] [address] [place] [address] TSH-G,LC,J,T 1.450 u[IU]/mL 0.27-4.2 Aug 08, 2023 12:36 PM SGT [facility] HEMOGLOBIN %A1C PROFILE Specimen Type: BLOOD Comment: Values obtained from A1C measurements can vary. For typical A1C assays, a reported value of 7.0 could actually be between 6.72and 7.28 if measured by a reference method. A reported value of 9.0 could actually be between 8.73 and 9.27. Ref: http://www.ngsp .org/CAPdata.as p Ordering Provider: RACQUEL CABALLERO V Report Released Date/Time: Nov 10, 2022 03:06 PM Reporting Lab: SGT E.ISiobhan [facility] [address] [place] [address] Performing Lab: SGT DontaISiobhan [facility] [address] [place] [address] HEMOGLOBIN %A1C 5.5 Aug 08, 2023 12:36 PM T [facility] URINALYSIS Specimen Type: URINE No comment entered. Ordering Provider: RACQUEL CABALLERO V Report Released Date/Time: Nov 10, 2022 03:06 PM Reporting Lab: SGT E.ISiobhan [facility] [address] [place] [address] Performing Lab: SGT E.ISiobhan [facility] [address] [place] [address] URINE COLOR Light-Yellow SPECIFIC GRAVITY 1.026 1.003-1.030 URINE BILIRUBIN Negative mg/dL NEGATIVE URINE KETONES Negative mg/dL NEGATIVE URINE GLUCOSE Negative mg/dL NEGATIVE URINE PROTEIN Negative mg/dL NEGATIVE URINE PH 5.0 [pH] 5.0-9.0 URINE BLOOD Tr mg/dL NEGATIVE URINE NITRITE Negative NEGATIVE LEUKOCYTE ESTERASE, URINE Negative NEGATIVE CLARITY Clear CLEAR UROBILINOGEN(mg /dL) <2.0 mg/dL L 0.0-1.99 Aug 08, 2023 12:36 PM SGT Hitesh [facility] LIPID PANEL Specimen Type: PLASMA Comment: eGFR [...] < or = 400 mg/dL. Ordering Provider: RACQUEL CABALLERO V Report Released Date/Time: Nov 10, 2022 03:06 PM Reporting Lab: Elijah [facility] [address] [place] [address] Performing Lab: SGElijah [facility] [address] [place] [address] CHOLESTEROL 203 mg/dL H 0-199 TRIGLYCERIDE 171 mg/dL H 0-149 LDL CHOLESTEROL 114 mg/dL <129 HDL CHOLESTEROL 55 mg/dL >40 DIRECT LDL canc mg/dL <129 Aug 08, 2023 12:36 PM SGT Hitesh [facility] COMPREHENSIVE METABOLIC PANEL Specimen Type: PLASMA [...] < or = 400 mg/dL. Ordering Provider: RACQUEL CABALLERO V Report Released Date/Time: Nov 10, 2022 03:06 PM Reporting Lab: SGT Hitesh [facility] [address] [place] [address] Performing Lab: [facility] Hitesh [facility] [address] [place] [address] UREA NITROGEN 22 mg/dL H 9-20 SODIUM [...] 89 mL/min Aug 08, 2023 12:36 PM [facility] CBC (DIFF&PLT) Specimen Type: BLOOD No comment entered. Ordering Provider: RACQUEL CABALLERO V Report Released Date/Time: Nov 10, 2022 03:06 PM Reporting Lab: Elijah [facility] [place] [address] [address] Performing Lab: [facility] Hitesh [facility] [address] WBC 5.08 10*3/uL 4.6-10.8 RBC 4.84 10*6/uL [...] PRIOR TOBACCO USE CESSATION DATE [facility] Tobacco Use History This section includes a history of the smoking, or tobacco-related health factors, that were collected on or before the date of the Encounter. The data comes from the [place] facility where the Encounter took place. Date/Time Smoking Status/Tobacco Use Comment F acility Jan 17, 2018 01:30 PM PRIOR TOBACCO USE CESSATION DATE [facility] Jan 18, 2017 01:13 PM PRIOR TOBACCO USE CESSATION DATE [facility] Jan 06, 2016 01:03 PM PRIOR TOBACCO USE CESSATION DATE [facility] Advance Directives: All historical and current Section Date Range: From patient's date of to the date document was created. This section includes ALL of a patient's completed or amended [place] Advance and Rescinded Directives. The entries below indicate that a directive exists for the patient, but an actual copy is not included with this document. The data comes from all [place] facilities. Date Advance Directives Provider Source Aug 08, 2023 ADVANCE DIRECTIVE NOTIFICATION AND SCREENING GIOVANNI JORGE [facility] [place] [facility] Nov 10, 2022 ADVANCE DIRECTIVE NOTIFICATION AND SCREENING GIOVANNI JORGE [facility]GT [facility] Mar 17, 2020 ADVANCE DIRECTIVE DISCUSSION GIOVANNI JORGE SGT [facility] May 23, 2019 ADVANCE DIRECTIVE DISCUSSION MADHURI WILSON SGT [facility] Aug 23, 2016 ADVANCE DIRECTIVE DISCUSSION SHANKAR AYALA [facility]GT [facility] Jan 06, 2016 ADVANCE DIRECTIVE DISCUSSION KATIE BAILEY SGT [facility] Jan 27, 2011 ADVANCE DIRECTIVE ANDREI ACE SGT E[facility]. [facility] Radiology Reports: +/- 30 days [...] treatment facilities. Date/Time Radiology Report Provider Source Aug 12, 2023 12:19 PM LDCT LUNG CANCER S CREENING: JADE GTZ V [id number] M Ex Date: AUG 12, 2023@12:19 Req Phys: SHERLYN POSADAS Loc: [facility] HISTORICAL (Req'g Loc) Img Loc: T-CT SCAN Service: Unknown (Case [id number] COMPLETE) LDCT LUNG CANCER SCREENING (CT Detailed) CPT:91952 Reason for Study: Abnormal LDCT follow-up Clinical History: Report Status: Verified Date Reported: AUG 12, 2023 Date Verified: AUG 12, 2023 Hadoop Analyst E-Sig:/ES/SARAH ASHLEY MD Report: EXAM: LDCT LUNG CANCER SCREENING ADDITIONAL HISTORY: Annual Screening COMPARISON: 08/09/2022 PROTOCOL: Screening protocol, low dose, non-contrast CT chest was performed in accordance with Lung-Rads v1.1. Additional coronal and sagittal reconstructions. MIP reconstructions were reviewed. Computer assisted detection (CAD) postprocessing of the lung windows done by [email or web address] software. DOSE PARAMETERS: Up-to-date CT equipment and [...] Interpreting Staff: SARAH ASHLEY MD, Staff Physician (Hadoop Analyst) /SARAH MARCHSiobhan [facility] Encounter Notes: All associated encounter notes This section contains the clinical notes associated to the Encounter. Date/Time Encounter Note(s) Provider Source Jul 20, 2023 07:40 AM ADDENDUM: LOCAL TITLE: Addendum STANDARD TITLE: ADDENDUM DATE OF NOTE: JUL 20, 2023@07:40:27 ENTRY DATE: JUL 20, 2023@07:40:28 AUTHOR: DEREK CABALLERO EXP COSIGNER: URGENCY: STATUS: COMPLETED Please inform : there are new pre-requisits for [facility] chiropractor such as whole health, accupuncture, music therapy etc. These have to be completed and I would have to know dates when completed. /hina/ DEREK CABALLERO Physician Signed: 07/20/2023 07:41 Receipt Acknowledged By: 07/25/2023 09:02 /hina/ KARINA CHENEY RN for KAMRAN POWERS --- Original Document --- 07/20/23 PRIMARY CARE SECURE MESSAGING: ------Original Message ----- Sent: 07/19/2023 06:23 PM ET From: JADE GTZ [facility] [place] Subject: Appointment:renew my referral My referral for the [facility] chiropractor is running out 07/26. Can i get another referral? Can i just call [facility] for it? They have helped my neck and back pain without drugs. ------Original Message ----- Sent: 07/20/2023 07:37 AM ET From: GIOVANNI JORGE To: JADE GTZ V Subject: Appointment:renew my referral I WILL FORWARD THIS MESSAGE TO DR. CABALLERO. /hina/ GIOVANNI JORGE LPN Signed: 07/20/2023 07:37 Receipt Acknowledged By: 07/20/2023 07:40 /hina/ DEREK CABALLERO Physician 07/25/2023 ADDENDUM STATUS: COMPLETED MD response sent to pt via . See 07/25 note. /hina/ KARINA CHENEY RN Signed: 07/25/2023 09:03 DEREK CABALLERO [facility] [place] [facility] Jul 20, 2023 06:37 AM PRIMARY CARE SECUR E MESSAGING: LOCAL TITLE: PRIMARY CARE SECURE MESSAGING STANDARD TITLE: PRIMARY CARE SECURE MESSAGING DATE OF NOTE: JUL 20, 2023@06:37 ENTRY DATE: JUL 20, 2023@07:37:14 AUTHOR: GIOVANNI JORGE EXP COSIGNER: URGENCY: STATUS: COMPLETED PRIMARY CARE SECURE MESSAGING Has ADDENDA ------Original Message ----- Sent: 07/19/2023 06:23 PM ET From: JADE GTZ V To: [facility] [address] Subject: Appointment:renew my referral My referral for the [facility] chiropractor is running out 07/26. Can i get another referral? Can i just call [facility] for it? They have helped my neck and back pain without drugs. ------Original Message ----- Sent: 07/20/2023 07:37 AM ET From: GIOVANNI JORGE To: JADE GTZ V Subject: Appointment:renew my referral I WILL FORWARD THIS MESSAGE TO DR. CABALLERO. /hina/ GIOVANNI JORGE OFFICE ASST Signed: 07/20/2023 07:37 Receipt Acknowledged By: 07/20/2023 07:40 /hina/ DEREK CABALLERO Physician 07/20/2023 ADDENDUM STATUS: COMPLETED Please inform : there are new pre-requisits for chiropractor such as whole health, accupuncture, music therapy etc. These have to be completed and I would have to know dates when completed. /hina/ DEREK CABALLERO Physician Signed: 07/20/2023 07:41 Receipt Acknowledged By: 07/25/2023 09:02 /hina/ KARINA CHENEY RN for KAMRAN POWERS 07/25/2023 ADDENDUM STATUS: COMPLETED MD response sent to pt via . See 07/25 note. /hudson CHENEY RN Signed: 07/25/2023 09:03 GIOVANNI JORGE [facility] [place] [facility]
--- OUTSIDE RECORDS SUMMARY | 2024-04-30 08:30 | XMS_ITS | Encounter Summary ---
Author Name [facility] [place] Organization [facility] Address [address] [place] [address] Care Team Providers Care Steam Trap Worker Name Role Phone TYRONESTEPHA Primary Care Provider [...] PART A Jan 09, 2012 PART A [id number] 54A JADE MAGDALENO PATIENT Selected Encounter This section includes the information on record at [place] for the Encounter. Date/Time Encounter Type Encounter Description Reason Provider Source Jun 06, 2023 01:19 PM HC PRO PHONE CALL 11-20 MIN TELEPHONE/SURGERY ICD-10-CM M79.676 Pain in unspecified toe(s) NINA BARAJAS IHJaziel Encounter Template Text not used by [place] Assessments - Encounter Diagnoses This section includes the primary and secondary diagnoses documented for the Encounter. Date/Time Primary/Secondary Diagnosis Diagnosis Name Provider Source Jun 06, 2023 01:19 PM PRIMARY Pain in unspecified toe(s) NINA BARAJAS SGT E[facility]I. [facility] Plan of Treatment: Future Appointments (+ 6 months) and Future Tests (+/- 45 days) The Plan of Treatment section includes future care activities for the patient from all [place] [facility]. This section includes future appointments and future [...] 01:30 PM AMBULATORY - NONE SGT E[facility]. [facility] Aug 08, 2023 12:45 PM AMBULATORY - NONE SGT E[facility]. [facility] Aug 08, 2023 02:00 PM AMBULATORY - NONE SGT [facility]. [facility] Aug 10, 2023 02:00 PM AMBULATORY - SURGERY SGT E .I. [facility] Aug 12, 2023 11:45 AM AMBULATORY - NONE SGT [facility]. [facility] Aug 16, 2023 03:00 PM AMBULATORY - NONE N. ANNIKA DA/S. [facility] Aug 22, 2023 03:00 PM AMBULATORY - NONE SGT E[facility]. [facility] Sep 05, 2023 02:00 PM AMBULATORY - NONE SGT [facility] Sep 07, 2023 09:00 AM AMBULATORY - MEDICINE SGT [facility] Oct 04, 2023 02:15 PM AMBULATORY - MEDICINE SGT [facility] Nov 21, 2023 01:00 PM AMBULATORY - NONE SGT [facility]. [facility] Social History: Smoking Status (Most current) [...] place. Date/Time Current Smoking Status Patricia patel Jan 26, 2022 11:30 AM VA-TOBACCO FORMER USER SGT E.[facility]. [facility] Tobacco Use History This section includes a history of the smoking, or tobacco-related health factors, that were collected on or before the date of the Encounter. The data comes from the [place] facility where the Encounter took place. Date/Time Smoking Status/Tobacco Use Comment F acility Jan 26, 2022 11:30 AM VA-TOBACCO QUIT 5 TO < 15 YRS [facility] February 18, 2021 09:00 AM VA-TOBACCO FORMER USER [facility] February 18, 2021 09:00 AM VA-TOBACCO QUIT 5 TO < 15 YRS [facility] Jan 02, 2020 03:58 PM VA-TOBACCO FORMER USER [facility] Jan 02, 2020 03:58 PM VA-TOBACCO QUIT 5 TO < 15 YRS [facility] Aug 14, 2019 10:32 AM TOBACCO PACK YEARS SGT E.[facility]. [facility] Aug 14, 2019 10:32 AM TOBACCO PACK YEARS >29 CC [facility] Jan 17, 2018 02:29 PM VA-TOBACCO FORMER USER [facility] Jan 17, 2018 02:29 PM VA-TOBACCO QUIT 5 TO < 15 YRS [facility] Jan 17, 2018 01:07 PM TOBACCO PACK YEARS [facility] Jan 17, 2018 01:07 PM TOBACCO PACK YEARS >29 50 [facility] Sep 26, 2017 12:56 PM LIFETIME NON-TOBACCO USER [facility] Jan 18, 2017 12:27 PM TOBACCO PACK YEARS [facility] Jan 18, 2017 12:27 PM TOBACCO PACK YEARS >29 50 [facility] Jan 06, 2016 12:16 PM TOBACCO PACK YEARS [facility] Jan 06, 2016 12:16 PM TOBACCO PACK YEARS >29 50 [facility] Apr 09, 2015 08:52 AM TOBACCO PACK YEARS SGT E.[facility]. [facility] Apr 09, 2015 08:52 AM TOBACCO PACK YEARS >29 50 [facility] Dec 26, 2014 12:12 PM TOBACCO PACK YEARS [facility] Dec 26, 2014 12:12 PM TOBACCO PACK YEARS >29 50 YEARS ON AND OFF [facility] [place] [facility] Sep 16, 2014 09:00 AM TOBACCO PACK YEARS [facility] [place] [facility] Sep 16, 2014 09:00 AM TOBACCO PACK YEARS >29 s [facility] [place] [facility] Jun 25, 2014 01:57 PM TOBACCO PACK YEARS [facility] Jun 25, 2014 01:57 PM TOBACCO PACK YEARS <30 50 [facility] Dec 06, 2013 10:06 AM TOBACCO PACK YEARS [facility] Dec 06, 2013 10:06 AM TOBACCO PACK YEARS >29 50 [facility] Jan 22, 2013 01:07 PM CURRENT TOBACCO USE [facility] Jan 22, 2013 01:07 PM TOBACCO CESSATION OFFERED [facility] Jan 22, 2013 01:07 PM TOBACCO MEDS OFFERED [facility] Nov 08, 2012 09:21 AM CURRENT TOBACCO USE [facility] Nov 08, 2012 09:21 AM TOBACCO CESSATION OFFERED [facility] Nov 08, 2012 09:21 AM TOBACCO MEDS OFFERED [facility] Oct 28, 2011 08:17 AM CURRENT TOBACCO USE [facility] Oct 28, 2011 08:17 AM TOBACCO CESSATION OFFERED [facility] Oct 28, 2011 08:17 AM TOBACCO MEDS OFFERED [facility] [place] [facility] Aug 04, 2011 01:10 PM CURRENT TOBACCO USE [facility] Aug 04, 2011 01:10 PM TOBACCO CESSATION OFFERED [facility] Aug 04, 2011 01:10 PM TOBACCO MEDS OFFERED [facility] Apr 28, 2011 08:00 AM CURRENT TOBACCO USE [facility] Apr 28, 2011 08:00 AM TOBACCO CESSATION OFFERED [facility] Apr 28, 2011 08:00 AM TOBACCO MEDS OFFERED [facility] March 05, 2011 02:27 PM CURRENT TOBACCO USE [facility] March 05, 2011 02:27 PM TOBACCO CESSATION OFFERED [facility] [facility] March 05, 2011 02:27 PM TOBACCO MEDS OFFERED [facility] [facility] Dec 22, 2010 01:11 PM CURRENT TOBACCO USE [facility] [place] [facility] Dec 22, 2010 01:11 PM TOBACCO CESSATION OFFERED [facility] Dec 22, 2010 01:11 PM TOBACCO MEDS OFFERED SGT E.ISiobhan [facility] Oct 28, 2010 12:57 PM CURRENT TOBACCO USE SGT E.ISiobhan [facility] Oct 28, 2010 12:57 PM TOBACCO CESSATION OFFERED SGT E.ISiobhan [facility] Oct 28, 2010 12:57 PM TOBACCO MEDS OFFERED [facility] Oct 21, 2009 08:22 AM CURRENT TOBACCO USE SGT E.ISiobhan [facility] Oct 21, 2009 08:22 AM TOBACCO CESSATION OFFERED SGT E.ISiobhan [facility] Oct 21, 2009 08:22 AM TOBACCO MEDS OFFERED SGT E.ISiobhan [facility] Sep 19, 2009 08:11 AM LIFETIME NON-TOBACCO USER [facility] Oct 22, 2008 12:58 PM TOBACCO NON USE GR EATER THAN 12 MONTHS SGT [facility] Sep 17, 2008 08:24 AM TOBACCO NON USE GR EATER THAN 12 MONTHS [facility] Dec 01, 2007 12:58 PM TOBACCO NON USE LE SS THAN 12 MONTHS [facility] Aug 16, 2007 01:17 PM TOBACCO CESSATION OFFERED SGT E.Orquidea [facility] [place] [facility] Aug 16, 2007 01:17 PM TOBACCO MEDS OFFERED [facility] Aug 16, 2007 01:17 PM TOBACCO NON USE LE SS THAN 12 MONTHS SGT E.ISiobhan [facility] Jun 23, 2007 10:31 AM TOBACCO NON USE LE SS THAN 12 MONTHS [facility] Dec 14, 2006 10:24 AM CURRENT TOBACCO USE [facility] [facility] March 01, 2006 11:10 AM CURRENT TOBACCO USE SGT E.ISiobhan [facility] Advance Directives: All historical and [...] NOTIFICATION AND SCREENING JORGE,GIOVANNI SGT E.ISiobhan [facility] Nov 10, 2022 ADVANCE DIRECTIVE NOTIFICATION AND SCREENING JORGE,GIOVANNI SGT E.ISiobhan [facility] Mar 17, 2020 ADVANCE DIRECTIVE DISCUSSION JORGE,GIOVANNI SGT E.ISiobhan [facility] May 23, 2019 ADVANCE DIRECTIVE DISCUSSION MADHURI WILSON Areli SGT E.I. [facility] Aug 23, 2016 ADVANCE DIRECTIVE DISCUSSION LUCYSHANKAR TURNER Areli SGT E.I. [facility] Jan 06, 2016 ADVANCE DIRECTIVE DISCUSSION KATIE BAILEY SGT E.[facility]. [facility] Jan 27, 2011 ADVANCE DIRECTIVE ANDREI ACE SGT E.ISiobhan [facility] Encounter Notes: All associated encounter notes This section contains the clinical notes associated to the Encounter. Date/Time Encounter Note(s) Provider Source Jun 06, 2023 01:19 PM NURSING TELEPHONE ENCOUNTER NOTE: LOCAL TITLE: NURSE TELEPHONE NOTE (T) STANDARD TITLE: NURSING TELEPHONE ENCOUNTER NOTE DATE OF NOTE: JUN 06, 2023@13:19 ENTRY DATE: JUN 06, 2023@13:19:14 AUTHOR: NINA BARAJAS EXP COSIGNER: URGENCY: STATUS: COMPLETED Patient Identifiers: Full name, Full Social Security # Reason for call: Pt called to report that he was canceling his appt for today due to preparation for the [place] but still reports that he is having pain to andres great toes. Evaluation/Assessment: RN called pt to discuss his sympts. pt reports that both his great toes are painful reports it is due to fungus. Pt denies, drainage, or swelling reports a little redness. Pt's rescheduled appt is . Plan: RN gave pt homecare advice for Soaking Nails, pt also advised to take OTC analgesic as directed for pain. Pt instructed that if his toes become worse or pain is not controlled he may go to the [facility] for further evaluation and treatment as necessary. Pt verbalized understanding of all instructions. (ENTER IT APPLICATIONS DEVELOPER ORDERS) Follow-up: Other HCP (11-20 minutes) /hina/ NINA BARAJAS RN Signed: 06/06/2023 13:29 NINA BARAJAS [facility]
--- OUTSIDE RECORDS SUMMARY | 2024-04-30 08:30 | XMS_ITS | Encounter Summary ---
Author Name [facility] [place] Address [address] [place] [address] Care Team Providers Care Certified Medical Coding Specialist Name Role Phone TYRONEJESENIA Primary Care Provider [...] PART A Jan 09, 2012 PART A [id number] JADE MAGDALENO PATIENT Selected Encounter This section includes the information on record at [place] for the Encounter. Date/Time Encounter Type Encounter Description Reason Provider Source Jul 21, 2023 01:30 PM IMMUNIZATION ADMIN PRIMARY CARE/MEDICINE ICD-10-CM Z23 Encounter for immunization PILAR CLAUDIO JR IHJaziel Encounter Template Text not used by [facility] Assessments - Encounter Diagnoses This section includes the primary and secondary diagnoses documented for the Encounter. Date/Time Primary/Secondary Diagnosis Diagnosis Name Provider Source Jul 21, 2023 01:32 PM PRIMARY Encounter for immunization KYUNG CLAUDIO JR, [facility] [place] [facility] Plan of Treatment: Future Appointments (+ 6 months) and Future Tests (+/- 45 days) The Plan of Treatment section includes future care activities for the patient from all [place] treatmentfacilities. This section includes future appointments and future orders which are active, pending or scheduled. Future Appointments This section includes appointments that were scheduled to occur 6 months from the date of the Encounter, up to a maximum of 20 appointments. The data comes from all [place] treatment facilities. Appointment Date/Time Appointment Type Appointme nt Facility Name Aug 08, 2023 12:45 PM AMBULATORY - NONE [facility] Aug 08, 2023 02:00 PM AMBULATORY - NONE [facility] Aug 10, 2023 02:00 PM AMBULATORY - SURGERY [facility]GT [facility] Aug 12, 2023 11:45 AM AMBULATORY - NONE [facility] Aug 16, 2023 03:00 PM AMBULATORY - NONE N. ANNIKA DA/SSiobhan [facility] Aug 22, 2023 03:00 PM AMBULATORY - NONE [facility] Sep 05, 2023 02:00 PM AMBULATORY - NONE [facility] Sep 07, 2023 09:00 AM AMBULATORY - MEDICINE [facility]GT [facility] Oct 04, 2023 02:15 PM AMBULATORY - MEDICINE [facility]GT [facility] Nov 21, 2023 01:00 PM AMBULATORY - NONE [facility] Lab Results: +/- 30 days of the encounter This section includes the Chemistry and Hematology Lab Results on record with [place] for the patient. Radiology Reports and Pathology Reports are provided separately, in subsequent sections. Lab Results This section contains the Chemistry/Hematology Results that were resulted 30 days before or 30 daysafter the date of the Encounter. Date/Time Source Result Type Result - Unit Interpretation Reference Range Comment Aug 08, 2023 12:36 PM [facility] TSH-G,LC,J,T Specimen Type: PLASMA Comment: [...] 03:06 PM Reporting Lab: [facility] [address] [facility] [address] Performing Lab: [facility] [address] [facility] [address] TSH-G,LC,J,T 1.450 u[IU]/mL 0.27-4.2 Aug 08, 2023 12:36 PM [facility] HEMOGLOBIN %A1C PROFILE Specimen Type: [...] 03:06 PM Reporting Lab: [facility] [address] [facility] [address] Performing Lab: [facility] [address] [place] [id number] HEMOGLOBIN %A1C 5.5 Aug 08, 2023 12:36 PM [facility] LIPID PANEL Specimen Type: PLASMA [...] 03:06 PM Reporting Lab: [facility] [address] [facility] [address] Performing Lab: T [facility] [address] [facility] [address] CHOLESTEROL 203 mg/dL H 0-199 TRIGLYCERIDE 171 mg/dL H 0-149 LDL CHOLESTEROL 114 mg/dL <129 HDL CHOLESTEROL 55 mg/dL >40 DIRECT LDL canc mg/dL <129 Aug 08, 2023 12:36 PM [facility] URINALYSIS Specimen Type: URINE No comment entered. Ordering Provider: RACQUEL CABALLREO V Report Released Date/Time: Nov 10, 2022 03:06 PM Reporting Lab: [facility] [address] [facility] [address] Performing Lab: [facility] [address] [facility] [address] URINE COLOR Light-Yellow SPECIFIC GRAVITY 1.026 1.003-1.030 URINE BILIRUBIN Negative mg/dL NEGATIVE URINE KETONES Negative mg/dL NEGATIVE URINE GLUCOSE Negative mg/dL NEGATIVE URINE PROTEIN Negative mg/dL NEGATIVE URINE PH 5.0 [pH] 5.0-9.0 URINE BLOOD Tr mg/dL NEGATIVE URINE NITRITE Negative NEGATIVE LEUKOCYTE ESTERASE, URINE Negative NEGATIVE CLARITY Clear CLEAR UROBILINOGEN(mg /dL) <2.0 mg/dL L 0.0-1.99 Aug 08, 2023 12:36 PM [facility] COMPREHENSIVE METABOLIC PANEL Specimen Type: PLASMA Comment: [...] 03:06 PM Reporting Lab: [facility] DontaBlasSiobhan [place] [address] Performing Lab: [facility] DontaBlasSiohban [place] [address] UREA NITROGEN 22 mg/dL H 9-20 SODIUM [...] 89 mL/min Aug 08, 2023 12:36 PM [facility] CBC (DIFF&PLT) Specimen Type: BLOOD No comment entered. Ordering Provider: RACQUEL CABALLERO V Report Released Date/Time: Nov 10, 2022 03:06 PM Reporting Lab: Eli[facility] LongoBlasSiobhan [place] [address] Performing Lab: [facility] DontaBlasSiobhan [address] WBC 5.08 10*3/uL 4.6-10.8 RBC 4.84 [...] 0.00 10*3/uL 0.00-0.2 IMMATURE GRAN.% 0.0 0.00-2.00 Immunizations: All administered on the encounter date This section contains immunizations associated to the Encounter. Immunization Series Date Issued Reaction Comments COVID-19 (MODERNA), MRNA, LN P-S, PF, 50 MCG/0.5 ML (AGES 12+ YEARS) Jul 21, 2023 Social History: Smoking Status (Most current) and Tobacco Use (All prior to encounter date) This section includes the most current, and the historical, smoking and tobacco- related health factors from the [place] facility where the Encounter took place. Current Smoking Status This section includes the most current smoking, or tobacco-related health factor, from the [place] facility where the Encounter took place. Date/Time Current Smoking Status Comment Marivel patel Jan 26, 2022 11:30 AM VA-TOBACCO FORMER USER [facility] Tobacco Use History This section includes a history of the smoking, or tobacco-related health factors, that were collected on or before the date of the Encounter. The data comes from the [place] facility where the Encounter took place. Date/Time Smoking Status/Tobacco Use Comment Tanesha travis Jan 26, 2022 11:30 AM VA-TOBACCO QUIT 5 TO < 15 YRS [facility] February 18, 2021 09:00 AM VA-TOBACCO FORMER USER [facility] February 18, 2021 09:00 AM VA-TOBACCO QUIT 5 TO < 15 YRS [facility] Jan 02, 2020 03:58 PM VA-TOBACCO FORMER USER [facility] Jan 02, 2020 03:58 PM VA-TOBACCO QUIT 5 TO < 15 YRS [facility] Aug 14, 2019 10:32 AM TOBACCO PACK YEARS [facility] Aug 14, 2019 10:32 AM TOBACCO PACK YEARS >29 CC [facility] Jan 17, 2018 02:29 PM VA-TOBACCO FORMER USER [facility] Jan 17, 2018 02:29 PM VA-TOBACCO QUIT 5 TO < 15 YRS [facility] Jan 17, 2018 01:07 PM TOBACCO PACK YEARS [facility] Jan 17, 2018 01:07 PM TOBACCO PACK YEARS >29 50 [facility] Sep 26, 2017 12:56 PM LIFETIME NON-TOBACCO USER [facility] Jan 18, 2017 12:27 PM TOBACCO PACK YEARS [facility] Jan 18, 2017 12:27 PM TOBACCO PACK YEARS >29 50 [facility] Jan 06, 2016 12:16 PM TOBACCO PACK YEARS [facility] Jan 06, 2016 12:16 PM TOBACCO PACK YEARS >29 50 [facility] Apr 09, 2015 08:52 AM TOBACCO PACK YEARS [facility] Apr 09, 2015 08:52 AM TOBACCO PACK YEARS >29 50 [facility] Dec 26, 2014 12:12 PM TOBACCO PACK YEARS [facility] Dec 26, 2014 12:12 PM TOBACCO PACK YEARS >29 50 YEARS ON AND OFF [facility] Sep 16, 2014 09:00 AM TOBACCO PACK YEARS [facility] Sep 16, 2014 09:00 AM TOBACCO PACK YEARS >29 s [facility] Jun 25, 2014 01:57 PM TOBACCO PACK YEARS [facility] Jun 25, 2014 01:57 PM TOBACCO PACK YEARS <30 50 [facility] Dec 06, 2013 10:06 AM TOBACCO PACK YEARS [facility] Dec 06, 2013 10:06 AM TOBACCO PACK YEARS >29 50 [facility] Jan 22, 2013 01:07 PM CURRENT TOBACCO USE [facility] Jan 22, 2013 01:07 PM TOBACCO CESSATION OFFERED [facility] Jan 22, 2013 01:07 PM TOBACCO MEDS OFFERED [facility] Nov 08, 2012 09:21 AM CURRENT TOBACCO USE [facility] Nov 08, 2012 09:21 AM TOBACCO CESSATION OFFERED [facility] Nov 08, 2012 09:21 AM TOBACCO MEDS OFFERED [facility] Oct 28, 2011 08:17 AM CURRENT TOBACCO USE [facility] Oct 28, 2011 08:17 AM TOBACCO CESSATION OFFERED [facility] Oct 28, 2011 08:17 AM TOBACCO MEDS OFFERED [facility] Aug 04, 2011 01:10 PM CURRENT TOBACCO USE [facility] Aug 04, 2011 01:10 PM TOBACCO CESSATION OFFERED [facility] Aug 04, 2011 01:10 PM TOBACCO MEDS OFFERED [facility] Apr 28, 2011 08:00 AM CURRENT TOBACCO USE [facility] Apr 28, 2011 08:00 AM TOBACCO CESSATION OFFERED SGT [facility] Apr 28, 2011 08:00 AM TOBACCO MEDS OFFERED [facility] March 05, 2011 02:27 PM CURRENT TOBACCO USE [facility] March 05, 2011 02:27 PM TOBACCO CESSATION OFFERED [facility] March 05, 2011 02:27 PM TOBACCO MEDS OFFERED [facility] Dec 22, 2010 01:11 PM CURRENT TOBACCO USE [facility] Dec 22, 2010 01:11 PM TOBACCO CESSATION OFFERED [facility] Dec 22, 2010 01:11 PM TOBACCO MEDS OFFERED SGT E.ISiobhan [facility] Oct 28, 2010 12:57 PM CURRENT TOBACCO USE [facility] Oct 28, 2010 12:57 PM TOBACCO CESSATION OFFERED SGT [facility] Oct 28, 2010 12:57 PM TOBACCO MEDS OFFERED [facility] [place] [facility] Oct 21, 2009 08:22 AM CURRENT TOBACCO USE [facility] Oct 21, 2009 08:22 AM TOBACCO CESSATION OFFERED [facility] Oct 21, 2009 08:22 AM TOBACCO MEDS OFFERED [facility]GT [facility] Sep 19, 2009 08:11 AM LIFETIME NON-TOBACCO USER [facility]GT [facility] Oct 22, 2008 12:58 PM TOBACCO NON USE GR EATER THAN 12 MONTHS SGT [facility] Sep 17, 2008 08:24 AM TOBACCO NON USE GR EATER THAN 12 MONTHS [facility] Dec 01, 2007 12:58 PM TOBACCO NON USE LE SS THAN 12 MONTHS [facility] Aug 16, 2007 01:17 PM TOBACCO CESSATION OFFERED [facility]GT [facility] Aug 16, 2007 01:17 PM TOBACCO MEDS OFFERED [facility] Aug 16, 2007 01:17 PM TOBACCO NON USE LE SS THAN 12 MONTHS SGT [facility] Jun 23, 2007 10:31 AM TOBACCO NON USE LE SS THAN 12 MONTHS [facility]GT [facility] [place] [facility] Dec 14, 2006 10:24 AM CURRENT TOBACCO USE SGT [facility] March 01, 2006 11:10 AM CURRENT TOBACCO USE [facility] Advance Directives: All historical and current Section Date Range: From patient's date of to the date document was created. This section includes ALL of a patient's completed or amended [place] Advance and Rescinded Directives. The entries below indicate that a directive exists for the patient, but an actual copy is not included with this document. The data comes from all [place] facilities. Date Advance Directives Provider Source Aug 08, 2023 ADVANCE DIRECTIVE NOTIFICATION AND SCREENING JORGEGIOVANNI [facility] Nov 10, 2022 ADVANCE DIRECTIVE NOTIFICATION AND SCREENING JORGE,GIOVANNI SGElijah ESiobhanISiobhan [facility] Mar 17, 2020 ADVANCE DIRECTIVE DISCUSSION GIOVANNI JORGE [facility] May 23, 2019 ADVANCE DIRECTIVE DISCUSSION MADHURI WILSON [facility] Aug 23, 2016 ADVANCE DIRECTIVE DISCUSSION SHANKAR AYALA [facility] Jan 06, 2016 ADVANCE DIRECTIVE DISCUSSION KATIE BAILEY [facility] Jan 27, 2011 ADVANCE DIRECTIVE JOSEANDREI ESPINOZABETH [facility]GT [facility] Radiology Reports: +/- 30 days of the [...] the Encounter. The data comes from all [place] treatment facilities. Date/Time Radiology Report Provider Source Aug 12, 2023 12:19 PM LDCT LUNG CANCER S CREENING: JADE GTZ V [id number] M Exm Date: AUG 12, 2023@12:19 Req Phys: SHERLYN POSADAS Loc: [facility] HISTORICAL (Req'g Loc) Img Loc: T-CT SCAN Service: Unknown (Case [id number] COMPLETE) LDCT LUNG CANCER SCREENING (CT Detailed) CPT:39483 Reason for Study: Abnormal LDCT follow-up Clinical History: Report Status: Verified Date Reported: AUG 12, 2023 Date Verified: AUG 12, 2023 Brake Operator Helper E-Sig:/ES/SARAH ASHLEY MD Report: EXAM: LDCT LUNG CANCER SCREENING ADDITIONAL HISTORY: Annual Screening COMPARISON: 08/09/2022 PROTOCOL: Screening protocol, low dose, non-contrast CT chest was performed in accordance with Lung-Rads v1.1. Additional coronal and sagittal reconstructions. MIP reconstructions were reviewed. Computer assisted detection (CAD) postprocessing of the lung windows done by [employer] software. DOSE PARAMETERS: Up-to-date CT equipment and radiation dose reduction techniques were employed. CTDIvol: 2.8 mGy. DLP: 94 mGy-cm. TECH NOTE: [place]'s name: Angela Protocol: LDCT Exam Additional notes: [...] Interpreting Staff: SARAH ASHLEY MD, Staff Physician (Brake Operator Helper) /SARAH MARCH [facility] Encounter Notes: All associated encounter notes This section contains the clinical notes associated to the Encounter. Date/Time Encounter Note(s) Provider Source Jul 21, 2023 01:31 PM NURSING IMMUNIZATI ON NOTE: LOCAL TITLE: [facility] COVID-19 VACCINE ADMINISTRATION STANDARD TITLE: NURSING IMMUNIZATION NOTE DATE OF NOTE: JUL 21, 2023@13:31 ENTRY DATE: JUL 21, 2023@13:32:03 AUTHOR: CAROLINE CLAUDIO EXP COSIGNER: URGENCY: STATUS: COMPLETED Moderna Monovalent (Spikevax) Vaccine information reviewed with the patient.The patient denied any prior severe reaction to this vaccine or its components or a severe allergic reaction such as anaphylaxis to any vaccine or to any injectable therapy.The patient gave verbal consent to receive vaccine. Administered: COVID-19 (MODERNA), MRNA, LNP-S, PF, 50 MCG/0.5 ML (AGES 12+ YEARS) Date Administered: Jul 21, 2023 13:30 Series: (None selected) Manager Hospitality: [employer]. Lot: [id number] Exp Date: Jan 25, [address] [facility]: [phone] Admin Route/Site: INTRAMUSCULAR/RIGHT DELTOID Dosage: 0.5mL Order By: Policy Administered By: Caroline Claudio Jr Vaccine administered without complications. The patient was advisedto remain in the facility for 15 minutes post vaccination. /es/ O PRADIP CLAUIDO JR Signed: 07/21/2023 13:33 CAROLINE CLAUDIO JR [facility] [place] [facility]
--- OUTSIDE RECORDS SUMMARY | 2024-04-30 08:31 | XMS_ITS | Encounter Summary ---
Author Name [facility] [facility] [place] Organization [facility] [place] Address [address] [facility], [place] [address] Care Team Providers Care Roller Helper Name Role Phone TYRONESTEPHA Primary Care Provider [...] PART A Jan 09, 2012 PART A [id number] 54A JADE MAGDALENO PATIENT Selected Encounter This section includes the information on record at [place] for the Encounter. Date/Time Encounter Type Encounter Description Reason Provider Source Jul 25, 2023 10:41 AM Outpatient Encounter PRIMARY CARE/MEDICINE KARINA ALBRECHT Encounter Template Text not used by VA [...] 12:45 PM AMBULATORY - NONE SGT E.I. [facility] Aug 08, 2023 02:00 PM AMBULATORY - NONE SGT E.I. [facility] Aug 10, 2023 02:00 PM AMBULATORY - SURGERY SGT E .I. [facility] Aug 12, 2023 11:45 AM AMBULATORY - NONE SGT E.I. [facility] Aug 16, 2023 03:00 PM AMBULATORY - NONE N. ANNIKA /Anastacio [facility] Aug 22, 2023 03:00 PM AMBULATORY - NONE SGT E.I. [facility] Sep 05, 2023 02:00 PM AMBULATORY - NONE SGT E.I. [facility] Sep 07, 2023 09:00 AM AMBULATORY - MEDICINE SGT E.I. [facility] Oct 04, 2023 02:15 PM AMBULATORY - MEDICINE SGT E.I. [facility] Nov 21, 2023 01:00 PM AMBULATORY - NONE SGT E[facility]I. [facility] Lab Results: +/- 30 days of the encounter This section includes the Chemistry and Hematology Lab Results on record with [place] for the patient. Radiology Reports and Pathology Reports are provided separately, in subsequent sections. Lab Results This section contains the Chemistry/Hematology Results that were resulted 30 days before or 30 daysafter the date of the Encounter. Date/Time Source Result Type Result - Unit Interpretation Reference Range Comment Aug 22, 2023 03:04 PM SGT E.I. [facility] TOTAL,VIT D Specimen Type: SERUM [...] 2023 09:16 AM Reporting Lab: [facility] [address] [facility] [address] Performing Lab: [facility]/[address] [address] TOTAL,VIT D 36.3 ng/mL See_Comment Aug 22, 2023 03:04 PM SGT E.I. [facility] MAGNESIUM Specimen Type: PLASMA No comment entered. Ordering Provider: DEREK PEÑA Report Released Date/Time: Aug 18, 2023 09:16 AM Reporting Lab: SGT E.I. [place] [facility] [address] [facility] [address] Performing Lab: SGT E.I. [place] [facility] [address] [facility] [address] MAGNESIUM 2.2 mg/dL 1.7-2.5 Aug 08, 2023 12:36 PM SGT E.I. [facility] TSH-G,ERIK,J,T Specimen Type: PLASMA Comment: eGFR calculated [...] 2022 03:06 PM Reporting Lab: [facility]. [facility] [address] [facility] [address] Performing Lab: SGT E.I. [place] [facility] [address] [facility] [address] TSH-G,ERIK,J,T 1.450 u[IU]/mL 0.27-4.2 Aug 08, 2023 12:36 PM SGT E.I. [facility] HEMOGLOBIN %A1C PROFILE Specimen Type: BLOOD Comment: [...] 03:06 PM Reporting Lab: [facility]. [facility] [place] [facility] [address] [place] [phone] Performing Lab: SGT E.I. [place] [facility] [address] HEMOGLOBIN %A1C 5.5 Aug 08, 2023 12:36 PM SGT [facility]I. [facility] URINALYSIS Specimen Type: URINE No comment entered. Ordering Provider: DEREK PEÑA Report Released Date/Time: Nov 10, 2022 03:06 PM Reporting Lab: SGT E.I. [facility] [address] [place] [phone] Performing Lab: SGT E.ISiobhan LÓPEZ [facility] [address] [facility] [address] URINE COLOR Light-Yellow SPECIFIC GRAVITY 1.026 1.003-1.030 URINE BILIRUBIN Negative mg/dL NEGATIVE URINE KETONES Negative mg/dL NEGATIVE URINE GLUCOSE Negative mg/dL NEGATIVE URINE PROTEIN Negative mg/dL NEGATIVE URINE PH 5.0 [pH] 5.0-9.0 URINE BLOOD Tr mg/dL NEGATIVE URINE NITRITE Negative NEGATIVE LEUKOCYTE ESTERASE, URINE Negative NEGATIVE CLARITY Clear CLEAR UROBILINOGEN(mg /dL) <2.0 mg/dL L 0.0-1.99 Aug 08, 2023 12:36 PM SGT E.ISiobhan MARIBEL [facility] LIPID PANEL Specimen Type: PLASMA Comment: [...] PM Reporting Lab: S[facility] E.I. [facility] [address] [facility] [address] Performing Lab: SGT Proctor MARIBEL [facility] [address] [place] [address] CHOLESTEROL 203 mg/dL H 0-199 TRIGLYCERIDE 171 mg/dL H 0-149 LDL CHOLESTEROL 114 mg/dL <129 HDL CHOLESTEROL 55 mg/dL >40 DIRECT LDL canc mg/dL <129 Aug 08, 2023 12:36 PM [facility] DontaOrquidea [facility] COMPREHENSIVE METABOLIC PANEL Specimen Type: PLASMA Comment: [...] 03:06 PM Reporting Lab: SGT Proctor MARIBEL [facility] [address] [facility] [address] Performing Lab: SGT LongoBlasSiobhan MARIBEL [address] [address] UREA NITROGEN 22 mg/dL H 9-20 SODIUM [...] 89 mL/min Aug 08, 2023 12:36 PM SGT E.ISiobhan MARIBEL [facility] CBC (DIFF&PLT) Specimen Type: BLOOD No comment entered. Ordering Provider: DEREK PEÑA Report Released Date/Time: Nov 10, 2022 03:06 PM Reporting Lab: SGT Hitesh [facility] [place] [facility] [address] [facility] [address] [facility] [address] Performing Lab: SGT E.Orquidea LÓPEZ [facility] [address] [facility] [address] WBC 5.08 10*3/uL 4.6-10.8 RBC 4.84 10*6/uL [...] 10:12 AM PRIOR TOBACCO USE CESSATION DATE [facility] Tobacco Use History This section [...] 01:13 PM PRIOR TOBACCO USE CESSATION DATE [facility] Jan 06, 2016 01:03 PM PRIOR TOBACCO USE CESSATION DATE [facility] Advance Directives: All historical and current Section Date Range: From patient's date of to the date document was created. This section includes ALL of a patient's completed or amended [place] Advance and Rescinded Directives. The entries below indicate that a directive exists for the patient, but an actual copy is not included with this document. The data comes from all [facility]. Date Advance Directives Provider Source Aug 08, 2023 ADVANCE DIRECTIVE NOTIFICATION AND SCREENING GIOVANNI JORGE SGElijah ESiobhanISiobhan LÓPEZ [facility] Nov 10, 2022 ADVANCE DIRECTIVE NOTIFICATION AND SCREENING GIOVANNI JORGE SGElijah E.ISiobhan LÓPEZ [facility] Mar 17, 2020 ADVANCE DIRECTIVE DISCUSSION GIOVANNI JORGE SGElijah E.ISiobhan L[facility]Z [facility] May 23, 2019 ADVANCE DIRECTIVE DISCUSSION MADHURI WILSON SGT E.ISiobhan LÓPEZ [facility] Aug 23, 2016 ADVANCE DIRECTIVE DISCUSSION SHANKAR AYALA SGT E.ISiobhan [facility] Jan 06, 2016 ADVANCE DIRECTIVE DISCUSSION KATIE BAILEY SGT E.I. [facility] Jan 27, 2011 ADVANCE DIRECTIVE ANDREI ACE SGT E.ISiobhan [facility] Radiology Reports: +/- 30 days of the [...] the Encounter. The data comes from all [place] treatment facilities. Date/Time Radiology Report Provider Source Aug 12, 2023 12:19 PM LDCT LUNG CANCER S CREENING: JADE GTZ V [id number] M Exm Date: AUG 12, 2023@12:19 Req Phys: SHERLYN POSADAS Loc: [facility] HISTORICAL (Req'g Loc) Img Loc: T-CT SCAN Service: Unknown (Case [id number] COMPLETE) LDCT LUNG CANCER SCREENING (CT Detailed) CPT:63966 Reason for Study: Abnormal LDCT follow-up Clinical History: Report Status: Verified Date Reported: AUG 12, 2023 Date Verified: AUG 12, 2023 Golf Ball Cover Treater E-Sig:/ES/SARAH ASHLEY MD Report: EXAM: LDCT LUNG CANCER SCREENING ADDITIONAL HISTORY: Annual Screening COMPARISON: 08/09/2022 PROTOCOL: Screening protocol, low dose, non-contrast CT chest was performed in accordance with Lung-Rads v1.1. Additional coronal and sagittal reconstructions. MIP reconstructions were reviewed. Computer assisted detection (CAD) postprocessing of the lung windows done by [employer] software. DOSE PARAMETERS: Up-to-date CT equipment and radiation dose reduction techniques were employed. CTDIvol: 2.8 mGy. DLP: 94 mGy-cm. TECH NOTE: Rose's name: Angela Protocol: LDCT Exam Additional notes: [...] Interpreting Staff: SARAH ASHLEY MD, Staff Physician (Golf Ball Cover Treater) /SARAH MARCH [facility] Encounter Notes: All associated encounter notes This section contains the clinical notes associated to the Encounter. Date/Time Encounter Note(s) Provider Source Jul 25, 2023 10:41 AM PRIMARY CARE anywayanyday MESSAGING: LOCAL TITLE: PRIMARY CARE SECURE MESSAGING STANDARD TITLE: PRIMARY CARE SECURE MESSAGING DATE OF NOTE: JUL 25, 2023@10:41 ENTRY DATE: JUL 25, 2023@11:41:07 AUTHOR: KARINA ALBRECHT EXP COSIGNER: URGENCY: STATUS: COMPLETED PRIMARY CARE SECURE MESSAGING Has ADDENDA ------Original Message --- Sent: 07/25/2023 10:02 AM ET From: JADE GTZ V To: [place] PACT 7 Casey Subject: General:confusion I program will not let me respond to the last message i received because it was not from my pact 7 it was sent from pact 11. because someone was filling for the Docs nurse. do not do that again to me! ------Original Message --- Sent: 07/25/2023 11:40 AM ET From: KARINA ALBRECHT To: JADE GTZ V Subject: General:confusion Mr Gtz, This is the information that I tried to send to you earlier: Mr Gtz, I am covering for Dr Peña's nurse today and he asked me to relay the following info to you regarding your request for Chiro referral: There are new pre-requisites for [facility] chiropractor such as PT, whole health, acupuncture, music therapy etc. These have to be completed and I would have to know dates when completed. You have to complete 2 other forms of treatment within the past 18 months for a new consult to be entered. There is also a limit to the number of Chiro visits that will be approved in a calendar year. Just let us know if you want referrals to PT, Whole Health, Acupuncture, etc and Dr Peña will enter those. Karina Albrecht RN /es/ KARINA ALBRECHT RN Signed: 07/25/2023 11:41 07/26/2023 ADDENDUM STATUS: COMPLETED Called pt to clarify info above. I was not sure if he recived the info or if he had any questions about it based on his response. Pt said that he did get the info but he is not going to go through 2 other means of therapy. He said he will jusy continue to see them and pay for it himself. Pt encouraged to call back if he changes his mind. /hina/ KARINA ALBERCHT RN Signed: 07/26/2023 09:01 07/26/2023 ADDENDUM STATUS: COMPLETED ------Original Message --- Sent: 07/25/2023 11:48 AM ET From: JADE GTZ V To: Yareli Peña Subject: General:confusion I got the message but could not reply to it. that is what i was telling you! /hina/ KARINA ALBRECHT RN Signed: 07/26/2023 10:03 08/09/2023 ADDENDUM STATUS: COMPLETED ------Original Message --- Sent: 08/08/2023 05:03 PM ET From: JADE GTZ V To: Yareli Peña Subject: General:confusion this information that i have go to other programs to get my chiropractor referral is WRONG. I received a letter today from [facility] saying my referral was approved and to call them to make appointment with Chiropractor. Who ever gave you this information should be told its was Wrong and caused me to pay out of pocket for my appointments lately.! Pass this on to the Doctor. Who by the way failed to even bring this up today during my appointment with him. ------Original Message --- Sent: 08/09/2023 11:45 AM ET From: KAMRAN LEBLANC To: JADE GTZ V Subject: General:confusion Mr. Gtz, I apologize for all the confusion , I was out for a few weeks and another nurse offered to help and answer my secure messages, guess it does make it very confusing. Please be aware that the chiropractic consult requirements change all the time. We now have a chiropractor here at the [facility] and he does referrals much differently than the [facility] Chiropractor that Dr. Peña was sending all referrals prior. The new Chiropractor is agreeable to extending sessions with chronic conditions whose function decreases and/or pain increases after a withdrawal of care. This is new and Dr. Peña might not even be aware of it. Glad to see you benefited, but sorry it appeared so disorganized . Doreen Leblanc RN /hina/ Doreen Leblanc RN Signed: 08/09/2023 11:46 KARINA ALBRECHT [facility]
--- OUTSIDE RECORDS SUMMARY | 2024-04-30 08:31 | XMS_ITS | Encounter Summary ---
Author Name [facility] [place] [facility] [place] Organization [place] Address [address] [facility], [place] [address] Care Team Providers Care Computer Forensics Analyst Name Role Phone TYRONESTEPHA Primary Care [...] PART A Jan 09, 2012 PART A [id number] 54A JADE MAGDALENO PATIENT Selected Encounter This section includes the information on record at [place] for the Encounter. Date/Time Encounter Type Encounter Description Reason Provider Source Jul 25, 2023 08:02 AM Outpatient Encounter PRIMARY CARE/MEDICINE KARINA ALBRECHT [...] 20 appointments. The data comes from all [place] treatment facilities. Appointment Date/Time Appointment Type Appointme nt Facility Name Aug 08, 2023 12:45 PM AMBULATORY - NONE SGT E.I. [facility]EL [facility] Aug 08, 2023 02:00 PM AMBULATORY - NONE SGT E.I. [facility] Aug 10, 2023 02:00 PM AMBULATORY - SURGERY SGT E .I. [facility] Aug 12, 2023 11:45 AM AMBULATORY - NONE SGT E.I. [facility] Aug 16, 2023 03:00 PM AMBULATORY - NONE N. ANNIKA /Anastacio [facility] Aug 22, 2023 03:00 PM AMBULATORY - NONE SGT E.I. [facility] Sep 05, 2023 02:00 PM AMBULATORY - NONE SGT E.I. [facility] Sep 07, 2023 09:00 AM AMBULATORY - MEDICINE SGT E.I. [facility] Oct 04, 2023 02:15 PM AMBULATORY - MEDICINE SGT E.I. [facility] Nov 21, 2023 01:00 PM AMBULATORY - NONE SGT E.I. [facility] Lab Results: +/- 30 days of the encounter This section includes the Chemistry and Hematology Lab Results on record with [place] for the patient. Radiology Reports and Pathology Reports are provided separately, in subsequent sections. Lab Results This section contains the Chemistry/Hematology Results that were resulted 30 days before or 30 daysafter the date of the Encounter. Date/Time Source Result Type Result - Unit Interpretation Reference Range Comment Aug 22, 2023 03:04 PM SGT E.I. [facility] TOTAL,VIT D Specimen Type: SERUM [...] 2023 09:16 AM Reporting Lab: [facility] [address] [facility] [address] Performing Lab: [facility]/[address] [address] TOTAL,VIT D 36.3 ng/mL See_Comment Aug 22, 2023 03:04 PM SGT E.I. [facility] MAGNESIUM Specimen Type: PLASMA No comment entered. Ordering Provider: DEREK PEÑA Report Released Date/Time: Aug 18, 2023 09:16 AM Reporting Lab: SGT E.I. [place] [facility] [address] [facility] [address] Performing Lab: SGT E.I. [facility] [facility] [address] [facility] [address] MAGNESIUM 2.2 mg/dL 1.7-2.5 Aug 08, 2023 12:36 PM SGT E.I. [facility] TSH-G,ERIK,J,T Specimen Type: PLASMA Comment: eGFR [...] 2022 03:06 PM Reporting Lab: SGT E.I. [facility] [address] [facility] [address] Performing Lab: SGT E.I. [facility] [address] [facility] [address] TSH-G,ERIK,J,T 1.450 u[IU]/mL 0.27-4.2 Aug 08, 2023 12:36 PM SGT E.I. [facility] HEMOGLOBIN %A1C PROFILE Specimen Type: BLOOD [...] 10, 2022 03:06 PM Reporting Lab: [facility] [place] [facility] [address] [place] [address] Performing Lab: Elijah LÓPEZ [facility] [address] [facility] [address] HEMOGLOBIN %A1C 5.5 Aug 08, 2023 12:36 PM T Hitesh [facility] LIPID PANEL Specimen Type: PLASMA Comment: [...] 03:06 PM Reporting Lab: SGT Hitesh LÓPEZ [facility] [address] [facility] [address] Performing Lab: SGT Hitesh [facility] [place] [facility] [address] [facility] [address] CHOLESTEROL 203 mg/dL H 0-199 TRIGLYCERIDE 171 mg/dL H 0-149 LDL CHOLESTEROL 114 mg/dL <129 HDL CHOLESTEROL 55 mg/dL >40 DIRECT LDL canc mg/dL <129 Aug 08, 2023 12:36 PM Eliajh LÓPEZ [facility] COMPREHENSIVE METABOLIC PANEL Specimen Type: PLASMA [...] Nov 10, 2022 03:06 PM Reporting Lab: [facility] JazielSiobhanBlasSiobhan MARIBEL [facility] [address] [place] [address] Performing Lab: [facility] Jaziel.BlasSiobhan [facility] [address] [place] [address] UREA NITROGEN 22 mg/dL H 9-20 SODIUM [...] 89 mL/min Aug 08, 2023 12:36 PM [facility] URINALYSIS Specimen Type: URINE No comment entered. Ordering Provider: DEREK PEÑA Report Released Date/Time: Nov 10, 2022 03:06 PM Reporting Lab: [facility] DontaBlasSiobhan [facility] [address] Performing Lab: [facility] Jaziel.BlasSiobhan [facility] [address] URINE COLOR Light-Yellow SPECIFIC GRAVITY 1.026 1.003-1.030 URINE BILIRUBIN Negative mg/dL NEGATIVE URINE KETONES Negative mg/dL NEGATIVE URINE GLUCOSE Negative mg/dL NEGATIVE URINE PROTEIN Negative mg/dL NEGATIVE URINE PH 5.0 [pH] 5.0-9.0 URINE BLOOD Tr mg/dL NEGATIVE URINE NITRITE Negative NEGATIVE LEUKOCYTE ESTERASE, URINE Negative NEGATIVE CLARITY Clear CLEAR UROBILINOGEN(mg /dL) <2.0 mg/dL L 0.0-1.99 Aug 08, 2023 12:36 PM SGT Hitesh LÓPEZ [facility] CBC (DIFF&PLT) Specimen Type: BLOOD No comment entered. Ordering Provider: DEREK PEÑA Report Released Date/Time: Nov 10, 2022 03:06 PM Reporting Lab: SGElijah L[facility]Z [facility] [place] [facility] [address] [facility] [address] [facility] [address] Performing Lab: SGT Hitesh [facility] [place] [facility] [address] [facility] [address] WBC 5.08 10*3/uL 4.6-10.8 RBC 4.84 10*6/uL [...] and tobacco- related health factors from the [place] facility where the Encounter took place. Current Smoking Status This section includes the most current smoking, or tobacco-related health factor, from the [place] facility where the Encounter took place. Date/Time Current Smoking Status Comment Marivel ity Aug 17, 2019 10:12 AM PRIOR TOBACCO USE CESSATION DATE [facility] Tobacco Use History This section includes a history of the smoking, or tobacco-related health factors, that were collected on or before the date of the Encounter. The data comes from the [place] facility where the Encounter took place. Date/Time Smoking Status/Tobacco Use Comment F acility Jan 17, 2018 01:30 PM PRIOR TOBACCO USE CESSATION DATE [facility] Jan 18, 2017 01:13 PM PRIOR TOBACCO USE CESSATION DATE [facility] Jan 06, 2016 01:03 PM PRIOR TOBACCO USE CESSATION DATE [facility] Advance Directives: All historical and current Section Date Range: From patient's date of to the date document was created. This section includes ALL of a patient's completed or amended [place] Advance and Rescinded Directives. The entries below indicate that a directive exists for the patient, but an actual copy is not included with this document. The data comes from all [facility]. Date Advance Directives Provider Source Aug 08, 2023 ADVANCE DIRECTIVE NOTIFICATION AND SCREENING GIOVANNI JORGE SGElijah ESiobhanISiobhan LÓPEZ [facility] Nov 10, 2022 ADVANCE DIRECTIVE NOTIFICATION AND SCREENING GIOVANNI JORGE SGElijah E.ISiobhan LÓPEZ [facility] Mar 17, 2020 ADVANCE DIRECTIVE DISCUSSION GIOVANNI JORGE SGElijah E.ISiobhan LÓPEZ [facility] May 23, 2019 ADVANCE DIRECTIVE DISCUSSION MADHURI WILSON SGT E.ISiobhan LÓPEZ [facility] Aug 23, 2016 ADVANCE DIRECTIVE DISCUSSION SHANKAR AYALA SGT E.ISiobhan LÓPEZ [facility] Jan 06, 2016 ADVANCE DIRECTIVE DISCUSSION KATIE BAILEY SGT E.I. [facility] Jan 27, 2011 ADVANCE DIRECTIVE ANDREI ACE SGT E.ISiobhan [facility] Radiology Reports: +/- 30 days of [...] the Encounter. The data comes from all [place] treatment facilities. Date/Time Radiology Report Provider Source Aug 12, 2023 12:19 PM LDCT LUNG CANCER S CREENING: JADE GTZ V [id number] -[id number] M Exm Date: AUG 12, 2023@12:19 Req Phys: SHERLYN POSADAS Loc: [facility] HISTORICAL (Req'g Loc) Img Loc: T-CT SCAN Service: Unknown (Case [id number] COMPLETE) LDCT LUNG CANCER SCREENING (CT Detailed) CPT:17416 Reason for Study: Abnormal LDCT follow-up Clinical History: Report Status: Verified Date Reported: AUG 12, 2023 Date Verified: AUG 12, 2023 Geometrician E-Sig:/ES/SARAH ASHLEY MD Report: EXAM: LDCT LUNG CANCER SCREENING ADDITIONAL HISTORY: Annual Screening COMPARISON: 08/09/2022 PROTOCOL: Screening protocol, low dose, non-contrast CT chest was performed in accordance with Lung-Rads v1.1. Additional coronal and sagittal reconstructions. MIP reconstructions were reviewed. Computer assisted detection (CAD) postprocessing of the lung windows done by Actions software. DOSE PARAMETERS: Up-to-date CT equipment and radiation dose reduction techniques were employed. CTDIvol: 2.8 mGy. DLP: 94 mGy-cm. TECH NOTE: [place]'s name: Angela Protocol: LDCT Exam Additional notes: [...] Interpreting Staff: SARAH ASHLEY MD, Staff Physician (Geometrician) /SARAH MARCH [facility] Encounter Notes: All associated encounter notes This section contains the clinical notes associated to the Encounter. Date/Time Encounter Note(s) Provider Source Jul 25, 2023 08:02 AM PRIMARY CARE [employer] MESSAGING: LOCAL TITLE: PRIMARY CARE SECURE MESSAGING STANDARD TITLE: PRIMARY CARE SECURE MESSAGING DATE OF NOTE: JUL 25, 2023@08:02 ENTRY DATE: JUL 25, 2023@09:02:03 AUTHOR: KARINA ALBRECHT EXP COSIGNER: URGENCY: STATUS: COMPLETED ------Original Message --- Sent: 07/25/2023 09:01 AM ET From: KARINA ALBRECHT To: JADE GTZ V Subject: General:General Inquiry Mr Gtz, I am covering for Dr [...] RN /es/ KARINA ALBRECHT RN Signed: 07/25/2023 09:02 KARINA ALBRECHT [facility]
--- OUTSIDE RECORDS SUMMARY | 2024-04-30 08:32 | XMS_ITS | Encounter Summary ---
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 Date/Time Encounter Type Encounter Description Reason Provider Source Jul 27, 2023 04:08 PM Outpatient Encounter COMMUNITY CARE CONSULT USHA CALDERÓN IHJaziel Encounter Template Text not used by [...] 20 appointments. The data comes from all [place] treatment facilities. Appointment Date/Time Appointment Type Appointme nt Facility Name Aug 08, 2023 12:45 PM AMBULATORY - NONE [facility] Aug 08, 2023 02:00 PM AMBULATORY - NONE [facility] Aug 10, 2023 02:00 PM AMBULATORY - SURGERY [facility] Aug 12, 2023 11:45 AM AMBULATORY - NONE [facility] Aug 16, 2023 03:00 PM AMBULATORY - NONE N. ANNIKA /Anastacio [facility] Aug 22, 2023 03:00 PM AMBULATORY - NONE [facility] Sep 05, 2023 02:00 PM AMBULATORY - NONE [facility] Sep 07, 2023 09:00 AM AMBULATORY - MEDICINE [facility] Oct 04, 2023 02:15 PM AMBULATORY - MEDICINE [facility] Nov 21, 2023 01:00 PM AMBULATORY - NONE [facility] Lab Results: +/- 30 days of the encounter This section includes the Chemistry and Hematology Lab Results on record with [place] for the patient. Radiology Reports and Pathology Reports are provided separately, in subsequent sections. Lab Results This section contains the Chemistry/Hematology Results that were resulted 30 days before or 30 daysafter the date of the Encounter. Date/Time Source Result Type Result - Unit Interpretation Reference Range Comment Aug 22, 2023 03:04 PM [facility] TOTAL,VIT D Specimen Type: SERUM Comment: TOTAL,VIT D interpretation of results: Vitamin D deficiency: < or = 20 ng/mL Vitamin D insuficiency: 21 - 29 ng/mL Preferred level: > or = 30 ng/mL Toxicity: > 100 ng/mL Test performed on Cheryl chemistry analyzer (573) Slightly lipemic Ordering Provider: DEREK CABALLERO Report Released Date/Time: Aug 18, 2023 09:16 AM Reporting Lab: [facility] [address] [facility] [address] Performing Lab: [place]/S. [address] [address] TOTAL,VIT D 36.3 ng/mL See_Comment Aug 22, 2023 03:04 PM [facility] MAGNESIUM Specimen Type: PLASMA No comment entered. Ordering Provider: DEREK CABLALERO Report Released Date/Time: Aug 18, 2023 09:16 AM Reporting Lab: [facility] [address] [facility] [address] Performing Lab: [facility] [address] [facility] [address] MAGNESIUM 2.2 mg/dL 1.7-2.5 Aug 08, 2023 12:36 PM [facility] TSH-G,ERIK,Areli,T Specimen Type: PLASMA Comment: eGFR calculated using [...] 03:06 PM Reporting Lab: [facility] [address] [facility] [address] Performing Lab: [facility] [address] [facility] [address] TSH-G,ERIK,J,T 1.450 u[IU]/mL 0.27-4.2 Aug 08, 2023 12:36 PM [facility] HEMOGLOBIN %A1C PROFILE Specimen Type: BLOOD [...] 10, 2022 03:06 PM Reporting Lab: [facility] [place] [facility] [address] [place] [phone] Performing Lab: [facility] Jaziel.[facility]quidea [facility] [address] [place] [address] HEMOGLOBIN %A1C 5.5 Aug 08, 2023 12:36 PM [facility] URINALYSIS Specimen Type: URINE No comment entered. Ordering Provider: DEREK CABALLERO Report Released Date/Time: Nov 10, 2022 03:06 PM Reporting Lab: [facility]iel[facility] [address] [place] [phone] Performing Lab: [facility]GT Jaziel.[facility] [address] [facility] [address] URINE COLOR Light-Yellow SPECIFIC GRAVITY 1.026 1.003-1.030 URINE BILIRUBIN Negative mg/dL NEGATIVE URINE KETONES Negative mg/dL NEGATIVE URINE GLUCOSE Negative mg/dL NEGATIVE URINE PROTEIN Negative mg/dL NEGATIVE URINE PH 5.0 [pH] 5.0-9.0 URINE BLOOD Tr mg/dL NEGATIVE URINE NITRITE Negative NEGATIVE LEUKOCYTE ESTERASE, URINE Negative NEGATIVE CLARITY Clear CLEAR UROBILINOGEN(mg /dL) <2.0 mg/dL L 0.0-1.99 Aug 08, 2023 12:36 PM [facility] Jaziel.[facility] COMPREHENSIVE METABOLIC PANEL Specimen Type: PLASMA Comment: [...] 2022 03:06 PM Reporting Lab: [facility] E.ISiobhan [facility] [address] [place] [phone] Performing Lab: [facility] DontaBlasSiobhan [facility] [address] [place] [phone] UREA NITROGEN 22 mg/dL H 9-20 SODIUM [...] 89 mL/min Aug 08, 2023 12:36 PM [facility] CBC (DIFF&PLT) Specimen Type: BLOOD No comment entered. Ordering Provider: DEREK CABALLERO Report Released Date/Time: Nov 10, 2022 03:06 PM Reporting Lab: SGT [place] [place] [address] Performing Lab: [facility] [place]as[place] [phone] WBC 5.08 10*3/uL 4.6-10.8 RBC 4.84 10*6/uL [...] 0.00 10*3/uL 0.00-0.2 IMMATURE GRAN.% 0.0 0.00-2.00 Aug 08, 2023 12:36 PM [facility] [place] [facility] LIPID PANEL Specimen Type: PLASMA Comment: [...] 2022 03:06 PM Reporting Lab: [facility] [place] [facility] [address] [facility] [address] Performing Lab: [facility] [place] [facility] [address] [facility] [address] CHOLESTEROL 203 mg/dL H 0-199 TRIGLYCERIDE 171 mg/dL H 0-149 LDL CHOLESTEROL 114 mg/dL <129 HDL CHOLESTEROL 55 mg/dL >40 DIRECT LDL canc mg/dL <129 Social History: Smoking Status (Most current) and Tobacco Use (All prior to encounter date) This section includes the most current, and the historical, smoking and tobacco- related health factors from the [place] facility where the Encounter took place. Current Smoking Status This section includes the most current smoking, or tobacco-related health factor, from the [place] facility where the Encounter took place. Date/Time Current Smoking Status Comment Marivel ity Aug 17, 2019 10:12 AM PRIOR TOBACCO USE CESSATION DATE [facility] Tobacco Use History This section includes a history of the smoking, or tobacco-related health factors, that were collected on or before the date of the Encounter. The data comes from the [place] facility where the Encounter took place. Date/Time Smoking Status/Tobacco Use Comment Tanesha acility Jan 17, 2018 01:30 PM PRIOR TOBACCO USE CESSATION DATE [facility] Jan 18, 2017 01:13 PM PRIOR TOBACCO USE CESSATION DATE [facility] Jan 06, 2016 01:03 PM PRIOR TOBACCO USE CESSATION DATE [facility] Advance Directives: All historical and current Section Date Range: From patient's date of to the date document was created. This section includes ALL of a patient's completed or amended [place] Advance and Rescinded Directives. The entries below indicate that a directive exists for the patient, but an actual copy is not included with this document. The data comes from all [facility]. Date Advance Directives Provider Source Aug 08, 2023 ADVANCE DIRECTIVE NOTIFICATION AND SCREENING GIOVANNI JORGE SGElijah E.[facility] Nov 10, 2022 ADVANCE DIRECTIVE NOTIFICATION AND SCREENING GIOVANNI JORGE SGElijah E.[facility] Mar 17, 2020 ADVANCE DIRECTIVE DISCUSSION GIOVANNI JORGE SGElijah E.[facility] May 23, 2019 ADVANCE DIRECTIVE DISCUSSION MADHURI WILSON [facility] Aug 23, 2016 ADVANCE DIRECTIVE DISCUSSION SHANKAR AYALA [facility] Jan 06, 2016 ADVANCE DIRECTIVE DISCUSSION KATIE BAILEY [facility] Jan 27, 2011 ADVANCE DIRECTIVE ANDREI ACE [facility] Radiology Reports: +/- 30 days of [...] the Encounter. The data comes from all [place] treatment facilities. Date/Time Radiology Report Provider Source Aug 12, 2023 12:19 PM LDCT LUNG CANCER S CREENING: JADE GTZ V [id number] M Exm Date: AUG 12, 2023@12:19 Req Phys: SHERLYN POSADAS Pat Loc: [facility] HISTORICAL (Req'g Loc) Img Loc: T-CT SCAN Service: Unknown (Case [id number] COMPLETE) LDCT LUNG CANCER SCREENING (CT Detailed) CPT:40432 Reason for Study: Abnormal LDCT follow-up Clinical History: Report Status: Verified Date Reported: AUG 12, 2023 Date Verified: AUG 12, 2023 [employer] E-Sig:/ES/SARAH ASHLEY MD Report: EXAM: LDCT LUNG CANCER SCREENING ADDITIONAL HISTORY: Annual Screening COMPARISON: 08/09/2022 PROTOCOL: Screening protocol, low dose, non-contrast CT chest was performed in accordance with Lung-Rads v1.1. Additional coronal and sagittal reconstructions. MIP reconstructions were reviewed. Computer assisted detection (CAD) postprocessing of the lung windows done by ClearPrimo1D software. DOSE PARAMETERS: Up-to-date CT equipment and radiation dose reduction techniques were employed. CTDIvol: 2.8 mGy. DLP: 94 mGy-cm. TECH NOTE: [place]'s name: Angela Protocol: LDCT Exam Additional notes: [...] Interpreting Staff: SARAH ASHLEY MD, Staff Physician ([employer]) /SARAH MARCH [facility] Encounter Notes: All associated encounter notes This section contains the clinical notes associated to the Encounter. Date/Time Encounter Note(s) Provider Source Jul 27, 2023 04:08 PM NONVA NOTE: LOCAL TITLE: COMMUNITY CARE-CARE COORDINATION PLAN NOTE STANDARD TITLE: NONVA NOTE DATE OF NOTE: JUL 27, 2023@16:08 ENTRY DATE: JUL 27, 2023@16:08:43 AUTHOR: USHA CALDERÓN EXP COSIGNER: URGENCY: STATUS: COMPLETED Community Care Consult: CHIROPRACTIC Consult No: [id number] [facility] Referral #: [id number] Community Provider or Hospital Information [facility] Provider Information PROVIDER GROUP NAME: RONN CAMEJO [place] PROVIDER NAME: RONN CAMEJO D.C. PROVIDER PROVIDER SITE LOCATION: [address] [place] [address] PROVIDER PHONE: [phone] PROVIDER FAX: [phone] Chief Complaint: Cervicalgia Patient Admitted? No Level of Care Coordination Basic Care Coordination was determined from: Chart Review Facility Community Care Office Contact Care Coordination Point of Contact: [facility] Services: Navigation Scheduling Post-Appointment Follow-Up E-Communications to referring provider Plan: CONSULT APPROVED, [facility] TO PROCEED TO SCHEDULING /hina/ USHA FONSECA,RN Signed: 07/27/2023 16:10 USHA CALDERÓN. [facility]
--- OUTSIDE RECORDS SUMMARY | 2024-04-30 08:32 | XMS_ITS | Encounter Summary ---
Author Name [facility] [place] [facility] [place] Address [address] [place] [address] Care Team Providers Care Industrial Custodian Name Role Phone JESENIA HANSEN Primary Care [...] PART A Jan 09, 2012 PART A [id number] JADE MAGDALENO PATIENT Selected Encounter This section includes the information on record at [place] for the Encounter. Date/Time Encounter Type Encounter Description Reason Provider Source Aug 08, 2023 02:00 PM OFFICE O/P EST MOD 30-39 MIN PRIMARY CARE/MEDICINE ICD-10-CM E78.5 Hyperlipidemia, unspecified VERA CABALLERO Encounter Template Text not used by [facility] Assessments - Encounter Diagnoses This section includes the primary and secondary diagnoses documented for the Encounter. Date/Time Primary/Secondary Diagnosis Diagnosis Name Provider Source Aug 08, 2023 02:06 PM PRIMARY Hyperlipidemia, unspecified TRIXIE CABALLEROISLA V [facility] Aug 08, 2023 02:06 PM SECONDARY Diarrhea, unspecified AXELVIKTRIXIEISLA V [facility] Aug 08, 2023 02:06 PM SECONDARY Gastro-esophageal reflux disease without esophagitis BETH CABALLEROLA V [facility] Aug 08, 2023 02:06 PM SECONDARY Herpes simplex myelitis RACQUEL CABALLERO V [facility] Aug 08, 2023 02:06 PM SECONDARY Tobacco use RACQUEL CABALLERO V [facility] Plan of Treatment: Future Appointments (+ 6 months) and Future Tests (+/- 45 days) The Plan of Treatment section includes future care activities for the patient from all [place] treatmentfacilities. This section includes future appointments and future orders which are active, pending or scheduled. Future Appointments This section includes appointments that were scheduled to occur 6 months from the date of the Encounter, up to a maximum of 20 appointments. The data comes from all [place] treatment facilities. Appointment Date/Time Appointment Type Appointme nt Facility Name Aug 10, 2023 02:00 PM AMBULATORY - SURGERY [facility] Aug 12, 2023 11:45 AM AMBULATORY - NONE [facility] Aug 16, 2023 03:00 PM AMBULATORY - NONE N. ANNIKA DA/S. [facility] Aug 22, 2023 03:00 PM AMBULATORY - NONE [facility] Sep 05, 2023 02:00 PM AMBULATORY - NONE [facility] Sep 07, 2023 09:00 AM AMBULATORY - MEDICINE [facility] Oct 04, 2023 02:15 PM AMBULATORY - MEDICINE [facility] Nov 21, 2023 01:00 PM AMBULATORY - NONE [facility] Jan 30, 2024 01:00 PM AMBULATORY - NONE [facility] Feb 06, 2024 03:00 PM AMBULATORY - SURGERY [facility] Feb 06, 2024 03:30 PM AMBULATORY - MEDICINE [facility] Lab Results: +/- 30 days of the encounter This section includes the Chemistry and Hematology Lab Results on record with [place] for the patient. Radiology Reports and Pathology Reports are provided separately, in subsequent sections. Lab Results This section contains the Chemistry/Hematology Results that were resulted 30 days before or 30 daysafter the date of the Encounter. Date/Time Source Result Type Result - Unit Interpretation Reference Range Comment Aug 22, 2023 03:04 PM [facility] TOTAL,VIT D Specimen Type: SERUM Comment: TOTAL,VIT D interpretation of results: Vitamin D deficiency: < or = 20 ng/mL Vitamin D insuficiency: 21 - 29 ng/mL Preferred level: > or = 30 ng/mL Toxicity: > 100 ng/mL Test performed on Cheryl chemistry analyzer (573) Slightly lipemic Ordering Provider: DEREK CABALLERO Report Released Date/Time: Aug 18, 2023 09:16 AM Reporting Lab: [place] [address] Performing Lab: [place] [address] [place] [address] TOTAL,VIT D 36.3 ng/mL See_Comment Aug 22, 2023 03:04 PM [facility] MAGNESIUM Specimen Type: PLASMA No comment entered. Ordering Provider: DEREK CABALLERO Report Released Date/Time: Aug 18, 2023 09:16 AM Reporting Lab: [facility] [address] [place] [id number] Performing Lab: [facility] [address] [place] [phone] MAGNESIUM 2.2 mg/dL 1.7-2.5 Aug 08, 2023 12:36 PM [facility] TSH-G,LC,J,T Specimen Type: PLASMA Comment: [...] 03:06 PM Reporting Lab: [facility] [address] [facility] [address] Performing Lab: [facility] [address] TSH-G,LC,J,T 1.450 u[IU]/mL 0.27-4.2 Aug 08, 2023 12:36 PM [facility] ESiobhanISiobhan [facility] HEMOGLOBIN %A1C PROFILE Specimen Type: BLOOD Comment: [...] 03:06 PM Reporting Lab: [facility] [address] [facility] [address] Performing Lab: [facility] Hitesh LÓPEZ [facility] [address] HEMOGLOBIN %A1C 5.5 Aug 08, 2023 12:36 PM [facility] Hitesh [facility] COMPREHENSIVE METABOLIC PANEL Specimen Type: PLASMA [...] 03:06 PM Reporting Lab: [facility] [address] [facility] [address] Performing Lab: [facility] [address] [facility] [address] UREA NITROGEN 22 mg/dL H 9-20 SODIUM [...] 89 mL/min Aug 08, 2023 12:36 PM [facility] Hitesh LÓPEZ [facility] LIPID PANEL Specimen Type: PLASMA [...] 03:06 PM Reporting Lab: [facility] [place] [facility] [address] [facility] [address] Performing Lab: [facility] [place] [facility] [address] [facility] [address] CHOLESTEROL 203 mg/dL H 0-199 TRIGLYCERIDE 171 mg/dL H 0-149 LDL CHOLESTEROL 114 mg/dL <129 HDL CHOLESTEROL 55 mg/dL >40 DIRECT LDL canc mg/dL <129 Aug 08, 2023 12:36 PM [facility] URINALYSIS Specimen Type: URINE No comment entered. Ordering Provider: DEREK CABALLERO Report Released Date/Time: Nov 10, 2022 03:06 PM Reporting Lab: [facility] [address] Performing Lab: [facility] [address] [place] [address] URINE COLOR Light-Yellow SPECIFIC GRAVITY 1.026 1.003-1.030 URINE BILIRUBIN Negative mg/dL NEGATIVE URINE KETONES Negative mg/dL NEGATIVE URINE GLUCOSE Negative mg/dL NEGATIVE URINE PROTEIN Negative mg/dL NEGATIVE URINE PH 5.0 [pH] 5.0-9.0 URINE BLOOD Tr mg/dL NEGATIVE URINE NITRITE Negative NEGATIVE LEUKOCYTE ESTERASE, URINE Negative NEGATIVE CLARITY Clear CLEAR UROBILINOGEN(mg /dL) <2.0 mg/dL L 0.0-1.99 Aug 08, 2023 12:36 PM [facility] CBC (DIFF&PLT) Specimen Type: BLOOD No comment entered. Ordering Provider: DEREK CABALLERO Report Released Date/Time: Nov 10, 2022 03:06 PM Reporting Lab: [facility] E.ISiobhan [facility] [address] [place] [phone] Performing Lab: [facility] E.ISiobhan [facility] [address] [place], [place] [address] [place] [phone] WBC 5.08 10*3/uL 4.6-10.8 RBC 4.84 10*6/uL [...] 0.00 10*3/uL 0.00-0.2 IMMATURE GRAN.% 0.0 0.00-2.00 Vital Signs: All taken on the encounter date This section contains inpatient and outpatient Vital Signs collected on the date of the Encounter. Date/Time Temperature Pulse Blood Pressure Respiratory Rate SP02 Pain Height Weight Body Mass Index Source Aug 08, 2023 01:34 PM 146/79 mm[Hg] [facility] Aug 08, 2023 01:28 PM 98.8 F 64 /min 155/86 mm[Hg] 18 /min 96 % 0 66 in 169.2 lb 27 [facility] Social History: Smoking Status (Most current) [...] 02:00 PM VA-TOBACCO FORMER USER [facility] Tobacco Use History This section includes a history of the smoking, or tobacco-related health factors, that were collected on or before the date of the Encounter. The data comes from the [place] facility where the Encounter took place. Date/Time Smoking Status/Tobacco Use Comment F acility Aug 08, 2023 02:00 PM VA-TOBACCO QUIT 5 TO < 15 YRS [facility] Jan 26, 2022 11:30 AM VA-TOBACCO FORMER USER [facility] [place] [facility] Jan 26, 2022 11:30 AM VA-TOBACCO QUIT 5 TO < 15 YRS [facility] February 18, 2021 09:00 AM VA-TOBACCO FORMER USER [facility] February 18, 2021 09:00 AM VA-TOBACCO QUIT 5 TO < 15 YRS [facility] Jan 02, 2020 03:58 PM VA-TOBACCO FORMER USER [facility] Jan 02, 2020 03:58 PM VA-TOBACCO QUIT 5 TO < 15 YRS [facility] Aug 14, 2019 10:32 AM TOBACCO PACK YEARS [facility] Aug 14, 2019 10:32 AM TOBACCO PACK YEARS >29 CC [facility] Jan 17, 2018 02:29 PM VA-TOBACCO FORMER USER [facility] Jan 17, 2018 02:29 PM VA-TOBACCO QUIT 5 TO < 15 YRS [facility] Jan 17, 2018 01:07 PM TOBACCO PACK YEARS [facility] Jan 17, 2018 01:07 PM TOBACCO PACK YEARS >29 50 [facility] Sep 26, 2017 12:56 PM LIFETIME NON-TOBACCO USER [facility] Jan 18, 2017 12:27 PM TOBACCO PACK YEARS [facility] Jan 18, 2017 12:27 PM TOBACCO PACK YEARS >29 50 [facility] Jan 06, 2016 12:16 PM TOBACCO PACK YEARS [facility] Jan 06, 2016 12:16 PM TOBACCO PACK YEARS >29 50 [facility] Apr 09, 2015 08:52 AM TOBACCO PACK YEARS [facility] Apr 09, 2015 08:52 AM TOBACCO PACK YEARS >29 50 [facility] Dec 26, 2014 12:12 PM TOBACCO PACK YEARS [facility] Dec 26, 2014 12:12 PM TOBACCO PACK YEARS >29 50 YEARS ON AND OFF [facility] Sep 16, 2014 09:00 AM TOBACCO PACK YEARS [facility] Sep 16, 2014 09:00 AM TOBACCO PACK YEARS >29 s [facility] Jun 25, 2014 01:57 PM TOBACCO PACK YEARS [facility] Jun 25, 2014 01:57 PM TOBACCO PACK YEARS <30 50 [facility] Dec 06, 2013 10:06 AM TOBACCO PACK YEARS [facility] Dec 06, 2013 10:06 AM TOBACCO PACK YEARS >29 50 [facility] Jan 22, 2013 01:07 PM CURRENT TOBACCO USE [facility] Jan 22, 2013 01:07 PM TOBACCO CESSATION OFFERED [facility] Jan 22, 2013 01:07 PM TOBACCO MEDS OFFERED [facility] Nov 08, 2012 09:21 AM CURRENT TOBACCO USE [facility] Nov 08, 2012 09:21 AM TOBACCO CESSATION OFFERED [facility] Nov 08, 2012 09:21 AM TOBACCO MEDS OFFERED [facility] Oct 28, 2011 08:17 AM CURRENT TOBACCO USE [facility] Oct 28, 2011 08:17 AM TOBACCO CESSATION OFFERED SGT E.Orquidea [facility] Oct 28, 2011 08:17 AM TOBACCO MEDS OFFERED SGT E.Orquidea [facility] Aug 04, 2011 01:10 PM CURRENT TOBACCO USE SGT E.ISiobhan [facility] Aug 04, 2011 01:10 PM TOBACCO CESSATION OFFERED [facility] Aug 04, 2011 01:10 PM TOBACCO MEDS OFFERED [facility] Apr 28, 2011 08:00 AM CURRENT TOBACCO USE [facility] Apr 28, 2011 08:00 AM TOBACCO CESSATION OFFERED [facility] Apr 28, 2011 08:00 AM TOBACCO MEDS OFFERED [facility] March 05, 2011 02:27 PM CURRENT TOBACCO USE SGT E.ISiobhan [facility] March 05, 2011 02:27 PM TOBACCO CESSATION OFFERED SGT E.ISiobhan [facility] March 05, 2011 02:27 PM TOBACCO MEDS OFFERED [facility] [place] [facility] Dec 22, 2010 01:11 PM CURRENT TOBACCO USE [facility] Dec 22, 2010 01:11 PM TOBACCO CESSATION OFFERED [facility] Dec 22, 2010 01:11 PM TOBACCO MEDS OFFERED SGT E.ISiobhan [facility] Oct 28, 2010 12:57 PM CURRENT TOBACCO USE SGT E.ISiobhan [facility] Oct 28, 2010 12:57 PM TOBACCO CESSATION OFFERED [facility] Oct 28, 2010 12:57 PM TOBACCO MEDS OFFERED SGT E.ISiobhan [facility] Oct 21, 2009 08:22 AM CURRENT TOBACCO USE SGT [facility]iobhan [facility] Oct 21, 2009 08:22 AM TOBACCO CESSATION OFFERED [facility] Oct 21, 2009 08:22 AM TOBACCO MEDS OFFERED SGT [facility].ISiobhan [facility] Sep 19, 2009 08:11 AM LIFETIME NON-TOBACCO USER [facility]GT [facility].ISiobhan [facility] Oct 22, 2008 12:58 PM TOBACCO NON USE GR EATER THAN 12 MONTHS [facility] Sep 17, 2008 08:24 AM TOBACCO NON USE GR EATER THAN 12 MONTHS [facility] Dec 01, 2007 12:58 PM TOBACCO NON USE LE SS THAN 12 MONTHS [facility] Aug 16, 2007 01:17 PM TOBACCO CESSATION OFFERED [facility] Aug 16, 2007 01:17 PM TOBACCO MEDS OFFERED [facility] [place] [facility] Aug 16, 2007 01:17 PM TOBACCO NON USE LE SS THAN 12 MONTHS [facility] Jun 23, 2007 10:31 AM TOBACCO NON USE LE SS THAN 12 MONTHS SGT [facility]iobhan [facility] Dec 14, 2006 10:24 AM CURRENT TOBACCO USE [facility] March 01, 2006 11:10 AM CURRENT TOBACCO USE [facility] Advance Directives: All historical and current Section Date Range: From patient's date of to the date document was created. This section includes ALL of a patient's completed or amended [place] Advance and Rescinded Directives. The entries below indicate that a directive exists for the patient, but an actual copy is not included with this document. The data comes from all [place] facilities. Date Advance Directives Provider Source Aug 08, 2023 ADVANCE DIRECTIVE NOTIFICATION AND SCREENING GIOVANNI JORGE [facility] Nov 10, 2022 ADVANCE DIRECTIVE NOTIFICATION AND SCREENING JORGE,GIOVANNI [facility] Mar 17, 2020 ADVANCE DIRECTIVE DISCUSSION GIOVANNI JORGE [facility] May 23, 2019 ADVANCE DIRECTIVE DISCUSSION MADHURI WILSON [facility] Aug 23, 2016 ADVANCE DIRECTIVE DISCUSSION SHANKAR AYALA [facility] Jan 06, 2016 ADVANCE DIRECTIVE DISCUSSION KATIE BAILEY JAY [facility] Jan 27, 2011 ADVANCE DIRECTIVE MALKA ANDREI ASHTON [facility] Radiology Reports: +/- 30 days of [...] the Encounter. The data comes from all [place] treatment facilities. Date/Time Radiology Report Provider Source Sep 05, 2023 01:55 PM US XTR NON-VASC LM TD: JADE GTZ V [id number] -[id number] M Exm Date: SEP 05, 2023@13:55 Req Phys: DEREK CABALLERO Loc: [facility] F2F PACT 07 WH (Req'g L Img Loc: T-ULTRASOUND Service: Unknown (Case [id number] COMPLETE) US XTR NON-VASC LMTD (US Detailed) CPT:82695 Reason for Study: B/L swollen armpits Clinical History: Report Status: Verified Date Reported: SEP 05, 2023 Date Verified: SEP 05, 2023 Profile Grinder E-Sig:/ES/BERENICE MCCRACKEN Report: EXAMINATION: US XTR NON-VASC [...] NO ALERT REQUIRED Primary Interpreting Staff: BERENICE MCCRACKEN Radiologist (Profile Grinder) /BERENICE FLORES [facility] Aug 12, 2023 12:19 PM LDCT LUNG CANCER S CREENING: JADE GTZ V [id number] -[id number] Ex Date: AUG 12, 2023@12:19 Req Phys: SHERLYN POSADAS Loc: [facility] HISTORICAL (Req'g Loc) Img Loc: T-CT SCAN Service: Unknown (Case [id number] COMPLETE) LDCT LUNG CANCER SCREENING (CT Detailed) CPT:94360 Reason for Study: Abnormal LDCT follow-up Clinical History: Report Status: Verified Date Reported: AUG 12, 2023 Date Verified: AUG 12, 2023 Profile Grinder E-Sig:/ES/SARAH ASHLEY MD Report: EXAM: LDCT LUNG CANCER SCREENING ADDITIONAL HISTORY: Annual Screening COMPARISON: 08/09/2022 PROTOCOL: Screening protocol, low dose, non-contrast CT chest was performed in accordance with Lung-Rads v1.1. Additional coronal and sagittal reconstructions. MIP reconstructions were reviewed. Computer assisted detection (CAD) postprocessing of the lung windows done by [employer] software. DOSE PARAMETERS: Up-to-date CT equipment and radiation dose reduction techniques were employed. CTDIvol: 2.8 mGy. DLP: 94 mGy-cm. TECH NOTE: [place]'s name: Angela Protocol: LDCT Exam Additional notes: [...] Interpreting Staff: SARAH ASHLEY MD, Staff Physician (Profile Grinder) /SARAH MARCH [facility] Encounter Notes: All associated encounter notes This section contains the clinical notes associated to the Encounter. Date/Time Encounter Note(s) Provider Source Aug 08, 2023 01:43 PM PRIMARY CARE NOTE: LOCAL TITLE: PC FOLLOW-UP VISIT STANDARD TITLE: PRIMARY CARE NOTE DATE OF NOTE: AUG 08, 2023@13:43 ENTRY DATE: AUG 08, 2023@13:43:07 AUTHOR: DEREK CABALLERO EXP COSIGNER: URGENCY: STATUS: COMPLETED Patient Name: JADE GTZ V Soc. Security: [id number] Visit Date: 08/08/23 14:00 Patient Age: 78 years ALLERGIES: PENICILLIN, PILOCARPINE, FLEXERIL, ACYCLOVIR, VALACYCLOVIR REASON FOR VISIT: Routine follow up visit HPI: 78-year-old male seen for routine 9-month follow-up visit Burning in armpits went away but now has sharp pains in both armpits. What he thinks it is he is having herpes outbreaks. On Famciclovir and vicine. IBS is bothering him, 2-3 times per week he gets diarrhea, but lately he is getting constipated. Takes some Metamucil. Constipation scares him. +++++++++++++++++++++++++++++++ +++++++++++++++++++++++++++++++ ++++++++++++++ ASSESSMENT/PLAN: # HLD: Manages without statins # Irregular heart rate: - PCP note 04/2022: -- Consult to [facility] was sent in June 2021 but discontinued with [place] has a valid cardiology authorization with Dr. Wu - Expiration Date: 2021-09-27 -- was prescribed metoprolol but never took it, discontinued metoprolol during last visit in September 2021. Per he was never diagnosed with atrial fibrillation. -- Denies any chest pains, shortness of breath. Has some palpitations but no longer checks with BP machine (which shows him irregular HR). # BPH: Continue tamsulosin # JOHNNY: agrees to hydroxyzine # IBS: vet will get OTC meds # GERD: Continue pantoprazole # Elevated PSA: # Pseudogout: - PCP note 04/2022: Used to be on colchicine. Seen by platen press operator apprentice, they took 17 vials of blood, was given 2x injections, he is not sure what shots but possible steroids. Next day all his muscle pain was gone. He also received call from rheumatology and was told they need to do more labs. Took another labs, says he had abnormal results. # Rash, Skin lesions: B/L hands, arms: Eczema, I will order triamcinolone for now, if not improvement vet to f/u with dermatology # LFT foot toenail, fungal infection: Vet will follow up with podiatry in 2 years. RTC 9 months with fasting labs or as needed +++++++++++++++++++++++++++++++ +++++++++++++++++++++++++++++++ ++++++++++++++ PHYSICAL EXAM: GENERAL: AO4x, NAD HEAD: Normocephalic, atraumatic NECK: Supple CARDIOVASCULAR: S1,S2, RRR, no murmurs LUNGS: CTA in all lobes ABDOMEN: Soft LUMBAR BACK: non-tender on palpation Straight leg lift: not performed EXTREMITIES: No gross restriction of movements or major joints of extremities Upper: not examined Lower: no pitting edema +++++++++++++++++++++++++++++++ +++++++++++++++++++++++++++++++ ++++++++++++++ PAST MEDICAL HISTORY: 1. Myalgia ([facility] [id number]) 2. Palpitations ([facility] [id number]) 3. Herpes simplex ([facility] [id number]) 4. Methicillin resistant Staphylococcus aureus infection ([facility] [id number]) 5. Pseudogout ([facility] [id number]) 6. Elevated PSA ([facility] [id number]) 7. Keratoconjunctivitis sicca ([facility] [id number]) 8. Xerostomia ([facility] 40821683) 9. Anxiety ([facility] 41478048) 10. Herpesvirus infection ([facility] [id number]) 11. Arthritis ([facility] 1394456) 12. Upper gastrointestinal hemorrhage ([facility] 11356759) 13. Tenosynovitis ([facility] [id number]) 14. Dyspnea on exertion ([facility] [id number]) 15. Anxiety ([facility] [id number]) 16. Temporomandibular joint disorder (ICD-9-CM 524.60) 17. Herpes Zoster (ICD-9-CM 053.9) 18. Shoulder: arthralgia (ICD-9-CM 719.41) 19. Umbilical hernia (ICD-9-CM 553.1) 20. Renal Calculi (ICD-9-CM 592.0) 21. Chest Pain (ICD-9-CM 786.50) 22. Elevation, blood pressure (ICD-9-CM 796.2) 23. Tobacco use ([facility] [id number]) 24. Abdominal Pain, Epigastric (ICD-9-CM 789.06) 25. Adjustment Disorder with Anxiety (ICD-9-CM 309.24) 26. Flexible Sigmoidoscopy (ICD-9-CM 799.9) 27. Headache (ICD-9-CM 784.0) 28. Neck Pain (ICD-9-CM 723.1) 29. Diarrhea ([facility] [id number]) 30. Tendinitis (ICD-9-CM 726.90) 31. family history pancreatic cancer (mother) (ICD-9-CM 799.9) 32. Gastroesophageal reflux disease ([facility] [id number]) 33. Chronic prostatitis (ICD-9-CM 601.1) 34. Hyperlipidemia ([facility] [id number]) 35. Psoriasis, skin or nails (ICD-9-CM 696.1) 36. Health Maintenance (ICD-9-CM V65.9) +++++++++++++++++++++++++++++++ +++++++++++++++++++++++++++++++ ++++++++++++++ REVIEW OF SYSTEMS: HEENT, CHEST, CARDIAC, ABDOMINAL, GI/, M/S, DERMATOLOGIC, NEURO, ENDOCRINE, HEMATOLOGIC/LYMPHATIC,EMOTIONAL /PSYCHOLOGICAL HAVE BEEN REVIEWED and found to be negative of abnormals except as noted in HPI. +++++++++++++++++++++++++++++++ +++++++++++++++++++++++++++++++ ++++++++++++++ ACTIVE MEDICATIONS: Active Outpatient Medications (including Supplies): Active Outpatient Medications Status 1) CLOTRIMAZOLE 1% TOP SOLN APPLY PAINT TO DISCOLORED ACTIVE NAILS TOPICALLY TWICE A DAY FOR FUNGAL INFECTION 2) FAMCICLOVIR 250MG TAB TAKE ONE TABLET BY MOUTH TWICE ACTIVE A DAY FOR VIRAL SUPPRESSION. FOR ACUTE OUTBREAK INCREASE DOSE TO 1000MG(4 TABLETS)TWICE DAILY FOR 2 DAYS AND CALL CLINIC 3) TAMSULOSIN HCL 0.4MG CAP TAKE ONE CAPSULE BY MOUTH AT ACTIVE BEDTIME FOR PROSTATE 4) TRIAMCINOLONE ACETONIDE 0.1% CREAM APPLY A SMALL ACTIVE AMOUNT TOPICALLY TWICE A DAY NEEDED FOR SKIN RASH Active Non-VA Medications Status 1) Non-VA ASPIRIN 81MG EC TAB 81MG MOUTH ONE TIME EACH ACTIVE DAY 5 Total Medications +++++++++++++++++++++++++++++++ +++++++++++++++++++++++++++++++ ++++++++++++++ [place] advised to contact us with any questions or concerns All recent labs reviewed, has no additional questions [employer] [facility] [employer] voice recognition software may have been used in the creation of all or part of this note. This filing writer has reviewed the text to verify that the bottom filler is as accurate as possible. Please accept my apologies for any bottom filler errors, misspelled words or typos that may inadvertently remain. +++++++++++++++++++++++++++++++ +++++++++++++++++++++++++++++++ ++++++++++++++ *Medication Reconciliation: Allergies reviewed current list is accurate and complete. Review JL for most accurate data r/t ALL/ADRs/MED REC MRT5 - Allergies/ADRs FACILITY ALLERGY/ADR -------- No Remote Allergy/ADR Data available for this patient [facility] F[facility] PENICILLIN [facility] VAL[facility] MRR1 - Med Reconciliation INCLUDED IN THIS LIST: Alphabetical list of active outpatient prescriptions dispensed from this [place] (local) and dispensed from another [place] or [facility] facility (remote) as well as inpatient orders (local pending and active), local clinic medications, locally documented non-VA medications, and local prescriptions that have or been discontinued in the past 90 days. Non-VA Meds Last Documented On: Mar 18, 2008 NOTE The display of VA prescriptions dispensed from another [place] or [facility] facility (remote) is limited to active outpatient prescription entries matched to National Drug File at the originating site and may not include some items such as investigational drugs, compounds, etc. NOT INCLUDED IN THIS LIST: Medications self-entered by the patient into personal health records (i.e. [employer]) are NOT included in this list. Non-VA medications documented outside this [place], remote inpatient orders (regardless of status) and remote clinic medications are NOT included in this list. The patient and provider must always discuss medications the patient is taking, regardless of where the medication was dispensed or obtained. Non-VA ASPIRIN 81MG EC TAB TAKE ONE TABLET BY MOUTH ONE TIME EACH DAY Medication prescribed by Non-VA provider. OUTPT CLOTRIMAZOLE 1% TOP SOLN (Status = Active) APPLY PAINT TO DISCOLORED NAILS TOPICALLY TWICE A DAY FOR FUNGAL INFECTION Rx# [id number] Last Released: 02/17/23 Qty/Days Supply: Rx Expiration Date: 02/09/24 Refills Remainin Indication: FOR FUNGAL INFECTION OUTPT FAMCICLOVIR 250MG TAB (Status = Active) TAKE ONE TABLET BY MOUTH TWICE A DAY FOR VIRAL SUPPRESSION. FOR ACUTE OUTBREAK INCREASE DOSE TO 1000MG(4 TABLETS)TWICE DAILY FOR 2 DAYS AND CALL CLINIC Rx# [id number] Last Released: 06/14/23 Qty/Days Supply: 130/60 Rx Expiration Date: 03/22/24 Refills Remainin Indication: FOR INFECTION CAUSED BY A VIRUS OUTPT PANTOPRAZOLE NA 40MG EC TAB (Status = ) TAKE ONE TABLET BY MOUTH TWICE A DAY FOR STOMACH ACID FOR STOMACH### Rx# [id number] Last Released: 03/22/23 Qty/Days Supply: 180/ Rx Expiration Date: 06/02/23 Refills Remainin Indication: FOR STOMACH ACID OUTPT TAMSULOSIN HCL 0.4MG CAP (Status = Discontinued) TAKE ONE CAPSULE BY MOUTH AT BEDTIME FOR PROSTATE Rx# [id number] Last Released: 03/23/23 Qty/Days Supply: 90 Rx Expiration Date: 03/22/24 Refills Remainin Indication: FOR PROSTATE OUTPT TAMSULOSIN HCL 0.4MG CAP (Status = Active) TAKE ONE CAPSULE BY MOUTH AT BEDTIME FOR PROSTATE Rx# [id number] Last Released: 07/27/23 Qty/Days Supply: Rx Expiration Date: 03/22/24 Refills Remainin Indication: FOR PROSTATE OUTPT TRIAMCINOLONE ACETONIDE 0.1% CREAM (Status = Active) APPLY A SMALL AMOUNT TOPICALLY TWICE A DAY NEEDED FOR SKIN RASH Rx# [id number] Last Released: 11/16/22 Qty/Days Supply: 800/30 Rx Expiration Date: 11/11/23 Refills Remainin Indication: FOR SKIN RASH SUPPLIES -------- Medication Reconciliation completed at today's outpatient visit. Active medication list reviewed with patient and/or caregiver. No medication changes or discrepancies noted. A copy of the list of reconciled medications was given to the patient and/or caregiver. Was medication education provided for new medications or changes to medications? (including medication name, dose, route, reason for use, and potential side effects). No new medications or medication changes during this encounter. /hudson CABALLERO Physician Signed: 08/08/2023 14:06 DEREK CABALLERO [facility] [place] [facility] Aug 08, 2023 01:32 PM ADVANCE DIRECTIVE NOTIFICATION AND SCREENING: LOCAL TITLE: ADVANCE DIRECTIVE NOTIFICATION AND SCREENING STANDARD TITLE: ADVANCE DIRECTIVE NOTIFICATION AND SCREENING DATE OF NOTE: AUG 08, 2023@13:32 ENTRY DATE: AUG 08, 2023@13:32:45 AUTHOR: GIOVANNI JORGE EXP COSIGNER: URGENCY: STATUS: COMPLETED ADVANCE DIRECTIVE NOTIFICATION AND SCREENING ADVANCE DIRECTIVE NOTIFICATION: The patient or pest control service representative was not provided written notification about advance directives because: HAS ADVANCE DIRECTIVE ON FILE. ADVANCE DIRECTIVE SCREENING: The patient or pest control service representative says the patient has an advance directive. It is on file in the patient's electronic health record. Inquired if they want more information or assistance in completing a new advance directive form, and directed them to that assistance, if desired. /hudson JORGE LPN Signed: 08/08/2023 13:33 GIVOANNI JORGE [facility] Aug 08, 2023 01:29 PM NURSING NOTE: LOCAL TITLE: OUTPATIENT PREVENTIVE HEALTH & PATIENT EDUCATION (T STANDARD TITLE: NURSING NOTE DATE OF NOTE: AUG 08, 2023@13:29 ENTRY DATE: AUG 08, 2023@13:29:09 AUTHOR: GIOVANNI JORGEIGNER: URGENCY: STATUS: COMPLETED Type of visit: [id number] Do you currently have any things in your life that worry you or cause you stress that you would like to discuss today? No Primary Care Check in Reason for visit: Follow-up Do you need outside prescriptions for local fill at [place] expense? No Have you been hospitalized since your last visit? No Risk and/or skin breakdown: Normal skin integrity; no risk identified. Monitor at future appointments. Does Patient use assistive devices (DME)? No [place] verbalizes understanding of today's visit and has had the opportunity to ask questions and participate in his/her plan of care. Reminders: Alcohol Use Screen (AUDIT-C): Alcohol Screen: SCREEN FOR ALCOHOL (AUDIT-C) An alcohol screening test (AUDIT-C) was negative (score=4). 1. How often did you have a drink containing alcohol in the past year? Four or more times a week 2. How many drinks containing alcohol did you have on a typical day when you were drinking in the past year? One or two drinks 3. How often did you have six or more drinks on one occasion in the past year? Never Tobacco Pack Year History: Patient used cigarettes in the past, but quit and does not currently use them: Quit smoking LESS THAN 15 years. Year the patient quit smoking: Date: 2012 ? Exact date is unknown How many years has the patient smoked? # of years 45 Average number of packs/day over the entire time patient smoked: Packs/day 2 Homelessness/Food Insecurity Screen: In the past 2 months, have you been living in stable housing that you own, rent, or stay in as part of a household? Yes - Living in stable housing. Are you worried or concerned that in the next 2 months you may NOT have stable housing that you own, rent, or stay in as part of a household? No - Not worried about housing near future The reports the following: Within the past 12 months, you worried whether your food would run out before you got money to buy more. Never true Within the past 12 months, the food you bought just didn't last and you didn't have money to get more. Never true Abuse & Neglect Screen: Does the patient show any evidence of abuse? No Do you feel safe in your current living arrangements? Yes Fall Risk Screen: Patient reports their FALLS status within the last 12 months as: No Falls: The patient reports no falls, near falls, nor fear of falling. Fall Risk Concerns: None Ambulatory Assistive Device(s): None Fall Risk Screening: Low-risk: Functional Screening: The patient lives alone. Patient denies difficulty caring for self. ADL ASSESSMENT: Bathin = Independent Dressin = Independent Toiletin = Independent Transferrin = Independent Continence: 1 = Independent Feedin = Independent Total Cooper Score: 6 Cooper score possible range is 0 to 6. Interpretation of Cooper ADL score: Score of 0-1 indicates patient is dependent in ADLs Scores of 2-5 indicate increasing levels of independence in ADLs Score of 6 indicates independence in ADLs INSTRUMENTAL ACTIVITIES OF DAILY LIVING (IADL) SCALE (Francesco) Ability to use telephone: 1 point - Operates telephone on own initiative; looks up and dials numbers, etc. Shoppin point - Takes care of all shopping needs independently Food preparation: 1 point - Plans, prepares, and serves adequate meals independently Housekeepin point - Maintains house alone or with occasional assistance (e.g., heavy work domestic help) Laundry: 1 point - Does personal laundry completely Mode of transportation: 1 point - Travels independently on public transportation or drives own car Responsibility for own medications: 1 point - Is responsible for taking medication in correct dosages at correct time Ability to handle finances: 1 point - Manages financial matters independently (budgets, writes checks, pays rent and bills, goes to bank), collects and keeps track of income [place] IADL score possible range is 0 to 8. Interpretation of Francesco's IADL score: Score of 0-1 indicates low function/dependence in IADLs Scores of 2-7 indicate increasing levels of function/independence Score of 8 indicates high function/independence in IADLs Total score: 8 points Tobacco Use Screening: The patient is a former tobacco user. The patient quit five to less than fifteen years ago. /hina/ GIOVANNI JORGE LPN Signed: 08/08/2023 13:32 GIOVANNI JORGE [facility]
--- OUTSIDE RECORDS SUMMARY | 2024-04-30 08:32 | XMS_ITS | Encounter Summary ---
Author Name [facility] [place] [facility] [place] [facility] [place] Address [address], [place] [address] Care Team Providers Care Web Database Developer Name Role Phone JESENIA HANSEN Primary Care [...] PART A Jan 09, 2012 PART A [id number] JADE MAGDALENO PATIENT Selected Encounter This section includes the information on record at [place] for the Encounter. Date/Time Encounter Type Encounter Description Reason Pro vider Source Jul 19, 2023 12:00 AM Outpatient Encounter EVENT (HISTORICAL) [...] 20 appointments. The data comes from all [place] treatment facilities. Appointment Date/Time Appointment Type Appointme nt Facility Name Jul 21, 2023 01:30 PM AMBULATORY - NONE [facility] Aug 08, 2023 12:45 PM AMBULATORY - NONE [facility] Aug 08, 2023 02:00 PM AMBULATORY - NONE [facility] Aug 10, 2023 02:00 PM AMBULATORY - SURGERY [facility] Aug 12, 2023 11:45 AM AMBULATORY - NONE [facility] Aug 16, 2023 03:00 PM AMBULATORY - NONE N. ANNIKA DA[facility] Aug 22, 2023 03:00 PM AMBULATORY - NONE [facility] Sep 05, 2023 02:00 PM AMBULATORY - NONE [facility] Sep 07, 2023 09:00 AM AMBULATORY - MEDICINE [facility] Oct 04, 2023 02:15 PM AMBULATORY - MEDICINE [facility] Nov 21, 2023 01:00 PM AMBULATORY - NONE [facility] Lab Results: +/- 30 days of the encounter This section includes the Chemistry and Hematology Lab Results on record with [place] for the patient. Radiology Reports and Pathology Reports are provided separately, in subsequent sections. Lab Results This section contains the Chemistry/Hematology Results that were resulted 30 days before or 30 daysafter the date of the Encounter. Date/Time Source Result Type Result - Unit Interpretation Reference Range Comment Aug 08, 2023 12:36 PM [facility] TSH-G,LC,J,T Specimen Type: PLASMA Comment: [...] 03:06 PM Reporting Lab: [facility] [address] [facility] [address] Performing Lab: SGT Jaziel.ISiobhan LÓPEZ [facility] [address] [place] [id number] TSH-G,LC,J,T 1.450 u[IU]/mL 0.27-4.2 Aug 08, 2023 12:36 PM SGT E.ISiobhan BOOTS [facility] HEMOGLOBIN %A1C PROFILE Specimen Type: BLOOD [...] 03:06 PM Reporting Lab: [facility] [address] [facility] [address] Performing Lab: SGT Jaziel.ISiobhan LÓPEZ [facility] [address] HEMOGLOBIN %A1C 5.5 Aug 08, 2023 12:36 PM T [facility] LIPID PANEL Specimen Type: PLASMA [...] 03:06 PM Reporting Lab: [facility] [address] [facility] [address] Performing Lab: SGT Jaziel.ISiobhan [facility] [address] [facility] [address] CHOLESTEROL 203 mg/dL H 0-199 TRIGLYCERIDE 171 mg/dL H 0-149 LDL CHOLESTEROL 114 mg/dL <129 HDL CHOLESTEROL 55 mg/dL >40 DIRECT LDL canc mg/dL <129 Aug 08, 2023 12:36 PM [facility] URINALYSIS Specimen Type: URINE No comment entered. Ordering Provider: RACQUEL CABALLERO V Report Released Date/Time: Nov 10, 2022 03:06 PM Reporting Lab: SGT Jaziel.ISiobhan [facility] [address] [facility] [address] Performing Lab: SGT Hitseh [facility] [address] [facility] [address] URINE COLOR Light-Yellow SPECIFIC GRAVITY 1.026 1.003-1.030 URINE BILIRUBIN Negative mg/dL NEGATIVE URINE KETONES Negative mg/dL NEGATIVE URINE GLUCOSE Negative mg/dL NEGATIVE URINE PROTEIN Negative mg/dL NEGATIVE URINE PH 5.0 [pH] 5.0-9.0 URINE BLOOD Tr mg/dL NEGATIVE URINE NITRITE Negative NEGATIVE LEUKOCYTE ESTERASE, URINE Negative NEGATIVE CLARITY Clear CLEAR UROBILINOGEN(mg /dL) <2.0 mg/dL L 0.0-1.99 Aug 08, 2023 12:36 PM T Jaziel.BlasSiobhan [facility] COMPREHENSIVE METABOLIC PANEL Specimen Type: PLASMA Comment: [...] 03:06 PM Reporting Lab: SGT Hitesh L[facility]Z [facility] [address] [facility] [address] Performing Lab: Elijah LÓPEZ [facility] [address] [place] [address] UREA NITROGEN 22 mg/dL H 9-20 SODIUM [...] 89 mL/min Aug 08, 2023 12:36 PM [facility] CBC (DIFF&PLT) Specimen Type: BLOOD No comment entered. Ordering Provider: RACQUEL CABALLERO V Report Released Date/Time: Nov 10, 2022 03:06 PM Reporting Lab: Elijah L[place]PE[place] [address] [place] [address] Performing Lab: [facility] Hitesh [facility] [address] [place], [place] [id number] WBC 5.08 10*3/uL 4.6-10.8 RBC 4.84 10*6/uL [...] and tobacco- related health factors from the [place] facility where the Encounter took place. Current Smoking Status This section includes the most current smoking, or tobacco-related health factor, from the [place] facility where the Encounter took place. Date/Time Current Smoking Status Comment Marivel patel Aug 17, 2019 10:12 AM PRIOR TOBACCO USE CESSATION DATE [facility] Tobacco Use History This section includes a history of the smoking, or tobacco-related health factors, that were collected on or before the date of the Encounter. The data comes from the [place] facility where the Encounter took place. Date/Time Smoking Status/Tobacco Use Comment F acility Jan 17, 2018 01:30 PM PRIOR TOBACCO USE CESSATION DATE [facility] Jan 18, 2017 01:13 PM PRIOR TOBACCO USE CESSATION DATE [facility] Jan 06, 2016 01:03 PM PRIOR TOBACCO USE CESSATION DATE [facility] Advance Directives: All historical and current Section Date Range: From patient's date of to the date document was created. This section includes ALL of a patient's completed or amended [place] Advance and Rescinded Directives. The entries below indicate that a directive exists for the patient, but an actual copy is not included with this document. The data comes from all [place] facilities. Date Advance Directives Provider Source Aug 08, 2023 ADVANCE DIRECTIVE NOTIFICATION AND SCREENING JORGE,GIOVANNI TORRES [place] [facility] Nov 10, 2022 ADVANCE DIRECTIVE NOTIFICATION AND SCREENING JORGE,GIOVANNI [facility] Mar 17, 2020 ADVANCE DIRECTIVE DISCUSSION GIOVANNI JORGE [facility] May 23, 2019 ADVANCE DIRECTIVE DISCUSSION MADHURI WILSON [facility] Aug 23, 2016 ADVANCE DIRECTIVE DISCUSSION SHANKAR AYALA [facility] Jan 06, 2016 ADVANCE DIRECTIVE DISCUSSION KATIE BAILEY [facility] Jan 27, 2011 ADVANCE DIRECTIVE JOSEANDREI ESPINOZATH [facility] Radiology Reports: +/- 30 days of [...] the Encounter. The data comes from all [place] treatment facilities. Date/Time Radiology Report Provider Source Aug 12, 2023 12:19 PM LDCT LUNG CANCER S CREENING: JADE GTZ V [id number] M Ex Date: AUG 12, 2023@12:19 Req Phys: SHERLYN POSADAS Loc: [facility] HISTORICAL (Req'g Loc) Img Loc: T-CT SCAN Service: Unknown (Case [id number] COMPLETE) LDCT LUNG CANCER SCREENING (CT Detailed) CPT:76518 Reason for Study: Abnormal LDCT follow-up Clinical History: Report Status: Verified Date Reported: AUG 12, 2023 Date Verified: AUG 12, 2023 Bundle Breaker E-Sig:/ES/SARAH ASHLEY MD Report: EXAM: LDCT LUNG CANCER SCREENING ADDITIONAL HISTORY: Annual Screening COMPARISON: 08/09/2022 PROTOCOL: Screening protocol, low dose, non-contrast CT chest was performed in accordance with Lung-Rads v1.1. Additional coronal and sagittal reconstructions. MIP reconstructions were reviewed. Computer assisted detection (CAD) postprocessing of the lung windows done by [employer] software. DOSE PARAMETERS: Up-to-date CT equipment and radiation dose reduction techniques were employed. CTDIvol: 2.8 mGy. DLP: 94 mGy-cm. TECH NOTE: [place]'s name: Angela Protocol: LDCT Exam Additional notes: [...] Interpreting Staff: SARAH ASHLEY MD, Staff Physician (Bundle Breaker) /SARAH MARCH [facility]
--- OUTSIDE RECORDS SUMMARY | 2024-04-30 08:32 | XMS_ITS | Encounter Summary ---
Author Name [facility] [place] [facility] [place] [facility] [place] Address [address] [facility] [address], [place] [address] Care Team Providers Care Tailman Name Role Phone TYRONESTEPHA Primary Care Provider [...] PART A Jan 09, 2012 PART A [id number] JADE MAGDALENO PATIENT Selected Encounter This section includes the information on record at [place] for the Encounter. Date/Time Encounter Type Encounter Description Reason Provider Source Jul 26, 2023 09:50 AM Outpatient Encounter COMMUNITY CARE CONSULT OMAYRA STARK Encounter Template Text not used by VA [...] 20 appointments. The data comes from all [place] treatment facilities. Appointment Date/Time Appointment Type Appointme nt Facility Name Aug 08, 2023 12:45 PM AMBULATORY - NONE [facility] Aug 08, 2023 02:00 PM AMBULATORY - NONE [facility] Aug 10, 2023 02:00 PM AMBULATORY - SURGERY [facility] Aug 12, 2023 11:45 AM AMBULATORY - NONE [facility] Aug 16, 2023 03:00 PM AMBULATORY - NONE N. ANNIKA DA/Anastacio [facility] Aug 22, 2023 03:00 PM AMBULATORY - NONE [facility] Sep 05, 2023 02:00 PM AMBULATORY - NONE [facility] Sep 07, 2023 09:00 AM AMBULATORY - MEDICINE [facility] Oct 04, 2023 02:15 PM AMBULATORY - MEDICINE [facility] Nov 21, 2023 01:00 PM AMBULATORY - NONE [facility] Lab Results: +/- 30 days of the encounter This section includes the Chemistry and Hematology Lab Results on record with [place] for the patient. Radiology Reports and Pathology Reports are provided separately, in subsequent sections. Lab Results This section contains the Chemistry/Hematology Results that were resulted 30 days before or 30 daysafter the date of the Encounter. Date/Time Source Result Type Result - Unit Interpretation Reference Range Comment Aug 22, 2023 03:04 PM [facility] TOTAL,VIT D Specimen Type: SERUM Comment: TOTAL,VIT D interpretation of results: Vitamin D deficiency: < or = 20 ng/mL Vitamin D insuficiency: 21 - 29 ng/mL Preferred level: > or = 30 ng/mL Toxicity: > 100 ng/mL Test performed on Cheryl chemistry analyzer (573) Slightly lipemic Ordering Provider: DEREK CABALLERO Report Released Date/Time: Aug 18, 2023 09:16 AM Reporting Lab: [facility] [address] [address] Performing Lab: [place]. [place]/S. [address] [address] TOTAL,VIT D 36.3 ng/mL See_Comment Aug 22, 2023 03:04 PM [facility] MAGNESIUM Specimen Type: PLASMA No comment entered. Ordering Provider: DEREK CABALLERO Report Released Date/Time: Aug 18, 2023 09:16 AM Reporting Lab: [facility] [address] [facility] [address] Performing Lab: [facility] [address] [place] [phone] MAGNESIUM 2.2 mg/dL 1.7-2.5 Aug 08, 2023 12:36 PM [facility] TSH-G,ERIK,J,T Specimen Type: PLASMA Comment: eGFR [...] 2022 03:06 PM Reporting Lab: [facility] [address] [place] [id number] Performing Lab: [facility] [address] [facility] [address] TSH-G,ERIK,J,T 1.450 u[IU]/mL 0.27-4.2 Aug 08, 2023 12:36 PM [facility] HEMOGLOBIN %A1C PROFILE Specimen Type: BLOOD [...] 03:06 PM Reporting Lab: SGElijah [facility] [address] [place] [address] Performing Lab: [facility] H[facility]h [facility] [address] [place] [address] HEMOGLOBIN %A1C 5.5 Aug 08, 2023 12:36 PM [facility] LIPID PANEL Specimen Type: [...] PM Reporting Lab: [facility] [address] [place] [address] Performing Lab: [facility] [address] [place] [address] CHOLESTEROL 203 mg/dL H 0-199 TRIGLYCERIDE 171 mg/dL H 0-149 LDL CHOLESTEROL 114 mg/dL <129 HDL CHOLESTEROL 55 mg/dL >40 DIRECT LDL canc mg/dL <129 Aug 08, 2023 12:36 PM SGT Jaziel.Orquidea [facility] URINALYSIS Specimen Type: URINE No comment entered. Ordering Provider: DEREK CABALLERO Report Released Date/Time: Nov 10, 2022 03:06 PM Reporting Lab: [facility] Jaziel.Orquidea [facility] [address] [place] [address] Performing Lab: SGElijah [facility] [address] [place] [address] URINE COLOR Light-Yellow SPECIFIC GRAVITY 1.026 1.003-1.030 URINE BILIRUBIN Negative mg/dL NEGATIVE URINE KETONES Negative mg/dL NEGATIVE URINE GLUCOSE Negative mg/dL NEGATIVE URINE PROTEIN Negative mg/dL NEGATIVE URINE PH 5.0 [pH] 5.0-9.0 URINE BLOOD Tr mg/dL NEGATIVE URINE NITRITE Negative NEGATIVE LEUKOCYTE ESTERASE, URINE Negative NEGATIVE CLARITY Clear CLEAR UROBILINOGEN(mg /dL) <2.0 mg/dL L 0.0-1.99 Aug 08, 2023 12:36 PM SGT Hitesh LÓPEZ [facility] COMPREHENSIVE METABOLIC PANEL Specimen Type: PLASMA [...] 2022 03:06 PM Reporting Lab: Elijah LÓPEZ [facility] [address] [facility] [address] Performing Lab: Elijah LÓPEZ [facility] [address] [facility] [address] UREA NITROGEN 22 mg/dL H 9-20 SODIUM [...] 08, 2023 12:36 PM [facility] CBC (DIFF&PLT) Specimen Type: BLOOD No comment entered. Ordering Provider: DEREK CABALLERO Report Released Date/Time: Nov 10, 2022 03:06 PM Reporting Lab: [facility] [address] [facility] [address] Performing Lab: SGT E.Orquidea LÓPEZ [facility] [address] [facility] [address] WBC 5.08 10*3/uL 4.6-10.8 RBC 4.84 10*6/uL [...] and tobacco- related health factors from the [place] facility where the Encounter took place. Current Smoking Status This section includes the most current smoking, or tobacco-related health factor, from the [place] facility where the Encounter took place. Date/Time Current Smoking Status Comment Marivel ity Aug 17, 2019 10:12 AM PRIOR TOBACCO USE CESSATION DATE [facility] Tobacco Use History This section includes a history of the smoking, or tobacco-related health factors, that were collected on or before the date of the Encounter. The data comes from the [place] facility where the Encounter took place. Date/Time Smoking Status/Tobacco Use Comment F acility Jan 17, 2018 01:30 PM PRIOR TOBACCO USE CESSATION DATE [facility] Jan 18, 2017 01:13 PM PRIOR TOBACCO USE CESSATION DATE [facility] Jan 06, 2016 01:03 PM PRIOR TOBACCO USE CESSATION DATE [facility] Advance Directives: All historical and current Section Date Range: From patient's date of to the date document was created. This section includes ALL of a patient's completed or amended [place] Advance and Rescinded Directives. The entries below indicate that a directive exists for the patient, but an actual copy is not included with this document. The data comes from all [facility]. Date Advance Directives Provider Source Aug 08, 2023 ADVANCE DIRECTIVE NOTIFICATION AND SCREENING GIOVANNI JORGE SGElijah LongoISiobhan LÓPEZ [facility] Nov 10, 2022 ADVANCE DIRECTIVE NOTIFICATION AND SCREENING GIOVANNI JORGE SGElijah E.ISiobhan LÓPEZ [facility] Mar 17, 2020 ADVANCE DIRECTIVE DISCUSSION GIOVANNI JORGE SGElijah E.ISiobhan LÓPEZ [facility] May 23, 2019 ADVANCE DIRECTIVE DISCUSSION MADHURI WILSON SGT E.ISiobhan [facility] Aug 23, 2016 ADVANCE DIRECTIVE DISCUSSION SHANKAR AYALA SGT E.ISiobhan [facility] Jan 06, 2016 ADVANCE DIRECTIVE DISCUSSION KATIE BAILEY [facility] Jan 27, 2011 ADVANCE DIRECTIVE ANDREI ACE [facility] Radiology Reports: +/- 30 days of [...] the Encounter. The data comes from all [place] treatment facilities. Date/Time Radiology Report Provider Source Aug 12, 2023 12:19 PM LDCT LUNG CANCER S CREENING: JADE GTZ V [id number] M Exm Date: AUG 12, 2023@12:19 Req Phys: SHERLYN POSADAS Pat Loc: [facility] HISTORICAL (Req'g Loc) Img Loc: T-CT SCAN Service: Unknown (Case [id number] COMPLETE) LDCT LUNG CANCER SCREENING (CT Detailed) CPT:93111 Reason for Study: Abnormal LDCT follow-up Clinical History: Report Status: Verified Date Reported: AUG 12, 2023 Date Verified: AUG 12, 2023 [employer] E-Sig:/ES/SARAH ASHLEY MD Report: EXAM: LDCT LUNG CANCER SCREENING ADDITIONAL HISTORY: Annual Screening COMPARISON: 08/09/2022 PROTOCOL: Screening protocol, low dose, non-contrast CT chest was performed in accordance with Lung-Rads v1.1. Additional coronal and sagittal reconstructions. MIP reconstructions were reviewed. Computer assisted detection (CAD) postprocessing of the lung windows done by [employer]Spot[employer] software. DOSE PARAMETERS: Up-to-date CT equipment and radiation dose reduction techniques were employed. CTDIvol: 2.8 mGy. DLP: 94 mGy-cm. TECH NOTE: [place]'s name: Angela Protocol: LDCT Exam Additional notes: [...] Interpreting Staff: SARAH ASHLEY MD, Staff Physician ([employer]) /SARAH MARCH [facility] Encounter Notes: All associated encounter notes This section contains the clinical notes associated to the Encounter. Date/Time Encounter Note(s) Provider Source Jul 26, 2023 10:37 AM LETTERS: LOCAL TITLE: COMMUNITY CARE-REQUEST FOR SERVICES (RFS) LETTER (F STANDARD TITLE: LETTERS DATE OF NOTE: JUL 26, 2023@10:37 ENTRY DATE: JUL 26, 2023@10:37:56 AUTHOR: OMAYRA STARK EXP COSIGNER: URGENCY: STATUS: COMPLETED [facility] [place] [address] JUL 26, 2023 Dear Provider, Information: Patient Name: JADE GTZ V Date of : Jan The /[facility] Community Care Team has received the request FOR NEW CHIROPRACTIC AUTHORIZATION from you for services that were not originally authorized in the [employer] for this . Upon review, the following determination has been made: Service has been approved. (Authorization #[id number]) Should you have questions, please contact us at to speak with a patient health equipment servicer. Reference consult number: [id number] As a reminder, if applicable, return medical records within 30 days for routine services. Sincerely, OMAYRA STARK RN [facility] Correspondence OMAYRA STARK [facility] Jul 26, 2023 09:50 AM NONVA CONSULT: LOCAL TITLE: COMMUNITY CARE-CONSULT REQUEST FOR SERVICE (T) STANDARD TITLE: NONVA CONSULT DATE OF NOTE: JUL 26, 2023@09:50 ENTRY DATE: JUL 26, 2023@09:50:17 AUTHOR: OMAYRA STARK EXP COSIGNER: URGENCY: STATUS: COMPLETED COMMUNITY CARE-CONSULT REQUEST FOR SERVICE (T) Has ADDENDA Medical documentation received: Yes Multiple dates of service: No DOS: July 19, 2023 Type of specialty: CHIROPRACTIC Type of documentation: VISIT & Request for CHIROPRACTIC consult Vendor name: RONN CAMEJO [place] RFS APPROVED - NEW CONSULT SUBMITTED BY ALFREDO CHIU /hina/ OMAYRA STARK RN Signed: 07/26/2023 09:56 07/20/2023 ADDENDUM STATUS: COMPLETED VistA Imaging Scanned Document - Addendum. DOS: 07/19/2023 DOC TYPE: VISIT & Request for CHIROPRACTIC consult VENDOR: RONN CAEMJO [place] RFS APPROVED - NEW CONSULT SUBMITTED BY ALFREDO CHIU SCANNED DOCUMENT SIGNATURE NOT REQUIRED Electronically Filed: 07/26/2023 by: OMAYRA LARA RN [place]
--- OUTSIDE RECORDS SUMMARY | 2024-04-30 08:33 | XMS_ITS | Encounter Summary ---
Author Name [facility] [facility] [place] Address [address] [place] [address] Care Team Providers Care Tableau Analyst Name Role Phone JESENIA HANSEN Primary [...] PART A Jan 09, 2012 PART A [id number] JADE MAGDALENO PATIENT Selected Encounter This section includes the information on record at [place] for the Encounter. Date/Time Encounter Type Encounter Description Reason Provider Source Aug 10, 2023 02:00 PM OFFICE O/P EST LOW 20-29 MIN PODIATRY ICD-10-CM L60.3 Nail dystrophy RAHEEL TAMAYO IHJaziel Encounter Template Text not used by [facility] Assessments - Encounter Diagnoses This section includes the primary and secondary diagnoses documented for the Encounter. Date/Time Primary/Secondary Diagnosis Diagnosis Name Provider Source Aug 10, 2023 02:15 PM PRIMARY Nail dystrophy RAHEEL TAMAYOT [facility] Aug 10, 2023 02:15 PM SECONDARY Tinea unguium RONIRAHEEL MADISON SGT E.I. [facility] Aug 10, 2023 02:15 PM SECONDARY Unspecified abnormalities of gait and mobility RONIRAHEEL MADISON SGT E[facility]. [facility] Plan of Treatment: Future Appointments (+ 6 months) and Future Tests (+/- 45 days) The Plan of Treatment section includes future care activities for the patient from all [place] treatmentfacilities. This section includes future appointments and future orders which are active, pending or scheduled. Future Appointments This section includes appointments that were scheduled to occur 6 months from the date of the Encounter, up to a maximum of 20 appointments. The data comes from all [place] treatment facilities. Appointment Date/Time Appointment Type Appointme nt Facility Name Aug 12, 2023 11:45 AM AMBULATORY - NONE [facility] Aug 16, 2023 03:00 PM AMBULATORY - NONE Nida. ANNIKA DA/SSiobhan [facility] Aug 22, 2023 03:00 PM AMBULATORY - NONE [facility]GT [facility] Sep 05, 2023 02:00 PM AMBULATORY - NONE [facility] Sep 07, 2023 09:00 AM AMBULATORY - MEDICINE [facility] Oct 04, 2023 02:15 PM AMBULATORY - MEDICINE [facility] Nov 21, 2023 01:00 PM AMBULATORY - NONE [facility] Jan 30, 2024 01:00 PM AMBULATORY - NONE [facility] Feb 06, 2024 03:00 PM AMBULATORY - SURGERY SGT E [facility] Feb 06, 2024 03:30 PM AMBULATORY - MEDICINE [facility] Lab Results: +/- 30 days [...] Aug 22, 2023 03:04 PM [facility] TOTAL,VIT D Specimen Type: SERUM [...] 2023 09:16 AM Reporting Lab: [facility] [address] [address] Performing Lab: [facility] [address] [place] [address] TOTAL,VIT D 36.3 ng/mL See_Comment Aug 22, 2023 03:04 PM [facility]ISiobhan [facility] MAGNESIUM Specimen Type: PLASMA No comment entered. Ordering Provider: DEREK CABALLERO Report Released Date/Time: Aug 18, 2023 09:16 AM Reporting Lab: [facility] [address] [facility] [address] Performing Lab: SGT E.ISiobhan [facility] [address] [facility] [address] MAGNESIUM 2.2 mg/dL 1.7-2.5 Aug 08, 2023 12:36 PM SGT E.Orquidea [facility] TSH-G,LC,J,T Specimen Type: PLASMA Comment: eGFR calculated [...] 03:06 PM Reporting Lab: SGT E.ISiobhan [facility] [address] [facility] [address] Performing Lab: SGT E.ISiobhan [facility] [address] [place] [id number] TSH-G,LC,J,T 1.450 u[IU]/mL 0.27-4.2 Aug 08, 2023 12:36 PM RUST DontaISiobhan [facility] HEMOGLOBIN %A1C PROFILE Specimen Type: BLOOD [...] 10, 2022 03:06 PM Reporting Lab: T DontaBlasSiobhan [facility] [address] [place] [id number] Performing Lab: RUST Hitesh [facility] [address] [place] [id number] HEMOGLOBIN %A1C 5.5 Aug 08, 2023 12:36 PM RUST DontaSiobhan [facility] COMPREHENSIVE METABOLIC PANEL Specimen Type: PLASMA [...] 10, 2022 03:06 PM Reporting Lab: Elijah Proctor [facility] [address] [place] [id number] Performing Lab: RUST DontaISiobhan [facility] [address] [place] [id number] UREA NITROGEN 22 mg/dL H 9-20 SODIUM [...] 89 mL/min Aug 08, 2023 12:36 PM RUST Hitesh [facility] LIPID PANEL Specimen Type: PLASMA Comment: [...] 03:06 PM Reporting Lab: SGT Hitesh [facility] [address] [facility] [address] Performing Lab: SGT Hitesh [facility] [address] [facility] [address] CHOLESTEROL 203 mg/dL H 0-199 TRIGLYCERIDE 171 mg/dL H 0-149 LDL CHOLESTEROL 114 mg/dL <129 HDL CHOLESTEROL 55 mg/dL >40 DIRECT LDL canc mg/dL <129 Aug 08, 2023 12:36 PM Elijah [facility] URINALYSIS Specimen Type: URINE No comment entered. Ordering Provider: DEREK CABALLERO Report Released Date/Time: Nov 10, 2022 03:06 PM Reporting Lab: SGT Hitesh [facility] [address] [place] [address] Performing Lab: [facility] [address] [place] [phone] URINE COLOR Light-Yellow SPECIFIC GRAVITY 1.026 1.003-1.030 URINE BILIRUBIN Negative mg/dL NEGATIVE URINE KETONES Negative mg/dL NEGATIVE URINE GLUCOSE Negative mg/dL NEGATIVE URINE PROTEIN Negative mg/dL NEGATIVE URINE PH 5.0 [pH] 5.0-9.0 URINE BLOOD Tr mg/dL NEGATIVE URINE NITRITE Negative NEGATIVE LEUKOCYTE ESTERASE, URINE Negative NEGATIVE CLARITY Clear CLEAR UROBILINOGEN(mg /dL) <2.0 mg/dL L 0.0-1.99 Aug 08, 2023 12:36 PM [facility] CBC (DIFF&PLT) Specimen Type: BLOOD No comment entered. Ordering Provider: DEREK CABALLERO Report Released Date/Time: Nov 10, 2022 03:06 PM Reporting Lab: [address] [address] [place] [address] Performing Lab: [facility] [address] [address] WBC 5.08 10*3/uL 4.6-10.8 RBC 4.84 10*6/uL [...] 02:00 PM VA-TOBACCO FORMER USER SGT E[facility]. [facility] Tobacco Use History This section includes a history of the smoking, or tobacco-related health factors, that were collected on or before the date of the Encounter. The data comes from the [place] facility where the Encounter took place. Date/Time Smoking Status/Tobacco Use Comment F acility Aug 08, 2023 02:00 PM VA-TOBACCO QUIT 5 TO < 15 YRS [facility] Jan 26, 2022 11:30 AM VA-TOBACCO FORMER USER [facility]GT E[facility]. [facility] Jan 26, 2022 11:30 AM VA-TOBACCO QUIT 5 TO < 15 YRS [facility] February 18, 2021 09:00 AM VA-TOBACCO FORMER USER [facility]GT [facility] February 18, 2021 09:00 AM VA-TOBACCO QUIT 5 TO < 15 YRS [facility] Jan 02, 2020 03:58 PM VA-TOBACCO FORMER USER [facility] Jan 02, 2020 03:58 PM VA-TOBACCO QUIT 5 TO < 15 YRS [facility] Aug 14, 2019 10:32 AM TOBACCO PACK YEARS SGT [facility]. [facility] Aug 14, 2019 10:32 AM TOBACCO PACK YEARS >29 CC [facility] Jan 17, 2018 02:29 PM VA-TOBACCO FORMER USER [facility]. [facility] Jan 17, 2018 02:29 PM VA-TOBACCO QUIT 5 TO < 15 YRS [facility] [place] [facility] Jan 17, 2018 01:07 PM TOBACCO PACK YEARS [facility] Jan 17, 2018 01:07 PM TOBACCO PACK YEARS >29 50 [facility] Sep 26, 2017 12:56 PM LIFETIME NON-TOBACCO USER [facility] Jan 18, 2017 12:27 PM TOBACCO PACK YEARS [facility] Jan 18, 2017 12:27 PM TOBACCO PACK YEARS >29 50 [facility] Jan 06, 2016 12:16 PM TOBACCO PACK YEARS [facility] Jan 06, 2016 12:16 PM TOBACCO PACK YEARS >29 50 [facility] Apr 09, 2015 08:52 AM TOBACCO PACK YEARS [facility] Apr 09, 2015 08:52 AM TOBACCO PACK YEARS >29 50 [facility] Dec 26, 2014 12:12 PM TOBACCO PACK YEARS [facility] Dec 26, 2014 12:12 PM TOBACCO PACK YEARS >29 50 YEARS ON AND OFF [facility] Sep 16, 2014 09:00 AM TOBACCO PACK YEARS [facility] Sep 16, 2014 09:00 AM TOBACCO PACK YEARS >29 s [facility] Jun 25, 2014 01:57 PM TOBACCO PACK YEARS [facility] Jun 25, 2014 01:57 PM TOBACCO PACK YEARS <30 50 [facility] Dec 06, 2013 10:06 AM TOBACCO PACK YEARS [facility] Dec 06, 2013 10:06 AM TOBACCO PACK YEARS >29 50 [facility] Jan 22, 2013 01:07 PM CURRENT TOBACCO USE [facility] Jan 22, 2013 01:07 PM TOBACCO CESSATION OFFERED [facility]. [facility] Jan 22, 2013 01:07 PM TOBACCO MEDS OFFERED [facility] Nov 08, 2012 09:21 AM CURRENT TOBACCO USE [facility] [facility] Nov 08, 2012 09:21 AM TOBACCO CESSATION OFFERED [facility] Nov 08, 2012 09:21 AM TOBACCO MEDS OFFERED [facility] Oct 28, 2011 08:17 AM CURRENT TOBACCO USE [facility] Oct 28, 2011 08:17 AM TOBACCO CESSATION OFFERED [facility]GT [facility] Oct 28, 2011 08:17 AM TOBACCO MEDS OFFERED [facility]GT [facility] Aug 04, 2011 01:10 PM CURRENT TOBACCO USE [facility] Aug 04, 2011 01:10 PM TOBACCO CESSATION OFFERED [facility]. [facility] Aug 04, 2011 01:10 PM TOBACCO MEDS OFFERED [facility]GT [facility] Apr 28, 2011 08:00 AM CURRENT TOBACCO USE [facility] Apr 28, 2011 08:00 AM TOBACCO CESSATION OFFERED [facility]. [facility] Apr 28, 2011 08:00 AM TOBACCO MEDS OFFERED [facility] March 05, 2011 02:27 PM CURRENT TOBACCO USE [facility] March 05, 2011 02:27 PM TOBACCO CESSATION OFFERED [facility] March 05, 2011 02:27 PM TOBACCO MEDS OFFERED [facility] Dec 22, 2010 01:11 PM CURRENT TOBACCO USE [facility] Dec 22, 2010 01:11 PM TOBACCO CESSATION OFFERED [facility] Dec 22, 2010 01:11 PM TOBACCO MEDS OFFERED [facility]GT [facility] Oct 28, 2010 12:57 PM CURRENT TOBACCO USE [facility] Oct 28, 2010 12:57 PM TOBACCO CESSATION OFFERED [facility] Oct 28, 2010 12:57 PM TOBACCO MEDS OFFERED [facility]GT [facility] Oct 21, 2009 08:22 AM CURRENT TOBACCO USE [facility] Oct 21, 2009 08:22 AM TOBACCO CESSATION OFFERED [facility] Oct 21, 2009 08:22 AM TOBACCO MEDS OFFERED [facility]GT [facility] Sep 19, 2009 08:11 AM LIFETIME NON-TOBACCO USER [facility] Oct 22, 2008 12:58 PM TOBACCO NON USE GR EATER THAN 12 MONTHS SGT [facility]. [facility] Sep 17, 2008 08:24 AM TOBACCO NON USE GR EATER THAN 12 MONTHS [facility] Dec 01, 2007 12:58 PM TOBACCO NON USE LE SS THAN 12 MONTHS SGT [facility]. [facility] Aug 16, 2007 01:17 PM TOBACCO CESSATION OFFERED SGT [facility] Aug 16, 2007 01:17 PM TOBACCO MEDS OFFERED [facility] Aug 16, 2007 01:17 PM TOBACCO NON USE LE SS THAN 12 MONTHS SGT [facility]. [facility] Jun 23, 2007 10:31 AM TOBACCO NON USE LE SS THAN 12 MONTHS S[facility] Dec 14, 2006 10:24 AM CURRENT TOBACCO USE [facility] March 01, 2006 11:10 AM CURRENT TOBACCO USE [facility]GT [facility]. [facility] Advance Directives: All historical and current Section Date Range: From patient's date of to the date document was created. This section includes ALL of a patient's completed or amended [place] Advance and Rescinded Directives. The entries below indicate that a directive exists for the patient, but an actual copy is not included with this document. The data comes from all [place] facilities. Date Advance Directives Provider Source Aug 08, 2023 ADVANCE DIRECTIVE NOTIFICATION AND SCREENING GIOVANNI JORGE SGT E.ISiobhan [facility] Nov 10, 2022 ADVANCE DIRECTIVE NOTIFICATION AND SCREENING GIOVANNI JORGE SGT E.ISiobhan [facility] Mar 17, 2020 ADVANCE DIRECTIVE DISCUSSION GIOVANNI JORGE SGT E.ISiobhan [facility] May 23, 2019 ADVANCE DIRECTIVE DISCUSSION MADHURI WILSON [facility] Aug 23, 2016 ADVANCE DIRECTIVE DISCUSSION SHANKAR AYALA [facility] Jan 06, 2016 ADVANCE DIRECTIVE DISCUSSION KATIE BAILEY [facility] Jan 27, 2011 ADVANCE DIRECTIVE ANDREI ACE [facility]GT [facility] Radiology Reports: +/- 30 days [...] US XTR NON-VASC LM TD: JADE GTZ Fuad [id number] -[id number] M Exm Date: SEP 05, 2023@13:55 Req Phys: DERE[facility]ALL[facility] (Req[facility]g L Img Loc: T-ULTRASOUND Service: Unknown (Case [id number] COMPLETE) US XTR NON-VASC LMTD (US Detailed) CPT:49773 Reason for Study: B/L swollen armpits Clinical History: Report Status: Verified Date Reported: SEP 05, 2023 Date Verified: SEP 05, 2023 Business Architect E-Sig:/ES/BERENICE MCCRACKEN Report: EXAMINATION: US XTR NON-VASC [...] REQUIRED Primary Interpreting Staff: BERENICE MCCRACKEN Radiologist (Business Architect) /[facility] FLORES [facility] Aug 12, 2023 12:19 PM LDCT LUNG CANCER S CREENING: JADE GTZ V [id number] -[id number] M Exm Date: AUG 12, 2023@12:19 Req Phys: SHERLYN POSADAS Loc: [facility] HISTORICAL (Req'g Loc) Im Loc: T-CT SCAN Service: Unknown (Case [id number] COMPLETE) LDCT LUNG CANCER SCREENING (CT Detailed) CPT:35522 Reason for Study: Abnormal LDCT follow-up Clinical History: Report Status: Verified Date Reported: AUG 12, 2023 Date Verified: AUG 12, 2023 Business Architect E-Sig:/ES/SARAH ASHLEY MD Report: EXAM: LDCT LUNG CANCER SCREENING ADDITIONAL HISTORY: Annual Screening COMPARISON: 08/09/2022 PROTOCOL: Screening protocol, low dose, non-contrast CT chest was performed in accordance with Lung-Rads v1.1. Additional coronal and sagittal reconstructions. MIP reconstructions were reviewed. Computer assisted detection (CAD) postprocessing of the lung windows done by [employer] software. DOSE PARAMETERS: Up-to-date CT equipment and [...] Interpreting Staff: SARAH ASHLEY MD, Staff Physician (Business Architect) /[facility] MARCH [facility] Encounter Notes: All associated encounter notes This section contains the clinical notes associated to the Encounter. Date/Time Encounter Note(s) Provider Source Aug 10, 2023 02:12 PM PODIATRY NOTE: LOCAL TITLE: PODIATRY NOTE STANDARD TITLE: PODIATRY NOTE DATE OF NOTE: AUG 10, 2023@14:12 ENTRY DATE: AUG 10, 2023@14:12:51 AUTHOR: RAHEEL TAMAYO COSIGNER: URGENCY: STATUS: COMPLETED S) 78 y/o vet presents as a patient for foot/ankle evaluation. Vet complains of pain to the feet and difficulty with shoes on occasion. Pierce has been seen in the community in [place] for care of discolored nails on bilateral great toes of many months duration. Recently he has been using a herbal remedy and according to the picture on his phone his nails have improved. Just the distal portions of the nails still seem to be detached from the nailbed but the proximal portion appears to be drum cleaner and more attached. has tried many different topicals including conditioner that a provider in [place] had given him Over the past couple of weeks Pierce has hit his right fifth toe a couple of times and slight discoloration is noted. The nail is slightly raised up off the nailbed. O) Nails: (X) Dystrophic b/l great nails; [...] 4 NEW CANCELLED BY CLINIC 02/01/2023 14:15 [facility] F2F PACT RN/CAMP PROGRAM DIRECTOR 07 01/19/2023 12:39 TL E-CONSULT GASTRO UNSCHEDULED 12/21/2022 14:15 [facility] F2F PACT RN/CAMP PROGRAM DIRECTOR 07 CANCELLED BY PATIENT 11/24/2022 13:30 [facility] OPTOMETRY 2 11/22/2022 13:45 [facility] CARE-PODIATRY 11/10/2022 14:30 [facility] F2 PACT 07 10/06/2022 13:40 [facility] F2F PC WALKIN 10/06/2022 13:03 [facility] F2F PC WALKIN RN/CAMP PROGRAM DIRECTOR SP - Surgical Pathology No data available DS - Disabilities Eligibility: SC LESS THAN 50% VERIFIED Total S/C %: 10 IMPAIRED HEARING 0% S/C TINNITUS 10% S/C Review JL for most accurate data r/t ALL/ADRs/MED REC MRT5 - Allergies/ADRs FACILITY ALLERGY/ADR -------- No Remote Allergy/ADR Data available for this patient N. /. [facility] [place]/ [facility] FLEXERIL N. / [facility] PEN[place]IN N. / [facility] [place]INE [place]/ [facility] VALACYCLOVIR OUTPT ARTIFICIAL TEARS PVA 1.4%/POVIDONE (PF) (Status = ) INSTILL 1 DROP INTO BOTH EYES TWICE A DAY NEEDED FOR DRY EYES Rx# [id number] Last Released: 05/31/22 Qty/Days Supply: 100/60 Rx [...] SENSITIVE AREAS. WASH HANDS AFTER APPLICATION. Rx# [id number] Last Released: 04/22/22 Qty/Days Supply: 60/30 Rx Expiration Date: 04/21/23 Refills Remainin Indication: FOR PAIN OUTPT DICLOFENAC NA 1% TOP GEL (Status = ) APPLY 2 GRAMS TOPICALLY EVERY 6 HOURS TO AFFECTED JOINT FOR PAIN (MEASURE DOSE USING SUPPLIED DOSING CARD) Rx# [id number] Last Released: 12/25/21 Qty/Days Supply: 100/30 Rx Expiration Date: 12/24/22 Refills Remainin Indication: FOR PAIN AND INFLAMMATION OUTPT FAMCICLOVIR 250MG TAB (Status = Active) TAKE ONE TABLET BY MOUTH TWICE A DAY FOR VIRAL SUPPRESSION. FOR ACUTE OUTBREAK INCREASE DOSE TO 1000MG(4 TABLETS)TWICE DAILY FOR 2 DAYS AND CALL CLINIC Rx# [id number] Last Released: 01/06/23 Qty/Days Supply: 130/60 Rx Expiration Date: 02/25/23 Refills Remainin Indication: FOR INFECTION CAUSED BY A VIRUS OUTPT GABAPENTIN 100MG CAP (Status = ) TAKE ONE CAPSULE BY MOUTH THREE TIMES A DAY FOR NEUROPATHY Rx# [id number] Last Released: 11/18/21 Qty/Days Supply: 90/30 Rx Expiration Date: 11/19/22 Refills Remainin OUTPT METHOCARBAMOL 750MG TAB (Status = ) TAKE ONE TABLET BY MOUTH EVERY 6 HOURS NEEDED FOR MUSCLE SPASMS/MUSCLE RELAXATION (TAKE WITH FOOD) Rx# [id number] Last Released: 02/02/22 Qty/Days Supply: 120/30 Rx Expiration Date: 01/27/23 Refills Remainin Indication: FOR MUSCLE SPASMS/MUSCLE RELAXATION OUTPT PANTOPRAZOLE NA 40MG EC TAB (Status = Active/Suspended) TAKE ONE TABLET BY MOUTH TWICE A DAY FOR STOMACH ACID FOR STOMACH### Rx# [id number] Last Released: 01/10/23 Qty/Days Supply: 180/90 Rx Expiration Date: 06/02/23 Refills Remainin Indication: FOR STOMACH ACID OUTPT TAMSULOSIN HCL 0.4MG CAP (Status = Active) TAKE ONE CAPSULE BY MOUTH AT BEDTIME FOR PROSTATE Rx# [id number] Last Released: 01/10/23 Qty/Days Supply: 90/90 Rx Expiration Date: 04/14/23 Refills Remainin Indication: FOR PROSTATE OUTPT TRIAMCINOLONE ACETONIDE 0.1% CREAM (Status = Active) APPLY A SMALL AMOUNT TOPICALLY TWICE A DAY NEEDED FOR SKIN RASH Rx# [id number] Last Released: 11/16/22 Qty/Days Supply: 800/30 Rx Expiration Date: 11/11/23 Refills Remainin Indication: FOR SKIN RASH SUPPLIES P) Treatment: Discussed etiology of foot/ankle pain. Pierce chart reviewed. should continue the medicines already prescribed in the community. Pierce may start Clotrimazole solution if desired. is to continue using an emery board to the nails and to observe these nails as they continue to grow. Would not recommend Lamisil tablets as only the great nails are affected and he has noticed progress. voices understanding of explained concerns. 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 Aug 10, 2023 02:03 PM NURSING E & M NOTE : LOCAL TITLE: SPECIALTY CARE NURSING (T) STANDARD TITLE: NURSING E & M NOTE DATE OF NOTE: AUG 10, 2023@14:03 ENTRY DATE: AUG 10, 2023@14:03:45 AUTHOR: RAYMOND TREVIZO EXP COSIGNER: URGENCY: STATUS: COMPLETED Type of visit: [id number] Is the patient currently experiencing pain? Per patient or caregiver patient currently has no pain, and a pain score of 0. SPECIALTY CARE AND PATIENT EDUCATION PODIATRY Purpose of visit: Nail Care Other Describe: IN FOR FOOT CARE F/U, FUNGUS TO B/L GREAT TOE. /hina/ RAYMOND TREVIZO LPN Signed: 08/10/2023 14:04 RAYMOND TREVIZO [facility]
--- OUTSIDE RECORDS SUMMARY | 2024-04-30 08:34 | XMS_ITS | Encounter Summary ---
Author Name [facility] [place] [facility] [place] Address [address], [place] [address] Care Team Providers Care Development Engineer Name Role Phone JESENIA HANSEN Primary Care [...] PART A Jan 09, 2012 PART A [id number] JADE MAGDALENO PATIENT Selected Encounter This section includes the information on record at [place] for the Encounter. Date/Time Encounter Type Encounter Description Reason Provider Source Aug 15, 2023 08:21 AM Outpatient Encounter PRIMARY CARE/MEDICINE KAMRAN LEBLANC Encounter Template Text not used by [place] Plan of Treatment: Future Appointments (+ 6 [...] Appointment Type Appointme nt Facility Name Aug 16, 2023 03:00 PM AMBULATORY - NONE NSiobhan ANNIKA DA/Anastacio [facility] Aug [...] 01:00 PM AMBULATORY - NONE [facility] Jan 30, 2024 01:00 PM AMBULATORY - NONE [facility] Feb 06, 2024 03:00 PM AMBULATORY - SURGERY [facility]GT [facility] Feb 06, 2024 03:30 PM AMBULATORY - MEDICINE [facility] Lab Results: +/- 30 days of the encounter This section includes the Chemistry and Hematology Lab Results on record with [place] for the patient. Radiology Reports and Pathology Reports are provided separately, in subsequent sections. Lab Results This section contains the Chemistry/Hematology Results that were resulted 30 days before or 30 daysafter the date of the Encounter. Date/Time Source Result Type Result - Unit Interpretation Reference Range Comment Aug 22, 2023 03:04 PM [facility] TOTAL,VIT D Specimen Type: SERUM [...] 2023 09:16 AM Reporting Lab: [facility] [address] [address] Performing Lab: [facility] [address] [address] TOTAL,VIT D 36.3 ng/mL See_Comment Aug 22, 2023 03:04 PM [facility] MAGNESIUM Specimen Type: PLASMA No comment entered. Ordering Provider: DEREK PEÑA Report Released Date/Time: Aug 18, 2023 09:16 AM Reporting Lab: [facility] [address] [facility] [address] Performing Lab: [facility] [address] [facility] [address] MAGNESIUM 2.2 mg/dL 1.7-2.5 Aug 08, 2023 12:36 PM [facility] TSH-G,ERIKJ,T Specimen Type: PLASMA Comment: eGFR calculated using [...] 03:06 PM Reporting Lab: [facility] [address] [facility] [address] Performing Lab: [facility] [address] [facility] [address] TSH-G,ERIK,J,T 1.450 u[IU]/mL 0.27-4.2 Aug 08, 2023 12:36 PM [facility] HEMOGLOBIN %A1C PROFILE Specimen Type: [...] PM Reporting Lab: SGT Hitesh LÓPEZ [facility] [address] [facility] [address] Performing Lab: [facility] H[facility]h [facility] [address] [facility] [address] HEMOGLOBIN %A1C 5.5 Aug 08, 2023 12:36 PM Elijah LÓPEZ [facility] LIPID PANEL Specimen Type: PLASMA Comment: eGFR [...] 03:06 PM Reporting Lab: SGT Hitesh LÓPEZ [facility] [address] [facility] [address] Performing Lab: SGT Hitesh LÓPEZ [facility] [address] [facility] [address] CHOLESTEROL 203 mg/dL H 0-199 TRIGLYCERIDE 171 mg/dL H 0-149 LDL CHOLESTEROL 114 mg/dL <129 HDL CHOLESTEROL 55 mg/dL >40 DIRECT LDL canc mg/dL <129 Aug 08, 2023 12:36 PM SGT Hitesh LÓPEZ [facility] COMPREHENSIVE METABOLIC PANEL Specimen Type: PLASMA Comment: [...] 03:06 PM Reporting Lab: SGT Jaziel.ISiobhan [facility] [address] Performing Lab: T Jaziel.ISiobhan [facility] [address] UREA NITROGEN 22 mg/dL H 9-20 SODIUM [...] 89 mL/min Aug 08, 2023 12:36 PM [facility] URINALYSIS Specimen Type: URINE No comment entered. Ordering Provider: DEREK PEÑA Report Released Date/Time: Nov 10, 2022 03:06 PM Reporting Lab: T JazielSiobhanBlasSiobhan [facility] [address] Performing Lab: T E.BlasSiobhan [facility] [address] [place] [address] URINE COLOR Light-Yellow SPECIFIC GRAVITY 1.026 1.003-1.030 URINE BILIRUBIN Negative mg/dL NEGATIVE URINE KETONES Negative mg/dL NEGATIVE URINE GLUCOSE Negative mg/dL NEGATIVE URINE PROTEIN Negative mg/dL NEGATIVE URINE PH 5.0 [pH] 5.0-9.0 URINE BLOOD Tr mg/dL NEGATIVE URINE NITRITE Negative NEGATIVE LEUKOCYTE ESTERASE, URINE Negative NEGATIVE CLARITY Clear CLEAR UROBILINOGEN(mg /dL) <2.0 mg/dL L 0.0-1.99 Aug 08, 2023 12:36 PM [facility] CBC (DIFF&PLT) Specimen Type: BLOOD No comment entered. Ordering Provider: DEREK PEÑA Report Released Date/Time: Nov 10, 2022 03:06 PM Reporting Lab: [facility] Hitesh [facility] [address] [facility] [address] Performing Lab: SGT Hitesh LÓPEZ [facility] [address] [facility] [address] WBC 5.08 10*3/uL 4.6-10.8 RBC 4.84 10*6/uL [...] PRIOR TOBACCO USE CESSATION DATE [facility] Tobacco Use History This section includes a history of the smoking, or tobacco-related health factors, that were collected on or before the date of the Encounter. The data comes from the [place] facility where the Encounter took place. Date/Time Smoking Status/Tobacco Use Comment Tanesha acility Jan 17, 2018 01:30 PM PRIOR TOBACCO USE CESSATION DATE [facility] Jan 18, 2017 01:13 PM PRIOR TOBACCO USE CESSATION DATE [facility] Jan 06, 2016 01:03 PM PRIOR TOBACCO USE CESSATION DATE [facility] Advance Directives: All historical and current Section Date Range: From patient's date of to the date document was created. This section includes ALL of a patient's completed or amended [place] Advance and Rescinded Directives. The entries below indicate that a directive exists for the patient, but an actual copy is not included with this document. The data comes from all [facility]. Date Advance Directives Provider Source Aug 08, 2023 ADVANCE DIRECTIVE NOTIFICATION AND SCREENING GIOVANNI JORGE SGT E.ISiobhan LÓPEZ [facility] Nov 10, 2022 ADVANCE DIRECTIVE NOTIFICATION AND SCREENING GIOVANNI JORGE SGT E.ISiobhan [facility] Mar 17, 2020 ADVANCE DIRECTIVE DISCUSSION GIOVANNI JORGE SGT E.ISiobhan [facility] May 23, 2019 ADVANCE DIRECTIVE DISCUSSION MADHURI WILSON SGT E.ISiobhan [facility] Aug 23, 2016 ADVANCE DIRECTIVE DISCUSSION SHANKAR AYALA [facility]GT [facility] Jan 06, 2016 ADVANCE DIRECTIVE DISCUSSION KATIE BAILEY [facility]GT [facility] Jan 27, 2011 ADVANCE DIRECTIVE ANDREI ACE [facility]GT [facility] Radiology Reports: [...] the Encounter. The data comes from all [place] treatment facilities. Date/Time Radiology Report Provider Source Sep 05, 2023 01:55 PM US XTR NON-VASC LM TD: JADE GTZ V [id number] -[id number] M Exm Date: SEP 05, 2023@13:55 Req Phys: DEREK PEÑA Loc: [facility] F2F PACT MD 07 (Req'g L Img Loc: T-ULTRASOUND Service: Unknown (Case [id number] COMPLETE) US XTR NON-VASC LMTD (US Detailed) CPT:41959 Reason for Study: B/L swollen armpits Clinical History: Report Status: Verified Date Reported: SEP 05, 2023 Date Verified: SEP 05, 2023 Mechanical Engineering Technician E-Sig:/ES/BERENICE MCCRACKEN Report: EXAMINATION: US XTR NON-VASC [...] REQUIRED Primary Interpreting Staff: BERENICE MCCRACKEN, Radiologist (Mechanical Engineering Technician) /RRBERENICE PERKINS [facility] Aug 12, 2023 12:19 PM LDCT LUNG CANCER S CREENING: JADE GTZ V [id number] M Exm Date: AUG 12, 2023@12:19 Req Phys: SHERLYN POSADAS Loc: [facility] HISTORICAL (Req'g Loc) Img Loc: T-CT SCAN Service: Unknown (Case [id number] COMPLETE) LDCT LUNG CANCER SCREENING (CT Detailed) CPT:96894 Reason for Study: Abnormal LDCT follow-up Clinical History: Report Status: Verified Date Reported: AUG 12, 2023 Date Verified: AUG 12, 2023 Mechanical Engineering Technician E-Sig:/ES/SARAH ASHLEY MD Report: EXAM: LDCT LUNG CANCER SCREENING ADDITIONAL HISTORY: Annual Screening COMPARISON: 08/09/2022 PROTOCOL: Screening protocol, low dose, non-contrast CT chest was performed in accordance with Lung-Rads v1.1. Additional coronal and sagittal reconstructions. MIP reconstructions were reviewed. Computer assisted detection (CAD) postprocessing of the lung windows done by [email or web address] software. DOSE PARAMETERS: Up-to-date CT equipment and radiation dose reduction techniques were employed. CTDIvol: 2.8 mGy. DLP: 94 mGy-cm. TECH NOTE: Conyers's name: Tresa Protocol: LDCT Exam Additional notes: annual f/u [...] Interpreting Staff: SARAH ASHLEY MD, Staff Physician (Mechanical Engineering Technician) /SARAH MARCH [facility] Encounter Notes: All associated encounter notes This section contains the clinical notes associated to the Encounter. Date/Time Encounter Note(s) Provider Source Aug 18, 2023 12:09 PM ADDENDUM: LOCAL TITLE: Addendum STANDARD TITLE: ADDENDUM DATE OF NOTE: AUG 18, 2023@12:09 ENTRY DATE: AUG 18, 2023@12:09:07 AUTHOR: KAMRAN LEBLANC EXP COSIGNER: URGENCY: STATUS: COMPLETED ------Original Message ---- Sent: 08/18/2023 11:39 AM ET From: JADE GTZ V To: Yareli PACT Alexa Peña Subject: Medication:wrong meds sent! 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 That's was main concern. To be checked every year! ------Original Message ---- Sent: 08/18/2023 12:09 PM ET From: KAMRAN LEBLANC To: JADE GTZ V Subject: Medication:wrong meds sent! Mr. 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 I am forwarding your note on to Dr. Peña to see when the recommended recheck is and will get back to you with that information. Doreen Leblanc RN /hina/ Doreen Leblanc RN Signed: 08/18/2023 12:09 Receipt Acknowledged By: 08/18/2023 12:27 /hina/ DEREK PEÑA Physician --- Original Document --- 08/15/23 PRIMARY CARE SECURE MESSAGING: ------Original Message ---- Sent: 08/12/2023 06:56 PM ET From: JADE GTZ V To: [facility] [address] Subject: Medication:wrong meds sent! doc told me he would prescribe something for anxiety and would be mailed. Today i got in mail TAMSULOSIN HCL 0.4MG CAP RX#[id number] which i use but already have. I looked on my meds list and there is nothing on tracking or prescribed for Anxiety. He also prescribed Gabapentin which i told him i did not want, i told pharmacy to cancel that. so he got EVERYTHING WRONG. I need the meds for anxiety so please get it sent. The ones he said i could take only when needed not the ones to take every day. ------Original Message ---- Sent: 08/15/2023 08:21 AM ET From: KAMRAN LEBLANC To: JADE GTZ V Subject: Medication:wrong meds sent! Dr [place] Gtz ordered Hydroxyzine for anxiety on 08/08 , pharmacy released he medication on 08/12/23 so you should be receiving it any day. Hope that helps. Doreen Leblanc RN /hina/ Doreen Leblanc RN Signed: 08/15/2023 08:21 Receipt Acknowledged By: 08/18/2023 12:02 /hian/ DEREK PEÑA Physician 08/18/2023 ADDENDUM STATUS: COMPLETED ------Original Message ---- Sent: 08/15/2023 08:46 AM ET From: JADE GTZ V To: [place] [id number] [address] Subject: Medication:wrong meds sent! Those meds are not listed on here as being sent or prescribed i will call pharmacy to see what they say. Also my blood work results do not show Vitamin D or magnesium results , unless i dont know how to read them, which are supposed to be monitored because of the meds Im taking. FYI my armpit glands are painful and swollen worse every day. I need to know CAT scan results and treatment LOLY. ------Original Message ---- Sent: 08/18/2023 09:17 AM ET From: KAMRAN LEBLANC To: JADE GTZ V Subject: Medication:wrong meds sent! Mr. Gtz, Dr Peña has ordered the labs for Vit D and magnesium levels , please call and make [phone] and schedule a lab appointment. The results of the LDCT has been mailed to you. Dr Peña has ordered an ultrasound for your axilla's, they will be calling you to schedule an appointment . After U/S complete , please call scheduling and book follow up appointment with Dr. Peña to discuss U/S results and the POC regarding the next step. Doreen Leblanc RN /hina/ Doreen Leblanc RN Signed: 08/18/2023 09:17 08/18/2023 ADDENDUM STATUS: COMPLETED ------Original Message ---- Sent: 08/18/2023 10:42 AM ET From: JADE GTZ V To: [facility] [address] Subject: Medication:wrong meds sent! how about telling me what the results of the scan are now instead of me having to wait more days and increasing my anxiety! Also i might not know how to read them. Is the Doc aware of the fact that about 16% of people who get covid shot experience swollen glands in armpits? I had the shot about a week before the swollen glands which are still swollen. My chiropractor knew this. and its been all over the news for 2 years yet no one told me at the [place]. ------Original Message ---- Sent: 08/18/2023 11:35 AM ET From: KAMRAN LEBLANC To: JADE GTZ V Subject: Medication:wrong meds sent! Mr. Gtz, I am forwarding your note to MD so he is aware of your concerns. Here are the results of your recent tests: Low Dose CT Scan of your chest - Impression: LUNG-RADS: 2: Benign FINDINGS: Stable exam. Multiple small pulmonary nodules are unchanged. Stable moderate pulmonary emphysema. RECOMMENDATION: One year follow-up low dose CT, if patient meets screening criteria. LUNG-RADS MODIFIER: N/A OTHER SIGNIFICANT FINDINGS AND RECOMMENDATIONS: None significant. Doreen Leblanc RN /es/ Doreen Leblanc RN Signed: 08/18/2023 11:35 Receipt Acknowledged By: 08/18/2023 12:01 /hina/ DEREK PEÑA Physician 08/18/2023 ADDENDUM STATUS: COMPLETED Please inform : Armpits issue were already discussed multiple times. On April 2022, was prescribed trial of neurontin. Per he never took it because he read about side effects. It was also discussed during our last visit. Per , burning in armpits went away but he now reported sharp pains in both armpits. 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 Conyers is on Famciclovir for herpese. Is he taking this medication? Is is helping? If I recall told me that he will follow up with his civilian PCP. Has he seen civilian PCP and discussed this issues with him or her? What was recommended? I ordered CT scan of chest. This is CT scan of chest and not CT scan of armpits. CT scan of chest will not show any abnormalities of armpits. I ordered ultrasound of armpits. will be contacted by radiology for ultrasound of armpits. I would recommend that almaz completes ultrasound of armpits to see if there are any abnormalities We can also consider consult to dermatology, however would need to come to this clinic for pictures of armpits first. I would recommend good hygiene and/or change detergent. For instance, may sweat a lot and detergent can irritate his armpits as there is constant friction. Please have schedule F2F follow up should he have any further questsions regarding his armpits. /hina/ DEREK PEÑA Physician Signed: 08/18/2023 12:01 Receipt Acknowledged By: 08/18/2023 12:16 /es/ Doreen Leblanc RN 08/18/2023 ADDENDUM STATUS: COMPLETED - Conyers was prescribed hydroxyzine for anxiety. This was sent on AUG 09. - Conyers was prescribed gabapentin. This medication is good for neuropatic pain. It was sent on AUG 09. It was ordered for neuropatic pain, it can however be prescribed for anxiety as well. I would recommend that at least tries this medication and see if it helps with neuropatic pain, his armpits issues, and possibly his anxiety. - Conyers was also offered 2x consult to mental health to discuss anxiety and stress issues. He declined. If he changes his mind I can enter consult to mental health to further discuss 's anxiety and stress. /hina/ DEREK PEÑA Physician Signed: 08/18/2023 12:06 Receipt Acknowledged By: 08/18/2023 12:15 /KAMRAN Bravo RN, [facility] Aug 18, 2023 12:02 PM ADDENDUM: LOCAL TITLE: Addendum STANDARD TITLE: ADDENDUM DATE OF NOTE: AUG 18, 2023@12:02:28 ENTRY DATE: AUG 18, 2023@12:02:29 AUTHOR: DEREK PEÑA EXP COSIGNER: URGENCY: STATUS: COMPLETED - Conyers was prescribed hydroxyzine for anxiety. This was sent on AUG 09. - was prescribed gabapentin. This medication is good for neuropatic pain. It was sent on AUG 09. It was ordered for neuropatic pain, it can however be prescribed for anxiety as well. I would recommend that at least tries this medication and see if it helps with neuropatic pain, his armpits issues, and possibly his anxiety. - was also offered 2x consult to mental health to discuss anxiety and stress issues. He declined. If he changes his mind I can enter consult to mental health to further discuss 's anxiety and stress. /hina/ DEREK PEÑA Physician Signed: 08/18/2023 12:06 Receipt Acknowledged By: 08/18/2023 12:15 /hina/ Doreen Leblanc RN --- Original Document --- 08/15/23 PRIMARY CARE SECURE MESSAGING: ------Original Message ---- Sent: 08/12/2023 06:56 PM ET From: JADE GTZ V To: [facility] [address] Subject: Medication:wrong meds sent! doc told me he would prescribe something for anxiety and would be mailed. Today i got in mail TAMSULOSIN HCL 0.4MG CAP RX#[id number] which i use but already have. I looked on my meds list and there is nothing on tracking or prescribed for Anxiety. He also prescribed Gabapentin which i told him i did not want, i told pharmacy to cancel that. so he got EVERYTHING WRONG. I need the meds for anxiety so please get it sent. The ones he said i could take only when needed not the ones to take every day. ------Original Message ---- Sent: 08/15/2023 08:21 AM ET From: KAMRAN LEBLANC To: JADE GTZ V Subject: Medication:wrong meds sent! Mr. GtzDr Peña ordered Hydroxyzine for anxiety on 08/08 , pharmacy released he medication on 08/12/23 so you should be receiving it any day. Hope that helps. Doreen Leblanc RN /hian/ Doreen Leblanc RN Signed: 08/15/2023 08:21 Receipt Acknowledged By: 08/18/2023 12:02 /hina/ DEREK PEÑA Physician 08/18/2023 ADDENDUM STATUS: COMPLETED ------Original Message ---- Sent: 08/15/2023 08:46 AM ET From: JADE GTZ V To: [facility] [address] Subject: Medication:wrong meds sent! Those meds are not listed on here as being sent or prescribed i will call pharmacy to see what they say. Also my blood work results do not show Vitamin D or magnesium results , unless i dont know how to read them, which are supposed to be monitored because of the meds Im taking. FYI my armpit glands are painful and swollen worse every day. I need to know CAT scan results and treatment LOLY. ------Original Message ---- Sent: 08/18/2023 09:17 AM ET From: KAMRAN LEBLANC To: JADE GTZ V Subject: Medication:wrong meds sent! Mr. Gtz, Dr Peña has ordered the labs for Vit D and magnesium levels , please call and make [phone] and schedule a lab appointment. The results of the LDCT has been mailed to you. Dr Peña has ordered an ultrasound for your axilla's, they will be calling you to schedule an appointment . After U/S complete , please call scheduling and book follow up appointment with Dr. Peña to discuss U/S results and the POC regarding the next step. Doreen Leblanc RN /hina/ Doreen Leblanc RN Signed: 08/18/2023 09:17 08/18/2023 ADDENDUM STATUS: COMPLETED ------Original Message ---- Sent: 08/18/2023 10:42 AM ET From: JADE GTZ V To: [facility] [address] Subject: Medication:wrong meds sent! how about telling me what the results of the scan are now instead of me having to wait more days and increasing my anxiety! Also i might not know how to read them. Is the Doc aware of the fact that about 16% of people who get covid shot experience swollen glands in armpits? I had the shot about a week before the swollen glands which are still swollen. My chiropractor knew this. and its been all over the news for 2 years yet no one told me at the [place]. ------Original Message ---- Sent: 08/18/2023 11:35 AM ET From: KAMRAN LEBLANC To: JADE GTZ V Subject: Medication:wrong meds sent! Mr. Gtz, I am forwarding your note to MD so he is aware of your concerns. Here are the results of your recent tests: Low Dose CT Scan of your chest - Impression: LUNG-RADS: 2: Benign FINDINGS: Stable exam. Multiple small pulmonary nodules are unchanged. Stable moderate pulmonary emphysema. RECOMMENDATION: One year follow-up low dose CT, if patient meets screening criteria. LUNG-RADS MODIFIER: N/A OTHER SIGNIFICANT FINDINGS AND RECOMMENDATIONS: None significant. Doreen Leblanc RN /es/ Doreen Leblanc RN Signed: 08/18/2023 11:35 Receipt Acknowledged By: 08/18/2023 12:01 /hina/ DEREK PEÑA Physician 08/18/2023 ADDENDUM STATUS: COMPLETED Please inform : Armpits issue were already discussed multiple times. On April 2022, sam was prescribed trial of neurontin. Per he never took it because he read about side effects. It was also discussed during our last visit. Per , burning in armpits went away but he now reported sharp pains in both armpits. 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 Conyers is on Famciclovir for herpese. Is he taking this medication? Is is helping? If I recall told me that he will follow up with his civilian PCP. Has he seen civilian PCP and discussed this issues with him or her? What was recommended? I ordered CT scan of chest. This is CT scan of chest and not CT scan of armpits. CT scan of chest will not show any abnormalities of armpits. I ordered ultrasound of armpits. will be contacted by radiology for ultrasound of armpits. I would recommend that almaz completes ultrasound of armpits to see if there are any abnormalities We can also consider consult to dermatology, however would need to come to this clinic for pictures of armpits first. I would recommend good hygiene and/or change detergent. For instance, may sweat a lot and detergent can irritate his armpits as there is constant friction. Please have schedule F2F follow up should he have any further questsions regarding his armpits. /es/ DEREK PEÑA Physician Signed: 08/18/2023 12:01 Receipt Acknowledged By: 08/18/2023 12:16 /hina/ Doreen Leblanc RN 08/18/2023 ADDENDUM STATUS: COMPLETED ------Original Message ---- Sent: 08/18/2023 11:39 AM ET From: TRESAJADE GALAVIZ V To: [facility] [address] Subject: Medication:wrong meds sent! 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 That's was main concern. To be checked every year! ------Original Message ---- Sent: 08/18/2023 12:09 PM ET From: KAMRAN LEBLANC To: JADE GTZ V Subject: Medication:wrong meds sent! Mr. 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 I am forwarding your note on to Dr. Peña to see when the recommended recheck is and will get back to you with that information. Doreen Leblanc RN /es/ Doreen Leblanc RN Signed: 08/18/2023 12:09 Receipt Acknowledged By: 08/18/2023 12:27 /hina/ DEREK PEÑA Physician DEREK PEÑA [facility] Aug 18, 2023 12:01 PM ADDENDUM: LOCAL TITLE: Addendum STANDARD TITLE: ADDENDUM DATE OF NOTE: AUG 18, 2023@12:01:16 ENTRY DATE: AUG 18, 2023@12:01:17 AUTHOR: DEREK PEÑA EXP COSIGNER: URGENCY: STATUS: COMPLETED Please inform : Armpits issue were already discussed multiple times. On April 2022, was prescribed trial of neurontin. Per he never took it because he read about side effects. It was also discussed during our last visit. Per , burning in armpits went away but he now reported sharp pains in both armpits. 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 Conyers is on Famciclovir for herpese. Is he taking this medication? Is is helping? If I recall told me that he will follow up with his civilian PCP. Has he seen civilian PCP and discussed this issues with him or her? What was recommended? I ordered CT scan of chest. This is CT scan of chest and not CT scan of armpits. CT scan of chest will not show any abnormalities of armpits. I ordered ultrasound of armpits. will be contacted by radiology for ultrasound of armpits. I would recommend that almaz completes ultrasound of armpits to see if there are any abnormalities We can also consider consult to dermatology, however would need to come to this clinic for pictures of armpits first. I would recommend good hygiene and/or change detergent. For instance, may sweat a lot and detergent can irritate his armpits as there is constant friction. Please have schedule F2F follow up should he have any further questsions regarding his armpits. /es/ DEREK PEÑA Physician Signed: 08/18/2023 12:01 Receipt Acknowledged By: 08/18/2023 12:16 /es/ Doreen Leblanc RN --- Original Document --- 08/15/23 PRIMARY CARE SECURE MESSAGING: ------Original Message ---- Sent: 08/12/2023 06:56 PM ET From: JADE GTZ V To: [facility] [address] [place] Subject: Medication:wrong meds sent! doc told me he would prescribe something for anxiety and would be mailed. Today i got in mail TAMSULOSIN HCL 0.4MG CAP RX#[id number] which i use but already have. I looked on my meds list and there is nothing on tracking or prescribed for Anxiety. He also prescribed Gabapentin which i told him i did not want, i told pharmacy to cancel that. so he got EVERYTHING WRONG. I need the meds for anxiety so please get it sent. The ones he said i could take only when needed not the ones to take every day. ------Original Message ---- Sent: 08/15/2023 08:21 AM ET From: KAMRAN LEBLANC To: JADE GTZ V Subject: Medication:wrong meds sent! Mr. GtzDr Peña ordered Hydroxyzine for anxiety on 08/08 , pharmacy released he medication on 08/12/23 so you should be receiving it any day. Hope that helps. Doreen Leblanc RN /es/ Doreen Leblanc RN Signed: 08/15/2023 08:21 Receipt Acknowledged By: 08/18/2023 12:02 /hina/ DEREK PEÑA Physician 08/18/2023 ADDENDUM STATUS: COMPLETED ------Original Message ---- Sent: 08/15/2023 08:46 AM ET From: JADE GTZ V To: [place] [facility] [address] [place] Subject: Medication:wrong meds sent! Those meds are not listed on here as being sent or prescribed i will call pharmacy to see what they say. Also my blood work results do not show Vitamin D or magnesium results , unless i dont know how to read them, which are supposed to be monitored because of the meds Im taking. FYI my armpit glands are painful and swollen worse every day. I need to know CAT scan results and treatment LOLY. ------Original Message ---- Sent: 08/18/2023 09:17 AM ET From: KAMRAN LEBLANC To: JADE GTZ V Subject: Medication:wrong meds sent! Mr. HillzanoDr Peña has ordered the labs for Vit D and magnesium levels , please call and make [phone] and schedule a lab appointment. The results of the LDCT has been mailed to you. Dr Peña has ordered an ultrasound for your axilla's, they will be calling you to schedule an appointment . After U/S complete , please call scheduling and book follow up appointment with Dr. Peña to discuss U/S results and the POC regarding the next step. Doreen Leblanc RN /es/ Doreen Leblanc RN Signed: 08/18/2023 09:17 08/18/2023 ADDENDUM STATUS: COMPLETED ------Original Message ---- Sent: 08/18/2023 10:42 AM ET From: JADE GTZ V To: [facility] [address] [place] Subject: Medication:wrong meds sent! how about telling me what the results of the scan are now instead of me having to wait more days and increasing my anxiety! Also i might not know how to read them. Is the Doc aware of the fact that about 16% of people who get covid shot experience swollen glands in armpits? I had the shot about a week before the swollen glands which are still swollen. My chiropractor knew this. and its been all over the news for 2 years yet no one told me at the [place]. ------Original Message ---- Sent: 08/18/2023 11:35 AM ET From: KAMRAN LEBLANC To: JADE GTZ V Subject: Medication:wrong meds sent! Mr. Gtz, I am forwarding your note to MD so he is aware of your concerns. Here are the results of your recent tests: Low Dose CT Scan of your chest - Impression: LUNG-RADS: 2: Benign FINDINGS: Stable exam. Multiple small pulmonary nodules are unchanged. Stable moderate pulmonary emphysema. RECOMMENDATION: One year follow-up low dose CT, if patient meets screening criteria. LUNG-RADS MODIFIER: N/A OTHER SIGNIFICANT FINDINGS AND RECOMMENDATIONS: None significant. Doreen Leblanc RN /hina/ Doreen Leblanc RN Signed: 08/18/2023 11:35 Receipt Acknowledged By: 08/18/2023 12:01 /hina/ DEREK PEÑA Physician 08/18/2023 ADDENDUM STATUS: COMPLETED - [place] was prescribed hydroxyzine for anxiety. This was sent on AUG 09. - [place] was prescribed gabapentin. This medication is good for neuropatic pain. It was sent on AUG 09. It was ordered for neuropatic pain, it can however be prescribed for anxiety as well. I would recommend that at least tries this medication and see if it helps with neuropatic pain, his armpits issues, and possibly his anxiety. - was also offered 2x consult to mental health to discuss anxiety and stress issues. He declined. If he changes his mind I can enter consult to mental health to further discuss 's anxiety and stress. /es/ DEREK PEÑA Physician Signed: 08/18/2023 12:06 Receipt Acknowledged By: 08/18/2023 12:15 /es/ Doreen Leblanc RN 08/18/2023 ADDENDUM STATUS: COMPLETED ------Original Message ---- Sent: 08/18/2023 11:39 AM ET From: JADE GTZ V To: [facility] [address] Subject: Medication:wrong meds sent! 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 That's was main concern. To be checked every year! ------Original Message ---- Sent: 08/18/2023 12:09 PM ET From: KAMRAN LEBLANC To: JADE GTZ V Subject: Medication:wrong meds sent! Mr. 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 I am forwarding your note on to Dr. Peña to see when the recommended recheck is and will get back to you with that information. Doreen Leblanc RN /es/ Doreen Leblanc RN Signed: 08/18/2023 12:09 Receipt Acknowledged By: 08/18/2023 12:27 /hina/ DEREK PEÑA Physician DEREK PEÑA [facility]jah [facility] Aug 18, 2023 11:35 AM ADDENDUM: LOCAL TITLE: Addendum STANDARD TITLE: ADDENDUM DATE OF NOTE: AUG 18, 2023@11:35 ENTRY DATE: AUG 18, 2023@11:35:37 AUTHOR: KAMRAN LEBLANC EXP COSIGNER: URGENCY: STATUS: COMPLETED ------Original Message ---- Sent: 08/18/2023 10:42 AM ET From: JADE GTZ V To: [facility] [address] Subject: Medication:wrong meds sent! how about telling me what the results of the scan are now instead of me having to wait more days and increasing my anxiety! Also i might not know how to read them. Is the Doc aware of the fact that about 16% of people who get covid shot experience swollen glands in armpits? I had the shot about a week before the swollen glands which are still swollen. My chiropractor knew this. and its been all over the news for 2 years yet no one told me at the [place]. ------Original Message ---- Sent: 08/18/2023 11:35 AM ET From: KAMRAN LEBLANC To: JADE GTZ V Subject: Medication:wrong meds sent! Mr. Gtz, I am forwarding your note to MD so he is aware of your concerns. Here are the results of your recent tests: Low Dose CT Scan of your chest - Impression: LUNG-RADS: 2: Benign FINDINGS: Stable exam. Multiple small pulmonary nodules are unchanged. Stable moderate pulmonary emphysema. RECOMMENDATION: One year follow-up low dose CT, if patient meets screening criteria. LUNG-RADS MODIFIER: N/A OTHER SIGNIFICANT FINDINGS AND RECOMMENDATIONS: None significant. Doreen Leblanc RN /hina/ Doreen Leblanc RN Signed: 08/18/2023 11:35 Receipt Acknowledged By: 08/18/2023 12:01 /hina/ DEREK PEÑA Physician --- Original Document --- 08/15/23 PRIMARY CARE SECURE MESSAGING: ------Original Message ---- Sent: 08/12/2023 06:56 PM ET From: JADE GTZ V To: [facility] [address] Subject: Medication:wrong meds sent! doc told me he would prescribe something for anxiety and would be mailed. Today i got in mail TAMSULOSIN HCL 0.4MG CAP RX#[id number] which i use but already have. I looked on my meds list and there is nothing on tracking or prescribed for Anxiety. He also prescribed Gabapentin which i told him i did not want, i told pharmacy to cancel that. so he got EVERYTHING WRONG. I need the meds for anxiety so please get it sent. The ones he said i could take only when needed not the ones to take every day. ------Original Message ---- Sent: 08/15/2023 08:21 AM ET From: KAMRAN LEBLANC To: JADE GTZ V Subject: Medication:wrong meds sent! Mr. Gtz, Dr Peña ordered Hydroxyzine for anxiety on 08/08 , pharmacy released he medication on 08/12/23 so you should be receiving it any day. Hope that helps. Doreen Leblanc RN /hina/ Doreen Leblanc RN Signed: 08/15/2023 08:21 Receipt Acknowledged By: 08/18/2023 12:02 /hina/ DEREK PEÑA Physician 08/18/2023 ADDENDUM STATUS: COMPLETED ------Original Message ---- Sent: 08/15/2023 08:46 AM ET From: JADE GTZ V To: [place] [facility] [address] Subject: Medication:wrong meds sent! Those meds are not listed on here as being sent or prescribed i will call pharmacy to see what they say. Also my blood work results do not show Vitamin D or magnesium results , unless i dont know how to read them, which are supposed to be monitored because of the meds Im taking. FYI my armpit glands are painful and swollen worse every day. I need to know CAT scan results and treatment LOLY. ------Original Message ---- Sent: 08/18/2023 09:17 AM ET From: KAMRAN LEBLANC To: JADE GTZ [place] Subject: Medication:wrong meds sent! Mr. Gtz, Dr Peña has ordered the labs for Vit D and magnesium levels , please call and make [phone] and schedule a lab appointment. The results of the LDCT has been mailed to you. Dr Peña has ordered an ultrasound for your axilla's, they will be calling you to schedule an appointment . After U/S complete , please call scheduling and book follow up appointment with Dr. Peña to discuss U/S results and the POC regarding the next step. Doreen Leblanc RN /hina/ Doreen Leblanc RN Signed: 08/18/2023 09:17 08/18/2023 ADDENDUM STATUS: COMPLETED Please inform : Armpits issue were already discussed multiple times. On April 2022, was prescribed trial of neurontin. Per he never took it because he read about side effects. It was also discussed during our last visit. Per , burning in armpits went away but he now reported sharp pains in both armpits. 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 [place] is on Famciclovir for herpese. Is he taking this medication? Is is helping? If I recall told me that he will follow up with his civilian PCP. Has he seen civilian PCP and discussed this issues with him or her? What was recommended? I ordered CT scan of chest. This is CT scan of chest and not CT scan of armpits. CT scan of chest will not show any abnormalities of armpits. I ordered ultrasound of armpits. will be contacted by radiology for ultrasound of armpits. I would recommend that almaz completes ultrasound of armpits to see if there are any abnormalities We can also consider consult to dermatology, however would need to come to this clinic for pictures of armpits first. I would recommend good hygiene and/or change detergent. For instance, may sweat a lot and detergent can irritate his armpits as there is constant friction. Please have schedule F2F follow up should he have any further questsions regarding his armpits. /hina/ DEREK PEÑA Physician Signed: 08/18/2023 12:01 Receipt Acknowledged By: 08/18/2023 12:16 /hina/ Doreen Leblanc RN 08/18/2023 ADDENDUM STATUS: COMPLETED - was prescribed hydroxyzine for anxiety. This was sent on AUG 09. - was prescribed gabapentin. This medication is good for neuropatic pain. It was sent on AUG 09. It was ordered for neuropatic pain, it can however be prescribed for anxiety as well. I would recommend that at least tries this medication and see if it helps with neuropatic pain, his armpits issues, and possibly his anxiety. - [place] was also offered 2x consult to mental health to discuss anxiety and stress issues. He declined. If he changes his mind I can enter consult to mental health to further discuss 's anxiety and stress. /hina/ DEREK PEÑA Physician Signed: 08/18/2023 12:06 Receipt Acknowledged By: 08/18/2023 12:15 /hina/ Doreen Leblanc RN 08/18/2023 ADDENDUM STATUS: COMPLETED ------Original Message ---- Sent: 08/18/2023 11:39 AM ET From: JADE GTZ V To: [place] [facility] [address] Subject: Medication:wrong meds sent! 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 That's was main concern. To be checked every year! ------Original Message ---- Sent: 08/18/2023 12:09 PM ET From: KAMRAN LEBLANC To: JADE GTZ V Subject: Medication:wrong meds sent! Mr. 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 I am forwarding your note on to Dr. Peña to see when the recommended recheck is and will get back to you with that information. Doreen Leblanc RN /es/ Doreen Leblanc RN Signed: 08/18/2023 12:09 Receipt Acknowledged By: 08/18/2023 12:27 /hina/ DEREK PEÑA Physician KAMRAN LEBLANC Elijah [facility] Aug 15, 2023 08:21 AM PRIMARY CARE Busy Moos E MESSAGING: LOCAL TITLE: PRIMARY CARE SECURE MESSAGING STANDARD TITLE: PRIMARY CARE SECURE MESSAGING DATE OF NOTE: AUG 15, 2023@08:21 ENTRY DATE: AUG 15, 2023@08:21:45 AUTHOR: KAMRAN LEBLANC EXP COSIGNER: URGENCY: STATUS: COMPLETED PRIMARY CARE SECURE MESSAGING Has ADDENDA ------Original Message ---- Sent: 08/12/2023 06:56 PM ET From: JADE GTZ V To: [facility] Alexa Peña Subject: Medication:wrong meds sent! doc told me he would prescribe something for anxiety and would be mailed. Today i got in mail TAMSULOSIN HCL 0.4MG CAP RX#[id number] which i use but already have. I looked on my meds list and there is nothing on tracking or prescribed for Anxiety. He also prescribed Gabapentin which i told him i did not want, i told pharmacy to cancel that. so he got EVERYTHING WRONG. I need the meds for anxiety so please get it sent. The ones he said i could take only when needed not the ones to take every day. ------Original Message ---- Sent: 08/15/2023 08:21 AM ET From: KAMRAN LEBLANC To: JADE GTZ V Subject: Medication:wrong meds sent! Mr. Gtz, Dr Peña ordered Hydroxyzine for anxiety on 08/08 , pharmacy released he medication on 08/12/23 so you should be receiving it any day. Hope that helps. Doreen Leblanc RN /es/ Doreen Leblanc RN Signed: 08/15/2023 08:21 Receipt Acknowledged By: 08/18/2023 12:02 /hina/ DEREK PEÑA Physician 08/18/2023 ADDENDUM STATUS: COMPLETED ------Original Message ---- Sent: 08/15/2023 08:46 AM ET From: JADE GTZ V To: [facility] [address] Subject: Medication:wrong meds sent! Those meds are not listed on here as being sent or prescribed i will call pharmacy to see what they say. Also my blood work results do not show Vitamin D or magnesium results , unless i dont know how to read them, which are supposed to be monitored because of the meds Im taking. FYI my armpit glands are painful and swollen worse every day. I need to know CAT scan results and treatment LOLY. ------Original Message ---- Sent: 08/18/2023 09:17 AM ET From: KAMRAN LEBLANC To: JADE GTZ V Subject: Medication:wrong meds sent! Dr [place] Gtz has ordered the labs for Vit D and magnesium levels , please call and make [phone] and schedule a lab appointment. The results of the LDCT has been mailed to you. Dr Peña has ordered an ultrasound for your axilla's, they will be calling you to schedule an appointment . After U/S complete , please call scheduling and book follow up appointment with Dr. Peña to discuss U/S results and the POC regarding the next step. Doreen Leblanc RN /hina/ Doreen Leblanc RN Signed: 08/18/2023 09:17 08/18/2023 ADDENDUM STATUS: COMPLETED ------Original Message ---- Sent: 08/18/2023 10:42 AM ET From: JADE GTZ V To: [facility] [address] [place] Subject: Medication:wrong meds sent! how about telling me what the results of the scan are now instead of me having to wait more days and increasing my anxiety! Also i might not know how to read them. Is the Doc aware of the fact that about 16% of people who get covid shot experience swollen glands in armpits? I had the shot about a week before the swollen glands which are still swollen. My chiropractor knew this. and its been all over the news for 2 years yet no one told me at the [place]. ------Original Message ---- Sent: 08/18/2023 11:35 AM ET From: KAMRAN LEBLANC To: JADE GTZ V Subject: Medication:wrong meds sent! Mr. Gtz, I am forwarding your note to MD so he is aware of your concerns. Here are the results of your recent tests: Low Dose CT Scan of your chest - Impression: LUNG-RADS: 2: Benign FINDINGS: Stable exam. Multiple small pulmonary nodules are unchanged. Stable moderate pulmonary emphysema. RECOMMENDATION: One year follow-up low dose CT, if patient meets screening criteria. LUNG-RADS MODIFIER: N/A OTHER SIGNIFICANT FINDINGS AND RECOMMENDATIONS: None significant. Doreen Leblanc RN /hina/ Doreen Leblanc RN Signed: 08/18/2023 11:35 Receipt Acknowledged By: 08/18/2023 12:01 /hina/ DEREK PEÑA Physician 08/18/2023 ADDENDUM STATUS: COMPLETED Please inform : Armpits issue were already discussed multiple times. On April 2022, was prescribed trial of neurontin. Per he never took it because he read about side effects. It was also discussed during our last visit. Per , burning in armpits went away but he now reported sharp pains in both armpits. 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 Conyers is on Famciclovir for herpese. Is he taking this medication? Is is helping? If I recall told me that he will follow up with his civilian PCP. Has he seen civilian PCP and discussed this issues with him or her? What was recommended? I ordered CT scan of chest. This is CT scan of chest and not CT scan of armpits. CT scan of chest will not show any abnormalities of armpits. I ordered ultrasound of armpits. Conyers will be contacted by radiology for ultrasound of armpits. I would recommend that almaz completes ultrasound of armpits to see if there are any abnormalities We can also consider consult to dermatology, however would need to come to this clinic for pictures of armpits first. I would recommend good hygiene and/or change detergent. For instance, may sweat a lot and detergent can irritate his armpits as there is constant friction. Please have schedule F2F follow up should he have any further questsions regarding his armpits. /hina/ DEREK PEÑA Physician Signed: 08/18/2023 12:01 Receipt Acknowledged By: 08/18/2023 12:16 /hina/ Doreen Leblanc RN 08/18/2023 ADDENDUM STATUS: COMPLETED - [place] was prescribed hydroxyzine for anxiety. This was sent on AUG 09. - [place] was prescribed gabapentin. This medication is good for neuropatic pain. It was sent on AUG 09. It was ordered for neuropatic pain, it can however be prescribed for anxiety as well. I would recommend that at least tries this medication and see if it helps with neuropatic pain, his armpits issues, and possibly his anxiety. - was also offered 2x consult to mental health to discuss anxiety and stress issues. He declined. If he changes his mind I can enter consult to mental health to further discuss 's anxiety and stress. /[place] PEÑA Physician Signed: 08/18/2023 12:06 Receipt Acknowledged By: 08/18/2023 12:15 /hina/ Doreen Leblanc RN 08/18/2023 ADDENDUM STATUS: COMPLETED ------Original Message ---- Sent: 08/18/2023 11:39 AM ET From: JADE GTZ V To: [facility] [address] [place] Subject: Medication:wrong meds sent! 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 That's was main concern. To be checked every year! ------Original Message ---- Sent: 08/18/2023 12:09 PM ET From: KAMRAN LEBLANC To: JADE GTZ V Subject: Medication:wrong meds sent! Mr. 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 I am forwarding your note on to Dr. Peña to see when the recommended recheck is and will get back to you with that information. Doreen Leblanc RN /es/ Doreen Leblanc RN Signed: 08/18/2023 12:09 Receipt Acknowledged By: 08/18/2023 12:27 /hina/ DEREK PEÑA Physician KAMRAN LEBLANC SGElijah [facility]RES IN CL[facility]
--- OUTSIDE RECORDS SUMMARY | 2024-04-30 08:34 | XMS_ITS | Encounter Summary ---
Author Name [facility] [place] Organization [facility] [place] Address [address] [facility], [place] [address] Care Team Providers Care Auto Service Advisor Name Role Phone TYRONEJESENIA Primary Care Provider [...] PART A Jan 09, 2012 PART A [id number] JADE MAGDALENO PATIENT Selected Encounter This section includes the information on record at [place] for the Encounter. Date/Time Encounter Type Encounter Description Reason Provider Source Aug 15, 2023 09:57 AM Outpatient Encounter ADMIN PAT ACTIVTIES (MASNONCT) SHERLYN POSADAS Encounter Template Text not used by [place] [...] 03:00 PM AMBULATORY - NONE NSiobhan ANNIKA /Anastacio [facility] Aug 22, 2023 03:00 PM AMBULATORY - NONE [facility] Sep 05, 2023 02:00 PM AMBULATORY - NONE [facility] Sep 07, 2023 09:00 AM AMBULATORY - MEDICINE [facility] Oct 04, 2023 02:15 PM AMBULATORY - MEDICINE [facility] Nov 21, 2023 01:00 PM AMBULATORY - NONE [facility] Jan 30, 2024 01:00 PM AMBULATORY - NONE [facility] Feb 06, 2024 03:00 PM AMBULATORY - SURGERY [facility] Feb 06, 2024 03:30 PM AMBULATORY - MEDICINE [facility] Lab Results: +/- 30 days of the encounter This section includes the Chemistry and Hematology Lab Results on record with [place] for the patient. Radiology Reports and Pathology Reports are provided separately, in subsequent sections. Lab Results This section contains the Chemistry/Hematology Results that were resulted 30 days before or 30 daysafter the date of the Encounter. Date/Time Source Result Type Result - Unit Interpretation Reference Range Comment Aug 22, 2023 03:04 PM [facility] TOTAL,VIT D Specimen Type: SERUM Comment: TOTAL,VIT D interpretation of results: Vitamin D deficiency: < or = 20 ng/mL Vitamin D insuficiency: 21 - 29 ng/mL Preferred level: > or = 30 ng/mL Toxicity: > 100 ng/mL Test performed on Cheryl chemistry analyzer (573) Slightly lipemic Ordering Provider: DEREK CABALLERO Report Released Date/Time: Aug 18, 2023 09:16 AM Reporting Lab: [facility]/[place] [id number] [phone] Performing Lab: [facility] [address] [phone] TOTAL,VIT D 36.3 ng/mL See_Comment Aug 22, 2023 03:04 PM [facility] MAGNESIUM Specimen Type: PLASMA No comment entered. Ordering Provider: DEREK CABALLERO Report Released Date/Time: Aug 18, 2023 09:16 AM Reporting Lab: [facility] [address] [place] [phone] Performing Lab: [facility] [address] MAGNESIUM 2.2 mg/dL 1.7-2.5 Aug 08, 2023 12:36 PM [facility] TSHERIK Figueroa J,T Specimen Type: PLASMA Comment: eGFR calculated using [...] 2022 03:06 PM Reporting Lab: [facility] [place] [id number] [place] [phone] Performing Lab: [facility] [address] [place] [phone] TSH-ERIK Buitrago,Areli,T 1.450 u[IU]/mL 0.27-4.2 Aug 08, 2023 12:36 PM [facility] HEMOGLOBIN %A1C PROFILE Specimen Type: BLOOD Comment: [...] PM Reporting Lab: [facility] [address] [place] [phone] Performing Lab: [facility]GT Jaziel.ISiobhan [facility] [address] [place] [id number] HEMOGLOBIN %A1C 5.5 Aug 08, 2023 12:36 PM [facility] URINALYSIS Specimen Type: URINE No comment entered. Ordering Provider: DEREK CABALLERO Report Released Date/Time: Nov 10, 2022 03:06 PM Reporting Lab: [facility] Jaziel.Orquidea [facility] [address] [place] [phone] Performing Lab: SGT Jaziel.Orquidea [facility] [address] [facility] [address] URINE COLOR Light-Yellow SPECIFIC GRAVITY 1.026 1.003-1.030 URINE BILIRUBIN Negative mg/dL NEGATIVE URINE KETONES Negative mg/dL NEGATIVE URINE GLUCOSE Negative mg/dL NEGATIVE URINE PROTEIN Negative mg/dL NEGATIVE URINE PH 5.0 [pH] 5.0-9.0 URINE BLOOD Tr mg/dL NEGATIVE URINE NITRITE Negative NEGATIVE LEUKOCYTE ESTERASE, URINE Negative NEGATIVE CLARITY Clear CLEAR UROBILINOGEN(mg /dL) <2.0 mg/dL L 0.0-1.99 Aug 08, 2023 12:36 PM T E.ISiobhan [facility] LIPID PANEL Specimen Type: [...] 03:06 PM Reporting Lab: SGT Hitesh LÓPEZ [address] [facility] [address] Performing Lab: SGT Hitesh [place] [address] [address] CHOLESTEROL 203 mg/dL H 0-199 TRIGLYCERIDE 171 mg/dL H 0-149 LDL CHOLESTEROL 114 mg/dL <129 HDL CHOLESTEROL 55 mg/dL >40 DIRECT LDL canc mg/dL <129 Aug 08, 2023 12:36 PM SGT Hitesh [facility] COMPREHENSIVE METABOLIC PANEL Specimen Type: PLASMA Comment: [...] 03:06 PM Reporting Lab: SGT Proctor [place] [address] [address] Performing Lab: SGElijah Proctor [place] [phone] UREA NITROGEN 22 mg/dL H 9-20 SODIUM [...] mL/min Aug 08, 2023 12:36 PM [facility] (DIFF&PLT) Specimen Type: BLOOD No comment entered. Ordering Provider: DEREK CABALLERO Report Released Date/Time: Nov 10, 2022 03:06 PM Reporting Lab: [facility] Hitesh LÓPEZ [facility] [address] [facility] [address] Performing Lab: [facility] [address] [facility] [address] WBC 5.08 10*3/uL 4.6-10.8 RBC 4.84 10*6/uL [...] PRIOR TOBACCO USE CESSATION DATE [facility] Tobacco Use History This section includes a history of the smoking, or tobacco-related health factors, that were collected on or before the date of the Encounter. The data comes from the [place] facility where the Encounter took place. Date/Time Smoking Status/Tobacco Use Comment Tanesha acility Jan 17, 2018 01:30 PM PRIOR TOBACCO USE CESSATION DATE [facility] Jan 18, 2017 01:13 PM PRIOR TOBACCO USE CESSATION DATE [facility] Jan 06, 2016 01:03 PM PRIOR TOBACCO USE CESSATION DATE [facility] Advance Directives: All historical and current [...] AND SCREENING GIOVANNI JORGE SGElijah E.ISiobhan LÓPEZ [facility] Nov 10, 2022 ADVANCE DIRECTIVE NOTIFICATION AND SCREENING GIOVANNI JORGE E.ISiobhan LÓPEZ [facility] Mar 17, 2020 ADVANCE DIRECTIVE DISCUSSION GIOVANNI JORGE SGElijah E.ISiobhan LÓPEZ [facility] May 23, 2019 ADVANCE DIRECTIVE DISCUSSION MADHURI WILSON SGT E.ISiobahn LÓPEZ [facility] Aug 23, 2016 ADVANCE DIRECTIVE DISCUSSION SHANKAR AYALA SGT E[facility]. [place] [facility] Jan 06, 2016 ADVANCE DIRECTIVE DISCUSSION KATIE BAILEY SGT [facility] [place] [facility] Jan 27, 2011 ADVANCE DIRECTIVE ANDREI ACE SGT E[facility]han [facility] Radiology Reports: +/- 30 days of the [...] the Encounter. The data comes from all [place] treatment facilities. Date/Time Radiology Report Provider Source Sep 05, 2023 01:55 PM US XTR NON-VASC LM TD: JADE GTZ V [id number] M Exm Date: SEP 05, 2023@13:55 Req Phys: DERE[facility] (Req'g L Img Loc: T-ULTRASOUND Service: Unknown (Case [id number] COMPLETE) US XTR NON-VASC LMTD (US Detailed) CPT:65505 Reason for Study: B/L swollen armpits Clinical History: Report Status: Verified Date Reported: SEP 05, 2023 Date Verified: SEP 05, 2023 Kick Plate Installer E-Sig:/ES/BERENICE MCCRACKEN Report: EXAMINATION: US XTR [...] REQUIRED Primary Interpreting Staff: BERENICE MCCRACKEN Radiologist (Kick Plate Installer) /BERENICE [facility] Aug 12, 2023 12:19 PM LDCT LUNG CANCER S CREENING: JADE GTZ V [id number] -[id number] M Exm Date: AUG 12, 2023@12:19 Req Phys: SHERLYN POSADAS Loc: [facility] HISTORICAL (Req'g Loc) Img Loc: T-CT SCAN Service: Unknown (Case [id number] COMPLETE) LDCT LUNG CANCER SCREENING (CT Detailed) CPT:01916 Reason for Study: Abnormal LDCT follow-up Clinical History: Report Status: Verified Date Reported: AUG 12, 2023 Date Verified: AUG 12, 2023 Kick Plate Installer E-Sig:/ES/SARAH ASHLEY MD Report: EXAM: LDCT LUNG CANCER SCREENING ADDITIONAL HISTORY: Annual Screening COMPARISON: 08/09/2022 PROTOCOL: Screening protocol, low dose, non-contrast CT chest was performed in accordance with Lung-Rads v1.1. Additional coronal and sagittal reconstructions. MIP reconstructions were reviewed. Computer assisted detection (CAD) postprocessing of the lung windows done by [employer] software. DOSE PARAMETERS: Up-to-date CT equipment and [...] Interpreting Staff: SARAH ASHLEY MD, Staff Physician (Kick Plate Installer) /SARAH MARCH [facility] Encounter Notes: All associated encounter notes This section contains the clinical notes associated to the Encounter. Date/Time Encounter Note(s) Provider Source Aug 15, 2023 09:57 AM ADMINISTRATIVE NOT E: LOCAL TITLE: RESULTS NOTIFICATION (FL) STANDARD TITLE: ADMINISTRATIVE NOTE DATE OF NOTE: AUG 15, 2023@09:57 ENTRY DATE: AUG 15, 2023@09:57:46 AUTHOR: SHERLYN POSADAS EXP COSIGNER: URGENCY: STATUS: COMPLETED [facility] PERSONAL AND CONFIDENTIAL AUG 15, 2023 JADE GTZ V [address] [place] [id number] Dear JADE GTZ V RE: Test Results Here are the results of your recent tests: Low Dose CT Scan of your chest - Impression LUNG-RADS: 2: Benign FINDINGS: Stable exam. Multiple small pulmonary nodules are unchanged. Stable moderate pulmonary emphysema. RECOMMENDATION: One year follow-up low dose CT, if patient meets screening criteria. LUNG-RADS MODIFIER: N/A OTHER SIGNIFICANT FINDINGS AND RECOMMENDATIONS: None significant. Action Required: Repeat Low Dose CT Scan of your chest again in one year. Please discuss this with your primary care physician at your next appointment. Your upcoming scheduled appointments: Nov@13:[address] [facility] OPTOMETRY 2 Jan@13:[address] [facility] LAB Jan@14:[address] [facility] F2F PACT WH Jan@15:[address] [facility] F2F POD 04 ADDRESSING HEALTHCARE ISSUES FROM HOME: Please contact your healthcare team prior to walking in. This may avoid unnecessary visits and/or decrease wait times. These are not emergency services. If you have a medical emergency, dial 911 - [facility] This is a website that allows you to access general health information as well as your own personal health information. Website: [email or web address].gov or call - Secure Messaging This enables you and your healthcare teams to exchange non-urgent health-related information through email. Website: [email or web address] Sincerely, SHERLYN POSADAS Physician [facility] Government Correspondence SHERLYN POSADAS [facility]
--- OUTSIDE RECORDS SUMMARY | 2024-04-30 08:34 | XMS_ITS | Encounter Summary ---
Author Name [facility] [place] [facility] [place] Address [address], [place] [address] Care Team Providers Care Woodworking Machine Feeder Name Role Phone JESENIA HANSEN Primary Care [...] PART A Jan 09, 2012 PART A [id number] JADE MAGDALENO PATIENT Selected Encounter This section includes the information on record at [place] for the Encounter. Date/Time Encounter Type Encounter Description Reason Provider Source Aug 12, 2023 10:41 AM Outpatient Encounter PRIMARY CARE/MEDICINE KAMRAN LEBLANC Encounter Template Text not used by [place] Plan of Treatment: Future Appointments (+ 6 [...] 20 appointments. The data comes from all [place] treatment facilities. Appointment Date/Time Appointment Type Appointme nt Facility Name Aug 16, 2023 03:00 PM AMBULATORY - NONE NSiobhan ANNIKA DA/Anastacio [facility] Aug 22, 2023 03:00 PM AMBULATORY - NONE [facility] Sep 05, 2023 02:00 PM AMBULATORY - NONE [facility] Sep 07, 2023 09:00 AM AMBULATORY - MEDICINE [facility] Oct 04, 2023 02:15 PM AMBULATORY - MEDICINE [facility] Nov 21, 2023 01:00 PM AMBULATORY - NONE [facility] Jan 30, 2024 01:00 PM AMBULATORY - NONE [facility] Feb 06, 2024 03:00 PM AMBULATORY - SURGERY [facility] Feb 06, 2024 03:30 PM AMBULATORY - MEDICINE [facility] Lab Results: +/- 30 days of the encounter This section includes the Chemistry and Hematology Lab Results on record with [place] for the patient. Radiology Reports and Pathology Reports are provided separately, in subsequent sections. Lab Results This section contains the Chemistry/Hematology Results that were resulted 30 days before or 30 daysafter the date of the Encounter. Date/Time Source Result Type Result - Unit Interpretation Reference Range Comment Aug 22, 2023 03:04 PM [facility] TOTAL,VIT D Specimen Type: SERUM Comment: TOTAL,VIT D interpretation of results: Vitamin D deficiency: < or = 20 ng/mL Vitamin D insuficiency: 21 - 29 ng/mL Preferred level: > or = 30 ng/mL Toxicity: > 100 ng/mL Test performed on Cheryl chemistry analyzer (573) Slightly lipemic Ordering Provider: DEREK PEÑA Report Released Date/Time: Aug 18, 2023 09:16 AM Reporting Lab: [facility] [address] [address] Performing Lab: [facility] [address] [address] TOTAL,VIT D 36.3 ng/mL See_Comment Aug 22, 2023 03:04 PM [facility] MAGNESIUM Specimen Type: PLASMA No comment entered. Ordering Provider: DEREK PEÑA Report Released Date/Time: Aug 18, 2023 09:16 AM Reporting Lab: [facility] [address] [facility] [address] Performing Lab: [facility] [address] [facility] [address] MAGNESIUM 2.2 mg/dL 1.7-2.5 Aug 08, 2023 12:36 PM [facility] TSH-G,ERIKJ,T Specimen Type: PLASMA Comment: [...] 03:06 PM Reporting Lab: [facility] [address] [facility] [address] Performing Lab: [facility] [address] [facility] [address] TSH-G,ERIK,J,T 1.450 u[IU]/mL 0.27-4.2 Aug 08, 2023 12:36 PM [facility] HEMOGLOBIN %A1C PROFILE Specimen Type: BLOOD Comment: Values obtained from A1C measurements can vary. For typical A1C assays, a reported value of 7.0 could actually be between 6.72and 7.28 if measured by a reference method. A reported value of 9.0 could actually be between 8.73 and 9.27. Ref: [email or web address].[email or web address] [email or web address] Ordering Provider: DEERK PEÑA Report Released Date/Time: Nov 10, 2022 03:06 PM Reporting Lab: [facility] [address] [facility] [address] Performing Lab: SGT Jaziel.ISiobhan [facility] [address] [facility] [address] HEMOGLOBIN %A1C 5.5 Aug 08, 2023 12:36 PM [facility] URINALYSIS Specimen Type: URINE No comment entered. Ordering Provider: DEREK PEÑA Report Released Date/Time: Nov 10, 2022 03:06 PM Reporting Lab: [facility] [address] [facility] [address] Performing Lab: SGT Jaziel.ISiobhan [facility] [address] [facility] [address] URINE COLOR Light-Yellow SPECIFIC GRAVITY 1.026 1.003-1.030 URINE BILIRUBIN Negative mg/dL NEGATIVE URINE KETONES Negative mg/dL NEGATIVE URINE GLUCOSE Negative mg/dL NEGATIVE URINE PROTEIN Negative mg/dL NEGATIVE URINE PH 5.0 [pH] 5.0-9.0 URINE BLOOD Tr mg/dL NEGATIVE URINE NITRITE Negative NEGATIVE LEUKOCYTE ESTERASE, URINE Negative NEGATIVE CLARITY Clear CLEAR UROBILINOGEN(mg /dL) <2.0 mg/dL L 0.0-1.99 Aug 08, 2023 12:36 PM SGT Jaziel.BlasSiobhan [facility] LIPID PANEL Specimen Type: [...] 03:06 PM Reporting Lab: SGT Jaziel.Orquidea LÓPEZ [facility] [address] [facility] [address] Performing Lab: SGElijah LÓPEZ [facility] [address] [facility] [address] CHOLESTEROL 203 mg/dL H 0-199 TRIGLYCERIDE 171 mg/dL H 0-149 LDL CHOLESTEROL 114 mg/dL <129 HDL CHOLESTEROL 55 mg/dL >40 DIRECT LDL canc mg/dL <129 Aug 08, 2023 12:36 PM [facility] Hitesh [facility] COMPREHENSIVE METABOLIC PANEL Specimen Type: PLASMA Comment: [...] 03:06 PM Reporting Lab: SGT Hitesh LÓPEZ [facility] [address] [facility] [address] Performing Lab: SGT Hitesh LÓPEZ [facility] [address] [place] [address] UREA NITROGEN 22 mg/dL H 9-20 SODIUM [...] 89 mL/min Aug 08, 2023 12:36 PM [facility] Hitesh LÓPEZ [facility] CBC (DIFF&PLT) Specimen Type: BLOOD No comment entered. Ordering Provider: DEREK PEÑA Report Released Date/Time: Nov 10, 2022 03:06 PM Reporting Lab: [facility]GT Hitesh [facility] [address] [facility] [address] Performing Lab: SGT Hitesh LÓPEZ [facility] [address] [facility] [address] WBC 5.08 10*3/uL 4.6-10.8 RBC 4.84 10*6/uL [...] 10:12 AM PRIOR TOBACCO USE CESSATION DATE [facility] Tobacco Use History This section includes a history of the smoking, or tobacco-related health factors, that were collected on or before the date of the Encounter. The data comes from the [place] facility where the Encounter took place. Date/Time Smoking Status/Tobacco Use Comment Tanesha acility Jan 17, 2018 01:30 PM PRIOR TOBACCO USE CESSATION DATE [facility] Jan 18, 2017 01:13 PM PRIOR TOBACCO USE CESSATION DATE [facility] Jan 06, 2016 01:03 PM PRIOR TOBACCO USE CESSATION DATE [facility] Advance Directives: All historical and current Section Date Range: From patient's date of to the date document was created. This section includes ALL of a patient's completed or amended [place] Advance and Rescinded Directives. The entries below indicate that a directive exists for the patient, but an actual copy is not included with this document. The data comes from all [facility]. Date Advance Directives Provider Source Aug 08, 2023 ADVANCE DIRECTIVE NOTIFICATION AND SCREENING GIOVANNI JORGE SGT E.ISiobhan L[facility]PE[facility] Nov 10, 2022 ADVANCE DIRECTIVE NOTIFICATION AND SCREENING GIOVANNI JORGE SGT E.ISiobhan L[facility] Mar 17, 2020 ADVANCE DIRECTIVE DISCUSSION GIOVANNI JORGE SGT E.ISiobhan [facility] May 23, 2019 ADVANCE DIRECTIVE DISCUSSION MADHURI WILSON SGT E.ISiobhan L[facility]PE[facility] Aug 23, 2016 ADVANCE DIRECTIVE DISCUSSION SHANKAR AYALA [facility] Jan 06, 2016 ADVANCE DIRECTIVE DISCUSSION KATIE BAILEY [facility] Jan 27, 2011 ADVANCE DIRECTIVE ANDREI ACE [facility] Radiology Reports: +/- 30 days of the [...] the Encounter. The data comes from all [place] treatment facilities. Date/Time Radiology Report Provider Source Sep 05, 2023 01:55 PM US XTR NON-VASC LM TD: JADE GTZ V [id number] -[id number] M Exm Date: SEP 05, 2023@13:55 Req Phys: DEREK PEÑA Loc: [facility] F2F PACT MD 07 (Req'g L Img Loc: T-ULTRASOUND Service: Unknown (Case [id number] COMPLETE) US XTR NON-VASC LMTD (US Detailed) CPT:28196 Reason for Study: B/L swollen armpits Clinical History: Report Status: Verified Date Reported: SEP 05, 2023 Date Verified: SEP 05, 2023 Barrel Driller E-Sig:/ES/BERENICE MCCRACKEN Report: EXAMINATION: US XTR NON-VASC [...] REQUIRED Primary Interpreting Staff: BERENICE MCCRACKEN, Radiologist (Barrel Driller) /RRBERENICE PERKINS [facility] Aug 12, 2023 12:19 PM LDCT LUNG CANCER S CREENING: JADE GTZ V [id number] -[id number] M Exm Date: AUG 12, 2023@12:19 Req Phys: SHERLYN POSADAS Loc: [facility] HISTORICAL (Req'g Loc) Img Loc: T-CT SCAN Service: Unknown (Case [id number] COMPLETE) LDCT LUNG CANCER SCREENING (CT Detailed) CPT:36367 Reason for Study: Abnormal LDCT follow-up Clinical History: Report Status: Verified Date Reported: AUG 12, 2023 Date Verified: AUG 12, 2023 Barrel Driller E-Sig:/ES/SARAH ASHLEY MD Report: EXAM: LDCT LUNG CANCER SCREENING ADDITIONAL HISTORY: Annual Screening COMPARISON: 08/09/2022 PROTOCOL: Screening protocol, low dose, non-contrast CT chest was performed in accordance with Lung-Rads v1.1. Additional coronal and sagittal reconstructions. MIP reconstructions were reviewed. Computer assisted detection (CAD) postprocessing of the lung windows done by [employer] software. DOSE PARAMETERS: Up-to-date CT equipment and radiation dose reduction techniques were employed. CTDIvol: 2.8 mGy. DLP: 94 mGy-cm. TECH NOTE: [place]'s name: Angela Protocol: LDCT Exam Additional notes: [...] Interpreting Staff: SARAH ASHLEY MD, Staff Physician (Barrel Driller) /SARAH MARCH [facility] Encounter Notes: All associated encounter notes This section contains the clinical notes associated to the Encounter. Date/Time Encounter Note(s) Provider Source Aug 12, 2023 02:26 PM ADDENDUM: LOCAL TITLE: Addendum STANDARD TITLE: ADDENDUM DATE OF NOTE: AUG 12, 2023@14:26:44 ENTRY DATE: AUG 12, 2023@::44 AUTHOR: DEREK PEÑA EXP COSIGNER: URGENCY: STATUS: COMPLETED LDCT scan is for lung screening, not for arm pits. We discussed arm pits issue during his last visit as well as months ago. wasn't worried about arm pits during our last visit, only about rash. He was prescribed cream for rash, has he tried it? I also suggested that worries excesively, has he tried hydroxyzine for anxiety? /es/ DEREK PEÑA Physician Signed: 08/12/2023 14:31 Receipt Acknowledged By: 08/15/2023 08:22 /es/ Doreen Leblanc RN --- Original Document --- 08/12/23 PRIMARY CARE SECURE MESSAGING: ------Original Message ----- Sent: 08/11/2023 06:40 AM ET From: JADE GTZ V [facility] [place] Subject: Test:swollen lymph glands results of blood test. eosino 0-3 high 3. These high levels indicate that the patient may be reacting to an allergen or a parasite or to substances produced by cancer cells related to Hodgkin lymphoma and chronic myeloid leukemia. as i told doc Sukumar. my glands are swollen and burning. my question to him is the CAT scan tomorrow that is scheduled going to cover my arm pits to see these glands and what are we going to do about determining why they are swollen. ? Or should he schedule a sonagram for them tomorrow. This has me very worried. ------Original Message ----- Sent: 08/12/2023 11:41 AM ET From: KAMRAN LEBLANC To: JADE GTZ V Subject: Test:swollen lymph glands Mr. Gtz, I believe the CT you are having done will show the arm pits. I am forwarding your concerns on to MD so he can be looking out for the results of the CT scan. After the radiologist reads the scans and sends the results to the MD , he can determine the plan of care and at that timer, we will be contacting you regarding that plan. Doreen Leblanc RN /es/ Doreen Leblanc RN Signed: 08/12/2023 11:41 Receipt Acknowledged By: 08/12/2023 14:26 /es/ DEREK PEÑA Physician DEREK PEÑA [facility] Aug 12, 2023 10:41 AM PRIMARY CARE FINDING ROVER MESSAGING: LOCAL TITLE: PRIMARY CARE SECURE MESSAGING STANDARD TITLE: PRIMARY CARE SECURE MESSAGING DATE OF NOTE: AUG 12, 2023@10:41 ENTRY DATE: AUG 12, 2023@11:41:37 AUTHOR: KAMRAN LEBLANC EXP COSIGNER: URGENCY: STATUS: COMPLETED PRIMARY CARE SECURE MESSAGING Has ADDENDA ------Original Message ----- Sent: 08/11/2023 06:40 AM ET From: JADE GTZ V To: [facility] Alexa Peña Subject: Test:swollen lymph glands results of blood test. eosino 0-3 high 3. These high levels indicate that the patient may be reacting to an allergen or a parasite or to substances produced by cancer cells related to Hodgkin lymphoma and chronic myeloid leukemia. as i told doc Sukumar. my glands are swollen and burning. my question to him is the CAT scan tomorrow that is scheduled going to cover my arm pits to see these glands and what are we going to do about determining why they are swollen. ? Or should he schedule a sonagram for them tomorrow. This has me very worried. ------Original Message ----- Sent: 08/12/2023 11:41 AM ET From: KAMRAN LEBLANC To: JADE GTZ V Subject: Test:swollen lymph glands Mr. Gtz, I believe the CT you are having done will show the arm pits. I am forwarding your concerns on to MD so he can be looking out for the results of the CT scan. After the radiologist reads the scans and sends the results to the MD , he can determine the plan of care and at that timer, we will be contacting you regarding that plan. Doreen Leblanc RN /es/ Doreen Leblanc RN Signed: 08/12/2023 11:41 Receipt Acknowledged By: 08/12/2023 14:26 /hina/ DEREK PEÑA Physician 08/12/2023 ADDENDUM STATUS: COMPLETED LDCT scan is for lung screening, not for arm pits. We discussed arm pits issue during his last visit as well as months ago. wasn't worried about arm pits during our last visit, only about rash. He was prescribed cream for rash, has he tried it? I also suggested that worries excesively, has he tried hydroxyzine for anxiety? /hina/ DEREK PEÑA Physician Signed: 08/12/2023 14:31 Receipt Acknowledged By: * AWAITING SIGNATURE * KAMRAN LEBLANC JUDITH L [facility]
--- OUTSIDE RECORDS SUMMARY | 2024-04-30 08:35 | XMS_ITS | Data Portability ---
Author Organization [facility] Address [address] [place] [id number] Care Team Providers Care Work Study Student Name Role Phone DEREK CABALLERO Primary Care Provider DEREK CABALLERO Referring Provider Assessment Encounter Date Assessment Date Assessment LastModified by Organization Details LastModified Time 03/30/2022 03/30/2022 Patient is a pleasant 77 year old male with Newly Diagnosed Osteoporosis, Osteoarthritis, and Degenerative Disc Disease with a past medical history of PsA (2003), Psoriasis (2002), PseudoGout (Dx by [employer]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 Total time spent communicating with the pt and and charting was 21 minutes. Working diagnoses include, but are not limited to, *Rheumatoid arthritis* and Connective tissue disease. Plan as outlined below. [email or web address] Not available 03/31/2022 08:39:44 04/22/2022 04/22/2022 Patient is a pleasant 77 year old male with Newly Diagnosed Osteoporosis, Osteoarthritis, and Degenerative Disc Disease with a past medical history of PsA (2004), Psoriasis (2003), PseudoGout (Dx by [employer] in [facility]), Aortic aneurysm, Herpes virus (Type 1 & 2) , Anxiety and GERD who is presenting to our clinic for a follow up visit. Working diagnoses include, but are not limited to, *Rheumatoid arthritis* and Connective tissue disease. Plan as outlined below. [email or web address] Not available 04/22/2022 13:28:17 05/19/2022 05/19/2022 Patient is a pleasant 77 year old male with Newly Diagnosed Osteoporosis, Osteoarthritis, and Degenerative Disc Disease with a past medical history of PsA (2003), Psoriasis (2002), PseudoGout (Dx by [employer] in [facility]), Aortic aneurysm, Herpes virus (Type 1 & 2) , Anxiety and GERD who is presenting to our clinic for a follow up visit. Working diagnoses include, but are not limited to, *Rheumatoid arthritis* and Connective tissue disease. Plan as outlined below. [email or web address] Not available 05/18/2022 21:59:47 Plan of Treatment Reminders Order Date Submit Date Provider Last Modified By Organization Details Last Modified Time Details Appointments None recorded. Lab C3 + C4 (complement ), serum 2021 [employer] [facility], [facility], [place], [address], 12:07:42 RNA polymerase III Ab, serum 2021 [employer] [facility], [facility], [place], [address], 12:07:46 scleroderma ([id number]) Ab, serum 2021 [employer] [facility], [facility], [place], [address], 15:19:20 juarez Ab, serum 2021 [employer] [facility], [facility], [place], [address], 12:07:45 centromere Ab, serum 2021 [employer] [facility], [address] [place] [address], [place], [address], 12:07:45 histone Ab, serum 2021 [employer] [facility], [facility], [place], [address], 12:07:42 dsDNA Ab, serum 2021 022 [employer] [facility], [address], [place], [address], 12:07:44 anti-ssdna Ab, serum 2021 022 [employer] [facility], [address], [place], [address], 15:19:18 urinalysis complete, reflex culture 2021 [employer] [facility], [address], [place], [place], [address], 12:07:43 Referral None recorded. Procedures None recorded. Surgeries None recorded. Imaging None recorded. Medication Orders None recorded. Patient TargetsNo targets recorded. Patient InstructionsNo instructions recorded. Reason for Referral None Reported. Results Created Date Observation Date Name Description Value Unit Range Abnormal Flag LastModifiedBy Organization Detail LastModifiedTime 02/12/20 22 02/11/2022 25-HY DROXY VITAM IN D 25-hydroxy vitamin D 62.5 NG/mL 32-100 Not Available [facility] [address], [place], [address], 02/16/2022 17:27:04 02/12/20 22 02/11/2022 ANTI- THYRO GLOBU MAKEDA (QUAL ITATI VE) anti-thyrogl obulin (qual) 4.9 IU/mL 0-30 Not Available [facility] [address], [place], [address], 02/16/2022 17:28:20 02/12/20 22 02/11/2022 ANTI- THYRO ID PEROX IDASE (QUAL ITATI VE) anti-thyroid peroxidase (qual) 31.8 IU/mL 0-8 high Not Available [facility] [address], [place], [address], 02/16/2022 17:28:20 02/12/20 22 02/11/2022 QUANT IFERO N TB GOLD PLUS nil 0.034 Not Available [facility] [address] [place], [address], 02/25/2022 18:17:00 02/12/20 22 02/11/2022 QUANT IFERO N TB GOLD PLUS TB1 antigen 0.025 Not Available [facility] [address] [place], [address], 02/25/2022 18:17:00 02/12/20 22 02/11/2022 QUANT IFERO N TB GOLD PLUS TB2 antigen 0.034 Not Available [facility] [address] [place], [address], 02/25/2022 18:17:00 02/12/20 22 02/11/2022 QUANT IFERO N TB GOLD PLUS mitogen 13.804 Not Available [facility] [address] [place], [address], 02/25/2022 18:17:00 02/12/20 22 02/11/2022 QUANT IFERO N TB GOLD PLUS tbgp Negati ve IU/mL Not Available [facility] [address] [place], [address], 02/25/2022 18:17:00 02/12/20 22 02/11/2022 RHEUM ATOID FACTO R/3 IGM, IGG, IGA rf IgM - I.U. 63 I.U./ mL 0-25 high Not Available [facility] [address] [place], [address], 03/03/2022 09:48:10 02/12/20 22 02/11/2022 RHEUM ATOID FACTO R/3 IGM, IGG, IGA rf IgG 13 units /mL 0-20 Not Available [facility] [address] [place], [address], 03/03/2022 09:48:10 02/12/20 22 02/11/2022 RHEUM ATOID FACTO R/3 IGM, IGG, IGA rf IgA 60 units /mL 0-35 high Not Available [facility] [address], [place], [address], 03/03/2022 09:48:10 02/12/20 22 02/11/2022 CYCLI C CITRU LLINA DEBBIE PEPTI DE-4P cyclic citrullinate d peptide 0.2 units /mL 0.0-6. 9 Not Available [facility] [address], [place], [address], 03/12/2022 09:53:13 02/26/20 22 03/05/2022 HEPAT ITIS PANEL , ACUTE W/REF WILSON TO CONFI RMATI ON hepatitis A IgM NON-RE ACTIVE non-re active normal Not Available [facility] [address], [place], [address], 03/05/2022 15:19:04 02/26/20 22 03/05/2022 HEPAT ITIS PANEL , ACUTE W/REF WILSON TO CONFI RMATI ON hepatitis B surface antigen NON-RE ACTIVE non-re active normal Not Available [facility] [address] [place], [address], 03/05/2022 15:19:04 02/26/20 22 03/05/2022 HEPAT ITIS PANEL , ACUTE W/REF WILSON TO CONFI RMATI ON hepatitis B core antibody (IgM) NON-RE ACTIVE non-re active normal Not Available [facility] [address] [place], [address], 03/05/2022 15:19:04 02/26/20 22 03/05/2022 HEPAT ITIS PANEL , ACUTE W/REF WILSON TO CONFI RMATI ON hepatitis C antibody NON-RE ACTIVE non-re active normal Not Available [facility] [address], [place], [address], 03/05/2022 15:19:04 02/26/20 22 03/05/2022 HEPAT ITIS PANEL , ACUTE W/REF WILSON TO CONFI RMATI ON index 0.05 <1.00 normal Not Available [facility] [place] [facility] [address], [place], [address], 03/05/2022 15:19:04 02/26/20 22 03/05/2022 VANESSA C DISEA SE COMPR EHENS DEZ PANEL interpretati on SEE NOTE Not Available [facility] [place] [facility] [address], [place], [address], 03/05/2022 15:19:05 02/26/20 22 03/05/2022 VANESSA C DISEA SE COMPR EHENS DEZ PANEL tissue transglutami nase Ab, IgA <1.0 U/mL Not Available [facility] [place] [facility] [address], [place], [address], 03/05/2022 15:19:05 02/26/20 22 03/05/2022 VANESSA C DISEA SE COMPR EHENS DEZ PANEL immunoglobul in A 228 mg/dL 70-320 Not Available [facility] [address], [place], [address], 03/05/2022 15:19:05 02/26/20 22 03/05/2022 TESTO STERO NE, FREE, BIOAV AILAB LE AND TOTAL , MS testosterone , total, MS 703 NG/dL 250-11 00 Not Available [facility] [place] [facility] [address], [place], [address], 03/05/2022 15:19:05 02/26/20 22 03/05/2022 TESTO STERO NE, FREE, BIOAV AILAB LE AND TOTAL , MS testosterone , free 41.9 pg/mL 6.0-73 .0 Not Available [facility] [place] [facility] [address], [place], [address], 03/05/2022 15:19:05 02/26/20 22 03/05/2022 TESTO STERO NE, FREE, BIOAV AILAB LE AND TOTAL , MS testosterone ,bioavailabl e 73.5 NG/dL 15.0-1 50.0 Not Available [facility] [address], [place], [address], 03/05/2022 15:19:05 02/26/20 22 03/05/2022 TESTO STERO NE, FREE, BIOAV AILAB LE AND TOTAL , MS sex hormone binding globulin 86 nmol/ L 22-77 high Not Available [facility] [address], [place], [address], 03/05/2022 15:19:05 02/26/20 22 03/05/2022 TESTO STERO NE, FREE, BIOAV AILAB LE AND TOTAL , MS albumin 3.8 g/dL 3.6-5. 1 Not Available [facility] [address], [place], [address], 03/05/2022 15:19:05 02/26/20 22 03/05/2022 BUN/C REATI NINE RATIO urea nitrogen (BUN) 23 mg/dL 7-25 normal Not Available [email or web address] [place] [address], [place], [address], 03/05/2022 15:19:06 02/26/20 22 03/05/2022 BUN/C REATI NINE RATIO creatinine 0.92 mg/dL 0.70-1 .18 normal Not Available [facility] [address], [place], [address], 03/05/2022 15:19:06 02/26/20 22 03/05/2022 BUN/C REATI NINE RATIO eGFR non-afr. canadian 81 mL/mi n/1.7 3m2 > or = 60 normal Not Available [facility] [address], [place], [address], 03/05/2022 15:19:06 02/26/20 22 03/05/2022 BUN/C REATI NINE RATIO eGFR 94 mL/mi n/1.7 3m2 > or = 60 normal Not Available [email or web address] [address], [place], [address], 03/05/2022 15:19:06 02/26/20 22 03/05/2022 BUN/C REATI NINE RATIO BUN/creatini ne ratio NOT APPLIC ABLE (calc ) 6-22 Not Available [facility] [address], [place], [address], 03/05/2022 15:19:06 02/26/20 22 03/05/2022 CALCI UM calcium 9.4 mg/dL 8.6-10 .3 normal Not Available [email or web address] [address], [place], [address], 03/05/2022 15:19:06 02/26/20 22 03/05/2022 PTH, INTAC T WITHO UT CALCI UM parathyroid hormone, intact 32 pg/mL 16-77 normal Not Available [email or web address] [address], [place], [address], 03/05/2022 15:19:06 02/26/20 22 03/05/2022 MAGNE SIUM magnesium 2.2 mg/dL 1.5-2. 5 normal Not Available [facility] [address], [place], [address], 03/05/2022 15:19:07 02/26/20 22 03/05/2022 URIC ACID uric acid 3.9 mg/dL 4.0-8. 0 low Not Available [email or web address] [address], [place], [address], 03/05/2022 15:19:07 02/26/20 22 03/05/2022 PROTE IN, TOTAL AND PROTE IN ELECT ROPHO RESIS W/ REFL GILBERTO protein, total 6.3 g/dL 6.1-8. 1 normal Not Available [facility] [address], [place], [address], 03/05/2022 15:19:08 02/26/20 22 03/05/2022 PROTE IN, TOTAL AND PROTE IN ELECT ROPHO RESIS W/ REFL GILBERTO albumin 3.9 g/dL 3.8-4. 8 normal Not Available [facility] [address], [place], [address], 03/05/2022 15:19:08 02/26/20 22 03/05/2022 PROTE IN, TOTAL AND PROTE IN ELECT ROPHO RESIS W/ REFL GILBERTO alpha 1 globulin 0.2 g/dL 0.2-0. 3 normal Not Available [facility] [address], [place], [address], 03/05/2022 15:19:08 02/26/20 22 03/05/2022 PROTE IN, TOTAL AND PROTE IN ELECT ROPHO RESIS W/ REFL GILBERTO alpha 2 globulin 0.7 g/dL 0.5-0. 9 normal Not Available [facility] [address], [place], [address], 03/05/2022 15:19:08 02/26/20 22 03/05/2022 PROTE IN, TOTAL AND PROTE IN ELECT ROPHO RESIS W/ REFL GILBERTO beta 1 globulin 0.4 g/dL 0.4-0. 6 normal Not Available [facility] [address], [place], [address], 03/05/2022 15:19:08 02/26/20 22 03/05/2022 PROTE IN, TOTAL AND PROTE IN ELECT ROPHO RESIS W/ REFL GILBERTO beta 2 globulin 0.3 g/dL 0.2-0. 5 normal Not Available [facility] [place] [facility] [address], [place], [address], 03/05/2022 15:19:08 02/26/20 22 03/05/2022 PROTE IN, TOTAL AND PROTE IN ELECT ROPHO RESIS W/ REFL GILBERTO gamma globulin 0.9 g/dL 0.8-1. 7 normal Not Available [facility] [place] [facility] [address], [place], [address], 03/05/2022 15:19:08 02/26/20 22 03/05/2022 PROTE IN, TOTAL AND PROTE IN ELECT ROPHO RESIS W/ REFL GILBERTO interpretati on Not Available [facility] [place] [facility] [address], [place], [address], 03/05/2022 15:19:08 02/26/20 22 03/05/2022 CREAT INE KINAS E, TOTAL creatine kinase, total 62 U/L 44-196 normal Not Available [facility] [place] [facility] [address], [place], [address], 03/05/2022 15:19:08 02/26/20 22 03/05/2022 ALDOL ASE aldolase TNP Not Available [facility] [place] [facility] [address], [place], [address], 03/05/2022 15:19:08 02/26/20 22 03/05/2022 TSH W/REF WILSON TO FT4 TSH w/reflex to FT4 1.08 mIU/L 0.40-4 .50 normal Not Available [facility] [place] [facility] [address], [place], [address], 03/05/2022 15:19:09 02/26/20 22 03/05/2022 ZINC zinc 62 mcg/d L 60-130 Not Available [facility] [place] [facility] [address], [place], [address], 03/05/2022 15:19:09 02/26/20 22 03/05/2022 HLA-B 27 DNA TYPIN G [id number] Negati ve negati ve Not Available [facility] [place] [facility] [address], [place], [address], 03/05/2022 15:19:09 02/26/20 22 03/05/2022 HLA-B 27 DNA TYPIN G results reviewed by: see note Not Available [facility] [place] [facility] [address], [place], [address], 03/05/2022 15:19:09 02/26/20 22 03/05/2022 ANCA SCREE N WITH REFLE X TO TITER anca screen NEGATI VE negati ve Not Available [facility] [place] [facility] [address], [place], [address], 03/05/2022 15:19:10 02/26/20 22 03/05/2022 SED RATE BY MODIF IED WESTE RGREN sed rate by modified westergren 2 mm/h < or = 20 normal Not Available [facility] [place] [facility] [address], [place], [address], 03/05/2022 15:19:10 02/26/20 22 03/05/2022 CBC (INCL UDES DIFF/ PLT) white blood cell count 4.9 thous and/u L 3.8-10 .8 normal Not Available [facility] [place] [facility] [address], [place], [address], 03/05/2022 15:19:11 02/26/20 22 03/05/2022 CBC (INCL UDES DIFF/ PLT) red blood cell count 4.67 austin on/uL 4.20-5 .80 normal Not Available [facility] [address], [place], [address], 03/05/2022 15:19:11 02/26/20 22 03/05/2022 CBC (INCL UDES DIFF/ PLT) hemoglobin 14.7 g/dL 13.2-1 7.1 normal Not Available [facility] [address], [place], [address], 03/05/2022 15:19:11 02/26/20 22 03/05/2022 CBC (INCL UDES DIFF/ PLT) hematocrit 42.9 % 38.5-5 0.0 normal Not Available [facility] [address], [place], [address], 03/05/2022 15:19:11 02/26/20 22 03/05/2022 CBC (INCL UDES DIFF/ PLT) MCV 91.9 fL 80.0-1 00.0 normal Not Available [facility] [address], [place], [address], 03/05/2022 15:19:11 02/26/20 22 03/05/2022 CBC (INCL UDES DIFF/ PLT) MCH 31.5 pg 27.0-3 3.0 normal Not Available [facility] [address], [place], [address], 03/05/2022 15:19:11 02/26/20 22 03/05/2022 CBC (INCL UDES DIFF/ PLT) MCHC 34.3 g/dL 32.0-3 6.0 normal Not Available [facility] [address], [place], [address], 03/05/2022 15:19:11 02/26/20 22 03/05/2022 CBC (INCL UDES DIFF/ PLT) RDW 12.9 % 11.0-1 5.0 normal Not Available [facility] [address], [place], [address], 03/05/2022 15:19:11 02/26/20 22 03/05/2022 CBC (INCL UDES DIFF/ PLT) platelet count 133 thous and/u L 140-40 0 low Not Available [facility] [address], [place], [address], 03/05/2022 15:19:11 02/26/20 22 03/05/2022 CBC (INCL UDES DIFF/ PLT) MPV 12.0 fL 7.5-12 .5 normal Not Available [facility] [address], [place], [address], 03/05/2022 15:19:11 02/26/20 22 03/05/2022 CBC (INCL UDES DIFF/ PLT) absolute neutrophils 3107 cells /uL 1500-7 800 normal Not Available [facility] [address], [place], [address], 03/05/2022 15:19:11 02/26/20 22 03/05/2022 CBC (INCL UDES DIFF/ PLT) absolute lymphocytes 1279 cells /uL 850-39 00 normal Not Available [facility] [address], [place], [address], 03/05/2022 15:19:11 02/26/20 22 03/05/2022 CBC (INCL UDES DIFF/ PLT) absolute monocytes 333 cells /uL 200-95 0 normal Not Available [facility] [address], [place], [address], 03/05/2022 15:19:11 02/26/20 22 03/05/2022 CBC (INCL UDES DIFF/ PLT) absolute eosinophils 162 cells /uL 15-500 normal Not Available [facility] [address], [place], [address], 03/05/2022 15:19:11 02/26/20 22 03/05/2022 CBC (INCL UDES DIFF/ PLT) absolute basophils 20 cells /uL 0-200 normal Not Available [facility] [address], [place], [address], 03/05/2022 15:19:11 02/26/20 22 03/05/2022 CBC (INCL UDES DIFF/ PLT) neutrophils 63.4 % normal Not Available [facility] [address], [place], [address], 03/05/2022 15:19:11 02/26/20 22 03/05/2022 CBC (INCL UDES DIFF/ PLT) lymphocytes 26.1 % normal Not Available [facility] [address], [place], [address], 03/05/2022 15:19:11 02/26/20 22 03/05/2022 CBC (INCL UDES DIFF/ PLT) monocytes 6.8 % normal Not Available [facility] [address], [place], [address], 03/05/2022 15:19:11 02/26/20 22 03/05/2022 CBC (INCL UDES DIFF/ PLT) eosinophils 3.3 % normal Not Available [facility] [address], [place], [address], 03/05/2022 15:19:11 02/26/20 22 03/05/2022 CBC (INCL UDES DIFF/ PLT) basophils 0.4 % normal Not Available [facility] [address], [place], [address], 03/05/2022 15:19:11 02/26/20 22 03/05/2022 IRON AND TOTAL IRON TAMARA NG CAPAC ITY iron, total 106 mcg/d L 50-180 normal Not Available [facility] [address], [place], [address], 03/05/2022 15:19:11 02/26/20 22 03/05/2022 IRON AND TOTAL IRON TAMARA NG CAPAC ITY iron binding capacity 296 mcg/d L_(ca lc) 250-42 5 normal Not Available [facility] [address], [place], [address], 03/05/2022 15:19:11 02/26/20 22 03/05/2022 IRON AND TOTAL IRON TAMARA NG CAPAC ITY % saturation 36 %_(ca lc) 20-48 normal Not Available [facility] [address], [place], [address], 03/05/2022 15:19:11 02/26/20 22 03/05/2022 ARACELI TIN ferritin 43 NG/mL 24-380 normal Not Available [facility] [address], [place], [address], 03/05/2022 15:19:11 02/26/20 22 03/05/2022 VITAM IN B12 vitamin B12 433 pg/mL 200-11 00 normal Not Available [facility] [address], [place], [address], 03/05/2022 15:19:12 02/26/20 22 03/05/2022 LYME DISEA SE AB W/REF L TO BLOT (IGG, IGM) lyme Ab screen <0.90 index normal Not Available [facility] [address], [place], [address], 03/05/2022 15:19:12 02/26/20 22 03/05/2022 RHEUM ATOID FACTO R rheumatoid factor 14 IU/mL <14 high Not Available [facility] [address], [place], [address], 03/05/2022 15:19:13 02/26/20 22 03/05/2022 C-DORIAN CTIVE PROTE IN C-reactive protein 0.7 mg/L <8.0 normal Not Available [facility] [address], [place], [address], 03/05/2022 15:19:13 02/26/20 22 03/05/2022 MYOSI TIS SPECI FIC 11 AB PANEL tim-1 Ab <11 SI <11 Not Available [facility] [address], [place], [address], 03/05/2022 15:19:13 02/26/20 22 03/05/2022 MYOSI TIS SPECI FIC [address]-7 Ab <11 SI <11 Not Available [facility] [address], [place], [address], 03/05/2022 15:19:13 02/26/20 22 03/05/2022 MYOSI TIS SPECI FIC [address]-12 Ab <11 SI <11 Not Available [facility] [address], [place], [address], 03/05/2022 15:19:13 02/26/20 22 03/05/2022 MYOSI TIS SPECI FIC 11 AB PANEL ej Ab <11 SI <11 Not Available [facility] [address], [place], [address], 03/05/2022 15:19:13 02/26/20 22 03/05/2022 MYOSI TIS SPECI FIC 11 AB PANEL oj Ab <11 SI <11 Not Available [facility] [address], [place], [address], 03/05/2022 15:19:13 02/26/20 22 03/05/2022 MYOSI TIS SPECI FIC 11 AB PANEL srp Ab <11 SI <11 Not Available [facility] [address], [place], [address], 03/05/2022 15:19:13 02/26/20 22 03/05/2022 MYOSI TIS SPECI FIC 11 AB PANEL IN-2 alpha Ab <11 SI <[address] [facility] [address], [place], [address], 03/05/2022 15:19:13 02/26/20 22 03/05/2022 MYOSI TIS SPECI FIC 11 AB PANEL IN-2 beta Ab <11 SI <11 Not Available [facility] [address], [place], [address], 03/05/2022 15:19:13 02/26/20 22 03/05/2022 MYOSI TIS SPECI FIC 11 AB PANEL mda5 Ab <11 SI <11 Not Available [facility] [address], [place], [address], 03/05/2022 15:19:13 02/26/20 22 03/05/2022 MYOSI TIS SPECI FIC 11 AB PANEL tif1 gamma Ab <11 SI <[address] [facility] [address], [place], [address], 03/05/2022 15:19:13 02/26/20 22 03/05/2022 MYOSI TIS SPECI FIC 11 AB PANEL nxp-2 Ab <11 SI <[address] [facility] [address], [place], [address], 03/05/2022 15:19:13 02/26/20 22 03/05/2022 LIDIA SCREE N, IFA, W/REF L TITER AND PATTE RN LIDIA screen, ifa POSITI VE negati ve abnormal Not Available [facility] [address], [place], [address], 03/05/2022 15:19:14 02/26/20 22 03/05/2022 ANTIN UCLEA R ANTIB ODIES TITER AND PATTE RN LIDIA titer > OR = 1:1280 titer abnormal Not Available [facility] [place] [facility] [address], [place], [address], 03/05/2022 15:19:14 02/26/20 22 03/05/2022 ANTIN UCLEA R ANTIB ODIES TITER AND PATTE RN LIDIA pattern Nuclea r, Centro mere abnormal Not Available [facility] [place] [facility] [address], [place], [address], 03/05/2022 15:19:14 02/26/20 22 03/05/2022 SJOGR EN'S ANTIB ODIES (SS-A ,SS-B ) sjogren's antibody (ss-A) <1.0 NEG ai <1.0 neg normal Not Available [facility] [place] [facility] [address], [place], [address], 03/05/2022 15:19:15 02/26/20 22 03/05/2022 SJOGR EN'S ANTIB ODIES (SS-A ,SS-B ) sjogren's antibody (ss-B) <1.0 NEG ai <1.0 neg normal Not Available [facility] [place] [facility] [address], [place], [address], 03/05/2022 15:19:15 02/26/20 22 03/05/2022 ANGIO TENSI N-1-C ONVER TING ENZYM E angiotensin- 1-converting enzyme 31 U/L 9-67 normal Not Available [facility] [place] [facility] [address], [place], [address], 03/05/2022 15:19:15 02/26/20 22 03/05/2022 TSI (THYR OID STIMU LATIN G IMMUN OGLOB ULIN) tsi <89 %_bas salvador <140 Not Available [facility] [address], [place], [address], 03/06/2022 00:19:00 06/30/20 22 04/16/2022 COMPL EMENT COMP C3 + C4 complement component C3C 111 mg/dL 82-[address] [facility] [address], [place], [address], 04/16/2022 12:07:42 04/08/20 22 04/16/2022 COMPL EMENT COMP C3 + C4 complement component C4C 29 mg/dL 15-[address] [facility] [address], [place], [address], 04/16/2022 12:07:42 04/08/20 22 04/16/2022 HISTO NE ANTIB ODIES histone antibodies <1.0 U <1.[address] [facility] [address], [place], [address], 04/16/2022 12:07:42 04/08/20 22 04/16/2022 URINA LYSIS , COMPL ETE W/REF WILSON TO CULTU RE color YELLOW yellow normal Not Available [facility] [address], [place], [address], 04/16/2022 12:07:43 04/08/20 22 04/16/2022 URINA LYSIS , COMPL ETE W/REF WILSON TO CULTU RE appearance CLEAR clear normal Not Available [facility] [address], [place], [address], 04/16/2022 12:07:43 04/08/20 22 04/16/2022 URINA LYSIS , COMPL ETE W/REF WILSON TO CULTU RE specific gravity 1.021 1.001- 1.[address] [facility] [address], [place], [address], 04/16/2022 12:07:43 04/08/20 22 04/16/2022 URINA LYSIS , COMPL ETE W/REF WILSON TO CULTU RE pH < OR = 5.0 5.0-8. 0 normal Not Available [facility] [place] [facility] [address], [place], [address], 04/16/2022 12:07:43 04/08/20 22 04/16/2022 URINA LYSIS , COMPL ETE W/REF WILSON TO CULTU RE glucose NEGATI VE negati ve normal Not Available [facility] [place] [facility] [address], [place], [address], 04/16/2022 12:07:43 04/08/20 22 04/16/2022 URINA LYSIS , COMPL ETE W/REF WILSON TO CULTU RE bilirubin NEGATI VE negati ve normal Not Available [facility] [place] [facility] [address], [place], [address], 04/16/2022 12:07:43 04/08/20 22 04/16/2022 URINA LYSIS , COMPL ETE W/REF WILSON TO CULTU RE ketones NEGATI VE negati ve normal Not Available [facility] [place] [facility] [address], [place], [address], 04/16/2022 12:07:43 04/08/20 22 04/16/2022 URINA LYSIS , COMPL ETE W/REF WILSON TO CULTU RE occult blood NEGATI VE negati ve normal Not Available [facility] [place] [facility] [address], [place], [address], 04/16/2022 12:07:43 04/08/20 22 04/16/2022 URINA LYSIS , COMPL ETE W/REF WILSON TO CULTU RE protein NEGATI VE negati ve normal Not Available [facility] [place] [facility] [address], [place], [address], 04/16/2022 12:07:43 04/08/20 22 04/16/2022 URINA LYSIS , COMPL ETE W/REF WILSON TO CULTU RE nitrite NEGATI VE negati ve normal Not Available [facility] [place] [facility] [address], [place], [address], 04/16/2022 12:07:43 04/08/20 22 04/16/2022 URINA LYSIS , COMPL ETE W/REF WILSON TO CULTU RE leukocyte esterase NEGATI VE negati ve normal Not Available [facility] [place] [facility] [address], [place], [address], 04/16/2022 12:07:43 04/08/20 22 04/16/2022 URINA LYSIS , COMPL ETE W/REF WILSON TO CULTU RE WBC NONE SEEN /hpf < or = 5 normal Not Available [facility] [place] [facility] [address], [place], [address], 04/16/2022 12:07:43 04/08/20 22 04/16/2022 URINA LYSIS , COMPL ETE W/REF WILSON TO CULTU RE RBC 0-2 /hpf < or = 2 normal Not Available [facility] [place] [facility] [address], [place], [address], 04/16/2022 12:07:43 04/08/20 22 04/16/2022 URINA LYSIS , COMPL ETE W/REF WILSON TO CULTU RE squamous epithelial cells NONE SEEN /hpf < or = 5 normal Not Available [facility] [place] [facility] [address], [place], [address], 04/16/2022 12:07:43 04/08/20 22 04/16/2022 URINA LYSIS , COMPL ETE W/REF WILSON TO CULTU RE bacteria NONE SEEN /hpf none seen normal Not Available [facility] [place] [facility] [address], [place], [address], 04/16/2022 12:07:43 04/08/20 22 04/16/2022 URINA LYSIS , COMPL ETE W/REF WILSON TO CULTU RE hyaline cast NONE SEEN /lpf none seen normal Not Available [facility] [place] [facility] [address], [place], [address], 04/16/2022 12:07:43 04/08/20 22 04/16/2022 URINA LYSIS , COMPL ETE W/REF WILSON TO CULTU RE note Not Available [facility] [place] [facility] [address], [place], [address], 04/16/2022 12:07:43 04/08/20 22 04/16/2022 REFLE XIVE URINE CULTU RE reflexive urine culture Not Available [facility] [address], [place], [address], 04/16/2022 12:07:44 04/08/20 22 04/16/2022 DNA (DS) ANTIB JENELLE DNA (ds) antibody <1 IU/mL normal Not Available [facility] [address], [place], [address], 04/16/2022 12:07:44 04/08/20 22 04/16/2022 CENTR OMERE B ANTIB JENELLE centromere B antibody >8.0 POS ai <1.0 neg abnormal Not Available [facility] [place] [facility] [address], [place], [address], 04/16/2022 12:07:45 04/08/20 22 04/16/2022 SM ANTIB JENELLE sm antibody <1.0 NEG ai <1.0 neg normal Not Available [facility] [address], [place], [address], 04/16/2022 12:07:45 04/08/20 22 04/16/2022 RNA POLYM ERASE III AB RNA polymerase III Ab 43 units <20 high Not Available [facility] [address], [place], [address], 04/16/2022 12:07:46 02/23/20 22 XR, hand No observ ation record ed. [email or web address] [facility] [address] [place], [address], 02/22/2022 15:50:47 02/23/20 22 XR, shoul michael No observ ation record ed. [facility] [address] [place], [address], 02/22/2022 15:51:28 02/23/20 22 XR, hand No observ ation record ed. [email or web address] [facility] [address] [place], [address], 02/22/2022 15:52:12 02/23/20 22 XR, shoul michael No observ ation record ed. [email or web address] [facility] [address] [place], [address], 02/22/2022 15:53:13 02/26/20 22 02/24/2022 XR, cervi romy spine No observ ation record ed. [email or web address] [facility] [address] [place], [address], 02/25/2022 09:12:14 03/02/20 22 03/02/2022 bone densi ty No observ ation record ed. [email or web address] [facility] [address] [place] [address], [address], 03/02/2022 17:41:00 04/30/20 22 04/23/2022 US, axill a No observ ation record ed. [email or web address] [facility] [address] [place], [address], 05/03/2022 11:14:11 05/18/20 22 04/23/2022 US, axill a No observ ation record ed. [email or web address] [facility] [address] [place], [address], 05/19/2022 09:49:39 Result Notes None recorded. Problems No Known Problems Procedures Surgical History Date Name Laterality Status Provider Name and Address Organization Details Recorded Time 02/12/20 22 Blood Draw (In-House Only) completed Butch Stephens MD [address] [facility] [place], [address], [facility] 02/11/2022 15:17:10 02/12/20 22 Intramuscular Depo injection completed Butch Stephens MD [address] [facility] [place], [address], [facility] 02/11/2022 15:17:12 02/12/20 22 Intramuscular Toradol injection completed Butch Stephens MD [address] [place] [address], [place], [address], [facility] 02/11/2022 15:17:13 Imaging Results Imaging Date Name Status LastModified by Organiz ation Details LastModified Time 02/22/2022 XR, hand completed [email or web address] [facility] [address] [place], [address], 02/22/2022 15:50:47 02/22/2022 XR, shoulder completed [email or web address] [facility] [address] [place], [address], 02/22/2022 15:51:28 02/22/2022 XR, hand completed [email or web address] [facility] [address] [place], [address], 02/22/2022 15:52:12 02/22/2022 XR, shoulder completed [email or web address] [facility] [address] [place], [address], 02/22/2022 15:53:13 02/24/2022 XR, cervical spine completed [facility] [address] [place], [address], 02/25/2022 09:12:14 03/02/2022 bone density completed [email or web address] [facility] [address] [place] [address], [address], 03/02/2022 17:41:00 04/23/2022 US, axilla completed [email or web address] [facility] [address] [place], [address], 05/03/2022 11:14:11 04/23/2022 US, axilla completed [facility] [address] [place], [address], 05/19/2022 09:49:39 Procedure Notes None recorded. Medical Equipment None Reported. Allergies Allergen ID Allergen Name Allergen Category Reaction Reaction Severity Criticality Documentation Date Start Date Code Code System Note Provider Name and Address Organization Details Recorded Time 94919 Medicinal product containin g penicilli n and acting as antibacte rial agent (product) medicatio n facial swelling severe Not available 02/11/2022 12172 05 SN[facility]ED [facility] Medications Name Sig Start Date Stop Date Status Note LastModified by Organization Details LastModified Time Depo-Medrol 40 mg/mL suspension for injection Depo 40 mg prn 022 active Not Available Not Available Not Avai lable ketorolac 30 mg/mL (1 mL) injection solution 30 mg prn 022 active Not Available Not Available Not Avai lable famciclovir 250 mg tablet Take 1 tablet every 12 hours by oral route. active Not Available Not Available No t Available Vitals Date Recorded Body height Body mass index (BMI) Body weight Heart rate Systolic blood pressure Diastolic blood pressure Provider Name and Address Organization Details Last Updated DateTime 167.64 cm 27.4 kg/m2 94080.9 8 g 79 /min 175 mm[Hg] 106 mm[Hg] Sarah Hawley [facility] 2 15:56:53 Date Recorded Body height Body mass index (BMI) Body weight Heart rate Systolic blood pressure Diastolic blood pressure Provider Name and Address Organization Details Last Updated DateTime 2 167.64 cm 27.4 kg/m2 51161.7 g 59 /min 155 mm[Hg] 66 mm[Hg] Woody Contreras [facility] 2 15:39:10 Social History Question Answer Notes LastModified by Organizat ion Details LastModified Time Tobacco Smoking Status Former Smoker Gissel Sumner jayant, [facility] 02/12/2022 11:07:07 What Is Your Level Of Alcohol Consumption? None [email or web address] Information not available 02/12/2022 Are You Blind Or Do You Have Difficulty Seeing? No [email or web address] Information not available 02/12/2022 What Is Your Level Of Caffeine Consumption? Occasional [email or web address] Information not available 02/12/2022 Are You Deaf Or Do You Have Serious Difficulty Hearing? No [email or web address] Information not available 02/12/2022 What Is Your Relationship Status? [email or web address] Information not available 02/12/2022 Do You Use Any Illicit Or Recreational Drugs? No [email or web address] Information not available 02/12/2022 How Many Years Have You Smoked Tobacco? 8 Information not available 02/12/2022 Do You Or Have You Ever Used Any Other Forms Of Tobacco Or Nicotine? No [email or web address] Information not available 02/12/2022 Sex: Unknown Functional Status Question Answer Note LastModified by Organization D etails LastModified Time Do you have difficulty walking or climbing stairs? No Information not available 02/12/2022 Do you have difficulty doing errands alone? No Information not available 02/12/2022 Are you able to care for yourself? Yes Information n ot available 02/12/2022 Do you have difficulty dressing or bathing? No [email or web address] Information not available 02/12/2022 Mental Status Question Answer Note LastModified by Organization D etails LastModified Time Do you have difficulty concentrating, remembering or making decisions? No [email or web address] Information no t available 02/12/2022 Family History Nothing Reported. 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 0545085 Disorder of bone 3179790 3 Administra tion of influenza vaccine 35837576 Administra tion of SARS-CoV-2 antigen vaccine 996948017 Fatigue 31168361 [id number] MD WYATT Mcrae [facility] [address] [facility] [place] [address] 03/30/2022 12:23:55 03/30/2022 13:28:06 Psoriatic arthritis 967365232 Multiple joint pain 3567 8005 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 052677082 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 finger 0143750 Muscle weakness 97897744 Disorder of bone 9963666 3 Administra tion of influenza vaccine 30844223 Administra tion of SARS-CoV-2 antigen vaccine 328264587 Fatigue 76974677 Measuremen t finding outside reference range 356830328 [id number] MD WYATT Mcrae [facility] [address] [place] [address] 04/22/2022 15:49:36 04/22/2022 16:49:11 Psoriatic arthritis 370706272 Multiple joint pain 3567 8005 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 017871430 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 finger 3183728 Muscle weakness 65690084 Disorder of bone 9429672 3 Administra tion of influenza vaccine 44877309 Administra tion of SARS-CoV-2 antigen vaccine 302461996 Fatigue 80837720 Measuremen t finding outside reference range 070465916 [id number] Butch Stephens MD [facility] [address] [place] [address] 05/19/2022 15:27:47 05/19/2022 16:21:51 Psoriatic arthritis 977285188 Multiple joint pain 5082 1418 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 978071036 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 finger 5160322 Muscle weakness 47275101 Disorder of bone 9624213 3 Administra tion of influenza vaccine 83347988 Administra tion of SARS-CoV-2 antigen vaccine 425993100 Fatigue 29148320 Measuremen t finding outside reference range 253246129 Health Concerns Section Related Observation LastModified by Organization Detai ls LastModified Time None Recorded Concern Status LastModified by Organization Details LastModified Time None Recorded Advance Directives Directive None Recorded Payers Encounter Date Sequence Insurance Name Policy Number Policy Simental Covered Member ID Simental Member ID Guarantor Name 04/22/2022 [facility] Alfred Hillzano [id number] Alfred Fuad Angela 05/19/2022 [facility] Alfred Hillzano [id number] Alfred Hillzano Notes Date Note Type Note Provider Name and Address Organization Details Recorded Time 03/30/2022 text/html HPI Notes: Mr. Miller is a pleasant 77 year old male with Newly Diagnosed Osteoporosis, Osteoarthritis, and Degenerative Disc Disease with a past medical history of PsA (2003), Psoriasis (2002), PseudoGout (Dx by [employer] in [facility]), Aortic aneurysm, Herpes virus (Type 1 & 2), Anxiety and GERD who is communicating with our clinic for a FIRST FOLLOW UP telehealth visit. (audio and video) The patient states left elbow numbness and left armpit burning and lymp nodes are swollen at 3/10. We reviewed and discussed lab, BMD, and Xray results today Butch Stephens MD [address] [place] [address], [phone], [facility] 03/31/2022 08:40:02 04/22/2022 text/html HPI Notes: Mr. Miller is a pleasant 77 year old male with Newly Diagnosed Osteoporosis, Osteoarthritis, and Degenerative Disc Disease with a past medical history of PsA (2003), Psoriasis (2002), PseudoGout (Dx by [employer] in [facility]), Aortic aneurysm, Herpes virus (Type 1 & 2), Anxiety and GERD who is communicating with our clinic for a follow up visit. The patient reports muscle pain at 2/10. Pt denies joint pain and reports that his joints are hardly ever the issue. Denies difficulty swallowing, but has GERD (on pantoprazole) and saw GI and was told possible IBS (?) ~1yr ago. Denies Raynaud's, but reports his brother was diagnosed in the past. Denies ulcers, tightening/hardening or rashes of skin. Reports significant weight loss (~30 lbs) and minimal joint stiffness (in hands only). We reviewed and discussed additional lab results today. Dx US pending. Butch Stephens MD [address] [place] [address], [place], [address], [facility] 04/24/2022 10:35:51 05/19/2022 text/html HPI Notes: Mr. Miller is a pleasant 77 year old male with Newly Diagnosed Osteoporosis, Osteoarthritis, and Degenerative Disc Disease with a past medical history of PsA (2003), Psoriasis (2002), PseudoGout (Dx by [employer] in [facility]), Aortic aneurysm, Herpes virus (Type 1 & 2), Anxiety and GERD who is communicating with our clinic for a follow up visit. The patient reports right elbow, and bilateral hand joint pain at 3/10. Pt reports that he initially came here for muscle discomfort, which has since resolved. Butch Stephens MD [address] [place] [address], [place], [address], [facility] 05/19/2022 16:38:38
--- OUTSIDE RECORDS SUMMARY | 2024-04-30 08:35 | XMS_ITS | Data Portability ---
Author Organization [place] - [place] - Guasuncion heriberto Agudelo, [email or web address]_ENDO_THOMAS_MOBILE [facility] Address [address] [place] [address] Care Team Providers Care Synchronizer Name Role Phone DAISHA NEUMANN Referring Provider Assessment Encounter Date Assessment Date Assessment LastModified by Organization Details LastModified Time 07/17/2021 07/17/2021 76-year-old male with vague abdominal discomfort associated with abdominal cramping and diarrhea postprandially. Dyspnea on exertion with irregular heartbeat; grossly abnormal CT scan of his abdomen; plan cardiac clearance with crew leader/control room operator and then upper and lower endoscopy Not available 07/17/2021 12:36:59 08/27/2021 08/27/2021 Upper and lower endoscopies were fairly benign; mild superficial gastritis is probably colchicine induced as is his diarrhea; diverticulosis and a single descending colon tubular adenoma with low-grade dysplasia on colonoscopy; plan annual FOBT with next colonoscopy in 10 years Not available 08/28/2021 09:14:09 09/23/2022 09/23/2022 NOT SEEN Not available 11/12/2022 09:34:49 Plan of Treatment Reminders Order Date Submit Date Provider Last Modified By Organization Details Last Modified Time Details Appointments None recorded. Lab None recorded. Referral None recorded. Procedures upper endoscopy procedure (EGD) (PROC) 2020 021 TAISHA Not available 12:21:46 colonoscopy procedure (PROC) 2020 021 Not available 13:19:18 Surgeries None recorded. Imaging None recorded. Medication Orders Suprep Bowel Prep Kit 17.5 gram-3.13 gram-1.6 gram oral solution 2020 021 [id number] Meds By Mail Roshan Talavera , LISSA Marte, [address], 15:52:17 Patient TargetsNo targets recorded. Patient Instructions Encounter Date Encounter Id Patient Instructions Last Modified By Organization Details Last Modified Time 07/17/2021 [id number] diarrhea: care instructions Not available 07/17/2021 12:37:01 abdominal pain: care instructions Not available 07/17/2021 12:37:01 07/28/2022 [id number] abdominal aortic aneurysm: care instructions Not available 07/28/2022 13:58:01 Reason for Referral None Reported. Results Created Date Observation Date Name Description Value Unit Range Abnormal Flag LastModifiedBy Organization Detail LastModifiedTime 03/16/20 18 03/[facility]/2018 [facility] specimen description ANTRUM BIOPSY Not Available [facility] (Lab) [address] [place], [address], 03/16/2018 11:34:29 03/16/20 18 03/16/2018 [facility] n special requests None Not Available [facility] (Lab) [address] [facility], [place], [address], 03/16/2018 11:34:29 03/16/20 18 03/16/2018 [facility] n culture PEND Not Available [facility] (Lab) [address] [facility], [place], [address], 03/16/2018 11:34:29 03/16/20 18 03/16/2018 [facility] scree n report status PEND Not Available [facility] (Lab) [address] [place], [address], 03/16/2018 11:34:29 03/16/20 18 03/16/2018 [facility] - helic obact er ureas e scree n specimen description ANTRUM BIOPSY Not Available [facility] (Lab) [address], [place], [address], 03/17/2018 08:30:59 03/16/20 18 03/16/2018 [facility] - helic obact er ureas e scree n special requests None Not Available [facility] (Lab) [address], [place], [address], 03/17/2018 08:30:59 03/16/20 18 03/17/2018 sh[facility] - helic obact er ureas e scree n culture RAPID UREA NEGATI VE AT 24 HOURS Not Available [facility] (Lab) [address], [place], [address], 03/17/2018 08:30:59 03/16/20 18 03/17/2018 shh - helic obact er ureas e scree n report status FINAL Not Available [facility] (Lab) [address], [place], [address], 03/17/2018 08:30:59 03/16/20 18 03/16/2018 surgi romy patho logy study surgical Not Available [facility] [address], [place], [address], 03/20/2018 12:37:29 08/18/20 21 08/18/2021 COVD1 9 sars-cov-2 Negati ve negati ve normal Not Available [facility] (Lab) [address], [place], [address], 08/18/2021 12:40:17 08/18/20 21 08/18/2021 COVD1 9 first time tested? Unknow n normal Not Available [facility] (Lab) [address], [place], [address], 08/18/2021 12:40:17 08/18/20 21 08/18/2021 COVD1 9 patient employed in healthcare? Unknow n normal Not Available [facility] (Lab) [address], [place], [address], 08/18/2021 12:40:17 08/18/20 21 08/18/2021 COVD1 9 patient symptomatic? (cdc guidelines) Unknow n normal Not Available [facility] (Lab) [address], [place], [address], 08/18/2021 12:40:17 08/18/20 21 08/18/2021 COVD1 9 IS patient hospitalized ? Unknow n normal Not Available [facility] (Lab) [address], [place], [address], 08/18/2021 12:40:17 08/18/20 21 08/18/2021 COVD1 9 IS patient in ICU? Unknow n normal Not Available [facility] (Lab) [address], [place], [address], 08/18/2021 12:40:17 08/18/20 21 08/18/2021 COVD1 9 resident in A congregate care setting? Unknow n normal Not Available [facility] (Lab) [address], [place], [address], 08/18/2021 12:40:17 08/18/20 21 08/18/2021 COVD1 9 IS patient ? Unknow n normal Not Available [facility] (Lab) [address], [place], [address], 08/18/2021 12:40:17 08/20/20 21 08/20/2021 SURGI ROMY surgical Not Available [facility] [address], [place], [address], 08/25/2021 16:30:28 Result Notes None recorded. Problems Name Status Onset Date Resolution Date Notes Provider Name and Address Organization Details Recorded Time Gastroesophageal reflux disease Active 018 Nayely Brayan null, [facility] 12/23/2017 09:18:46 Gout Active 018 Nayely Brayan null, [facility] 12/23/2017 09:18:54 Disorder of prostate Active 018 Nayely Brayan null, [facility] 12/23/2017 09:19:13 Pain Active 018 ankle Nayely Brayan null, [facility] 12/23/2017 09:19:31 Irritable bowel syndrome with diarrhea Active 022 Maryanne Phillip MD [address] [place], [address] , [facility] 07/28/2022 13:54:16 Abdominal aortic aneurysm without rupture Active 022 Maryanne Phillip MD [address] [place], [address] , [facility] 07/28/2022 13:54:27 Irreducible umbilical hernia Active 022 Maryanne Phillip MD [address] [place], [address] , [facility] 07/28/2022 13:54:34 Problem Notes None recorded. Procedures Surgical History Date Name Laterality Status Provider Name and Address Organization Details Recorded Time 03/16/20 18 EGD/Endoscopy completed Lizeth Joo null, [facility] 03/22/2018 09:57:44 10/10/19 16 EGD/Endoscopy completed Lizeth Ge null, [facility] 03/02/2018 10:07:05 Colonoscopy completed Ludivina Rivers null, [facility] 07/17/2021 11:11:08 Hemorrhoidectomy completed Nayely A maria de jesus null, [facility] 12/23/2017 09:35:14 tonsillectomy completed Nayely Kevind null, [facility] 12/23/2017 09:35:20 Imaging Results None recorded. Procedure Notes None recorded. Medical Equipment None Reported. Allergies Allergen ID Allergen Name Allergen Category Reaction Reaction Severity Criticality Documentation Date Start Date Code Code System Note Provider Name and Address Organization Details Recorded Time 671795 Medicinal product containin g penicilli n and acting as antibacte rial agent (product) medicatio n Not available Not available Not available 12/23/2017 15350 05 SNOMED Nayely saba [facility] 8 09:16:16 980829 pilocarpi ne Not available Not available Not available Not available 12/23/2017 8328 RxNorm Nayely saba [facility] 8 09:16:26 Medications Name Sig Start Date Stop Date Status Note LastModified by Organization Details LastModified Time celecoxib 200 mg capsule Take 1 capsule twice a day by oral route. 07/17 completed Not Available Not Available Not Available Flomax 0.4 mg capsule Take 1 capsule every day by oral route. active Not Available Not Available No t Available clotrimazol e 10 mg vic DISSOLVE ONE VIC IN MOUTH 5 TIMES A DAY active Not Available Not Available No t Available nystatin 100,000 unit/mL oral suspension EXPECTORA TE WITH 5 ML FOR 2 TO 4 MINS 4 TO 5 TIMES DAILY UNTIL WHITE AREAS DISAPPEAR active Not Available Not Available No t Available prednisone 10 mg tablet TAKE WITH FOOD 4 TABS X2 DAYS THEN 3 TABS FOR 2 DAYS THEN 2 TABS FOR 2 DAYS THEN 1 TAB FOR 2 DAYS 07/17 completed Not Available Not Available Not Available triazolam 0.25 mg tablet PLEASE SEE ATTACHED FOR DETAILED DIRECTION S 07/28 completed Not Available Not Available Not Available azithromyci n 250 mg tablet TAKE 2 TABLETS BY MOUTH TODAY, THEN TAKE 1 TABLET DAILY FOR 4 DAYS 07/28 completed Not Available Not Available Not Available clindamycin HCl 150 mg capsule TAKE 1 CAPSULE BY MOUTH 4 TIMES A DAY UNTIL FINISHED 07/28 completed Not Available Not Available Not Available famciclovir 250 mg tablet Take 1 tablet every 12 hours by oral route. active Not Available Not Available No t Available terazosin 2 mg capsule Take 1 capsule every day by oral route. 07/17 completed Not Available Not Available Not Available pantoprazol e 40 mg tablet,mohsen yed release Take 1 tablet every day by oral route. active Not Available Not Available No t Available nystatin 100,000 unit/gram topical cream APPLY 1 APPLICATI ON TO CORNERS OF MOUTH 3 TIMES PER DAY active Not Available Not Available No t Available metoprolol succinate ER 25 mg tablet,exte nded release 24 hr TAKE 1 TABLET BY MOUTH EVERY DAY 07/17 completed Not Available Not Available Not Available colchicine 0.6 mg tablet Take 1 tablet twice a day by oral route. 07/28 completed Not Available Not Available Not Available diclofenac 1 % topical gel APPLY 2 GRAM TO THE AFFECTED AREA(S) BY TOPICAL ROUTE 4 TIMES PER DAY 07/17 completed Not Available Not Available Not Available Suprep Bowel Prep Kit 17.5 gram-3.13 gram-1.6 gram oral solution Take 177 mL by oral route as directed. 08/27 completed Not Available Not Available Not Available Vitals Date Recorded Body height Body mass index (BMI) Body weight Heart rate Respiratory rate Body temperature Oxygen saturation Oxygen saturation in Arterial blood by Pulse oximetry Systolic blood pressure Diastolic blood pressure Provider Name and Address Organization Details Last Updated DateTime 8 167.64 cm 29.9 kg/m2 81425.5 9 g 84 /min 18 /min 97.4 [degF] 96 % 96 % 114 mm[Hg] 77 mm[Hg] Lizethrosalinda Ge [facility] 8 09:54:42 Date Recorded Body height Body mass index (BMI) Body weight Heart rate Respiratory rate Body temperature Oxygen saturation Oxygen saturation in Arterial blood by Pulse oximetry Systolic blood pressure Diastolic blood pressure Provider Name and Address Organization Details Last Updated DateTime 1 167.64 cm 28.1 kg/m2 05246.0 7 g 69 /min 18 /min 97.8 [degF] 99 % 99 % 142 mm[Hg] 93 mm[Hg] Ludivina Rivers [facility] 1 11:10:06 Date Recorded Body height Body mass index (BMI) Body weight Heart rate Respiratory rate Body temperature Oxygen saturation Oxygen saturation in Arterial blood by Pulse oximetry Systolic blood pressure Diastolic blood pressure Provider Name and Address Organization Details Last Updated DateTime 1 167.64 cm 27.8 kg/m2 34111.6 1 g 77 /min 18 /min 97.9 [degF] 98 % 98 % 132 mm[Hg] 90 mm[Hg] Ludivina Rivers [facility] 1 15:51:20 Date Recorded Body height Body weight Body mass index (BMI) Heart rate Respiratory rate Body temperature Oxygen saturation Oxygen saturation in Arterial blood by Pulse oximetry Systolic blood pressure Diastolic blood pressure Provider Name and Address Organization Details Last Updated DateTime 2 167.64 cm 19551.5 5 g 27.3 kg/m2 90 /min 18 /min 97.7 [degF] 97 % 97 % 150 mm[Hg] 89 mm[Hg] Ludivina Rivers [facility] 2 13:25:04 Date Recorded Body height Body mass index (BMI) Body weight Heart rate Respiratory rate Body temperature Oxygen saturation Oxygen saturation in Arterial blood by Pulse oximetry Systolic blood pressure Diastolic blood pressure Provider Name and Address Organization Details Last Updated DateTime 2 167.64 cm 27.4 kg/m2 52948.7 g 76 /min 16 /min 97.7 [degF] 95 % 95 % 158 mm[Hg] 91 mm[Hg] Mercedes Paula [facility] 2 14:03:48 Social History Question Answer Notes LastModified by Organizat ion Details LastModified Time Tobacco Smoking Status Former Smoker Ludivina Rivers [facility] 08/27/2021 15:52:01 Do You Have An Advance Directive? Yes Information not available 12/23/2017 What Is Your Level Of Alcohol Consumption? None [email or web address] Information not available 08/27/2021 What Is Your Level Of Caffeine Consumption? Moderate [email or web address] Information not available 07/17/2021 When Did You Quit Smoking? 6-10yearssincel [email or web address] Information not available 08/27/2021 Patients Living Environment Safe And Secure? Yes Information not available 12/23/2017 High Risk For Falls? No Information not available 12/23/2017 Readiness To Learn Accepting Information not available 12/23/2017 Barriers To Learning None Information not available 12/23/2017 Learning Preferences No Preferences Information not available 12/23/2017 Have You Had A Fever And/or Symptoms Of A Lower Respiratory Illness (cough, Difficulty Breathing, Etc)? No Information not available 07/17/2021 Have You Had Any Of These Symptoms: Chills ,Headache, Fatigue, Muscle Or Body Aches , Sore Throat, New Loss Of Taste Or Smell, Nausea Or Vomiting, Or Diarrhea? No [email or web address] Information not available 07/17/2021 Have You Had A COVID-19 Vaccine In The Last 7 Days? No [email or web address] Information not available 07/17/2021 What Was The Date Of Your Most Recent Tobacco Screening? 03/02/2018 [email or web address] Information not available 08/27/2021 At What Age Did You Start Smoking Tobacco? 17 Information not available 07/17/2021 How Much Tobacco Do You Smoke? 2 PPD Information not available 08/27/2021 Do You Use Any Illicit Or Recreational Drugs? No [email or web address] Information not available 07/17/2021 How Many Years Have You Smoked Tobacco? 50 [email or web address] Information not available 08/27/2021 Do You Have Symptoms Associated With Zika Virus (fever, Rash, Joint Pain, Or Conjunctivitis)? No Information not available 08/27/2021 Have You Recently (within The Last 12 Weeks, Or During A Current ) Traveled To Or Lived In A Zika-affected Area? No Information not available 08/27/2021 Do You Or Have You Ever Used Any Other Forms Of Tobacco Or Nicotine? No [email or web address] Information not available 07/17/2021 Sex: Unknown Functional Status Question Answer Note LastModified by Organization D etails LastModified Time Are you able to care for yourself? Yes Information n ot available 07/17/2021 Mental Status None recorded. Family History Relationship Description Onset Age of this Age Resolved Age Notes Father No current problems or disability Father Alzheimer's disease Mother No current problems or disability Mother Malignant tumor of pancreas Mother Malignant neoplastic disease Medical History Condition Response cancer N arthritis Y heart disease N lung disease N allergies Y other gastrointestinal issue Y high blood pressure N acid reflux/GERD Y neurologic disease N diabetes mellitus N musculoskeletal disease N high cholesterol N Immunizations Vaccine Type Date Status Provider Name and Address Organization Details Recorded Time influenza, unspecified formulation 10/10/2016 completed KARI Barlow [facility] 03/02/2018 10:03:43 Past Encounters Encounter ID Performer Location Encounter Start Date Encounter Closed Date Diagnosis/Indication Diagnosis SNOMED-CT Code [id number] Aleksandr Morris MD [facility] [address] [address],[address] [place] [address] 12/23/2017 09:24:59 12/23/2017 10:19:34 Calcium pyrophosphate deposition disease 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 002691433 [id number] Maryanne Phillip MD [id number] [place] [address] 03/02/2018 09:11:16 03/02/2018 13:33:01 Burning epigastric pain 70564007 [id number] Maryanne Phillip MD [id number] [place] [address] 03/22/2018 09:42:08 03/23/2018 09:32:38 Surgical follow-up 721233558 Chronic gastritis 539893 9 Sliding hiatus hernia 23 4123841 Gastric polyp 78556756 [id number] Maryanne Phillip MD [id number] [place] [address] 07/17/2021 10:55:30 07/17/2021 11:52:15 Reducible umbilical hernia 128758338 Dyspnea on exertion 6084 5006 Irregular heart beat 361 217174 Abdominal pain 93668508 Diarrhea 17586865 Computed t omography result abnormal 908697844 [id number] Maryanne Phillip MD [id number] [place] [address] 08/27/2021 15:02:37 08/30/2021 19:31:32 Diarrhea caused by drug 828397193 Superficia l nonerosive nonspecific gastritis 17082183 Adenomatou s polyp of colon 816613376 Diverticul osis of large intestine without diverticulitis 01289537 [id number] Maryanne Phillip MD [id number] [place] [address] 07/28/2022 13:12:41 07/28/2022 13:44:14 Irritable bowel syndrome with diarrhea 298895033 Abdominal aortic aneurysm without rupture 34086792 Irreducibl e umbilical hernia 646402863 [id number] Maryanne Phillip MD [id number] [place] [address] 09/23/2022 13:56:56 11/12/2022 09:35:13 Health Concerns Section Related Observation LastModified by Organization Detai ls LastModified Time None Recorded Concern Status LastModified by Organization Details LastModified Time None Recorded Advance Directives Directive Y: Payers Encounter Date Sequence Insurance Name Policy Number Policy Simental Covered Member ID Simental Member ID Guarantor Name 07/28/2022 [employer] [facility] Aflred Miller [id number] Alfred Miller Notes Date Note Type Note Provider Name and Address Organization Details Recorded Time 03/22/2018 text/html HPI Notes: Mr. Miller comes today for follow-up for his upper endoscopy with biopsies on March 16, 2018. He was found have a small hiatal hernia without esophagitis. He had a gastric fundal polyp and linear antral gastritis along with some mild duodenitis. He continues to take pantoprazole daily and uses colchicine for his pseudogout. I suspect his gout medication is responsible for his gastritis. Biopsies did reveal chronic gastritis but no evidence of Helicobacter pylori. I discussed with him the benefit of Carafate with a known side effect of constipation. He is not sure he would want to do Carafate as he tends to be constipated. He also complained of flatus and burping mostly postprandial. He does not have any other symptoms of chronic cholecystitis. Well pleased with his procedure and care he received at [facility]. He will follow up with his doctor at the [facility] Dr. Neumann and consider Carafate at that time. I will see him back in the office now in 6 months. Maryanne Phillip MD [address] [facility], [place], [address], [place] [facility] [place] [facility] 03/22/2018 10:55:43 07/17/2021 text/html HPI Notes: Mr. Miller comes today on referral from the [facility] for various discomforts and complaints. He is experienced some discomfort in his umbilicus and has a small umbilical hernia that he tells me has been there for years . 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 His last upper and lower endoscopy which were with Dr. Machado at [place] at least 6 years ago and he cannot remember the results. He complains that he eats and then has diarrhea; his has poor intake now for at least the last 3 months or so because I am afraid to eat it makes my stomach hurt so I am losing weight . He dates the onset of his abdominal discomfort from a frozen meal that he ate back in early March of this year and since that time he has had significant bowel habit irregularity, weight loss, cramping abdominal pains; all of which he says were evaluated at the [facility] with stool studies and other test that did not show anything . I am really not sure what he is referring to. He seen Dr. Wu, crew leader/control room operator, because he has developed a cardiac irregularity and associated dyspnea. Apparently a Holter monitor has been negative. He is to see Dr. Wu in the next week or so and I have requested that he obtain a cardiac clearance for upper and lower endoscopy. Because of the vagueness of his complaints I am not sure that he has gastritis, microcolitis, or other vague findings. I should reference his CT scan of 06/11/2021 which was a contrast study and is grossly abnormal including partially distended gallbladder without other evidence of significant gallbladder problems; chronically mild abnormal appearance of the appendix; multifocal short segment fold thickening involving the ileum and distal sigmoid colon without evidence of colitis or diverticulitis; fat-containing umbilical hernia; fat-containing inguinal canals and other vascular anomalies. Regarding plan upper and lower endoscopy. I did discuss the anatomy and the procedure of up of EGD and colonoscopy (upper and lower endoscopy) with Mr. Miller we discussed the potential for complications, risk, alternatives and benefits. He enjoyed bruising our in office teaching aid. He states he understands that his questions have been satisfactorily answered. He wants to proceed as we have discussed. Maryanne Phillip MD [address] [place], [address], [facility] 07/17/2021 12:37:27 08/27/2021 text/html HPI Notes: Alfred comes today to follow-up for his upper and lower endoscopies 08/20/2021. His stomach appeared to have hypertrophied rugal folds but these were biopsied and were unremarkable. He had some nodular antral gastritis that on biopsy reveals no significant gastritis and there is no evidence of H. pylori. His colonoscopy revealed diverticulosis and a single 5 mm sessile descending colon polyp that is a tubular adenoma with low-grade dysplasia. He tells me I am getting better every week except for this dad-burn diarrhea . I told him that colchicine will both induce a mild gastritis and will cause diarrhea. Unfortunately he is not going to be able to stop his colchicine because of his pseudogout the fact that stopping his colchicine causes his gout to flareup. I explained to him that his findings were remarkably benign; his superficial inflammation in his antrum is probably on the basis of his medications. At this point we can safely plan to see him back annually and plan to repeat his colonoscopy in 10 years. Maryanne Phillip MD [address] [place], [address], [facility] 08/28/2021 09:14:31 07/28/2022 text/html HPI Notes: Mr. Miller comes today to follow-up for his umbilical hernia. He tells me that afew weeks ago he was right working under the dashboard of his classic car and as he was raising himself from under the days she felt a tear and burning in his umbilicus. The discomfort has essentially abated but he is concerned that the hernia is not reducible. Upper and lower endoscopies were done back 08/20/2021 that revealed superficial gastritis, diverticulosis, and a single descending colon tubular adenoma with low-grade dysplasia. He has since discontinued his colchicine for his pseudogout which I thought was contributing to his superficial gastritis. Still on his pantoprazole and is asymptomatic for upper GI symptoms. He is symptomatic for his longstanding irritable bowel syndrome. He denies any bright red blood per rectum, melena, or hematochezia. He has managed to lose 35 pounds in the last year and has been told that he has an abdominal aortic aneurysm. Physical exam today is remarkable for an irreducible and otherwise asymptomatic noninflamed umbilical hernia but he does have a palpable abdominal aortic aneurysm that on physical exam is at least 4 cm in diameter. He is to have a [facility] approved CT scan to follow-up on his abdominal aortic aneurysm; we should ask that the radiologist also commented on his umbilical hernia at that exam. I will see him back in late September this year at his request for consideration at that time of hernia repair. Maryanne Phillip MD [address] [facility], [place], [address], [place] - [place] - [facility] 07/28/2022 13:58:04
--- OUTSIDE RECORDS SUMMARY | 2024-04-30 08:35 | XMS_ITS | Referral Summary ---
Author Organization [facility] Address [address] [place] [address]- Encounter 08/20/21 - 08/20/21 [facility] [address] [place] [address] Discharge Disposition: 01-Home or Self Care Attending Physician: Marjan GREENFIELD, Maryanne Erazo Vital Signs Most recent to oldest [Reference Range]: 1 Temperature Temporal Artery [36.3-37.8 d egC] 36.1 degC *LOW* (08/20/21 11:20 AM) Peripheral Pulse Rate [60-100 bpm] 64 bp m (08/20/21 11:20 AM) Heart Rate Monitored [60-100 bpm] 64 bpm (08/20/21 11:20 AM) Respiratory Rate [14-20 br/min] 18 br/mi n (08/20/21 11:20 AM) Blood Pressure [90-140/60-90 mmHg] 138/9 0mmHg (08/20/21 11:20 AM) Mean Arterial Pressure, Cuff 114 mmHg (08/20/21 11:15 AM) SpO2 97 % (08/20/21 11:27 AM) Allergies, Adverse Reactions, Alerts Substance Reaction Severity Status 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 Severe Active Medications colchicine 0.6 mg oral capsule 0.6 mg 1 caps, Oral, BID, # 60 caps, 0 Refill(s) Start Date: 08/17/21 Status: Ordered famciclovir 250 mg oral tablet 250 mg 1 tabs, Oral, BID, # 60 tabs, 0 Refill(s) Start Date: 08/17/21 Status: Ordered Flomax 0.4 mg oral capsule 0.4 mg 1 caps, Oral, Daily, # 30 caps, 0 Refill(s) Start Date: 08/17/21 Status: Ordered lysine 500 mg oral tablet 500 mg 1 tabs, Oral, Daily, # 100 tabs, 0 Refill(s) Start Date: 08/17/21 Status: Ordered pantoprazole 40 mg oral delayed release tablet 40 mg 1 tabs, Oral, Daily, 0 Refill(s) Start Date: 08/17/21 Status: Ordered Results Most recent to oldest [Reference Range]: 1 SARS-coV-2 [Negative] Negative (08/18/21 11:48 AM) BUN [8-26 mg/dL] 16 mg/dL (08/20/21 8:45 AM) Glucose Lvl [70-99 mg/dL] 97 mg/dL (08/20/21 8:45 AM) Potassium Lvl [3.5-5.1 mmol/L] 4.0 mmol/ L (08/20/21 8:45 AM) Osmolality [275-300 mOsm/kg] 282 mOsm/kg (08/20/21 8:45 AM) Sodium Lvl [136-145 mmol/L] 141 mmol/L (08/20/21 8:45 AM) Calcium Lvl [8.4-10.8 mg/dL] 9.7 mg/dL (08/20/21 8:45 AM) Chloride [98-107 mmol/L] 106 mmol/L (08/20/21 8:45 AM) CO2 [20-30 mmol/L] 23 mmol/L (08/20/21 8:45 AM) AGAP 12.0 mmol/L *NA* (08/20/21 8:45 AM) eGFR Non-AA 85 mL/min/1.73m2 *NA* (08/20/21 8:45 AM) eGFR AA 103 mL/min/1.73m2 *NA* (08/20/21 8:45 AM) Creatinine Lvl [0.72-1.25 mg/dL] 0.88 mg /dL (08/20/21 8:45 AM) Bun/Creat Ratio [7-20] 18 (08/20/21 8:45 AM) Procedures Procedure Date Related Diagnosis Body Site Status Colonoscopy Completed EGD (esophagogastroduodenosc opy) gastric outlet reduction Completed Hemorrhoidectomy Complete d Tonsillectomy Completed Social History Social History Type Response Smoking Status Former smoker, quit more than 30 days ago; Date Last Use: 10 years ago; entered on: 08/17/21 Functional Status FUNCTIONAL 08/20/21 Sensory Deficits Visual Impairment 08/17/21 Living Situation Home with family car e ADLs Independent Ability to Read/Write Able to read, Able to write COGNITIVE 08/20/21 Level of Consciousness Alert Hospital Discharge Instructions Patient Education Colon Biopsy, Care After Colon Polyps Colonoscopy, Adult, Care After, [id number] Diverticulosis Gastritis, Adult, Zwkq-xq-Odne General Anesthesia, Adult, Care After Helicobacter Pylori Antibodies Test Upper Endoscopy, Adult, Care After Follow Up Care 08/17/2021 08:31:53 With:Maryanne Phillip Address: [address] [place] [address] [address] [place] [phone] Business (1) When:08/27/2021 15:30:00
--- OUTSIDE RECORDS SUMMARY | 2024-04-30 08:35 | XMS_ITS | Encounter Summary ---
Author Name [facility] [place] [facility] [place] Address [address] [facility], [place] [address] Care Team Providers Care Answerer Name Role Phone TYRONE JESENIA Primary Care [...] PART A Jan 09, 2012 PART A [id number] JADE MAGDALENO PATIENT Selected Encounter This section includes the information on record at [place] for the Encounter. Date/Time Encounter Type Encounter Description Reason Provider Source Aug 22, 2023 03:05 PM Outpatient Encounter PRIMARY CARE/MEDICINE KAMRAN LEBLANC Encounter Template Text not used by [place] [...] PM AMBULATORY - NONE [facility] Sep 07, 2023 09:00 AM AMBULATORY - MEDICINE [facility] Oct 04, 2023 02:15 PM AMBULATORY - MEDICINE [facility] Nov 21, 2023 01:00 PM AMBULATORY - NONE [facility] Jan 30, 2024 01:00 PM AMBULATORY - NONE [facility] Feb 06, 2024 03:00 PM AMBULATORY - SURGERY [facility] Feb 06, 2024 03:30 PM AMBULATORY - MEDICINE [facility] Lab Results: +/- 30 [...] Aug 22, 2023 03:04 PM T E[facility] TOTAL,VIT D Specimen Type: [...] 18, 2023 09:16 AM Reporting Lab: [facility] [place] [address] Performing Lab: [facility] [address] TOTAL,VIT D 36.3 ng/mL See_Comment Aug 22, 2023 03:04 PM [facility] MAGNESIUM Specimen Type: PLASMA No comment entered. Ordering Provider: DEREK PEÑA Report Released Date/Time: Aug 18, 2023 09:16 AM Reporting Lab: [facility] [address] [place] [id number] Performing Lab: [facility] [address] [place] [id number] MAGNESIUM 2.2 mg/dL 1.7-2.5 Aug 08, 2023 12:36 PM [facility] TSH-G,ERIK,J,T Specimen Type: PLASMA Comment: eGFR [...] 2022 03:06 PM Reporting Lab: [facility] [address] [place] [address] Performing Lab: [facility] [address] [place] [id number] TSH-G,ERIK,J,T 1.450 u[IU]/mL 0.27-4.2 Aug 08, 2023 12:36 PM [facility] HEMOGLOBIN %A1C PROFILE Specimen Type: BLOOD [...] 03:06 PM Reporting Lab: [facility] [place] [address] [place] [phone] Performing Lab: [facility] [address] [place] [id number] HEMOGLOBIN %A1C 5.5 Aug 08, 2023 12:36 PM [facility] URINALYSIS Specimen Type: URINE No comment entered. Ordering Provider: DEREK PEÑA Report Released Date/Time: Nov 10, 2022 03:06 PM Reporting Lab: [facility] [address] [facility] [address] Performing Lab: [facility] [address] [facility] [address] URINE COLOR Light-Yellow SPECIFIC GRAVITY 1.026 1.003-1.030 URINE BILIRUBIN Negative mg/dL NEGATIVE URINE KETONES Negative mg/dL NEGATIVE URINE GLUCOSE Negative mg/dL NEGATIVE URINE PROTEIN Negative mg/dL NEGATIVE URINE PH 5.0 [pH] 5.0-9.0 URINE BLOOD Tr mg/dL NEGATIVE URINE NITRITE Negative NEGATIVE LEUKOCYTE ESTERASE, URINE Negative NEGATIVE CLARITY Clear CLEAR UROBILINOGEN(mg /dL) <2.0 mg/dL L 0.0-1.99 Aug 08, 2023 12:36 PM [facility] LIPID PANEL [...] 03:06 PM Reporting Lab: [facility] [address] [facility] [address] Performing Lab: [facility] [address] [facility] [address] CHOLESTEROL 203 mg/dL H 0-199 TRIGLYCERIDE 171 mg/dL H 0-149 LDL CHOLESTEROL 114 mg/dL <129 HDL CHOLESTEROL 55 mg/dL >40 DIRECT LDL canc mg/dL <129 Aug 08, 2023 12:36 PM [facility] Hitesh [facility] COMPREHENSIVE METABOLIC PANEL Specimen Type: PLASMA [...] 2022 03:06 PM Reporting Lab: Elijah LÓPEZ [facility] [address] [facility] [address] Performing Lab: Elijah LÓPEZ [facility] [address] [facility] [address] UREA NITROGEN 22 mg/dL H 9-20 SODIUM [...] 89 mL/min Aug 08, 2023 12:36 PM [facility] Hitesh LÓPEZ [facility] CBC (DIFF&PLT) Specimen Type: BLOOD No comment entered. Ordering Provider: DEREK PEÑA Report Released Date/Time: Nov 10, 2022 03:06 PM Reporting Lab: [facility] [address] [facility] [address] Performing Lab: [facility] [address] [facility] [address] WBC 5.08 10*3/uL 4.6-10.8 RBC 4.84 10*6/uL [...] AM PRIOR TOBACCO USE CESSATION DATE [facility] [place] Tobacco Use History This section includes a history of the smoking, or tobacco-related health factors, that were collected on or before the date of the Encounter. The data comes from the [place] facility where the Encounter took place. Date/Time Smoking Status/Tobacco Use Comment F acility Jan 17, 2018 01:30 PM PRIOR TOBACCO USE CESSATION DATE [facility] Jan 18, 2017 01:13 PM PRIOR TOBACCO USE CESSATION DATE [facility] Jan 06, 2016 01:03 PM PRIOR TOBACCO USE CESSATION DATE [facility] Advance Directives: All historical and current [...] NOTIFICATION AND SCREENING JORGEGIOVANNI [facility] Nov 10, 2022 ADVANCE DIRECTIVE NOTIFICATION AND SCREENING JORGEGIOVANNI SGT [facility] Mar 17, 2020 ADVANCE DIRECTIVE DISCUSSION GIOVANNI JORGE [facility] May 23, 2019 ADVANCE DIRECTIVE DISCUSSION MADHURI WILSON [facility] Aug 23, 2016 ADVANCE DIRECTIVE DISCUSSION SHANKAR AYALA [facility] Jan 06, 2016 ADVANCE DIRECTIVE DISCUSSION KATIE BAILEY [facility] Jan 27, 2011 ADVANCE DIRECTIVE ANDREI ACE S[facility] Radiology Reports: +/- 30 days of [...] XTR NON-VASC LM TD: JADE GTZ V [id number] -[id number] M Exm Date: SEP 05, 2023@13:55 Req Phys: DEREK PE[facility]Req[facility]g L Img Loc: T-ULTRASOUND Service: Unknown (Case [id number] COMPLETE) US XTR NON-VASC LMTD (US Detailed) CPT:82334 Reason for Study: B/L swollen armpits Clinical History: Report Status: Verified Date Reported: SEP 05, 2023 Date Verified: SEP 05, 2023 Golf Ball Trimmer E-Sig:/ES/BERENICE MCCRACKEN Report: EXAMINATION: US XTR NON-VASC [...] REQUIRED Primary Interpreting Staff: BERENICE MCCRACKEN, Radiologist (Golf Ball Trimmer) /BERENICE FLORES [facility] Aug 12, 2023 12:19 PM LDCT LUNG CANCER S CREENING: JADE GTZ V [id number] -[id number] M Exm Date: AUG 12, 2023@12:19 Req Phys: SHERLYN POSADAS Loc: [facility] (Req'g Loc) Img Loc: T-CT SCAN Service: Unknown (Case [id number] COMPLETE) LDCT LUNG CANCER SCREENING (CT Detailed) CPT:82300 Reason for Study: Abnormal LDCT follow-up Clinical History: Report Status: Verified Date Reported: AUG 12, 2023 Date Verified: AUG 12, 2023 Golf Ball Trimmer E-Sig:/ES/SARAH ASHLEY MD Report: EXAM: LDCT LUNG CANCER SCREENING ADDITIONAL HISTORY: Annual Screening COMPARISON: 08/09/2022 PROTOCOL: Screening protocol, low dose, non-contrast CT chest was performed in accordance with Lung-Rads v1.1. Additional coronal and sagittal reconstructions. MIP reconstructions were reviewed. Computer assisted detection (CAD) postprocessing of the lung windows done by Harri software. DOSE PARAMETERS: Up-to-date CT equipment and radiation dose reduction techniques were employed. CTDIvol: 2.8 mGy. DLP: 94 mGy-cm. TECH NOTE: [place]'s name: Angela Protocol: LDCT Exam Additional notes: [...] SARAH ASHLEY MD, Staff Physician (Golf Ball Trimmer) /[facility]ARAH MARCH [facility] Encounter Notes: All associated encounter notes This section contains the clinical notes associated to the Encounter. Date/Time Encounter Note(s) Provider Source Aug 23, 2023 04:05 PM ADDENDUM: LOCAL TITLE: Addendum STANDARD TITLE: ADDENDUM DATE OF NOTE: AUG 23, 2023@16:05:42 ENTRY DATE: AUG 23, 2023@16:05:44 AUTHOR: DEREK PEÑA EXP COSIGNER: URGENCY: STATUS: COMPLETED I already attempted to address this issue multiple times: - Capsaicin cream was prescribed in the past. - Triamcinolone was prescribed. - Gabapentin was prescribed (for both, neuropathic pain and anxiety). - Hydoxyzine was ordered for anxiety, but it may also help with itching. - I would recommend good hygiene due to possible sweating, keep area clean and dry. - Ultrasound or armpits is pending - I believe I offered to come to the clinic for pictures so consult to derm can be entered. Has considered this option? * Has tried all or at least any of the above? * Also, during last visit told me he will f/u with his civilian provider for this issue. Has he followed up, and if so, what was recommended? If wants to discuss these issues I believe it would be beneficial to schedule follow up visit. He also requested change of provider, he may await new PCP. Alternatively he can consider CAU for faster evaluation. /hina/ DEREK PEÑA Physician Signed: 08/24/2023 08:31 Receipt Acknowledged By: 08/25/2023 12:56 /es/ KARINA CHENEY RN for KAMRAN LEBLANC --- Original Document --- 08/22/23 PRIMARY CARE SECURE MESSAGING: ------Original Message --- Sent: 08/19/2023 07:06 PM ET From: JADE GTZ V To: Yareli PACT 7 Casey Subject: Appointment:i need treatment! why have i not been referred to a ear nose throat doctor? The swollen glands are worse and my skin is red over them and burning. The appointment for the sonogram is not until the Aug. I need to get some kind of treatment soon or at least some advice as to what i can do about this. The lack of urgency from this team is unexceptable! ------Original Message --- Sent: 08/22/2023 03:05 PM ET From: KAMRAN LEBLANC To: JADE GTZ V Subject: Appointment:i need treatment! Mr. Gtz, I am forwarding your concerns on to Dr. Peña for further consideration. Doreen Leblanc RN /es/ Doreen Leblanc RN Signed: 08/22/2023 15:05 Receipt Acknowledged By: 08/23/2023 16:05 /es/ DEREK PEÑA Physician DEREK PEÑA [facility] Aug 22, 2023 03:05 PM PRIMARY CARE [employer] E MESSAGING: LOCAL TITLE: PRIMARY CARE SECURE MESSAGING STANDARD TITLE: PRIMARY CARE SECURE MESSAGING DATE OF NOTE: AUG 22, 2023@15:05 ENTRY DATE: AUG 22, 2023@15:05:09 AUTHOR: KAMRAN LEBLANC EXP COSIGNER: URGENCY: STATUS: COMPLETED PRIMARY CARE SECURE MESSAGING Has ADDENDA ------Original Message --- Sent: 08/19/2023 07:06 PM ET From: JADE GTZ V To: [facility] Alexa Peña Subject: Appointment:i need treatment! why have i not been referred to a ear nose throat doctor? The swollen glands are worse and my skin is red over them and burning. The appointment for the sonogram is not until the Aug. I need to get some kind of treatment soon or at least some advice as to what i can do about this. The lack of urgency from this team is unexceptable! ------Original Message --- Sent: 08/22/2023 03:05 PM ET From: KAMRAN LEBLANC To: JADE GTZ V Subject: Appointment:i need treatment! Mr. Gtz, I am forwarding your concerns on to Dr. Peña for further consideration. Doreen Leblanc RN /es/ Doreen Leblanc RN Signed: 08/22/2023 15:05 Receipt Acknowledged By: 08/23/2023 16:05 /hina/ DEREK PEÑA Physician 08/23/2023 ADDENDUM STATUS: COMPLETED I already attempted to address this issue multiple times: - Capsaicin cream was prescribed in the past. - Triamcinolone was prescribed. - Gabapentin was prescribed (for both, neuropathic pain and anxiety). - Hydoxyzine was ordered for anxiety, but it may also help with itching. - I would recommend good hygiene due to possible sweating, keep area clean and dry. - Ultrasound or armpits is pending - I believe I offered to come to the clinic for pictures so consult to derm can be entered. Has considered this option? * Has tried all or at least any of the above? * Also, during last visit told me he will f/u with his civilian provider for this issue. Has he followed up, and if so, what was recommended? If wants to discuss these issues I believe it would be beneficial to schedule follow up visit. He also requested change of provider, he may await new PCP. Alternatively he can consider CAU for faster evaluation. /hina/ DEREK PEÑA Physician Signed: 08/24/2023 08:31 Receipt Acknowledged By: 08/25/2023 12:56 /hina/ KARINA CHENEY RN for KAMRAN LEBLANC 08/29/2023 ADDENDUM STATUS: COMPLETED 08/25 @ 1320- Spoke with pt. He says that he has tried Casaicin cream and it anderson him. He does not want Triamcinolone cream. He does not want to take Gabapentin or Hydroxzine due to side effects that could be associated with other conditions he has. He is trying to get a sooner US appt. Note to Dr Peña: He has retroperitonela US ord but it should be for under his arms. He will change the order. Pt has req change of PCP and has appt sched with Pact 6 (Dr Stahl) on 09/07. /hina/ KARINA CHENEY RN Signed: 08/29/2023 11:07 KAMRAN LEBLANC [facility]
--- OUTSIDE RECORDS SUMMARY | 2024-04-30 08:35 | XMS_ITS | Patient Health Record ---
Author Organization [facility] es Billing Info Address [address] [place], [place] [address] Support Name Relationship Address Phone Alfred GTZ Guarantor Unknown [phone] Reason For Referral No Information Social History Tobacco Use: Social History Observation Description Date Smoking Status WARNING: Information temporarily unavailable Tobacco Status: Question Answer Notes Patient is a never smoker Plan Of Treatment No Information Insurance Providers Payer Name Payer Address Payer Phone Subscriber Number Group Number Insured Name Patient Relationship to Insured Coverage Start Date Coverage End Date [facility] [place] [address] [place], [place] [id number] Alfred FR[place] Self - patient is the insured 2 2
[2024-04-30] MEDS: Aspirin E.C. 325 MG TABEC PO (08:56)
[2024-04-30] MEDS: LORazepam 1 MG TAB PO (09:59)
[2024-04-30] MEDS: Heparin in 0.45% NaCl 25,000 UNIT/250 ML BAG 8.5 UNIT IV (10:00)
[2024-04-30 10:32] LABS: Troponin I 87 ng/L (< or =60)
[2024-04-30] MEDS: Clopidogrel 300 MG TAB 600 MG PO (10:38)
[2024-04-30] MEDS: Atorvastatin 40 MG TAB 80 MG PO (10:38)
[2024-04-30] MEDS: Metoprolol 12.5 MG TAB PO (10:38)
[2024-04-30 11:35] LABS: NT-proBNP 281 pg/mL (<300)
== END 2024-04-30 15:30 | disposition short-term general hospital (02) ==
PROVIDERS: Emergency Provider Emergency Medicine
DX: R07.9 Chest pain, unspecified (principal); R06.00 Dyspnea, unspecified; I21.4 Non-ST elevation (NSTEMI) myocardial infarction; I10 Essential (primary) hypertension
CPT/HCPCS: 36415; 71275; 80053; 93005; 96365; 96366; 99285; 83735; 83880; 84484; 85025; 85610; 85730; 93010; J1644; J3490